=== PATIENT | male | born 1945 | race Caucasian/White ===

== ENCOUNTER → 2020-04-26 11:26 | Outpatient (BNVA) | payer MEDICARE, SELFPAY | PROVIDERS: PCP Internal Medicine; Visit Provider Internal Medicine | DX: J44.9 Chronic obstructive pulmonary disease, unspecified (principal); R09.02 Hypoxemia | CPT/HCPCS: 99213 ==

== ENCOUNTER → 2020-05-25 10:25 | Outpatient (BNVA) | payer MEDICARE, SELFPAY | PROVIDERS: PCP Internal Medicine; Referring Provider Internal Medicine; Visit Provider Internal Medicine | DX: J44.9 Chronic obstructive pulmonary disease, unspecified (principal); R09.02 Hypoxemia; Z87.891 Personal history of nicotine dependence | CPT/HCPCS: 99212 ==

== ENCOUNTER 2020-07-31 06:16 | Outpatient (REF) | payer MEDICARE, SELFPAY ==
[2020-07-31 07:10] LABS: Basophils Absolute Auto 0.1 X10*3/uL (0.0-0.2); Basophils Percent Auto 0.9 % (0-2); Eosinophils Absolute Auto 0.6 X10*3/uL (0.0-0.4); Imm Gran Abs Auto 0.05 X10*3/uL (0.00-0.03); Imm Gran Pct Auto 0.4 % (0.0-0.4); PLT CLUMP 1; SCAN SMEAR FLAG 1
[2020-07-31 07:12] LABS: Hemoglobin 14.8 g/dl (14.0-18.0); Lymphocytes Absolute Auto 2.1 X10*3/uL (1.2-4.9); Lymphocytes Percent Auto 17.1 % (20-40); Mean Corpuscular HGB Conc 32.9 g/dl (31.0-36.0); Mean Corpuscular Volume 94.3 fL (80-98); Mean Platelet Volume 9.9 fL (9.4-12.4); Monocytes Absolute Auto 1.3 X10*3/uL (0.1-1.2); Monocytes Percent Auto 10.8 % (2-11); Neutrophils Absolute Auto 8.1 X10*3/uL (2.0-8.3); Neutrophils Percent Auto 65.8 % (45-73); Red Blood Count 4.77 X10*6/uL (4.60-5.80); Red Cell Distribution Width 14.6 % (11.0-16.0); White Blood Count 12.4 X10*3/uL (4.8-10.8)
[2020-07-31 07:19] LABS: MANUAL DIFF FLAG SCAN
[2020-07-31 07:32] LABS: Alanine Aminotransferase 12 U/L (0-40); Albumin Level 3.9 g/dL (3.5-5.0); Alkaline Phosphatase 135 U/L (39-117); Anion Gap 15 (12-20); Aspartate Amino Transferase 17 U/L (5-37); Bilirubin Total 1.4 mg/dL (0.0-1.0); Blood Urea Nitrogen 8 mg/dL (9-16); Calcium 9.2 mg/dL (8.4-10.2); Carbon Dioxide 30 mmol/L (22-29); Chloride 101 mmol/L (96-108); Cholesterol 162 mg/dL; Estimated Glomerular Filt Rate > 60; Glucose Fasting 97 mg/dL (60-99); HDL Cholesterol 47 mg/dL; LDL Cholesterol Calculated 98 mg/dl; Sodium 141 mmol/L (135-145); Total Protein 7.3 g/dL (6.5-8.0); Triglycerides 87 mg/dL
[2020-07-31 07:53] LABS: Estimated Average Glucose 105 mg/dL; Hemoglobin A1c % 5.3 %
[2020-07-31 07:55] LABS: SLIDE REVIEW VERIFIED
[2020-07-31 07:56] LABS: Vitamin D 25-OH Total 34.3 ng/mL (>30)
== END 2020-07-31 06:17 | disposition home or self-care (01) ==
LOC: HO.LAB 06:16
PROVIDERS: Visit Provider Internal Medicine
DX: E78.5 Hyperlipidemia, unspecified (principal); K51.90 Ulcerative colitis, unspecified, without complications; R73.01 Impaired fasting glucose; J44.9 Chronic obstructive pulmonary disease, unspecified; E55.9 Vitamin D deficiency, unspecified; E66.9 Obesity, unspecified
CPT/HCPCS: 36415; 80053; 80061; 82306; 83036; 84443; 85025

== ENCOUNTER → 2020-10-05 10:23 | Outpatient (BNVA) | payer MEDICARE, SELFPAY | PROVIDERS: PCP Internal Medicine; Visit Provider Internal Medicine | DX: J44.9 Chronic obstructive pulmonary disease, unspecified (principal); R09.02 Hypoxemia; Z79.51 Long term (current) use of inhaled steroids; Z87.891 Personal history of nicotine dependence | CPT/HCPCS: 99212 ==

== ENCOUNTER 2020-11-28 06:23 | Outpatient (REF) | payer MEDICARE, SELFPAY ==
[2020-11-28 07:48] LABS: Basophils Absolute Auto 0.1 X10*3/uL (0.0-0.2); Basophils Percent Auto 0.9 % (0-2); Eosinophils Absolute Auto 0.2 X10*3/uL (0.0-0.4); Eosinophils Percent Auto 2.6 % (0-4); Hematocrit 43.3 % (42-52); Hemoglobin 14.6 g/dl (14.0-18.0); Imm Gran Abs Auto 0.04 X10*3/uL (0.00-0.03); Imm Gran Pct Auto 0.4 % (0.0-0.4); Lymphocytes Absolute Auto 2.2 X10*3/uL (1.2-4.9); Lymphocytes Percent Auto 23.3 % (20-40); MANUAL DIFF FLAG SCAN; Mean Corpuscular HGB Conc 33.7 g/dl (31.0-36.0); Mean Corpuscular Hemoglobin 31.5 pg (27.0-33.0); Mean Corpuscular Volume 93.5 fL (80-98); Monocytes Absolute Auto 1.3 X10*3/uL (0.1-1.2); Monocytes Percent Auto 14.4 % (2-11); Neutrophils Absolute Auto 5.4 X10*3/uL (2.0-8.3); Neutrophils Percent Auto 58.4 % (45-73); PLT CLUMP 1; Red Blood Count 4.63 X10*6/uL (4.60-5.80); Red Cell Distribution Width 14.5 % (11.0-16.0); SCAN SMEAR FLAG 1
[2020-11-28 07:56] LABS: Alanine Aminotransferase 18 U/L (0-40); Albumin Level 4.1 g/dL (3.5-5.0); Alkaline Phosphatase 143 U/L (39-117); Anion Gap 12 (12-20); Aspartate Amino Transferase 20 U/L (5-37); Bilirubin Total 1.7 mg/dL (0.0-1.0); Blood Urea Nitrogen 15 mg/dL (9-16); Calcium 9.1 mg/dL (8.4-10.2); Carbon Dioxide 29 mmol/L (22-29); Chloride 105 mmol/L (96-108); Cholesterol 143 mg/dL; Estimated Glomerular Filt Rate > 60; Glucose Fasting 88 mg/dL (60-99); HDL Cholesterol 49 mg/dL; LDL Cholesterol Calculated 81 mg/dl; Potassium 4.2 mmol/L (3.3-5.1); Sodium 142 mmol/L (135-145); Triglycerides 65 mg/dL
[2020-11-28 08:19] LABS: TSH reflex Free T4 1.35 uIU/mL (0.32-4.0)
[2020-11-28 09:09] LABS: White Blood Count 9.3 X10*3/uL (4.8-10.8)
[2020-11-28 09:11] LABS: SLIDE REVIEW VERIFIED
== END 2020-11-28 06:24 | disposition home or self-care (01) ==
LOC: HO.LAB 06:23
PROVIDERS: PCP Internal Medicine; Visit Provider Internal Medicine
DX: E78.00 Pure hypercholesterolemia, unspecified (principal); J44.9 Chronic obstructive pulmonary disease, unspecified; K51.90 Ulcerative colitis, unspecified, without complications; R73.01 Impaired fasting glucose; E66.9 Obesity, unspecified
CPT/HCPCS: 36415; 80053; 80061; 84443; 85025

== ENCOUNTER → 2021-02-07 10:19 | Outpatient (BNVA) | payer MEDICARE, SELFPAY | PROVIDERS: PCP Internal Medicine; Visit Provider Internal Medicine | DX: J44.9 Chronic obstructive pulmonary disease, unspecified (principal); R09.02 Hypoxemia | CPT/HCPCS: 99212 ==

== ENCOUNTER 2021-02-16 15:46 | Outpatient (REF) | payer SELFPAY | END 2021-02-16 15:47 | disposition home or self-care (01) | LOC: HO.HAP 15:46 | PROVIDERS: Visit Provider Internal Medicine | DX: Z46.1 Encounter for fitting and adjustment of hearing aid (principal); H90.3 Sensorineural hearing loss, bilateral | CPT/HCPCS: V5266; V5267 ==

== ENCOUNTER 2021-04-27 06:51 | Outpatient (REF) | payer MEDICARE, SELFPAY ==
[2021-04-27 06:57] LABS: MANUAL DIFF FLAG NO
[2021-04-27 07:29] LABS: Basophils Absolute Auto 0.1 X10*3/uL (0.0-0.2); Basophils Percent Auto 0.6 % (0-2); Eosinophils Absolute Auto 0.2 X10*3/uL (0.0-0.4); Eosinophils Percent Auto 1.8 % (0-4); Hematocrit 42.5 % (42-52); Imm Gran Abs Auto 0.05 X10*3/uL (0.00-0.03); Imm Gran Pct Auto 0.5 % (0.0-0.4); Lymphocytes Absolute Auto 2.3 X10*3/uL (1.2-4.9); Lymphocytes Percent Auto 24.9 % (20-40); Mean Corpuscular HGB Conc 35.3 g/dl (31.0-36.0); Mean Corpuscular Hemoglobin 32.8 pg (27.0-33.0); Mean Corpuscular Volume 92.8 fL (80-98); Mean Platelet Volume 11.4 fL (9.4-12.4); Monocytes Absolute Auto 1.2 X10*3/uL (0.1-1.2); Monocytes Percent Auto 12.6 % (2-11); Neutrophils Absolute Auto 5.5 X10*3/uL (2.0-8.3); Neutrophils Percent Auto 59.6 % (45-73); Platelet Count 155 X10*3/uL (160-400); Red Blood Count 4.58 X10*6/uL (4.60-5.80); Red Cell Distribution Width 13.5 % (11.0-16.0); White Blood Count 9.3 X10*3/uL (4.8-10.8)
[2021-04-27 07:52] LABS: Alanine Aminotransferase 18 U/L (0-40); Albumin Level 4.2 g/dL (3.5-5.0); Alkaline Phosphatase 140 U/L (39-117); Anion Gap 11 (12-20); Aspartate Amino Transferase 21 U/L (5-37); Blood Urea Nitrogen 12 mg/dL (9-16); Calcium 9.4 mg/dL (8.4-10.2); Carbon Dioxide 30 mmol/L (22-29); Chloride 103 mmol/L (96-108); Cholesterol 156 mg/dL; Estimated Glomerular Filt Rate > 60; Glucose Fasting 97 mg/dL (60-99); HDL Cholesterol 54 mg/dL; LDL Cholesterol Calculated 86 mg/dl; Potassium 4.1 mmol/L (3.3-5.1); Sodium 140 mmol/L (135-145); Total Protein 7.1 g/dL (6.5-8.0); Triglycerides 83 mg/dL
[2021-04-27 08:16] LABS: Vitamin D 25-OH Total 31.8 ng/mL (>30)
== END 2021-04-27 06:52 | disposition home or self-care (01) ==
LOC: HO.LAB 06:51
PROVIDERS: PCP Internal Medicine; Visit Provider Internal Medicine
DX: J44.9 Chronic obstructive pulmonary disease, unspecified (principal); K51.90 Ulcerative colitis, unspecified, without complications; E78.00 Pure hypercholesterolemia, unspecified; R73.01 Impaired fasting glucose; E55.9 Vitamin D deficiency, unspecified
CPT/HCPCS: 36415; 80053; 80061; 81003; 82306; 85025

== ENCOUNTER 2021-05-31 10:01 | Outpatient (REF) | payer MEDICARE, SELFPAY ==
[2021-05-31 10:52] LABS: Alanine Aminotransferase 19 U/L (0-40); Albumin Level 4.2 g/dL (3.5-5.0); Alkaline Phosphatase 147 U/L (39-117); Aspartate Amino Transferase 19 U/L (5-37); Bilirubin Direct 0.7 mg/dL (0.0-0.5); Bilirubin Total 2.1 mg/dL (0.0-1.0); Total Protein 7.1 g/dL (6.5-8.0)
== END 2021-05-31 10:02 | disposition home or self-care (01) ==
LOC: HO.10HDL 10:01
PROVIDERS: Visit Provider Internal Medicine
DX: R79.89 Other specified abnormal findings of blood chemistry (principal)
CPT/HCPCS: 36415; 80076

== ENCOUNTER 2021-06-29 10:00 | Outpatient (REF) | payer MEDICARE, SELFPAY ==
[2021-06-29 11:04] LABS: Imm Gran Abs Auto 0.04 X10*3/uL (0.00-0.03); PLT CLUMP 1; SCAN SMEAR FLAG 1
[2021-06-29 11:06] LABS: Basophils Absolute Auto 0.1 X10*3/uL (0.0-0.2); Basophils Percent Auto 0.4 % (0-2); Eosinophils Absolute Auto 0.1 X10*3/uL (0.0-0.4); Eosinophils Percent Auto 0.7 % (0-4); Hemoglobin 15.5 g/dl (14.0-18.0); Imm Gran Pct Auto 0.3 % (0.0-0.4); Lymphocytes Absolute Auto 1.8 X10*3/uL (1.2-4.9); Lymphocytes Percent Auto 15.1 % (20-40); MANUAL DIFF FLAG SCAN; Mean Corpuscular HGB Conc 35.2 g/dl (31.0-36.0); Mean Corpuscular Hemoglobin 32.8 pg (27.0-33.0); Mean Corpuscular Volume 93.2 fL (80.0-98.0); Monocytes Absolute Auto 1.4 X10*3/uL (0.1-1.2); Monocytes Percent Auto 12.1 % (2-11); Neutrophils Absolute Auto 8.3 x10*3/uL (2.0-8.3); Neutrophils Percent Auto 71.4 % (45-73); Red Blood Count 4.72 X10*6/uL (4.60-5.80); Red Cell Distribution Width 13.9 % (11.0-16.0)
[2021-06-29 11:10] LABS: White Blood Count 11.6 X10*3/uL (4.8-10.8)
[2021-06-29 11:30] LABS: SLIDE REVIEW VERIFIED
[2021-06-29 11:44] LABS: Alanine Aminotransferase 16 U/L (0-40); Alkaline Phosphatase 157 U/L (39-117); Anion Gap 14 (12-20); Aspartate Amino Transferase 20 U/L (5-37); Bilirubin Direct 0.7 mg/dL (0.0-0.5); Bilirubin Total 2.1 mg/dL (0.0-1.0); Blood Urea Nitrogen 8 mg/dL (9-16); C Reactive Protein 3.38 mg/dL (< or = 0.50); Calcium 9.5 mg/dL (8.4-10.2); Carbon Dioxide 28 mmol/L (22-29); Chloride 103 mmol/L (96-108); Estimated Glomerular Filt Rate > 60; Glucose Random 128 mg/dL (60-115); Sodium 141 mmol/L (135-145); Total Protein 7.1 g/dL (6.5-8.0)
[2021-06-29 11:52] LABS: Erythrocyte Sedimentation Rate 16 MM/HR (0-15)
== END 2021-06-29 10:01 | disposition home or self-care (01) ==
LOC: HO.LAB 10:00
PROVIDERS: PCP Internal Medicine; Visit Provider Internal Medicine
DX: K51.00 Ulcerative (chronic) pancolitis without complications (principal); R19.7 Diarrhea, unspecified
CPT/HCPCS: 36415; 80048; 80076; 85025; 85652; 86140

== ENCOUNTER 2021-06-30 08:52 | Outpatient (REF) | payer MEDICARE, SELFPAY ==
[2021-06-30 10:34] LABS: CDiff Gene PCR NEGATIVE (Negative)
[2021-06-30 10:38] LABS: Leukocytes Stool Qualitative NEGATIVE (NEGATIVE)
== END 2021-06-30 08:53 | disposition home or self-care (01) ==
LOC: HO.LNP 08:52
PROVIDERS: Visit Provider Internal Medicine
DX: K51.00 Ulcerative (chronic) pancolitis without complications (principal); R19.7 Diarrhea, unspecified
CPT/HCPCS: 87045; 87046; 87177; 87209; 87329; 87493; 89055

== ENCOUNTER → 2021-07-31 09:37 | Outpatient (BNVA) | payer MEDICARE, SELFPAY | PROVIDERS: PCP Internal Medicine; Visit Provider Internal Medicine | DX: J44.9 Chronic obstructive pulmonary disease, unspecified (principal); R09.02 Hypoxemia; E66.9 Obesity, unspecified; Z68.34 Body mass index [BMI] 34.0-34.9, adult | CPT/HCPCS: 99212 ==

== ENCOUNTER → 2022-01-29 10:21 | Outpatient (BNVA) | payer MEDICARE, SELFPAY | PROVIDERS: PCP Internal Medicine; Visit Provider Internal Medicine | DX: J44.9 Chronic obstructive pulmonary disease, unspecified (principal); E66.9 Obesity, unspecified; R09.02 Hypoxemia; Z68.33 Body mass index [BMI] 33.0-33.9, adult | CPT/HCPCS: 99212 ==

== ENCOUNTER 2022-04-29 07:10 | Outpatient (REF) | payer MEDICARE, SELFPAY ==
[2022-04-29 07:26] LABS: MANUAL DIFF FLAG NO
[2022-04-29 07:55] LABS: Basophils Absolute Auto 0.1 X10*3/uL (0.0-0.2); Basophils Percent Auto 0.8 % (0-2); Eosinophils Absolute Auto 0.2 X10*3/uL (0.0-0.4); Hematocrit 45.3 % (42.0-52.0); Hemoglobin 16.1 g/dl (14.0-18.0); Imm Gran Abs Auto 0.04 X10*3/uL (0.00-0.03); Imm Gran Pct Auto 0.4 % (0.0-0.4); Lymphocytes Absolute Auto 2.5 X10*3/uL (1.2-4.9); Lymphocytes Percent Auto 25.5 % (20-40); Mean Corpuscular HGB Conc 35.5 g/dl (31.0-36.0); Mean Corpuscular Hemoglobin 32.3 pg (27.0-33.0); Mean Corpuscular Volume 90.8 fL (80.0-98.0); Mean Platelet Volume 9.6 fL (9.4-12.4); Monocytes Percent Auto 10.3 % (2-11); Neutrophils Absolute Auto 6.1 x10*3/uL (2.0-8.3); Platelet Count 348 X10*3/uL (160-400); Red Blood Count 4.99 X10*6/uL (4.60-5.80)
[2022-04-29 08:36] LABS: Alanine Aminotransferase 19 U/L (0-40); Albumin Level 4.3 g/dL (3.5-5.0); Alkaline Phosphatase 173 U/L (39-117); Anion Gap 18 (12-20); Aspartate Amino Transferase 22 U/L (5-37); Bilirubin Total 2.4 mg/dL (0.0-1.0); Blood Urea Nitrogen 10 mg/dL (9-16); Calcium 9.4 mg/dL (8.4-10.2); Carbon Dioxide 28 mmol/L (22-29); Chloride 103 mmol/L (96-108); Cholesterol 159 mg/dL; Estimated Glomerular Filt Rate > 60; Glucose Fasting 116 mg/dL (60-99); HDL Cholesterol 53 mg/dL; LDL Cholesterol Calculated 84 mg/dl; Potassium 4.1 mmol/L (3.3-5.1); Sodium 145 mmol/L (135-145); Total Protein 7.2 g/dL (6.5-8.0); Triglycerides 110 mg/dL
[2022-04-29 08:38] LABS: TSH reflex Free T4 1.39 uIU/mL (0.32-4.0); Vitamin D 25-OH Total 36.2 ng/mL (>30)
[2022-04-29 10:07] LABS: Appearance Urine Clear; Color Urine Yellow; Glucose Urine UA Negative (Negative); Leukocyte Esterase Urine Large (3+) (Negative); Nitrite Urine Negative (Negative); PH 6.5 (5.0-9.0); Specific Gravity - Urine 1.015 (1.005-1.025); UMIC TRIGGER UACC YES; Urine Blood Trace (Negative); Urine Ketones Negative (Negative); Urine Protein 30 (1+) mg/dL (Neg-Trace)
[2022-04-29 10:12] LABS: Bacteria Urine Trace (None Seen); Hyaline Casts Urine 0-2 /LPF (0-2); RBC Urine 0-2 /HPF (0-2); UACC Culture Trigger YES; WBC Urine >50 /HPF (0-5)
== END 2022-04-29 07:11 | disposition home or self-care (01) ==
LOC: HO.LAB 07:10
PROVIDERS: PCP Internal Medicine; Visit Provider Internal Medicine
DX: E78.00 Pure hypercholesterolemia, unspecified (principal); E55.9 Vitamin D deficiency, unspecified; I10 Essential (primary) hypertension
CPT/HCPCS: 36415; 80053; 80061; 81001; 82306; 84443; 85025; 87086; 87088; 87186

== ENCOUNTER → 2022-07-30 10:36 | Outpatient (BNVA) | payer MEDICARE, SELFPAY | PROVIDERS: PCP Internal Medicine; Visit Provider Internal Medicine | DX: J44.9 Chronic obstructive pulmonary disease, unspecified (principal); E66.9 Obesity, unspecified; R09.02 Hypoxemia; J30.9 Allergic rhinitis, unspecified; K51.90 Ulcerative colitis, unspecified, without complications | CPT/HCPCS: 99212 ==

== ENCOUNTER 2022-08-09 08:13 | Outpatient (REF) | payer MEDICARE, SELFPAY ==
[2022-08-09 08:38] LABS: MANUAL DIFF FLAG NO
[2022-08-09 08:51] LABS: Basophils Percent Auto 0.4 % (0-2); Hematocrit 44.2 % (42.0-52.0); Hemoglobin 15.6 g/dl (14.0-18.0); Imm Gran Abs Auto 0.08 X10*3/uL (0.00-0.03); Imm Gran Pct Auto 0.7 % (0.0-0.4); Lymphocytes Absolute Auto 1.8 X10*3/uL (1.2-4.9); Lymphocytes Percent Auto 15.5 % (20-40); Mean Corpuscular HGB Conc 35.3 g/dl (31.0-36.0); Mean Corpuscular Hemoglobin 32.4 pg (27.0-33.0); Mean Corpuscular Volume 91.9 fL (80.0-98.0); Mean Platelet Volume 9.1 fL (9.4-12.4); Monocytes Absolute Auto 1.4 X10*3/uL (0.1-1.2); Neutrophils Absolute Auto 8.1 x10*3/uL (2.0-8.3); Neutrophils Percent Auto 71.4 % (45-73); Platelet Count 523 X10*3/uL (160-400); Red Blood Count 4.81 X10*6/uL (4.60-5.80); Red Cell Distribution Width 14.5 % (11.0-16.0); White Blood Count 11.3 X10*3/uL (4.8-10.8)
[2022-08-09 09:33] LABS: Erythrocyte Sedimentation Rate 30 MM/HR (0-15)
[2022-08-09 09:38] LABS: Alanine Aminotransferase 21 U/L (0-40); Albumin Level 4.2 g/dL (3.5-5.0); Alkaline Phosphatase 159 U/L (39-117); Amylase 22 U/L (28-100); Anion Gap 15 (12-20); Aspartate Amino Transferase 20 U/L (5-37); Bilirubin Direct 0.5 mg/dL (0.0-0.5); Bilirubin Total 1.8 mg/dL (0.0-1.0); Blood Urea Nitrogen 10 mg/dL (9-16); C Reactive Protein 1.86 mg/dL (< or = 0.50); Calcium 9.2 mg/dL (8.4-10.2); Carbon Dioxide 27 mmol/L (22-29); Chloride 102 mmol/L (96-108); Estimated Glomerular Filt Rate > 60; Glucose Random 127 mg/dL (60-115); Lipase 8 U/L (8-78); Potassium 3.6 mmol/L (3.3-5.1); Sodium 140 mmol/L (135-145); Total Protein 7.1 g/dL (6.5-8.0)
[2022-08-10 08:49] LABS: HBc Num1 0.08 S/CO (0.00-0.79); HBsAGNum1 0.54 S/CO (0.00-0.99); Hepatitis B Core Antibody Nonreactive (Nonreactive); Hepatitis B Surface Antigen Negative (Negative); ~Hepatitis B Surface Antibody NONREACTIVE (Nonreactive)
[2022-08-11 23:05] LABS: TS Negative Control Passed; TS Panel A 1; TS Panel B 0; TS Positive Control Passed; TSpotTB Negative (Negative)
== END 2022-08-09 08:14 | disposition home or self-care (01) ==
LOC: HO.LAB 08:13
PROVIDERS: PCP Internal Medicine; Visit Provider Internal Medicine
DX: Z11.1 Encounter for screening for respiratory tuberculosis (principal); R10.84 Generalized abdominal pain; K51.00 Ulcerative (chronic) pancolitis without complications
CPT/HCPCS: 36415; 80048; 80076; 82150; 83690; 85025; 85652; 86140; 86481; 86704; 86706; 87340

== ENCOUNTER 2022-08-10 11:05 | Outpatient (REF) | payer MEDICARE, SELFPAY ==
[2022-08-10 13:21] LABS: CDiff Gene PCR NEGATIVE (Negative)
[2022-08-10 13:31] LABS: Leukocytes Stool Qualitative FEW: < 2/OIF (NEGATIVE)
[2022-08-15 22:09] LABS: Calprotectin, Fecal 7130 mcg/g
== END 2022-08-10 11:06 | disposition home or self-care (01) ==
LOC: HO.LNP 11:05
PROVIDERS: Visit Provider Internal Medicine
DX: R10.84 Generalized abdominal pain (principal); K51.00 Ulcerative (chronic) pancolitis without complications
CPT/HCPCS: 83993; 87493; 87507; 89055

== ENCOUNTER 2022-11-26 06:54 | Outpatient (REF) | payer MEDICARE, SELFPAY ==
[2022-11-26 07:03] LABS: MANUAL DIFF FLAG NO
[2022-11-26 07:59] LABS: Basophils Absolute Auto 0.1 X10*3/uL (0.0-0.2); Basophils Percent Auto 1.1 % (0-2); Eosinophils Absolute Auto 0.2 X10*3/uL (0.0-0.4); Eosinophils Percent Auto 2.2 % (0-4); Hematocrit 45.4 % (42.0-52.0); Imm Gran Abs Auto 0.04 X10*3/uL (0.00-0.03); Imm Gran Pct Auto 0.4 % (0.0-0.4); Lymphocytes Absolute Auto 2.7 X10*3/uL (1.2-4.9); Lymphocytes Percent Auto 24.6 % (20-40); Mean Corpuscular HGB Conc 35.2 g/dl (31.0-36.0); Mean Corpuscular Hemoglobin 32.7 pg (27.0-33.0); Mean Corpuscular Volume 92.7 fL (80.0-98.0); Monocytes Absolute Auto 1.4 X10*3/uL (0.1-1.2); Monocytes Percent Auto 12.4 % (2-11); Neutrophils Absolute Auto 6.6 x10*3/uL (2.0-8.3); Neutrophils Percent Auto 59.3 % (45-73); Red Cell Distribution Width 13.4 % (11.0-16.0); White Blood Count 11.1 X10*3/uL (4.8-10.8)
[2022-11-26 08:33] LABS: Mean Platelet Volume 10.1 fL (9.4-12.4)
[2022-11-26 08:34] LABS: Platelet Count 354 X10*3/uL (160-400)
[2022-11-26 11:02] LABS: Estimated Average Glucose 103 mg/dL; Hemoglobin A1c % 5.2 %
[2022-11-26 12:27] LABS: Alanine Aminotransferase 18 U/L (0-40); Albumin Level 4.1 g/dL (3.5-5.0); Alkaline Phosphatase 153 U/L (39-117); Anion Gap 16 (12-20); Aspartate Amino Transferase 20 U/L (5-37); Bilirubin Total 2.3 mg/dL (0.0-1.0); Blood Urea Nitrogen 9 mg/dL (9-16); Calcium 9.3 mg/dL (8.4-10.2); Carbon Dioxide 28 mmol/L (22-29); Chloride 102 mmol/L (96-108); Cholesterol 159 mg/dL; Estimated Glomerular Filt Rate > 60; Glucose Fasting 114 mg/dL (60-99); HDL Cholesterol 48 mg/dL; LDL Cholesterol Calculated 89 mg/dl; Potassium 3.5 mmol/L (3.3-5.1); Sodium 142 mmol/L (135-145); TSH reflex Free T4 1.36 uIU/mL (0.32-4.0); Total Protein 6.8 g/dL (6.5-8.0); Triglycerides 112 mg/dL; Vitamin D 25-OH Total 36.8 ng/mL (>30)
== END 2022-11-26 06:55 | disposition home or self-care (01) ==
LOC: HO.LAB 06:54
PROVIDERS: PCP Internal Medicine; Visit Provider Internal Medicine
DX: I10 Essential (primary) hypertension (principal); E55.9 Vitamin D deficiency, unspecified; R73.01 Impaired fasting glucose; E78.00 Pure hypercholesterolemia, unspecified
CPT/HCPCS: 36415; 80053; 80061; 82306; 83036; 84443; 85025

== ENCOUNTER 2023-02-25 09:11 | Outpatient (AMB) | payer MEDICARE, SELFPAY ==
[2023-02-25 09:22] VITALS: BP 140/102; PULSE 69; O2SAT 95; BMI 32.7
--- NOTE | 2023-02-25 09:22 | A.OFFVIS_ITS ---
Intake Vital Signs 02/25/23 09:22 Height 5 ft 7 in Weight 209 lb BMI 32.7 BP 140/102 H Blood Pressure Location Lt brachial Position Standing Pulse 69 Pulse Source Pulse Oximeter Pulse Oximetry (%) 95 Oxygen Delivery Method Room Air Intake Visit Reasons: COPD follow up Intake Note: pt is here for follow up of copd, he is on prednisone for his colitits for 7 weeks. prednisone is now at 15mg daily, taper the dose, breathing is ok, but weather is not good for him. Allergies No Known Allergies Allergy (Verified 02/25/23 09:44) Medication List - Last Reconciled 02/25/23 by Celsa Hoyt MD cholecalciferol (vitamin D3) 25 mcg PO DAILY mesalamine ER (Apriso) 1.5 grams PO QAM prednisone mg PO simvastatin 20 mg PO BEDTIME Do you need a note to return to daycare/school/sports/work: No HPI COPD follow up HPI Details Bright, 77 years old gentleman, is coming for his 6 months follow-up. Breathing wharton feeling fine and has no cough for shortness of breath. This is because of the prednisone effect. Since he is on prednisone for his inflammatory bowel disease, his breathing has definitely improved and he is not needing any oxygen. He does have O2 concentrator at home along with portable unit, but not using it at all these days. He checks his O2 sat frequently and it stay is in the normal range. He has no cough or wheezing. His sleep is disturbed because of prednisone he wakes up during the midnight and then has hard time to go back to sleep. His chronic allergic rhinitis/sinus trouble is also under control since he is on prednisone. It seems that his the respiratory condition flares up along with the flare up of inflammatory bowel disease, and both conditions respond to oral prednisone. [facility] Medical History Allergic rhinosinusitis COPD (chronic obstructive pulmonary disease) COPD (chronic obstructive pulmonary disease) case management patient Exercise hypoxemia Impaired fasting glucose Obesity (BMI 30-39.9) Pure hypercholesterolemia Ulcerative colitis Vitamin D deficiency Surgical History No pertinent past surgical history Family History Father Medical history unknown Mother Cancer Social History Housing: House Alcohol intake: former Patient Tobacco Use Status: Former Tobacco user Years Smoked: 8 years ago e-Cigarette/Vaping Use: Never Used Second Hand Smoke Exposure: Yes service: Yes Current occupational status: retired Cognitive needs: No Hearing needs: Yes Vision needs: Yes Review of Systems Const All systems reviewed & are unremarkable except as noted in HPI and below Eyes Reports no additional complaints ENT Reports no additional complaints Card Denies chest pain, Denies irregular heart rhythm and Reports leg edema (Mild around the ankles in the evenings.) Resp Reports as per HPI GI Reports GI cramping, Reports diarrhea and Reports other (Being treated for chronic inflammatory colitis.) Reports no additional complaints Musc Reports myalgias Skin/Breast Reports system reviewed and no additional complaints, except as documented Neuro Reports no additional complaints Psych Reports no additional complaints Physical Exam Const Other: Grossly obese looking General: comfortable, no acute distress, alert and awake Orientation/consciousness: patient oriented x3 HEENT Head: Yes normal to inspection General nose exam: No nasal polyps present, No nasal discharge present and Other nasal findings present (Does have bilateral nasal congestion and hypertrophy of the nasal turbinate) Face and sinus: Yes sinuses nontender Mouth: oropharynx normal Throat: Yes posterior oropharynx normal Eyes General: appearance normal, both eyes and all related structures Neck Neck: Yes normal visual inspection, Yes no lymphadenopathy, Yes trachea midline and Yes no JVD Thyroid: Thyroid normal Chest Chest palpation & inspection: normal inspection of the chest, normal palpation of entire chest wall and no tenderness Resp Other: Percussion note resonant, breath sounds are distant especially diminished over the basilar areas. On auscultation no wheezes rhonchi or crepitations are heard . Cardio Palpation: normal PMI Rate: regular rate Rhythm: regular rhythm Heart sounds: no gallops and no murmurs GI Palpation (GI): Soft to palpation, nontender, No hepatosplenomegaly present, no masses and Other GI palpation findings present (Abdomen is obese and protuberant) Auscultation: normal bowel sounds Back/Spine/Pelvis Thoracic/Lumbar Spine: thoracic and lumbar spine normal to inspection Skin General skin exam: no rashes or lesions noted Neuro General: patient oriented x3 and no focal motor deficits Cranial nerves: Yes CN's II-XII intact bilaterally Extrem General: Yes normal to inspection, Yes no clubbing, cyanosis or edema and Yes no calf tenderness Psych Appearance: grossly normal and well kempt Speech and movement: Normal speech and movement present Assessment & Plan Assessment & Plan (1) Allergic rhinosinusitis: Comment: THIS IS A CHRONIC PROBLEM AND DOES FLARE UP DURING SEASONAL CHANGES. CURRENTLY HE IS ON PREDNISONE IBS . THIS CONDITION IS ALSO UNDER GOOD CONTROL. [place] : USE FLONASE 2 SPRAY IN EACH NOSTRIL DAILY AT NIGHT, Code(s): J30.9 - Allergic rhinitis, unspecified (2) COPD (chronic obstructive pulmonary disease): Comment: He has mild to moderate degree of chronic obstructive pulmonary disease. (LAST SPIROMETRY IN 2019 MILD OBSTRUCTIVE PULM . DISORDER ) Has had no acute exacerbation. Has not required to use any long-acting bronchodilators, has also hardly needed to use the rescue inhaler. Overall his COPD status is mild and remaining very stable .. * advise that after completing the prednisone taper for IBS , he should stay on prednisone 5 mg on alternate days, And hopefully with this is COPD as well as IBS will remain under control. Will recheck him after 3 months. Code(s): J44.9 - Chronic obstructive pulmonary disease, unspecified Qualifiers: COPD type: unspecified COPD Qualified Code(s): J44.9 - Chronic obstructive pulmonary disease, unspecified (3) Obesity (BMI 30-39.9): Comment: This is a chronic problem, partly promoted by his frequently usage of prednisone for inflammatory bowel disease. He will continue to try losing more weight. Denies symptoms of obstructive sleep apnea. Code(s): E66.9 - Obesity, unspecified Coding Level of Care Code Est Pt Level 3 (13551) Diagnoses Allergic rhinosinusitis J30.9 COPD (chronic obstructive pulmonary disease) J44.9 COPD type: unspecified COPD Obesity (BMI 30-39.9) E66.9
== END 2023-02-25 09:52 | disposition home or self-care (01) ==
PROVIDERS: PCP Internal Medicine; Visit Provider Internal Medicine
DX: J30.9 Allergic rhinitis, unspecified (principal); J44.9 Chronic obstructive pulmonary disease, unspecified; E66.9 Obesity, unspecified
CPT/HCPCS: 99213

== ENCOUNTER → 2023-02-25 09:11 | Outpatient (BNVA) | payer MEDICARE, SELFPAY | PROVIDERS: PCP Internal Medicine; Visit Provider Internal Medicine | DX: J44.9 Chronic obstructive pulmonary disease, unspecified (principal); J30.9 Allergic rhinitis, unspecified; E66.9 Obesity, unspecified; Z68.32 Body mass index [BMI] 32.0-32.9, adult | CPT/HCPCS: 99212 ==

== ENCOUNTER 2023-06-04 10:18 | Outpatient (AMB) | payer MEDICARE, SELFPAY ==
[2023-06-04 10:30] VITALS: BP 160/82; PULSE 98; O2SAT 92; BMI 34.3
--- NOTE | 2023-06-04 10:30 | A.OFFVIS_ITS ---
Intake Vital Signs 06/04/23 10:30 Height 5 ft 7 in Weight 219 lb BMI 34.3 BP 160/82 H Blood Pressure Location Lt brachial Position Sitting Pulse 98 Pulse Source Pulse Oximeter Pulse Oximetry (%) 92 Oxygen Delivery Method Room Air Intake Visit Reasons: copd Intake Note: pt is here for follow up and states he is feeling some good days and bad days. o xygen use is prn daytime/nightime Unattended Ground Sensor Specialist Required: No Allergies No Known Allergies Allergy (Verified 06/04/23 10:57) Medication List - Last Reconciled 06/04/23 by Celsa Hoyt MD cholecalciferol (vitamin D3) 25 mcg PO DAILY mesalamine ER (Apriso) 1.5 grams PO QAM simvastatin 20 mg PO BEDTIME HPI copd HPI Details Maday is 77 years old gentleman with chronic obstructive pulmonary disease, . He is not using any bronchodilator inhalers, has used prednisone off and on, But stopped completely a few weeks ago. He say is his breathing is stable, except for shortness of breath on exertion, he is not having any cough or. Wheezing at rest He has inflammatory bowel disease and does use prednisone sometimes for flare ups of IBD. That is also stable at this time. He has very little cough or wheezing. He remains overweight, and that is partly due to chronic use of steroids . [facility] Medical History Allergic rhinosinusitis Obesity (BMI 30-39.9) Vitamin D deficiency Impaired fasting glucose Ulcerative colitis COPD (chronic obstructive pulmonary disease) Pure hypercholesterolemia Exercise hypoxemia COPD (chronic obstructive pulmonary disease) case management patient Surgical History No pertinent past surgical history Family History Father Medical history unknown Mother Cancer Social History Housing: House Alcohol intake: former Patient Tobacco Use Status: Former Tobacco user Years Smoked: 8 years ago e-Cigarette/Vaping Use: Never Used Second Hand Smoke Exposure: Yes service: Yes Current occupational status: retired Cognitive needs: No Hearing needs: Yes Vision needs: Yes Review of Systems Const All systems reviewed & are unremarkable except as noted in HPI and below Eyes Reports no additional complaints ENT Reports no additional complaints Card Denies chest pain, Denies irregular heart rhythm and Reports leg edema (Mild around the ankles in the evenings.) Resp Reports as per HPI GI Reports GI cramping, Reports diarrhea and Reports other (Being treated for chronic inflammatory colitis.) Reports no additional complaints Musc Reports myalgias Skin/Breast Reports system reviewed and no additional complaints, except as documented Neuro Reports no additional complaints Psych Reports no additional complaints Physical Exam Vital Signs: Last Vital Signs Pulse 98 06/04/23 10:30 BP 160/82 H 06/04/23 10:30 Pulse Ox 92 06/04/23 10:30 Oxygen Delivery Method Room Air 06/04/23 10:30 BMI result Body Mass Index 34.3 Const Other: Grossly obese looking General: comfortable, no acute distress, alert and awake Orientation/consciousness: patient oriented x3 HEENT Head: Yes normal to inspection General nose exam: No nasal polyps present, No nasal discharge present and Other nasal findings present (Does have bilateral nasal congestion and hypertrophy of the nasal turbinate) Face and sinus: Yes sinuses nontender Mouth: oropharynx normal Throat: Yes posterior oropharynx normal Eyes General: appearance normal, both eyes and all related structures Neck Neck: Yes normal visual inspection, Yes no lymphadenopathy, Yes trachea midline and Yes no JVD Thyroid: Thyroid normal Chest Chest palpation & inspection: normal inspection of the chest, normal palpation of entire chest wall and no tenderness Resp Other: Percussion note resonant, breath sounds are distant especially diminished over the basilar areas. On auscultation no wheezes rhonchi or crepitations are heard . Cardio Palpation: normal PMI Rate: regular rate Rhythm: regular rhythm Heart sounds: no gallops and no murmurs GI Palpation (GI): Soft to palpation, nontender, No hepatosplenomegaly present, no masses and Other GI palpation findings present (Abdomen is obese and protuberant) Auscultation: normal bowel sounds Back/Spine/Pelvis Thoracic/Lumbar Spine: thoracic and lumbar spine normal to inspection Skin General skin exam: no rashes or lesions noted Neuro General: patient oriented x3 and no focal motor deficits Cranial nerves: Yes CN's II-XII intact bilaterally Extrem General: Yes normal to inspection, Yes no clubbing, cyanosis or edema and Yes no calf tenderness Psych Appearance: grossly normal and well kempt Speech and movement: Normal speech and movement present Assessment & Plan Assessment & Plan (1) COPD (chronic obstructive pulmonary disease): Comment: He has mild to moderate degree of chronic obstructive pulmonary disease. (LAST SPIROMETRY IN 2019 MILD OBSTRUCTIVE PULM . DISORDER ) Has had no acute exacerbation. Has not required to use any long-acting bronchodilators, has also hardly needed to use the rescue inhaler. Overall his COPD status is mild and remaining very stable .. CURRENTLY HE IS NOT USING ANY PREDNISONE. Advised to keep prednisone on hand and may start using 5 mg a day for 1 week then 5 mg on alternate days if he starts having increased cough or wheezing. Also advised to keep ProAir on hand in case he has any cough or wheezing. Code(s): J44.9 - Chronic obstructive pulmonary disease, unspecified Qualifiers: COPD type: unspecified COPD Qualified Code(s): J44.9 - Chronic obstructive pulmonary disease, unspecified (2) Exercise hypoxemia: Comment: HE HAS THE PORTABLE UNIT. ADVISED TO USE AT 2 L/MT , WITH ANY PHYSICAL ACTIVITY , OR WHEN HE GOES OUTDOOR. HE MAY ALSO USE PRN AT HOME . I SUGGESTED THAT IT WILL BE BETTER FOR HIM TO USE O2 2 L/MINUTE AT NIGHT WHEN HE SLEEPS. HE IS SOMEWHAT RELUCTANT TO USE THE PORTABLE OXYGEN. BUT DOES CHECK HIS O2 SAT WHEN HE IS DOING ANY PHYSICAL ACTIVITY. GOAL IS TO KEEP O2 SAT ABOVE 90% HE STAYING MOSTLY IN THE HOUSE. Code(s): R09.02 - Hypoxemia (3) Obesity (BMI 30-39.9): Comment: This is a chronic problem, partly promoted by his frequently usage of prednisone for inflammatory bowel disease. He will continue to try losing more weight. Denies symptoms of obstructive sleep apnea. Code(s): E66.9 - Obesity, unspecified (4) Allergic rhinosinusitis: Comment: THIS IS A CHRONIC PROBLEM AND DOES FLARE UP DURING SEASONAL CHANGES. CURRENTLY HE IS ON PREDNISONE IBS . THIS CONDITION IS ALSO UNDER GOOD CONTROL. [place] : USE FLONASE 2 SPRAY IN EACH NOSTRIL DAILY AT NIGHT, Code(s): J30.9 - Allergic rhinitis, unspecified Medications: New albuterol sulfate 90 mcg/actuation 2 puffs inhalation Q4-6H PRN 8.5 grams 3RF shortness of breath or wheezing 30 days Coding Level of Care Code Est Pt Level 3 (97662) Diagnoses Chronic obstructive pulmonary disease, unspecified COPD type J44.9 COPD type: unspecified COPD Exercise hypoxemia R09.02 Obesity (BMI 30-39.9) E66.9 Allergic rhinosinusitis J30.9
== END 2023-06-04 11:08 | disposition home or self-care (01) ==
PROVIDERS: PCP Internal Medicine; Visit Provider Internal Medicine
DX: J44.9 Chronic obstructive pulmonary disease, unspecified (principal); R09.02 Hypoxemia; E66.9 Obesity, unspecified; J30.9 Allergic rhinitis, unspecified
CPT/HCPCS: 99213

== ENCOUNTER → 2023-06-04 10:18 | Outpatient (BNVA) | payer MEDICARE, SELFPAY | PROVIDERS: PCP Internal Medicine; Visit Provider Internal Medicine | DX: J44.9 Chronic obstructive pulmonary disease, unspecified (principal); R09.02 Hypoxemia; J30.9 Allergic rhinitis, unspecified; E66.9 Obesity, unspecified; Z68.34 Body mass index [BMI] 34.0-34.9, adult | CPT/HCPCS: 99212 ==

== ENCOUNTER 2023-06-05 07:50 | Outpatient (REF) | payer MEDICARE, SELFPAY ==
[2023-06-05 08:18] LABS: MANUAL DIFF FLAG NO
[2023-06-05 10:27] LABS: Appearance Urine Cloudy; Color Urine Yellow; Glucose Urine UA Negative (Negative); Leukocyte Esterase Urine Large (3+) (Negative); Nitrite Urine Negative (Negative); PH 6.5 (5.0-9.0); UMIC TRIGGER UACC YES; Urine Blood Trace (Negative); Urine Ketones Negative (Negative); Urine Protein 30 (1+) mg/dL (Neg-Trace)
[2023-06-05 10:31] LABS: Basophils Absolute Auto 0.1 X10*3/uL (0.0-0.2); Basophils Percent Auto 0.8 % (0-2); Eosinophils Absolute Auto 0.2 X10*3/uL (0.0-0.4); Eosinophils Percent Auto 1.9 % (0-4); Hematocrit 44.6 % (42.0-52.0); Hemoglobin 15.6 g/dl (14.0-18.0); Imm Gran Abs Auto 0.06 X10*3/uL (0.00-0.03); Imm Gran Pct Auto 0.6 % (0.0-0.4); Lymphocytes Absolute Auto 2.2 X10*3/uL (1.2-4.9); Lymphocytes Percent Auto 20.1 % (20-40); Mean Corpuscular Volume 94.3 fL (80.0-98.0); Mean Platelet Volume 9.8 fL (9.4-12.4); Monocytes Absolute Auto 1.3 X10*3/uL (0.1-1.2); Monocytes Percent Auto 11.6 % (2-11); Platelet Count 404 X10*3/uL (160-400); Red Blood Count 4.73 X10*6/uL (4.60-5.80); Red Cell Distribution Width 13.1 % (11.0-16.0); White Blood Count 10.8 X10*3/uL (4.8-10.8)
[2023-06-05 10:31] LABS: Bacteria Urine None Seen (None Seen); Hyaline Casts Urine 0-2 /LPF (0-2); RBC Urine 0-2 /HPF (0-2); Squamous Epithelial Cell Urine 0-2 /HPF (0-2); UACC Culture Trigger YES; WBC Urine >50 /HPF (0-5)
[2023-06-05 10:46] LABS: Estimated Average Glucose 103 mg/dL; Hemoglobin A1c % 5.2 % (<6.0)
[2023-06-05 11:03] LABS: Alanine Aminotransferase 18 U/L (0-40); Albumin Level 4.1 g/dL (3.5-5.0); Alkaline Phosphatase 146 U/L (39-117); Anion Gap 13 (12-20); Aspartate Amino Transferase 19 U/L (5-37); Bilirubin Total 1.5 mg/dL (0.0-1.0); Blood Urea Nitrogen 15 mg/dL (9-16); Calcium 9.4 mg/dL (8.4-10.2); Carbon Dioxide 33 mmol/L (22-29); Chloride 99 mmol/L (96-108); Cholesterol 171 mg/dL (<200); Estimated Glomerular Filt Rate > 60; Glucose Fasting 98 mg/dL (60-99); HDL Cholesterol 57 mg/dL (>40); LDL Cholesterol Calculated 101 mg/dL (<100); Sodium 142 mmol/L (135-145); Total Protein 7.4 g/dL (6.5-8.0); Triglycerides 68 mg/dL (<150)
[2023-06-05 11:21] LABS: TSH reflex Free T4 0.89 uIU/mL (0.32-4.0)
== END 2023-06-05 07:51 | disposition home or self-care (01) ==
LOC: HO.LAB 07:50
PROVIDERS: PCP Internal Medicine; Visit Provider Internal Medicine
DX: E78.00 Pure hypercholesterolemia, unspecified (principal); R73.01 Impaired fasting glucose; I10 Essential (primary) hypertension; E55.9 Vitamin D deficiency, unspecified; R30.0 Dysuria
CPT/HCPCS: 36415; 80053; 80061; 81001; 82306; 83036; 84443; 85025; 87086

== ENCOUNTER 2023-06-09 10:29 | Outpatient (AMB) | payer MEDICARE, SELFPAY ==
[2023-06-09 10:30] VITALS: BP 148/80; PULSE 97; O2SAT 90; BMI 33.9
--- NOTE | 2023-06-09 10:30 | MHC.PC.OV ---
Vital Signs 06/09/23 10:30 Height 5 ft 7 in Weight 216 lb 6 oz BMI 33.9 BP 148/80 H Blood Pressure Location Lt brachial Position Sitting Pulse 97 Pulse Source Pulse Oximeter Pulse Oximetry (%) 90 L Oxygen Delivery Method Room Air Intake Visit Reasons: COPD, hyperlipidemia, IFG Animal Behaviorist Required: No Accompanied by: Self / Same As Patient Allergies No Known Allergies Allergy (Verified 06/09/23 10:51) Medication List - Last Reconciled 06/09/23 by Reyes Galvin MD albuterol sulfate 90 mcg/actuation 2 puffs inhalation Q4-6H PRN 30 days cholecalciferol (vitamin D3) 25 mcg PO DAILY mesalamine ER (Apriso) 1.5 grams PO QAM simvastatin 20 mg PO BEDTIME Tobacco use date assessed: 06/09/23 Fall risk assessment: No Falls in past year Last assessed Fall Risk: 06/09/23 Dental Screening Dental Screen Date: 06/09/23 Did you have a dental visit in the last 12 months?: Yes Did you have a dental problem in the last 6 months where you did not have access to dental care?: No Was dental information given to patient?: Patient has dentist HPI COPD, hyperlipidemia, IFG HPI Details Patient comes in today for his follow up visit States that he feels okay He denies any headaches or dizziness Denies any chest pains, no increased SOB No nausea/vomiting, no abdominal pain No change in bowel habits noted Had his follow up labs done a few days ago - to discuss his results [facility] Medical History Allergic rhinosinusitis Obesity (BMI 30-39.9) Vitamin D deficiency Impaired fasting glucose Ulcerative colitis COPD (chronic obstructive pulmonary disease) Pure hypercholesterolemia Exercise hypoxemia COPD (chronic obstructive pulmonary disease) case management patient Surgical History No pertinent past surgical history Family History Father Medical history unknown Mother Cancer Social History Housing: House Alcohol intake: former Patient Tobacco Use Status: Former Tobacco user Years Smoked: 8 years ago e-Cigarette/Vaping Use: Never Used Second Hand Smoke Exposure: Yes service: Yes Current occupational status: retired Cognitive needs: No Hearing needs: Yes Vision needs: Yes Questionnaire PHQ-9 Over the last 2 weeks, how often have you been bothered by any of the following problems? 1. Little interest or pleasure in doing things: not at all 2. Feeling down, depressed, or hopeless: not at all 3. Trouble falling or staying asleep, or sleeping too much: not at all 4. Feeling tired or having little energy: not at all 5. Poor appetite or overeating: not at all 6. Feeling bad about yourself - or that you are a failure or have let yourself or your family down: not at all 7. Trouble concentrating on things, such as reading the newspaper or watching television: not at all 8. Moving or speaking so slowly that other people could have noticed. Or the opposite - being so fidgety or restless that you have been moving around a lot more than usual: not at all 9. Thoughts that you would be better off or of hurting yourself in some way: not at all Total score: 0 Depression Screening Interpretation: Negative Depression Screening Done: Yes 93872 - PHQ-9 Billing: Yes Source: Developed by Drs. Javi Moraes, Elaina Steiner, Jerod Appiah and colleagues, with an educational vee from [employer]. Thrive Questionnaire Date Thrive assessed: 06/09/23 I am a: Patient What is your living situation today?: I have a steady place to live Within the past 12 months, did the food you bought not last and you didn't have the money to get more?: Never true Within the past 12 months, did you worry whether your food would run out before you got money to buy more?: Never true Do you have trouble paying for medicines?: No Do you have trouble getting transportation to medical appointments?: No Do you have trouble paying your heating and electricity bill?: No Do you have trouble taking care of your child, family member or friend?: No Do you have trouble with day-to-day activities such as bathing, preparing meals, shopping, managing finances, etc.?: No Are you currently unemployed and looking for a job?: No Are you interested in more education?: No Please select the resources that you would like help with: None Currently or been in a relationship where the following occur: no concerns reported AUDIT C Alcohol Use Questionnaire (AUDIT-C) 1. How often do you have a drink containing alcohol?: Never 3. How often do you have six or more drinks on one occasion?: Never Total Score: 0 Score Reviewed/Action Taken: Yes SHONDA-7 AMB Questionnaire SHONDA-7 Date SHONDA - 7 assessed: 06/09/23 Feeling nervous, anxious, or on edge: 0 = Not at all Not being able to stop or control worryin = Not at all Worrying too much about different things: 0 = Not at all Trouble relaxin = Not at all Being so restless that it is hard to sit still: 0 = Not at all Becoming easily annoyed or irritable: 0 = Not at all Feeling afraid as if something awful might happen: 0 = Not at all Total SHONDA-7 score (0-4 normal; 5-9 mild; 10-14 moderate; 15-21 severe): 0 Source: Developed by Drs. Javi Moraes, Elaina Steiner, Jerod Appiah and colleagues, with an educational vee from [employer]. Review of Systems Const Denies chills, Denies fatigue, Denies fever(s) and Denies headache(s) ENT Denies dysphagia, Denies dizziness, Denies otalgia, Denies headache(s), Reports nasal congestion (on and off), Denies odynophagia and Denies sore throat Card Denies chest pain, Denies palpitations and Reports dyspnea on exertion (mild) Resp Denies chest congestion, Denies cough, Reports dyspnea on exertion (mild) and Denies wheezing GI Denies abdominal pain, Denies constipation, Denies dysphagia, Denies heartburn, Denies diarrhea, Denies nausea, Denies odynophagia and Denies vomiting Denies dysuria, Denies nocturia and Denies urinary frequency Musc Denies arthralgias Skin/Breast Denies rash Neuro Denies dizziness and Denies headache(s) Endo Denies fatigue and Denies palpitations Aller/Immun Denies wheezing Physical exam (Primary Care) Vital Signs: Last Vital Signs Pulse 97 06/09/23 10:30 BP 148/80 H 06/09/23 10:30 Pulse Ox 90 L 06/09/23 10:30 Oxygen Delivery Method Room Air 06/09/23 10:30 BMI result Body Mass Index 33.9 Tobacco/Smoking Status: Tobacco use Status Tobacco use date assessed 06/09/23 06/09/23 10:32 Patient Tobacco Use Status Former Tobacco user 06/09/23 10:32 e-Cigarette/Vaping Use Never Used 06/09/23 10:32 PHQ-9: PHQ-9 Score PHQ-9: Total score 0 06/09/23 10:56 Depression Screening Interpretation: Negative Thrive Assessment: Date of Thrive Assessment Date Thrive assessed 06/09/23 06/09/23 10:32 Currently or been in a relationship where the following occur: no concerns reported Const General: no acute distress and alert HENMT Ears: TM's normal bilaterally and EAC's normal Throat: Yes posterior oropharynx normal and Yes tonsils normal (no TP congestion noted) Neck Neck: Yes no lymphadenopathy and Yes supple Resp Auscultation: clear to auscultation bilaterally, no rales and no wheezes Cardio Rate: regular rate Rhythm: regular rhythm Heart sounds: no murmurs GI Palpation (GI): Soft to palpation and nontender Auscultation: normal bowel sounds Skin Rashes: no rashes Extrem General: Yes no clubbing, cyanosis or edema Office Procedures Flu Questionnaire Does the patient have a severe egg allergy?: No Does the patient have severe life threatening allergies?: No Does the patient have a fever or illness today?: No Has the patient ever had Guillain-[place] Syndrome?: No Has the patient ever had any past reaction to a flu shot?: No Immunizations flu vacc [id number] 6mos up(PF) 60 mcg(15 mcgx4)/0.5 mL IM syringe Performing Provider: Reyes Galvin MD Performing Location: [facility] Administered by: Glenda Eagle on 06/09/23 11:22 Dose Route Admin Location Dispensed Lot Number Expiration Date N[employer] Hotel Assistant Manager 0.5 mL IM Left Deltoid 0.5 mL [id number] 01/18/24 [id number] [employer] VIS Given Date VIS Provided VIS Publication Date 06/09/23 Single Vaccine 21 Eligibility Eligibility Date Funding Source Not VFC Eligible 06/09/23 Private Results Reviewed Results Reviewed: Laboratory Tests 08/09/22 06/05/23 06/05/23 08:36 08:00 08:00 WBC Hgb Hct Plt Count Sodium Potassium Creatinine Estimated GFR Fasting Glucose Hemoglobin A1c % Calcium Total Bilirubin Direct Bilirubin 0.5 AST ALT Alkaline Phosphatase Triglycerides Cholesterol LDL Cholesterol, Calc HDL Cholesterol 25-OH Vitamin D Total TSH Ur Specific [place] 1.020 Urine Protein 30 (1+) H Urine Glucose (UA) Negative Urine Blood Trace H 06/05/23 06/05/23 06/05/23 08:15 08:15 08:15 WBC 10.8 Hgb 15.6 Hct 44.6 Plt Count 404 H Sodium 142 Potassium 3.0 L Creatinine 0.88 Estimated GFR > 60 Fasting Glucose 98 Hemoglobin A1c % 5.2 Calcium 9.4 Total Bilirubin 1.5 H Direct Bilirubin AST 19 ALT 18 Alkaline Phosphatase 146 H Triglycerides 68 Cholesterol 171 LDL Cholesterol, Calc 101 H HDL Cholesterol 57 25-OH Vitamin D Total 43.0 TSH 0.89 Ur Specific [place] Urine Protein Urine Glucose (UA) Urine Blood Assessment and Plan Assessment & Plan (1) Pure hypercholesterolemia: Code(s): E78.00 - Pure hypercholesterolemia, unspecified Plan: Results of his labs done last week reviewed and discussed with patient Reinforced low cholesterol diet Continue Simvastatin 20 mg QD Will recheck his labs and fasting lipids in 6 months for follow up (2) COPD (chronic obstructive pulmonary disease): Comment: He has mild to moderate degree of chronic obstructive pulmonary disease. (LAST SPIROMETRY IN 2019 MILD OBSTRUCTIVE PULM . DISORDER ) Has had no acute exacerbation. Has not required to use any long-acting bronchodilators, has also hardly needed to use the rescue inhaler. Overall his COPD status is mild and remaining very stable .. CURRENTLY HE IS NOT USING ANY PREDNISONE. Advised to keep prednisone on hand and may start using 5 mg a day for 1 week then 5 mg on alternate days if he starts having increased cough or wheezing. Also advised to keep ProAir on hand in case he has any cough or wheezing. Code(s): J44.9 - Chronic obstructive pulmonary disease, unspecified Qualifiers: COPD type: unspecified COPD Qualified Code(s): J44.9 - Chronic obstructive pulmonary disease, unspecified Plan: Stable - has not required any inhalers or oxygen inhalation over the past few years and has had no problems or significant restrictions with his activities other than some SOB with increased exertion Follow up with pulmonary (Dr. Hoyt) as scheduled (3) Ulcerative colitis: Comment: Repeat colonoscopy done in 2019 - biopsies showed (+) chronic colitis but no dysplastic changes Code(s): K51.90 - Ulcerative colitis, unspecified, without complications Qualifiers: Ulcerative colitis location: unspecified ulcerative colitis location Digestive disease complication type: without complication Qualified Code(s): K51.90 - Ulcerative colitis, unspecified, without complications Plan: Takes oral Prednisone as needed for flare ups of his colitis Repeat colonoscopy in 2019 showed (+) chronic colitis on his biopsies but no dysplastic changes Continue Mesalamine ER 1.5 gm QAM Follow up with GI (Dr. Donovan) as scheduled (4) Elevated blood pressure reading in office without diagnosis of hypertension: Code(s): R03.0 - Elevated blood-pressure reading, without diagnosis of hypertension Plan: Reinforced low sodium diet - advised that his systolic BP should be at least at 130 to 140 mm or less Patient is advised to continue monitoring his blood pressure regularly (5) Hypokalemia: Code(s): E87.6 - Hypokalemia Plan: Unknown etiology - patient denies any recent nausea/vomiting or diarrhea and he is not on any medications that can cause hypokalemia Will have him take some potassium supplements for about 10 days to help correct this for now Will have him recheck his labs and serum potassium as well as serum magnesium level in 6 months for follow up (6) Impaired fasting glucose: Code(s): R73.01 - Impaired fasting glucose Plan: FBS was normal at 98 mg/dl on his labs done last week; HgbA1c remains normal at 5.2% Will continue to monitor his blood sugar regularly Reinforced low calorie diet/exercise as tolerated (7) Vitamin D deficiency: Code(s): E55.9 - Vitamin D deficiency, unspecified Plan: Continue Vitamin D3 1000 units QD (8) Obesity (BMI 30-39.9): Comment: This is a chronic problem, partly promoted by his frequently usage of prednisone for inflammatory bowel disease. He will continue to try losing more weight. Denies symptoms of obstructive sleep apnea. Code(s): E66.9 - Obesity, unspecified Plan: Reinforced diet/exercise as tolerated/lose weight Plan Flu vaccine given today Follow up in 6 months Orders: Orders Complete Blood Count Auto Diff 6 Months K51.90 - Ulcerative colitis, unspecified, without complications Lipid Panel 6 Months E78.00 - Pure hypercholesterolemia, unspecified TSH reflex Free T4 6 Months E78.00 - Pure hypercholesterolemia, unspecified UA CC w/rflx Micro + Cult 6 Months R30.0 - Dysuria Magnesium 6 Months E83.42 - Hypomagnesemia Comprehensive [place]. Panel Fast 6 Months E78.00 - Pure hypercholesterolemia, unspecified, E87.6 - Hypokalemia Vitamin D 25-OH Total 6 Months E55.9 - Vitamin D deficiency, unspecified Vitamin B12 and Folate 6 Months E53.8 - Deficiency of other specified B group vitamins Hemoglobin A1c 6 Months R73.01 - Impaired fasting glucose Influenza [id number] Immunization Today Z23 - Encounter for immunization Medications: New potassium chloride ER 10 mEq PO DAILY 10 days 10 caps 0RF Coding Level of Care Code Est Pt Level 4 (77544) Diagnoses Pure hypercholesterolemia E78.00 Chronic obstructive pulmonary disease, unspecified COPD type J44.9 COPD type: unspecified COPD Ulcerative colitis without complications, unspecified location K51.90 Ulcerative colitis location: unspecified ulcerative colitis location Digestive disease complication type: without complication Elevated blood pressure reading in office without diagnosis of hypertension R03.0 Hypokalemia E87.6 Impaired fasting glucose R73.01 Vitamin D deficiency E55.9 Obesity (BMI 30-39.9) E66.9
== END 2023-06-09 11:24 | disposition home or self-care (01) ==
PROVIDERS: Visit Provider Internal Medicine
DX: E78.00 Pure hypercholesterolemia, unspecified (principal); J44.9 Chronic obstructive pulmonary disease, unspecified; K51.90 Ulcerative colitis, unspecified, without complications; Z23 Encounter for immunization; R03.0 Elevated blood-pressure reading, without diagnosis of hypertension; E66.9 Obesity, unspecified; Z68.33 Body mass index [BMI] 33.0-33.9, adult; E87.6 Hypokalemia; R73.01 Impaired fasting glucose; E55.9 Vitamin D deficiency, unspecified
CPT/HCPCS: 90471; 90686; 99214

== ENCOUNTER 2023-06-09 11:38 | Outpatient (REF) | payer SELFPAY | END 2023-06-09 11:39 | disposition home or self-care (01) | LOC: HO.HAP 11:38 | PROVIDERS: Visit Provider Internal Medicine | DX: Z13.89 Encounter for screening for other disorder (principal) ==

== ENCOUNTER 2023-06-18 13:10 | Outpatient (REF) | payer SELFPAY | END 2023-06-18 13:11 | disposition home or self-care (01) | LOC: HO.HAP 13:10 | PROVIDERS: Visit Provider Internal Medicine | DX: Z46.1 Encounter for fitting and adjustment of hearing aid (principal); H90.3 Sensorineural hearing loss, bilateral | CPT/HCPCS: 92592; V5266 ==

== ENCOUNTER 2023-06-27 09:44 | Outpatient (AMB) | payer MEDICARE, SELFPAY ==
--- NOTE | 2023-06-27 09:58 | A.OFFPC_ITS ---
Vital Signs 06/27/23 09:59 Height 5 ft 7 in Weight 210 lb 8 oz BMI 33.0 BP 138/82 Blood Pressure Location Lt brachial Position Sitting Pulse 88 Pulse Source Pulse Oximeter Pulse Oximetry (%) 92 Oxygen Delivery Method Room Air Intake Visit Reasons: blood in stool In Shop Service Technician Required: No Accompanied by: Self / Same As Patient Allergies No Known Allergies Allergy (Verified 06/27/23 10:24) Medication List - Last Reconciled 06/27/23 by Reyes Galvin MD albuterol sulfate 90 mcg/actuation 2 puffs inhalation Q4-6H PRN 30 days cholecalciferol (vitamin D3) 25 mcg PO DAILY mesalamine ER (Apriso) 1.5 grams PO QAM simvastatin 20 mg PO BEDTIME Tobacco use date assessed: 06/27/23 Fall risk assessment: No Falls in past year Last assessed Fall Risk: 06/27/23 Dental Screening Dental Screen Date: 06/27/23 Did you have a dental visit in the last 12 months?: Yes Did you have a dental problem in the last 6 months where you did not have access to dental care?: No Was dental information given to patient?: Patient has dentist HPI blood in stool HPI Details Patient comes in today for further evaluation States that he has been experiencing recurrent lower abdominal pain and discomfort, frequent loose stools (about 4 episodes a day) and on and off (+) blood in his stool for the past 10 days He was last seen by Dr. Donovan for follow up on 06/04/2023 and states that he was prescribed some oral Prednisone with instructions to start taking them whenever he gets a flare up of his colitis States that he has not yet started taking Prednisone as he was concerned that it could cause him to have another bout of hypokalemia and require him to take Potassium supplements again (which he just finished a few weeks ago) He is also hoping that his current flare up is not as bad and will eventually clear up on its own in a while He denies any fever, nausea or vomiting and states that his symptoms have not really gotten significantly worse over the past 10 days but they also do not feel like they are subsiding Patient was also supposedly due for repeat colonoscopy last year (2021) - colonoscopy was last done in 2019 and recommended repeat colonoscopy in 3 years - but this was out off presumbaly due to logistical issues brought about by the COVID-19 pandemic Patient denies any chest pains or SOB as well lately [facility] Medical History Allergic rhinosinusitis Obesity (BMI 30-39.9) Vitamin D deficiency Impaired fasting glucose Ulcerative colitis COPD (chronic obstructive pulmonary disease) Pure hypercholesterolemia Exercise hypoxemia COPD (chronic obstructive pulmonary disease) case management patient Surgical History No pertinent past surgical history Family History Father Medical history unknown Mother Cancer Social History Housing: House Alcohol intake: former Patient Tobacco Use Status: Former Tobacco user Years Smoked: 8 years ago e-Cigarette/Vaping Use: Never Used Second Hand Smoke Exposure: Yes service: Yes Current occupational status: retired Cognitive needs: No Hearing needs: Yes Vision needs: Yes Questionnaire PHQ-9 Over the last 2 weeks, how often have you been bothered by any of the following problems? 1. Little interest or pleasure in doing things: not at all 2. Feeling down, depressed, or hopeless: not at all 3. Trouble falling or staying asleep, or sleeping too much: not at all 4. Feeling tired or having little energy: not at all 5. Poor appetite or overeating: not at all 6. Feeling bad about yourself - or that you are a failure or have let yourself or your family down: not at all 7. Trouble concentrating on things, such as reading the newspaper or watching television: not at all 8. Moving or speaking so slowly that other people could have noticed. Or the opposite - being so fidgety or restless that you have been moving around a lot more than usual: not at all 9. Thoughts that you would be better off or of hurting yourself in some way: not at all Total score: 0 Depression Screening Interpretation: Negative Depression Screening Done: Yes 21855 - PHQ-9 Billing: Yes Source: Developed by Drs. Javi Moraes, Elaina Steiner, Jerod Appiah and colleagues, with an educational vee from [employer]. Thrive Questionnaire Date Thrive assessed: 06/27/23 I am a: Patient What is your living situation today?: I have a steady place to live Within the past 12 months, did the food you bought not last and you didn't have the money to get more?: Never true Within the past 12 months, did you worry whether your food would run out before you got money to buy more?: Never true Do you have trouble paying for medicines?: No Do you have trouble getting transportation to medical appointments?: No Do you have trouble paying your heating and electricity bill?: No Do you have trouble taking care of your child, family member or friend?: No Do you have trouble with day-to-day activities such as bathing, preparing meals, shopping, managing finances, etc.?: No Are you currently unemployed and looking for a job?: No Are you interested in more education?: No Please select the resources that you would like help with: None Currently or been in a relationship where the following occur: no concerns reported AUDIT C Alcohol Use Questionnaire (AUDIT-C) 1. How often do you have a drink containing alcohol?: Never 3. How often do you have six or more drinks on one occasion?: Never Total Score: 0 Score Reviewed/Action Taken: Yes SHONDA-7 AMB Questionnaire SHONDA-7 Date SHONDA - 7 assessed: 06/27/23 Feeling nervous, anxious, or on edge: 0 = Not at all Not being able to stop or control worryin = Not at all Worrying too much about different things: 0 = Not at all Trouble relaxin = Not at all Being so restless that it is hard to sit still: 0 = Not at all Becoming easily annoyed or irritable: 0 = Not at all Feeling afraid as if something awful might happen: 0 = Not at all Total SHONDA-7 score (0-4 normal; 5-9 mild; 10-14 moderate; 15-21 severe): 0 Source: Developed by Drs. Javi Moraes, Elaina Steiner, Jerod Appiah and colleagues, with an educational vee from [employer]. Review of Systems Const Denies chills, Reports fatigue, Denies fever(s) and Denies headache(s) ENT Denies dysphagia, Denies dizziness, Denies otalgia, Denies headache(s), Denies odynophagia and Denies sore throat Card Denies chest pain, Denies palpitations and Reports dyspnea on exertion (mild) Resp Denies chest congestion, Denies cough, Reports dyspnea on exertion (mild) and Denies wheezing GI Reports abdominal pain (on and off over the lower abdomen), Reports bloating (occasionally), Reports hematochezia (on and off), Denies dysphagia, Denies heartburn, Reports loose stools (over the past 10 days), Denies nausea, Denies odynophagia and Denies vomiting Denies dysuria, Denies nocturia and Denies urinary frequency Musc Denies arthralgias Skin/Breast Denies rash Neuro Denies dizziness and Denies headache(s) Endo Reports fatigue and Denies palpitations Aller/Immun Denies wheezing Physical exam (Primary Care) Vital Signs: Last Vital Signs Pulse 88 06/27/23 09:59 BP 138/82 06/27/23 09:59 Pulse Ox 92 06/27/23 09:59 Oxygen Delivery Method Room Air 06/27/23 09:59 BMI result Body Mass Index 33.0 Tobacco/Smoking Status: Tobacco use Status Tobacco use date assessed 06/27/23 06/27/23 10:05 Patient Tobacco Use Status Former Tobacco user 06/27/23 10:05 e-Cigarette/Vaping Use Never Used 06/27/23 10:05 PHQ-9: PHQ-9 Score PHQ-9: Total score 0 06/27/23 10:24 Depression Screening Interpretation: Negative Thrive Assessment: Date of Thrive Assessment Date Thrive assessed 06/27/23 06/27/23 10:05 Currently or been in a relationship where the following occur: no concerns reported Const General: no acute distress and alert HENMD Throat: Yes posterior oropharynx normal and Yes tonsils normal (no TP congestion noted) Neck Neck: Yes no lymphadenopathy and Yes supple Resp Auscultation: clear to auscultation bilaterally, no rales and no wheezes Cardio Rate: regular rate Rhythm: regular rhythm Heart sounds: no murmurs GI Palpation (GI): Soft to palpation, Tenderness to palpation present (GI) (mild - mostly over the lower (hypogastric area) abdomen) with no rebound tenderness, no guarding and not rigid Skin Rashes: no rashes Extrem General: Yes no clubbing, cyanosis or edema Assessment and Plan Assessment & Plan (1) Ulcerative colitis: Comment: Repeat colonoscopy done in 2019 - biopsies showed (+) chronic colitis but no dysplastic changes Code(s): K51.90 - Ulcerative colitis, unspecified, without complications Qualifiers: Ulcerative colitis location: unspecified ulcerative colitis location Digestive disease complication type: without complication Qualified Code(s): K51.90 - Ulcerative colitis, unspecified, without complications Plan: Patient is advised that his current symptoms are highly suggestive of a flare up of his ulcerative colitis and that he SHOULD start taking his oral Prednisone as prescribed by Dr. Donovan HILDA Is advised that his previous hypokalemia is not from oral prednisone therapy but his recurrent diarrhea/loose stools CAN lead to hypokalemia if this persists or gets worse Is advised to call if his symptoms do not appear to be improving in a few days once he starts taking his oral prednisone Had his last repeat colonoscopy done in 2019, which showed (+) chronic colitis on his biopsies but no dysplastic changes; is due for repeat colonoscopy but this has not been done yet and will defer this to Dr. Donovan Continue Mesalamine ER 1.5 gm QAM Follow up with GI (Dr. Donovan) as scheduled Plan Follow up as scheduled in November 2023 Coding Level of Care Code Est Pt Level 3 (69642) Diagnoses Ulcerative colitis without complications, unspecified location K51.90 Ulcerative colitis location: unspecified ulcerative colitis location Digestive disease complication type: without complication
[2023-06-27 09:59] VITALS: BP 138/82; PULSE 88; O2SAT 92; BMI 33.0
== END 2023-06-27 12:58 | disposition home or self-care (01) ==
PROVIDERS: PCP Internal Medicine; Visit Provider Internal Medicine
DX: K51.90 Ulcerative colitis, unspecified, without complications (principal)
CPT/HCPCS: 99213

== ENCOUNTER 2023-10-15 13:56 | Outpatient (REF) | payer MEDICARE, SELFPAY ==
[2023-10-15 14:19] LABS: MANUAL DIFF FLAG NO
[2023-10-15 15:14] LABS: Basophils Absolute Auto 0.1 X10*3/uL (0.0-0.2); Basophils Percent Auto 0.7 % (0-2); Eosinophils Absolute Auto 0.2 X10*3/uL (0.0-0.4); Eosinophils Percent Auto 1.4 % (0-4); Hematocrit 45.4 % (42.0-52.0); Hemoglobin 16.2 g/dl (14.0-18.0); Imm Gran Abs Auto 0.05 X10*3/uL (0.00-0.03); Imm Gran Pct Auto 0.5 % (0.0-0.4); Lymphocytes Absolute Auto 2.4 X10*3/uL (1.2-4.9); Lymphocytes Percent Auto 22.7 % (20-40); Mean Corpuscular HGB Conc 35.7 g/dl (31.0-36.0); Mean Corpuscular Hemoglobin 32.7 pg (27.0-33.0); Mean Corpuscular Volume 91.7 fL (80.0-98.0); Mean Platelet Volume 11.6 fL (9.4-12.4); Monocytes Absolute Auto 1.3 X10*3/uL (0.1-1.2); Monocytes Percent Auto 12.1 % (2-11); Neutrophils Absolute Auto 6.6 x10*3/uL (2.0-8.3); Neutrophils Percent Auto 62.6 % (45-73); Platelet Count 209 X10*3/uL (160-400); Red Blood Count 4.95 X10*6/uL (4.60-5.80); Red Cell Distribution Width 13.3 % (11.0-16.0); White Blood Count 10.5 X10*3/uL (4.8-10.8)
[2023-10-15 15:34] LABS: Alanine Aminotransferase 16 U/L (0-40); Albumin Level 4.1 g/dL (3.5-5.0); Alkaline Phosphatase 147 U/L (39-117); Anion Gap 12 (12-20); Aspartate Amino Transferase 17 U/L (5-37); Bilirubin Direct 0.7 mg/dL (0.0-0.5); Bilirubin Total 2.3 mg/dL (0.0-1.0); Blood Urea Nitrogen 8 mg/dL (9-16); C Reactive Protein 2.68 mg/dL (< or = 0.50); Calcium 9.3 mg/dL (8.4-10.2); Carbon Dioxide 33 mmol/L (22-29); Chloride 98 mmol/L (96-108); Estimated Glomerular Filt Rate > 60; Glucose Random 91 mg/dL (60-115); Potassium 3.3 mmol/L (3.3-5.1); Sodium 140 mmol/L (135-145); Total Protein 7.4 g/dL (6.5-8.0)
[2023-10-15 15:59] LABS: Erythrocyte Sedimentation Rate 22 MM/HR (0-15)
== END 2023-10-15 13:57 | disposition home or self-care (01) ==
LOC: HO.LAB 13:56
PROVIDERS: PCP Internal Medicine; Visit Provider Internal Medicine
DX: K51.00 Ulcerative (chronic) pancolitis without complications (principal); R19.7 Diarrhea, unspecified
CPT/HCPCS: 36415; 80048; 80076; 85025; 85652; 86140

== ENCOUNTER 2023-10-16 09:39 | Outpatient (REF) | payer MEDICARE, SELFPAY ==
[2023-10-16 11:16] LABS: CDiff Gene PCR NEGATIVE (Negative)
[2023-10-16 11:47] LABS: Leukocytes Stool Qualitative NEGATIVE (NEGATIVE)
[2023-10-16 14:22] LABS: Adenovirus F 40/41 Not Detected (Not Detect.); Astrovirus Not Detected (Not Detect.); Campylobacter Not Detected (Not Detect.); Cryptosporidium Not Detected (Not Detect.); Cyclospora cayetanensis Not Detected (Not Detect.); E. coli EAEC Not Detected (Not Detect.); E. coli EPEC Not Detected (Not Detect.); E. coli ETEC Not Detected (Not Detect.); E. coli STEC Not Detected (Not Detect.); Entamoeba histolytica Not Detected (Not Detect.); Giardia lamblia Not Detected (Not Detect.); Norovirus GI/GII Not Detected (Not Detect.); Plesiomonas shigelloides Not Detected (Not Detect.); Rotavirus A Not Detected (Not Detect.); Salmonella Not Detected (Not Detect.); Sapovirus Not Detected (Not Detect.); Shigella sp./EIEC Not Detected (Not Detect.); Vibrio Not Detected (Not Detect.); Vibrio Cholerae Not Detected (Not Detect.); Yersinia enterocolitica Not Detected (Not Detect.)
[2023-10-23 19:29] LABS: Calprotectin, Fecal 5470 mcg/g
== END 2023-10-16 09:40 | disposition home or self-care (01) ==
LOC: HO.LNP 09:39
PROVIDERS: Visit Provider Internal Medicine
DX: K51.00 Ulcerative (chronic) pancolitis without complications (principal); R19.7 Diarrhea, unspecified
CPT/HCPCS: 83993; 87493; 87507; 89055

== ENCOUNTER 2023-12-02 10:58 | Outpatient (AMB) | payer MEDICARE, SELFPAY ==
--- NOTE | 2023-12-02 11:09 | MHC.OFFVIS ---
Vital Signs 12/02/23 11:10 Height 5 ft 7 in Weight 217 lb BMI 34.0 BP 180/100 H Blood Pressure Location Lt brachial Position Sitting Pulse 102 H Pulse Source Pulse Oximeter Pulse Oximetry (%) 92 Oxygen Delivery Method Room Air Intake Visit Reasons: copd Intake Note: pt is here for follow up and states he is just getting off prednisone by Dr. Donovan, and wants him to continue 5mg daily. 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 DONOVAN. FOR TREATMENT HE IS KEPT ON PREDNISONE 5 MG DAILY A MAINTENANCE DOSE. AND THIS PREDNISONE HELPS ROOM KEEP HIS THE ASTHMA/COPD UNDER CONTROL. THUS HE DOES NOT HAVE ANY ATTACKS OF COUGH OR WHEEZING AND DOES NOT EVEN NEED TO USE THE BRONCHODILATOR INHALER. THIS PREDNISONE DOES KEEP HIM ON THE OBESE SIDE. HE CLAIMS THAT HE SLEEPS GOOD AT LEAST FOR 7 HOURS EVERY NIGHT AND DOES NOT HAVE ANY SYMPTOMS OF SLEEP APNEA. HE HAS O2 CONCENTRATOR AT HOME AND USES O2 2 L/MINUTE BUT ONLY P.R.N. IF HIS O2 SAT FALLS BELOW 90%, WHICH IS NOT THAT COMMON. [facility] Medical History Allergic rhinosinusitis Obesity (BMI 30-39.9) Vitamin D deficiency Impaired fasting glucose Ulcerative colitis COPD (chronic obstructive pulmonary disease) Pure hypercholesterolemia Exercise hypoxemia COPD (chronic obstructive pulmonary disease) case management patient Surgical History No pertinent past surgical history Family History Father Medical history unknown Mother Cancer Social History Housing: House Alcohol intake: former Patient Tobacco Use Status: Former Tobacco user Years Smoked: 8 years ago e-Cigarette/Vaping Use: Never Used Second Hand Smoke Exposure: Yes service: Yes Current occupational status: retired Cognitive needs: No Hearing needs: Yes Vision needs: Yes Review of Systems Const All systems reviewed & are unremarkable except as noted in HPI and below Eyes Reports no additional complaints ENT Reports no additional complaints Card Denies chest pain, Denies irregular heart rhythm and Reports leg edema (Mild around the ankles in the evenings.) Resp Reports as per HPI GI Reports GI cramping, Reports diarrhea and Reports other (Being treated for chronic inflammatory colitis.) Reports no additional complaints Musc Reports myalgias Skin/Breast Reports system reviewed and no additional complaints, except as documented Neuro Reports no additional complaints Psych Reports no additional complaints Physical Exam Vital Signs: Last Vital Signs Pulse 102 H 12/02/23 11:10 BP 180/100 H 12/02/23 11:10 Pulse Ox 92 12/02/23 11:10 Oxygen Delivery Method Room Air 12/02/23 11:10 BMI result Body Mass Index 34.0 Const Other: Grossly obese looking General: comfortable, no acute distress, alert and awake Orientation/consciousness: patient oriented x3 HEENT Head: Yes normal to inspection General nose exam: No nasal polyps present, No nasal discharge present and Other nasal findings present (Does have bilateral nasal congestion and hypertrophy of the nasal turbinate) Face and sinus: Yes sinuses nontender Mouth: oropharynx normal Throat: Yes posterior oropharynx normal Eyes General: appearance normal, both eyes and all related structures Neck Neck: Yes normal visual inspection, Yes no lymphadenopathy, Yes trachea midline and Yes no JVD Thyroid: Thyroid normal Chest Chest palpation & inspection: normal inspection of the chest, normal palpation of entire chest wall and no tenderness Resp Other: Percussion note resonant, breath sounds are distant especially diminished over the basilar areas. On auscultation no wheezes rhonchi or crepitations are heard . Cardio Palpation: normal PMI Rate: regular rate Rhythm: regular rhythm Heart sounds: no gallops and no murmurs GI Palpation (GI): Soft to palpation, nontender, No hepatosplenomegaly present, no masses and Other GI palpation findings present (Abdomen is obese and protuberant) Auscultation: normal bowel sounds Back/Spine/Pelvis Thoracic/Lumbar Spine: thoracic and lumbar spine normal to inspection Skin General skin exam: no rashes or lesions noted Neuro General: patient oriented x3 and no focal motor deficits Cranial nerves: Yes CN's II-XII intact bilaterally Extrem General: Yes normal to inspection, Yes no clubbing, cyanosis or edema and Yes no calf tenderness Psych Appearance: grossly normal and well kempt Speech and movement: Normal speech and movement present Assessment & Plan Assessment & Plan (1) COPD (chronic obstructive pulmonary disease): Comment: He has mild to moderate degree of chronic obstructive pulmonary disease. (LAST SPIROMETRY IN 2019 MILD OBSTRUCTIVE PULM . DISORDER ) Has had no acute exacerbation. Has not required to use any long-acting bronchodilators, has also hardly needed to use the rescue inhaler. Overall his COPD status is mild and remaining very stable .. CURRENTLY HE IS ON PREDNISONE5 MG A DAY FOR HIS IBD . Code(s): J44.9 - Chronic obstructive pulmonary disease, unspecified Category: Medical Qualifiers: COPD type: unspecified COPD Qualified Code(s): J44.9 - Chronic obstructive pulmonary disease, unspecified Plan: ADVISE THAT HE SHOULD KEEP PROAIR ON HAND AND USE 2 PUFFS Q 6 HOURS ONLY P.R.N. (2) Exercise hypoxemia: Comment: HE HAS EXERCISE INDUCED HYPOXEMIA. FOR WHICH HE WAS PROVIDED O2. HE DOES USE IF HE DOES ANY HEAVY PHYSICAL EXERTION 2 L/MINUTE . BUT NOT THAT FREQUENTLY. Code(s): R09.02 - Hypoxemia Category: Medical Plan: O2 2 L/MINUTE WITH HEAVY PHYSICAL EXERTION AND IF O2 SAT FALLS BELOW 90%. (3) Allergic rhinosinusitis: Comment: THIS IS A CHRONIC PROBLEM AND DOES FLARE UP DURING SEASONAL CHANGES. CURRENTLY HE IS ON PREDNISONE IBS . THIS CONDITION IS ALSO UNDER GOOD CONTROL. Code(s): J30.9 - Allergic rhinitis, unspecified Category: Medical Plan: [place] : USE FLONASE 2 SPRAY IN EACH NOSTRIL DAILY AT NIGHT, Coding Level of Care Code Est Pt Level 3 (53744) Diagnoses Chronic obstructive pulmonary disease, unspecified COPD type J44.9 COPD type: unspecified COPD Exercise hypoxemia R09.02 Allergic rhinosinusitis J30.9
[2023-12-02 11:10] VITALS: BP 180/100; PULSE 102; O2SAT 92; BMI 34.0
== END 2023-12-02 16:12 | disposition home or self-care (01) ==
PROVIDERS: PCP Internal Medicine; Visit Provider Internal Medicine
DX: J44.9 Chronic obstructive pulmonary disease, unspecified (principal); R09.02 Hypoxemia; J30.9 Allergic rhinitis, unspecified
CPT/HCPCS: 99213

== ENCOUNTER → 2023-12-02 10:58 | Outpatient (BNVA) | payer MEDICARE, SELFPAY | PROVIDERS: PCP Internal Medicine; Visit Provider Internal Medicine | DX: J44.9 Chronic obstructive pulmonary disease, unspecified (principal); J30.9 Allergic rhinitis, unspecified; R09.02 Hypoxemia | CPT/HCPCS: 99212 ==

== ENCOUNTER 2023-12-05 07:02 | Outpatient (REF) | payer MEDICARE, SELFPAY ==
[2023-12-05 07:17] LABS: MANUAL DIFF FLAG NO
[2023-12-05 08:03] LABS: Basophils Absolute Auto 0.1 X10*3/uL (0.0-0.2); Basophils Percent Auto 0.4 % (0-2); Eosinophils Percent Auto 0.3 % (0-4); Hematocrit 45.6 % (42.0-52.0); Hemoglobin 16.1 g/dl (14.0-18.0); Imm Gran Abs Auto 0.26 X10*3/uL (0.00-0.03); Imm Gran Pct Auto 1.8 % (0.0-0.4); Lymphocytes Absolute Auto 2.8 X10*3/uL (1.2-4.9); Lymphocytes Percent Auto 19.6 % (20-40); Mean Corpuscular HGB Conc 35.3 g/dl (31.0-36.0); Mean Corpuscular Hemoglobin 33.2 pg (27.0-33.0); Mean Platelet Volume 9.3 fL (9.4-12.4); Monocytes Absolute Auto 1.1 X10*3/uL (0.1-1.2); Monocytes Percent Auto 7.8 % (2-11); Neutrophils Absolute Auto 10.1 x10*3/uL (2.0-8.3); Neutrophils Percent Auto 70.1 % (45-73); Platelet Count 323 X10*3/uL (160-400); Red Blood Count 4.85 X10*6/uL (4.60-5.80); Red Cell Distribution Width 13.8 % (11.0-16.0); White Blood Count 14.3 X10*3/uL (4.8-10.8)
[2023-12-05 08:25] LABS: Estimated Average Glucose 131 mg/dL; Hemoglobin A1c % 6.2 % (<6.0)
[2023-12-05 08:47] LABS: Alanine Aminotransferase 22 U/L (0-40); Albumin Level 4.1 g/dL (3.5-5.0); Alkaline Phosphatase 122 U/L (39-117); Anion Gap 17 (12-20); Aspartate Amino Transferase 17 U/L (5-37); Blood Urea Nitrogen 15 mg/dL (9-16); Calcium 9.6 mg/dL (8.4-10.2); Carbon Dioxide 29 mmol/L (22-29); Chloride 99 mmol/L (96-108); Cholesterol 186 mg/dL (<200); Estimated Glomerular Filt Rate > 60; Glucose Fasting 111 mg/dL (60-99); HDL Cholesterol 77 mg/dL (>40); LDL Cholesterol Calculated 96 mg/dL (<100); Magnesium 2.2 mg/dL (1.6-2.6); Potassium 3.1 mmol/L (3.3-5.1); Sodium 142 mmol/L (135-145); Total Protein 7.2 g/dL (6.5-8.0); Triglycerides 69 mg/dL (<150)
[2023-12-05 09:07] LABS: TSH reflex Free T4 0.95 uIU/mL (0.32-4.0); Vitamin D 25-OH Total 36.3 ng/mL (>30)
[2023-12-05 09:11] LABS: Folate 5.6 ng/mL (> or = 4.0); Vitamin B12 386 pg/mL (200-900)
== END 2023-12-05 07:03 | disposition home or self-care (01) ==
LOC: HO.LAB 07:02
PROVIDERS: PCP Internal Medicine; Visit Provider Internal Medicine
DX: K51.90 Ulcerative colitis, unspecified, without complications (principal); E78.00 Pure hypercholesterolemia, unspecified; E55.9 Vitamin D deficiency, unspecified; E53.8 Deficiency of other specified B group vitamins; R73.01 Impaired fasting glucose; E83.42 Hypomagnesemia; E87.6 Hypokalemia
CPT/HCPCS: 36415; 80053; 80061; 82306; 82607; 82746; 83036; 83735; 84443; 85025

== ENCOUNTER 2023-12-09 10:37 | Outpatient (AMB) | payer MEDICARE, SELFPAY ==
[2023-12-09 10:39] VITALS: BP 168/96; PULSE 108; O2SAT 93; BMI 34.1
--- NOTE | 2023-12-09 10:39 | MHC.PC.OV ---
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 Allergies No Known Allergies Allergy (Verified 12/09/23 11:09) Medication List - Last Reconciled 12/09/23 by Reyes Galvin MD albuterol sulfate 90 mcg/actuation 2 puffs inhalation Q4-6H PRN 30 days cholecalciferol (vitamin D3) 25 mcg PO DAILY mesalamine ER (Apriso) 1.5 grams PO QAM prednisone 5 mg PO DAILY simvastatin 20 mg PO BEDTIME Tobacco use date assessed: 12/09/23 Fall risk assessment: No Falls in past year Last assessed Fall Risk: 12/09/23 Dental Screening Dental Screen Date: 06/27/23 HPI 6 month f/u HPI Details Patient comes in today for his follow up visit He developed colitis about 6 weeks ago and was started back on oral Prednisone Is currently still on Prednisone 5 mg QD and states that he would like to stay on this for a while to keep his bowels in check - states that his bowel movements are slowly getting back to normal He has gained some weight recently as a result of his Prednisone Tx States that he feels okay otherwise He denies any headaches or dizziness Denies any chest pains, no SOB No nausea/vomiting, no abdominal pain Had his follow up labs done a few days ago - to discuss his results [facility] Medical History Allergic rhinosinusitis Obesity (BMI 30-39.9) Vitamin D deficiency Impaired fasting glucose Ulcerative colitis COPD (chronic obstructive pulmonary disease) Pure hypercholesterolemia Exercise hypoxemia COPD (chronic obstructive pulmonary disease) case management patient Surgical History No pertinent past surgical history Family History Father Medical history unknown Mother Cancer Social History Housing: House Alcohol intake: former Patient Tobacco Use Status: Former Tobacco user Years Smoked: 8 years ago e-Cigarette/Vaping Use: Never Used Second Hand Smoke Exposure: Yes service: Yes Current occupational status: retired Cognitive needs: No Hearing needs: Yes Vision needs: Yes Questionnaire PHQ-9 Over the last 2 weeks, how often have you been bothered by any of the following problems? 1. Little interest or pleasure in doing things: not at all 2. Feeling down, depressed, or hopeless: not at all 3. Trouble falling or staying asleep, or sleeping too much: not at all 4. Feeling tired or having little energy: not at all 5. Poor appetite or overeating: not at all 6. Feeling bad about yourself - or that you are a failure or have let yourself or your family down: not at all 7. Trouble concentrating on things, such as reading the newspaper or watching television: not at all 8. Moving or speaking so slowly that other people could have noticed. Or the opposite - being so fidgety or restless that you have been moving around a lot more than usual: not at all 9. Thoughts that you would be better off or of hurting yourself in some way: not at all Total score: 0 Depression Screening Interpretation: Negative Depression Screening Done: Yes 48527 - PHQ-9 Billing: Yes Source: Developed by Drs. Javi Moraes, Elaina Steiner, Jerod Appiah and colleagues, with an educational vee from [employer]. Thrive Questionnaire Date Thrive assessed: 12/09/23 I am a: Patient What is your living situation today?: I have a steady place to live Within the past 12 months, did the food you bought not last and you didn't have the money to get more?: Never true Within the past 12 months, did you worry whether your food would run out before you got money to buy more?: Never true Do you have trouble paying for medicines?: No Do you have trouble getting transportation to medical appointments?: No Do you have trouble paying your heating and electricity bill?: No Do you have trouble taking care of your child, family member or friend?: No Do you have trouble with day-to-day activities such as bathing, preparing meals, shopping, managing finances, etc.?: No Are you currently unemployed and looking for a job?: No Are you interested in more education?: No Please select the resources that you would like help with: None Currently or been in a relationship where the following occur: no concerns reported THRIVE Score: 0 AUDIT C Alcohol Use Questionnaire (AUDIT-C) 1. How often do you have a drink containing alcohol?: Never 3. How often do you have six or more drinks on one occasion?: Never Total Score: 0 Score Reviewed/Action Taken: Yes SHONDA-7 AMB Questionnaire SHONDA-7 Date SHONDA - 7 assessed: 12/09/23 Source: Developed by Drs. Javi Moraes, Elaina Steiner, Jerod Appiah and colleagues, with an educational vee from [employer]. Review of Systems Const Denies chills, Reports fatigue, Denies fever(s) and Denies headache(s) ENT Denies dysphagia, Denies dizziness, Denies otalgia, Denies headache(s), Denies neck pain, Denies odynophagia and Denies sore throat Card Denies chest pain, Denies palpitations and Reports dyspnea on exertion (mild) Resp Denies chest congestion, Denies cough, Reports dyspnea on exertion (mild) and Denies wheezing GI Denies abdominal pain (improved with oral Prednisone), Denies bloating, Denies hematochezia, Denies dysphagia, Denies heartburn, Reports loose stools (occasionally - improving), Denies nausea, Denies odynophagia and Denies vomiting Denies dysuria, Denies nocturia and Denies urinary frequency Musc Denies arthralgias and Denies neck pain Skin/Breast Denies rash Neuro Denies dizziness and Denies headache(s) Endo Reports fatigue and Denies palpitations Aller/Immun Denies wheezing Physical exam (Primary Care) Vital Signs: Last Vital Signs Pulse 108 H 12/09/23 10:39 BP 168/96 H 12/09/23 10:39 Pulse Ox 93 12/09/23 10:39 Oxygen Delivery Method Room Air 12/09/23 10:39 BMI result Body Mass Index 34.1 Tobacco/Smoking Status: Tobacco use Status Tobacco use date assessed 12/09/23 12/09/23 10:41 Patient Tobacco Use Status Former Tobacco user 12/09/23 10:41 e-Cigarette/Vaping Use Never Used 12/09/23 10:41 PHQ-9: PHQ-9 Score PHQ-9: Total score 0 12/09/23 10:41 Depression Screening Interpretation: Negative Thrive Assessment: Date of Thrive Assessment Date Thrive assessed 12/09/23 12/09/23 10:41 Currently or been in a relationship where the following occur: no concerns reported Const General: no acute distress and alert HENMT Ears: TM's normal bilaterally and EAC's normal Throat: Yes posterior oropharynx normal and Yes tonsils normal (no TP congestion noted) Neck Neck: Yes no lymphadenopathy and Yes supple Thyroid: Thyroid normal Resp Auscultation: clear to auscultation bilaterally, no rales and no wheezes Cardio Rate: regular rate Rhythm: regular rhythm Heart sounds: no murmurs GI Palpation (GI): Soft to palpation and nontender Auscultation: normal bowel sounds General: Yes no CVA tenderness Back/Spine/Pelvis Back: no CVA tenderness Skin Rashes: no rashes Extrem General: Yes no clubbing, cyanosis or edema Results Reviewed Results Reviewed: Laboratory Tests 10/15/23 12/05/23 14:16 07:14 WBC 14.3 H Hgb 16.1 Hct 45.6 Plt Count 323 D Sodium 142 Potassium 3.1 L Creatinine 0.90 Estimated GFR > 60 Fasting Glucose 111 H Hemoglobin A1c % 6.2 H Calcium 9.6 Magnesium 2.2 Total Bilirubin 2.0 H Direct Bilirubin 0.7 H AST 17 ALT 22 Triglycerides 69 Cholesterol 186 LDL Cholesterol, Calc 96 HDL Cholesterol 77 Vitamin B12 386 25-OH Vitamin D Total 36.3 TSH 0.95 Assessment and Plan Assessment & Plan (1) Pure hypercholesterolemia: Code(s): E78.00 - Pure hypercholesterolemia, unspecified Plan: Results of his labs done a few days ago reviewed and discussed with patient Reinforced low cholesterol diet Continue Simvastatin 20 mg QD Will recheck his labs and fasting lipids in 6 months for follow up (2) COPD (chronic obstructive pulmonary disease): Comment: He has mild to moderate degree of chronic obstructive pulmonary disease. (LAST SPIROMETRY IN 2019 MILD OBSTRUCTIVE PULM . DISORDER ) Has had no acute exacerbation. Has not required to use any long-acting bronchodilators, has also hardly needed to use the rescue inhaler. Overall his COPD status is mild and remaining very stable .. CURRENTLY HE IS ON PREDNISONE5 MG A DAY FOR HIS IBD . Code(s): J44.9 - Chronic obstructive pulmonary disease, unspecified Qualifiers: COPD type: unspecified COPD Qualified Code(s): J44.9 - Chronic obstructive pulmonary disease, unspecified Plan: Stable - he has not required any inhalers or oxygen inhalation over the past few years and has had no problems or significant restrictions with his activities other than some SOB with increased exertion Follow up with pulmonary (Dr. Hoyt) as scheduled (3) Ulcerative colitis: Comment: Repeat colonoscopy done in 2019 - biopsies showed (+) chronic colitis but no dysplastic changes Code(s): K51.90 - Ulcerative colitis, unspecified, without complications Qualifiers: Ulcerative colitis location: unspecified ulcerative colitis location Digestive disease complication type: without complication Qualified Code(s): K51.90 - Ulcerative colitis, unspecified, without complications Plan: Takes oral Prednisone as needed for flare ups of his colitis and is now still on Prednisone 5 mg QD for a recent flare up Repeat colonoscopy in 2019 showed (+) chronic colitis on his biopsies but no dysplastic changes Continue Mesalamine ER 1.5 gm QAM Follow up with GI (Dr. Donovan) as scheduled (4) Elevated blood pressure reading in office without diagnosis of hypertension: Code(s): R03.0 - Elevated blood-pressure reading, without diagnosis of hypertension Plan: Reinforced low sodium diet - advised that his systolic BP should be at least at 130 to 140 mm or less Patient is advised to continue monitoring his blood pressure regularly (5) Hypokalemia: Code(s): E87.6 - Hypokalemia Plan: Unknown etiology - patient denies any recent nausea/vomiting or diarrhea and he is not on any medications that can cause hypokalemia He currently still has hypokalemia (3.1) on his recent labs but this may be due to his recent colitis flare up Will have him recheck his labs and serum potassium in 6 months for follow up (6) Impaired fasting glucose: Code(s): R73.01 - Impaired fasting glucose Plan: His FBS is elevated again at 111 mg/dl on his recent labs - this is most likely because of his current oral Prednisone His HgbA1c was previously normal at 5.2% but this has also gone up to 6.2% recently Reinforced low calorie diet/exercise as tolerated Will continue to monitor his blood sugar regularly (7) Vitamin D deficiency: Code(s): E55.9 - Vitamin D deficiency, unspecified Plan: Continue Vitamin D3 1000 units QD (8) Obesity (BMI 30-39.9): Comment: This is a chronic problem, partly promoted by his frequently usage of prednisone for inflammatory bowel disease. He will continue to try losing more weight. Denies symptoms of obstructive sleep apnea. Code(s): E66.9 - Obesity, unspecified Plan: Reinforced diet/exercise as tolerated/lose weight He has gained some weight lately due to his oral Prednisone Rx Plan Follow up in 6 months Orders: Orders Comprehensive [place]. Panel Fast 6 Months E78.00 - Pure hypercholesterolemia, unspecified UA CC w/rflx Micro + Cult 6 Months R30.0 - Dysuria Erythrocyte Sedimentation Rate 6 Months K51.90 - Ulcerative colitis, unspecified, without complications Complete Blood Count Auto Diff 6 Months D64.9 - Anemia, unspecified Lipid Panel 6 Months E78.00 - Pure hypercholesterolemia, unspecified Hemoglobin A1c 6 Months R73.01 - Impaired fasting glucose TSH reflex Free T4 6 Months E78.00 - Pure hypercholesterolemia, unspecified Vitamin D 25-OH Total 6 Months E55.9 - Vitamin D deficiency, unspecified Coding Level of Care Code Est Pt Level 4 (78686) Diagnoses Pure hypercholesterolemia E78.00 Chronic obstructive pulmonary disease, unspecified COPD type J44.9 COPD type: unspecified COPD Ulcerative colitis without complications, unspecified location K51.90 Ulcerative colitis location: unspecified ulcerative colitis location Digestive disease complication type: without complication Elevated blood pressure reading in office without diagnosis of hypertension R03.0 Hypokalemia E87.6 Impaired fasting glucose R73.01 Vitamin D deficiency E55.9 Obesity (BMI 30-39.9) E66.9
== END 2023-12-09 11:28 | disposition home or self-care (01) ==
PROVIDERS: PCP Internal Medicine; Visit Provider Internal Medicine
DX: E78.00 Pure hypercholesterolemia, unspecified (principal); J44.9 Chronic obstructive pulmonary disease, unspecified; K51.90 Ulcerative colitis, unspecified, without complications; R03.0 Elevated blood-pressure reading, without diagnosis of hypertension; E87.6 Hypokalemia; R73.01 Impaired fasting glucose; E55.9 Vitamin D deficiency, unspecified
CPT/HCPCS: 99214

== ENCOUNTER 2024-02-02 13:48 | Outpatient (REF) | payer SELFPAY | END 2024-02-02 13:49 | disposition home or self-care (01) | LOC: HO.HAP 13:48 | PROVIDERS: Visit Provider Internal Medicine | DX: Z13.89 Encounter for screening for other disorder (principal) ==

== ENCOUNTER 2024-02-25 13:00 | Outpatient (REF) | payer SELFPAY | END 2024-02-25 13:01 | disposition home or self-care (01) | LOC: HO.HAP 13:00 | PROVIDERS: Visit Provider Internal Medicine | DX: Z46.1 Encounter for fitting and adjustment of hearing aid (principal); H93.19 Tinnitus, unspecified ear | CPT/HCPCS: V5014 ==

== ENCOUNTER 2024-06-07 07:43 | Outpatient (REF) | payer MEDICARE, SELFPAY ==
[2024-06-07 08:03] LABS: MANUAL DIFF FLAG NO
[2024-06-07 08:25] LABS: Appearance Urine Turbid; Color Urine Yellow; Glucose Urine UA Negative (Negative); Leukocyte Esterase Urine Large (3+) (Negative); Nitrite Urine Positive (Negative); UMIC TRIGGER UACC YES; Urine Blood Small (1+) (Negative); Urine Ketones Negative (Negative); Urine Protein 100 (2+) mg/dL (Neg-Trace)
[2024-06-07 08:27] LABS: Basophils Absolute Auto 0.1 X10*3/uL (0.0-0.2); Basophils Percent Auto 0.6 % (0-2); Eosinophils Absolute Auto 0.1 X10*3/uL (0.0-0.4); Eosinophils Percent Auto 0.6 % (0-4); Hematocrit 45.1 % (42.0-52.0); Imm Gran Abs Auto 0.08 X10*3/uL (0.00-0.03); Imm Gran Pct Auto 0.7 % (0.0-0.4); Lymphocytes Absolute Auto 3.1 X10*3/uL (1.2-4.9); Mean Corpuscular HGB Conc 35.5 g/dl (31.0-36.0); Mean Corpuscular Hemoglobin 33.4 pg (27.0-33.0); Mean Corpuscular Volume 94.2 fL (80.0-98.0); Mean Platelet Volume 9.6 fL (9.4-12.4); Monocytes Absolute Auto 1.2 X10*3/uL (0.1-1.2); Monocytes Percent Auto 9.7 % (2-11); Neutrophils Absolute Auto 7.5 x10*3/uL (2.0-8.3); Neutrophils Percent Auto 62.4 % (45-73); Platelet Count 329 X10*3/uL (160-400); Red Blood Count 4.79 X10*6/uL (4.60-5.80); White Blood Count 12.1 X10*3/uL (4.8-10.8)
[2024-06-07 08:33] LABS: Estimated Average Glucose 108 mg/dL; Hemoglobin A1C 140.5146 umol/L; Hemoglobin A1c % 5.4 % (<6.0); Total Hemoglobin (HGBA1C) 3946.2788 umol/L
[2024-06-07 08:44] LABS: Bacteria Urine 4+ (None Seen); UACC Culture Trigger YES; WBC Urine >50 /HPF (0-5)
[2024-06-07 09:10] LABS: Alanine Aminotransferase 22 U/L (0-40); Alkaline Phosphatase 140 U/L (39-117); Aspartate Amino Transferase 21 U/L (5-37); Blood Urea Nitrogen 12 mg/dL (9-16); Calcium 9.7 mg/dL (8.4-10.2); Cholesterol 155 mg/dL (<200); Estimated Glomerular Filt Rate > 60; Glucose Fasting 89 mg/dL (60-99); HDL Cholesterol 60 mg/dL (>40); LDL Cholesterol Calculated 77 mg/dL (<100); Triglycerides 94 mg/dL (<150)
[2024-06-07 09:41] LABS: Anion Gap 14 (12-20); Carbon Dioxide 30 mmol/L (22-29); Chloride 101 mmol/L (96-108); Potassium 2.9 mmol/L (3.3-5.1); Sodium 142 mmol/L (135-145); TSH reflex Free T4 1.23 uIU/mL (0.32-4.0); Vitamin D 25-OH Total 39.8 ng/mL (>30)
[2024-06-07 10:02] LABS: Erythrocyte Sedimentation Rate 17 MM/HR (0-15)
== END 2024-06-07 07:44 | disposition home or self-care (01) ==
LOC: HO.LAB 07:43
PROVIDERS: Internal Medicine; PCP Physician Assistant; Visit Provider Physician Assistant
DX: D64.9 Anemia, unspecified (principal); E78.00 Pure hypercholesterolemia, unspecified; K51.90 Ulcerative colitis, unspecified, without complications; R73.01 Impaired fasting glucose; E55.9 Vitamin D deficiency, unspecified
CPT/HCPCS: 36415; 80053; 80061; 81001; 82306; 83036; 84443; 85025; 85652; 87086; 87088; 87186

== ENCOUNTER 2024-06-09 07:56 | Outpatient (AMB) | payer MEDICARE, SELFPAY ==
--- NOTE | 2024-06-09 08:08 | A.OFFVIS_ITS ---
Intake Visit Reasons: BPH w/LUTS Intake Note: New Patient presents for initial visit for BPH w/LUTS Urology Medications: none Blood Thinner: none PVR: 40ml's Autocutter Required: No Accompanied by: Self / Same As Patient Allergies No Known Allergies Allergy (Verified 06/09/24 08:37) Medication List - Last Reconciled 06/09/24 by MAXIMILIANO Gorman cholecalciferol (vitamin D3) 25 mcg PO DAILY mesalamine ER (Apriso) 1.5 grams PO QAM potassium chloride ER (Klor-Con M) 20 mEq PO DAILY 30 days prednisone 5 mg PO DAILY simvastatin 20 mg PO BEDTIME HPI Comments Details: Bright is a pleasant 78-year-old male patient of Dr. Galvin. He has a past medical history of allergic rhinosinusitis, obesity, vitamin-D deficiency, ulcerative colitis, COPD, and hypercholesteremia. He presents to the office today as a new patient for ongoing lower urinary tract symptoms she has been experiencing. In discussion with the patient today he reports noting over the last 2-3 months she has been experiencing issues with urinary dribbling, weak urinary stream, urinary hesitancy, urinary frequency, and nocturia. He reports having followed up with his PCP at which time recommendations were made for urology referral for further assessment evaluation. He otherwise denies hematuria, dysuria, foul smelling urine, flank pain, fever, and or chills. Unable to obtain urine for urinalysis however PVR 40 mL. In review of patient's chart it appears urine culture has been ordered however urinalysis on 06/07 positive for nitrates. We discussed possible UTI. Urine culture remains pending. We discussed treatment of UTI now verses awaiting urine culture results. ROSAURA offered however deferred. We discussed at length potential causes of lower urinary tract symptoms patient is experiencing as well as further workup to include retroperitoneal ultrasound and PSA for further assessment evaluation. We discussed possible near future in office cystoscopy and or urodynamics for further assessment and evaluation. He otherwise offers no other issues or concerns at this time. [facility] Medical History Allergic rhinosinusitis Obesity (BMI 30-39.9) Vitamin D deficiency Impaired fasting glucose Ulcerative colitis COPD (chronic obstructive pulmonary disease) Pure hypercholesterolemia Exercise hypoxemia COPD (chronic obstructive pulmonary disease) case management patient Surgical History No pertinent past surgical history Family History Father Medical history unknown Mother Cancer Social History Housing: House Alcohol intake: former Patient Tobacco Use Status: Former Tobacco user Years Smoked: 8 years ago e-Cigarette/Vaping Use: Never Used Second Hand Smoke Exposure: Yes service: Yes Current occupational status: retired Cognitive needs: No Hearing needs: Yes Vision needs: Yes Review of Systems Eyes Reports no additional complaints ENT Reports as per HPI Card Reports as per HPI Resp Reports as per HPI GI Reports no additional complaints Reports as per HPI Musc Reports no additional complaints Neuro Reports no additional complaints Psych Reports no additional complaints Endo Reports no additional complaints Terence/Lymph Reports no additional complaints Aller/Immun Reports as per HPI Physical Exam Const General: cooperative, healthy appearing, comfortable, no acute distress, well developed, alert and awake Nutritional Appearance: overweight Orientation/consciousness: patient oriented x3 Limitations: no limitations HEENT Head: Yes normal to inspection, Yes normocephalic and Yes atraumatic Ears: hearing grossly normal bilaterally Eyes General: appearance normal, both eyes and all related structures Neck Neck: Yes normal visual inspection and Yes trachea midline Chest Chest palpation & inspection: normal inspection of the chest Resp Effort & Inspection: normal respiratory effort and able to speak in complete sentences Cardio Rate: regular rate GI Inspection: Yes normal to inspection General: Yes no CVA tenderness Back/Spine/Pelvis Back: no CVA tenderness Skin General skin exam: no rashes or lesions noted Neuro General: patient oriented x3 Extrem General: Yes normal to inspection Psych Appearance: grossly normal and well kempt Mental Status: mental status grossly normal Speech and movement: Normal speech and movement present and Clear speech present Affect: normal affect Attitude: cooperative Thought process: Normal thought process present Thought content: Normal thought content present Insight: Fair insight present (Psych) Judgement: Fair judgement present (Psych) Office Procedures Post Void Residual Post Residual Void Post Void Residual (PVR): 40 28054-Lxrh Void Residual by ultrasound Assessment & Plan Assessment & Plan (1) Weak urinary stream: Code(s): R39.12 - Poor urinary stream Category: Medical (2) Urinary dribbling: Code(s): N39.43 - Post-void dribbling Category: Medical (3) Nocturia: Code(s): R35.1 - Nocturia Category: Medical (4) Acute UTI: Code(s): N39.0 - Urinary tract infection, site not specified Category: Medical Plan Unable to obtain urine for urinalysis however PVR 40 mL. Urinalysis 06/07 positive nitrates; urine culture remains pending; we discussed awaiting urine culture results verses initiation of antibiotic therapy at this time. Will start antibiotic therapy. Start Bactrim as discussed and prescribed. Will obtain retroperitoneal ultrasound for further assessment evaluation. Will obtain PSA for further assessment evaluation. ROSAURA offered however deferred. We discussed at length potential causes for lower urinary tract symptoms patient is experiencing. Discussed lifestyle modifications to assist with lower urinary tract symptoms as well as overall health and well-being. Start Flomax as discussed and prescribed. Follow-up in 1-3 months with imaging and labs to be completed prior; or sooner with any issues, concerns, and or questions. Orders: Orders AMB Urinalysis Automated Today Z13.9 - Encounter for screening, unspecified US retroperitoneal comp Today N39.43 - Post-void dribbling, R35.1 - Nocturia, R39.12 - Poor urinary stream AMB Post Void Residual by ultrasound Today N13.8 - Other obstructive and reflux uropathy, N40.1 - Benign prostatic hyperplasia with lower urinary tract symptoms Prostate Specific Antigen Today N39.43 - Post-void dribbling, R35.1 - Nocturia, R39.12 - Poor urinary stream Medications: New tamsulosin 0.4 mg PO BEDTIME 30 days 30 caps 3RF N40.1 - Benign prostatic hyperplasia with lower urinary tract symptoms, R35.1 - Nocturia sulfamethoxazole-trimethoprim 800-160 mg (Bactrim DS) 1 tab PO BID 7 days 14 tabs 0RF N39.0 - Urinary tract infection, site not specified Patient Instructions: The patient had an opportunity to ask questions regarding the treatment plan. All questions were answered. Physical exam, labs, and imaging were discussed and reviewed in detail. As well as risks, benefits, and discussion of treatment choices. No major barriers to understanding were identified. The patient expressed understanding and agreement with the above treatment plan. The patient was made aware they should contact our office by phone for worsening of their current condition, the appearance of new symptoms, or with any questions or concerns. Compliance is encouraged with any medications and follow up testing that is ordered. It is a privilege to be allowed the opportunity to participate in? your urological care.? Again, if you have any questions or concerns If you have any questions or concerns please do not hesitate to contact me. The office is [phone]. This note is constructed using voice recognition software. While every effort has been made to ensure accuracy regulatory administrator errors may have been included. Yours sincerely, MAXIMILIANO Gorman Coding Level of Care Code New Pt Level 4 (80993) Diagnoses Weak urinary stream R39.12 Urinary dribbling N39.43 Nocturia R35.1 Acute UTI N39.0 CPT Codes Post Residual Void - PVR CPT Code: 78853-Jhqr Void Residual by ultrasound ([id number])
== END 2024-06-09 08:38 | disposition home or self-care (01) ==
PROVIDERS: PCP Internal Medicine; Visit Provider Nurse Practitioner Family
DX: R39.12 Poor urinary stream (principal); N39.43 Post-void dribbling; R35.1 Nocturia; N39.0 Urinary tract infection, site not specified
CPT/HCPCS: 99204

== ENCOUNTER → 2024-06-09 07:56 | Outpatient (BNVA) | payer MEDICARE, SELFPAY | PROVIDERS: PCP Internal Medicine; Visit Provider Nurse Practitioner Family | DX: N39.43 Post-void dribbling (principal); R39.12 Poor urinary stream; R35.1 Nocturia; N39.0 Urinary tract infection, site not specified | CPT/HCPCS: 51798; 99202 ==

== ENCOUNTER 2024-06-10 11:17 | Outpatient (AMB) | payer MEDICARE, SELFPAY ==
[2024-06-10 11:29] VITALS: BP 160/100; PULSE 90; O2SAT 89; BMI 34.0
--- NOTE | 2024-06-10 11:29 | A.OFFPC_ITS ---
Vital Signs 06/10/24 11:29 06/10/24 11:55 Height 5 ft 7 in Weight 217 lb 6 oz BMI 34.0 BP 160/100 H 160/100 H Blood Pressure Location Lt brachial Lt brachial Position Sitting Sitting Pulse 90 Pulse Source Pulse Oximeter Pulse Oximetry (%) 89 L 96 Oxygen Delivery Method Room Air Room Air Intake Visit Reasons: 6mth f/u Cogeneration Technician Required: No Accompanied by: Self / Same As Patient Allergies No Known Allergies Allergy (Verified 06/10/24 11:50) Medication List - Last Reconciled 06/10/24 by Reyes Galvin MD cholecalciferol (vitamin D3) 25 mcg PO DAILY mesalamine ER (Apriso) 1.5 grams PO QAM potassium chloride ER (Klor-Con M) 20 mEq PO DAILY 30 days prednisone 5 mg PO DAILY simvastatin 20 mg PO BEDTIME sulfamethoxazole-trimethoprim 800-160 mg (Bactrim DS) 1 tab PO BID 7 days tamsulosin 0.4 mg PO BEDTIME 30 days Tobacco use date assessed: 06/10/24 Fall risk assessment: No Falls in past year Last assessed Fall Risk: 06/10/24 Dental Screening Dental Screen Date: 06/10/24 Did you have a dental visit in the last 12 months?: Yes Did you have a dental problem in the last 6 months where you did not have access to dental care?: No Was dental information given to patient?: Patient has dentist HPI 6mth f/u HPI Details Patient comes in today for his follow up visit States that he feels okay He denies any headaches or dizziness Denies any chest pains, no increased SOB - still has some ARZATE but states that this has been his baseline for years No nausea/vomiting, no abdominal pain No change in bowel habits noted He had his follow up labs done a few days ago - to discuss his results [facility] Medical History Allergic rhinosinusitis Obesity (BMI 30-39.9) Vitamin D deficiency Impaired fasting glucose Ulcerative colitis COPD (chronic obstructive pulmonary disease) Pure hypercholesterolemia Exercise hypoxemia COPD (chronic obstructive pulmonary disease) case management patient Surgical History No pertinent past surgical history Family History Father Medical history unknown Mother Cancer Social History Housing: House Alcohol intake: former Patient Tobacco Use Status: Former Tobacco user Years Smoked: 8 years ago e-Cigarette/Vaping Use: Never Used Second Hand Smoke Exposure: Yes service: Yes Current occupational status: retired Cognitive needs: No Hearing needs: Yes Vision needs: Yes Questionnaire PHQ-9 Over the last 2 weeks, how often have you been bothered by any of the following problems? 1. Little interest or pleasure in doing things: not at all 2. Feeling down, depressed, or hopeless: not at all 3. Trouble falling or staying asleep, or sleeping too much: not at all 4. Feeling tired or having little energy: not at all 5. Poor appetite or overeating: not at all 6. Feeling bad about yourself - or that you are a failure or have let yourself or your family down: not at all 7. Trouble concentrating on things, such as reading the newspaper or watching television: not at all 8. Moving or speaking so slowly that other people could have noticed. Or the opposite - being so fidgety or restless that you have been moving around a lot more than usual: not at all 9. Thoughts that you would be better off or of hurting yourself in some way: not at all Total score: 0 Depression Screening Interpretation: Negative Depression Screening Done: Yes 01847 - PHQ-9 Billing: Yes Source: Developed by Drs. Javi Moraes, Elaina Steiner, Jerod Appiah and colleagues, with an educational vee from [employer]. Thrive Questionnaire Date Thrive assessed: 06/10/24 I am a: Patient What is your living situation today?: I have a steady place to live Within the past 12 months, did the food you bought not last and you didn't have the money to get more?: Never true Within the past 12 months, did you worry whether your food would run out before you got money to buy more?: Never true Do you have trouble paying for medicines?: No Do you have trouble getting transportation to medical appointments?: No Do you have trouble paying your heating and electricity bill?: No Do you have trouble taking care of your child, family member or friend?: No Do you have trouble with day-to-day activities such as bathing, preparing meals, shopping, managing finances, etc.?: No Are you currently unemployed and looking for a job?: No Are you interested in more education?: No Please select the resources that you would like help with: None Currently or been in a relationship where the following occur: No concerns reported THRIVE Score: 0 AUDIT C Alcohol Use Questionnaire (AUDIT-C) 1. How often do you have a drink containing alcohol?: Never 3. How often do you have six or more drinks on one occasion?: Never Total Score: 0 Score Reviewed/Action Taken: Yes SHONDA-7 AMB Questionnaire SHONDA-7 Date SHONDA - 7 assessed: 06/10/24 Feeling nervous, anxious, or on edge: 0 = Not at all Not being able to stop or control worryin = Not at all Worrying too much about different things: 0 = Not at all Trouble relaxin = Not at all Being so restless that it is hard to sit still: 0 = Not at all Becoming easily annoyed or irritable: 0 = Not at all Feeling afraid as if something awful might happen: 0 = Not at all Total SHONDA-7 score (0-4 normal; 5-9 mild; 10-14 moderate; 15-21 severe): 0 Source: Developed by Drs. Javi Moraes, Elaina Steiner, Jerod Appiah and colleagues, with an educational vee from [employer]. Review of Systems Const Denies chills, Reports fatigue (at times), Denies fever(s) and Denies headache(s) ENT Denies dysphagia, Denies dizziness, Denies otalgia, Denies headache(s), Denies neck pain, Denies odynophagia and Denies sore throat Card Denies chest pain, Denies palpitations and Reports dyspnea on exertion (mild) Resp Denies chest congestion, Denies cough, Reports dyspnea on exertion (mild) and Denies wheezing GI Denies abdominal pain, Denies hematochezia, Denies dysphagia, Denies heartburn, Denies diarrhea, Denies nausea, Denies odynophagia and Denies vomiting Denies difficulty urinating, Denies dysuria, Denies nocturia and Denies urinary frequency Musc Denies back pain, Denies arthralgias and Denies neck pain Skin/Breast Denies rash Neuro Denies dizziness and Denies headache(s) Endo Reports fatigue (at times) and Denies palpitations Aller/Immun Denies wheezing Physical exam (Primary Care) Vital Signs: Last Vital Signs Pulse 90 06/10/24 11:29 BP 160/100 H 06/10/24 11:55 Pulse Ox 96 06/10/24 11:55 Oxygen Delivery Method Room Air 06/10/24 11:55 BMI result Body Mass Index 34.0 Tobacco/Smoking Status: Tobacco use Status Tobacco use date assessed 06/10/24 06/10/24 11:35 Patient Tobacco Use Status Former Tobacco user 06/10/24 11:35 e-Cigarette/Vaping Use Never Used 06/10/24 11:35 PHQ-9: PHQ-9 Score PHQ-9: Total score 0 06/10/24 11:53 Depression Screening Interpretation: Negative Thrive Assessment: Date of Thrive Assessment Date Thrive assessed 06/10/24 06/10/24 11:35 Currently or been in a relationship where the following occur: No concerns reported Const General: no acute distress and alert HENMT Ears: TM's normal bilaterally and EAC's normal Throat: Yes posterior oropharynx normal and Yes tonsils normal (no TP congestion noted) Neck Neck: Yes no lymphadenopathy and Yes supple Thyroid: Thyroid normal Resp Auscultation: clear to auscultation bilaterally, no rales and no wheezes Cardio Rate: regular rate Rhythm: regular rhythm Heart sounds: no murmurs GI Palpation (GI): Soft to palpation and nontender Auscultation: normal bowel sounds General: Yes no CVA tenderness Back/Spine/Pelvis Back: no CVA tenderness Skin Rashes: no rashes Extrem General: Yes no clubbing, cyanosis or edema Results Reviewed Results Reviewed: Laboratory Tests 06/07/24 06/07/24 07:46 08:01 WBC 12.1 H Hgb 16.0 Hct 45.1 Plt Count 329 ESR 17 H Sodium 142 Potassium 2.9 L* Creatinine 1.04 Estimated GFR > 60 Fasting Glucose 89 Hemoglobin A1c % 5.4 Calcium 9.7 Total Bilirubin 2.0 H AST 21 ALT 22 Triglycerides 94 Cholesterol 155 LDL Cholesterol, Calc 77 HDL Cholesterol 60 25-OH Vitamin D Total 39.8 TSH 1.23 Ur Specific [place] 1.020 Urine Protein 100 (2+) H Urine Glucose (UA) Negative Urine Blood Small (1+) H Urine Nitrite Positive H Ur Leukocyte Esterase Large (3+) H Coding Level of Care Code Est Pt Level 4 (84065) Diagnoses Pure hypercholesterolemia E78.00 Chronic obstructive pulmonary disease, unspecified COPD type J44.9 COPD type: unspecified COPD Ulcerative colitis without complications, unspecified location K51.90 Ulcerative colitis location: unspecified ulcerative colitis location Digestive disease complication type: without complication Elevated blood pressure reading in office without diagnosis of hypertension R03.0 Impaired fasting glucose R73.01 Hypokalemia E87.6 Vitamin D deficiency E55.9 Obesity (BMI 30-39.9) E66.9 Additional Codes PHQ-9 - 85715 - PHQ-9 Billing: Yes ([id number]) Assessment & Plan Assessment & Plan (1) Pure hypercholesterolemia: Code(s): E78.00 - Pure hypercholesterolemia, unspecified Category: Medical Plan: Results of his labs done a few days ago reviewed and discussed with patient Reinforced low cholesterol diet Continue Simvastatin 20 mg QD Will recheck his labs and fasting lipids in 6 months for follow up (2) COPD (chronic obstructive pulmonary disease): Comment: He has mild to moderate degree of chronic obstructive pulmonary disease. (LAST SPIROMETRY IN 2019 MILD OBSTRUCTIVE PULM . DISORDER ) Has had no acute exacerbation. Has not required to use any long-acting bronchodilators, has also hardly needed to use the rescue inhaler. Overall his COPD status is mild and remaining very stable .. CURRENTLY HE IS ON PREDNISONE5 MG A DAY FOR HIS IBD . Code(s): J44.9 - Chronic obstructive pulmonary disease, unspecified Category: Medical Qualifiers: COPD type: unspecified COPD Qualified Code(s): J44.9 - Chronic obstructive pulmonary disease, unspecified Plan: Stable He has not really required any inhalers or oxygen inhalation over the past few years and has had no problems or significant restrictions with his daily activities other than some SOB with increased exertion Follow up with pulmonary (Dr. Hoyt) as scheduled (3) Ulcerative colitis: Comment: Repeat colonoscopy done in 2019 - biopsies showed (+) chronic colitis but no dysplastic changes Code(s): K51.90 - Ulcerative colitis, unspecified, without complications Category: Medical Qualifiers: Ulcerative colitis location: unspecified ulcerative colitis location Digestive disease complication type: without complication Qualified Code(s): K51.90 - Ulcerative colitis, unspecified, without complications Plan: Repeat colonoscopy in 2019 showed (+) chronic colitis on his biopsies but no dysplastic changes Continue Mesalamine ER 1.5 gm Q AM; he takes oral Prednisone as needed for flare ups of his colitis Follow up with GI (Dr. Donvoan) as scheduled (4) Elevated blood pressure reading in office without diagnosis of hypertension: Code(s): R03.0 - Elevated blood-pressure reading, without diagnosis of hypertension Category: Medical Plan: Reinforced low sodium diet He is advised that his blood pressure readings are high today - systolic BP should be at least at 130 to 140 mm or less Patient is advised to continue monitoring his blood pressure regularly Will also have him get evaluated and rechecked by our nurse navigators in a few weeks (5) Impaired fasting glucose: Code(s): R73.01 - Impaired fasting glucose Category: Medical Plan: His FBS was normal at 89 mg/dl on his recent labs His HgbA1c was normal at 5.4%; was previously at 6.2% a few months ago Reinforced low calorie diet/exercise as tolerated Will continue to monitor his blood sugar regularly (6) Hypokalemia: Code(s): E87.6 - Hypokalemia Category: Medical Plan: Unknown etiology - patient denies any recent nausea/vomiting or diarrhea and he is not on any medications that can cause hypokalemia He currently still has hypokalemia (2.9) on his recent labs and has been started on potassium chloride supplements but patient still has not yet picked up his Rx - he is advised to get his Rx and start on it right away Will have him recheck his serum potassium in 1 month for follow up (7) Vitamin D deficiency: Code(s): E55.9 - Vitamin D deficiency, unspecified Category: Medical Plan: Continue Vitamin D3 1000 units QD (8) Obesity (BMI 30-39.9): Comment: This is a chronic problem, partly promoted by his frequently usage of prednisone for inflammatory bowel disease. He will continue to try losing more weight. Denies symptoms of obstructive sleep apnea. Code(s): E66.9 - Obesity, unspecified Category: Medical Plan: Reinforced diet/exercise as tolerated/lose weight although his activity tolerance is somewhat limited by his COPD Plan Follow up in 6 months Orders: Orders Lipid Panel 6 Months E78.00 - Pure hypercholesterolemia, unspecified TSH reflex Free T4 6 Months E78.00 - Pure hypercholesterolemia, unspecified UA CC w/rflx Micro + Cult 6 Months R30.0 - Dysuria Basic Metabolic Panel 1 Month E87.6 - Hypokalemia Complete Blood Count Auto Diff 6 Months D64.9 - Anemia, unspecified Comprehensive [place]. Panel Fast 6 Months E78.00 - Pure hypercholesterolemia, unspecified Vitamin D 25-OH Total 6 Months E55.9 - Vitamin D deficiency, unspecified
[2024-06-10 11:55] VITALS: BP 160/100; O2SAT 96
== END 2024-06-10 12:05 | disposition home or self-care (01) ==
PROVIDERS: PCP Internal Medicine; Visit Provider Internal Medicine
DX: J44.9 Chronic obstructive pulmonary disease, unspecified (principal); K51.90 Ulcerative colitis, unspecified, without complications; E66.9 Obesity, unspecified; Z68.34 Body mass index [BMI] 34.0-34.9, adult; E78.00 Pure hypercholesterolemia, unspecified; R03.0 Elevated blood-pressure reading, without diagnosis of hypertension; R73.01 Impaired fasting glucose; E87.6 Hypokalemia; E55.9 Vitamin D deficiency, unspecified

== ENCOUNTER → 2024-06-10 11:17 | Outpatient (BNVA) | payer MEDICARE, SELFPAY | PROVIDERS: PCP Internal Medicine; Visit Provider Internal Medicine | DX: E78.00 Pure hypercholesterolemia, unspecified (principal); J44.9 Chronic obstructive pulmonary disease, unspecified; K51.90 Ulcerative colitis, unspecified, without complications; R03.0 Elevated blood-pressure reading, without diagnosis of hypertension; R73.01 Impaired fasting glucose; E87.6 Hypokalemia; E55.9 Vitamin D deficiency, unspecified; E66.9 Obesity, unspecified; Z68.34 Body mass index [BMI] 34.0-34.9, adult; Z71.3 Dietary counseling and surveillance | CPT/HCPCS: 96127; 99212 ==

== ENCOUNTER 2024-07-09 09:37 | Outpatient (REF) | payer MEDICARE, SELFPAY ==
[2024-07-09 11:36] LABS: Anion Gap 12 (12-20); Blood Urea Nitrogen 11 mg/dL (9-16); Calcium 9.1 mg/dL (8.4-10.2); Carbon Dioxide 33 mmol/L (22-29); Chloride 101 mmol/L (96-108); Estimated Glomerular Filt Rate > 60; Glucose Random 89 mg/dL (60-115); Potassium 3.3 mmol/L (3.3-5.1); Sodium 143 mmol/L (135-145)
[2024-07-09 11:55] LABS: Prostate Specific Antigen 0.29 ng/mL (<0.05-4.0)
== END 2024-07-09 09:38 | disposition home or self-care (01) ==
LOC: HO.LAB 09:37
PROVIDERS: Nurse Practitioner Family; PCP Internal Medicine; Visit Provider Physician Assistant
DX: Z12.5 Encounter for screening for malignant neoplasm of prostate (principal); E87.6 Hypokalemia; N39.43 Post-void dribbling; R35.1 Nocturia; R39.12 Poor urinary stream
CPT/HCPCS: 36415; 80048; 84153

== ENCOUNTER 2024-07-22 12:51 | Outpatient (REF) | payer MEDICARE, SELFPAY ==
--- NOTE | ~2024-07-22 | US_ITS ---
EXAMINATION: US RETROPERITONEAL COMPLETE (RENAL) CLINICAL INFORMATION: Nocturia. COMPARISON: None available. TECHNIQUE: Real-time imaging of the kidneys and bladder. FINDINGS: RIGHT KIDNEY: 13 x 5 x 5 cm (SAG x AP x TRV). The kidney is normal in size, contour, and echogenicity. Renal cortical thickness is normal. No solid or cystic lesion. No hydronephrosis. Normal flow on color Doppler interrogation of the renal hilum. LEFT KIDNEY: 10 x 5 x 6 cm (SAG x AP x TRV). The kidney is normal in size, contour, and echogenicity. Renal cortical thickness is normal. No hydronephrosis. No solid lesion. There is a 4 cm exophytic anechoic lesion in the lower pole without septations or nodular components. There is a 2.5 cm exophytic anechoic lesion in the midportion without septations or nodular components. There is normal flow on color Doppler interrogation of the renal hilum. BLADDER: Fluid-filled. Bilateral ureteral jets are demonstrated. Prevoid bladder volume is 205 mL. Postvoid bladder volume is 138 mL. US/US retroperitoneal comp IMPRESSION: 138 cc residual urine in a post void image. No hydronephrosis. Simple cysts, left kidney.. Electronically signed by: Ag Frankel MD 07/28/2024 09:31 AM [email or web address]
--- OUTSIDE RECORDS SUMMARY | 2024-07-22 13:47 | XMS_ITS ---
Author Organization [facility] Address [address] [place] [address] Care Team Providers Care Bobbin Dumper Name Role Phone Kamar DOMINIQUE, [place] Primary Care Provider Unava Javi Dee Unavailable [phone] REASON FOR VISIT potassium Encounters Encounter Location Date Provider Diagnosis [facility] [address] [place] [address] 06/08/2024 Javi Donovan PLAN OF TREATMENT Next Appt Details Provider Name:Javi Donovan , 06/23/2025 11:00:00 AM, [address], [address], [place], [address],
--- OUTSIDE RECORDS SUMMARY | 2024-07-22 13:47 | XMS_ITS ---
Author Organization [facility] Address [address] [place] [address] Care Team Providers Care Electric Meter Technician Name Role Phone Kamar DOMINIQUE, Reyes Primary Care Provider Javi Collins Unavailable [phone] REASON FOR VISIT REFILL PREDNISONE MEDICATIONS Medication SIG (Take, Route, Fr equency, Duration) Notes Start Date End Date Status predniSONE 5 MG 1 tablet Orally Once a day for 90 days Active Encounters Encounter Location Date Provider Diagnosis [facility] [address] [place] [address] 07/19/2024 Javi Donovan Ulcerative pancoliti s without complication K51.00 ASSESSMENTS Encounter Date Diagnosis Assessment Notes Treatment Notes Treatment Clinical Notes 07/19/2024 Ulcerative pancolitis without complication (ICD-10 - K51.00) PLAN OF TREATMENT Medication Medication Name Sig Start Date Stop Date Notes predniSONE 5 MG 1 tablet Orally Once a day for 90 days Next Appt Details Provider Name:Javi Donovan , 06/23/2025 11:00:00 AM, [address], [address], [place], [address],
--- OUTSIDE RECORDS SUMMARY | 2024-07-22 13:47 | XMS_ITS ---
Author Organization [facility] Address [address] [place] [address] Care Team Providers Care Circulation Assistant Name Role Phone Kamar DOMINIQUE, Reyes Primary Care Provider Javi Collins Unavailable [phone] ALLERGIES No Known Allergies REASON FOR VISIT Patient presents today for ulcerative pancolitis MEDICATIONS Medication SIG (Take, Route, Fr equency, Duration) Notes Start Date End Date Status Mesalamine ER 0.375 GM TAKE 4 CAPSULES B Y MOUTH EVERY MORNING for 90 Active predniSONE 5 MG 1 tablet Orally Once a day for 90 days Active Vitamin D 1000 UNIT 1 tablet Orally Once a day Active Simvastatin 20 MG 1 tablet in the even ing Orally Once a day Active Apriso 0.375 GM TAKE 4 CAPSULES BY M OUTH EVERY MORNING Active SOCIAL HISTORY Tobacco Use: Social History Observation Description Date Details (start date - stop date) Former Smoker NA - NA Sex Assigned At : Social History Observation Description Sex Assigned At Unknown Tobacco Use/Smoking Question Answer Notes Patient is a former smoker How long has it been since you last smoked? 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 PLAN OF TREATMENT Medication Medication Name Sig Start Date Stop Date Notes predniSONE 5 MG 1 tablet Orally Once a day for 90 days Apriso 0.375 GM TAKE 4 CAPSULES BY MOUTH EVERY MORNING Treatment Notes Assessment Notes Ulcerative pancolitis without complicati on Continue the one 5mg prednisone daily shelter to try to keep the colitis quiet Next Appt Details Follow Up: 1 Year, Reason: Provider Name:Javi Donovan , 06/23/2025 11:00:00 AM, [address] [facility], [address], [place], [address], Progress Notes * Examination Category Sub-Category Detail Notes General Examination GENERAL APPEARANCE: pleasant , well nourished, well developed, in no acute distress EYES: sclera non-icteric NECK/THYROID: no cervical lymphade nopathy, neck supple HEART: S1, S2 normal LUNGS: clear to auscultatio n bilaterally ABDOMEN: normal bowel sounds, no guarding or rigidity, no hepatosplenomegaly, no masses palpable, soft, nontender, nondistended. NEUROLOGIC: alert and oriented SKIN: nonjaundiced, no spi luis angiomata. EXTREMITIES: no edema ORAL CAVITY: mucosa moist
--- OUTSIDE RECORDS SUMMARY | 2024-07-22 13:48 | XMS_ITS | Patient Health Record ---
Author Organization [facility] Address [address] [place] [address] Care Team Providers Care Ornament Stitcher Name Role Phone Reyes Galvin MD Primary Care Provider Javi Collins Unavailable [phone] ALLERGIES No Known Allergies RESULTS Component Value Reference Range Notes Complete Blood Count Auto Di ff Reviewed date:10/15/2023 06:24:13 PM Interpretation: Performing Lab:[facility], [address] [place] [phone] Notes/Report: White Blood Count 10.5 4.8-10.8 X10*3/uL Red Blood Count 4.95 4.60-5.80 X10*6/uL Hemoglobin 16.2 14.0-18.0 g/dl Hematocrit 45.4 42.0-52.0 % Mean Corpuscular Volume 91.7 80.0-98.0 fL Mean Corpuscular Hemoglobin 32.7 27.0-33.0 pg Mean Corpuscular HGB Conc 35.7 31.0-36.0 g/dl Red Cell Distribution Width 13.3 11.0-16.0 % Platelet Count 209 160-400 X10*3/uL Mean Platelet Volume 11.6 9.4-12.4 fL Neutrophils Percent Auto 62.6 45-73 % Imm Gran Pct Auto 0.5 0.0-0.4 % Lymphocytes Percent Auto 22.7 20-40 % Monocytes Percent Auto 12.1 2-11 % Eosinophils Percent Auto 1.4 0-4 % Basophils Percent Auto 0.7 0-2 % NRBC Pct Auto 0.0 0.0-0.2 /100WBC Neutrophils Absolute Auto 6.6 2.0-8.3 x10*3/u L Imm Gran Abs Auto 0.05 0.00-0.03 X10*3/uL Lymphocytes Absolute Auto 2.4 1.2-4.9 X10*3/u L Monocytes Absolute Auto 1.3 0.1-1.2 X10*3/uL Eosinophils Absolute Auto 0.2 0.0-0.4 X10*3/u L Basophils Absolute Auto 0.1 0.0-0.2 X10*3/uL NRBC Abs Auto 0.000 0.0-0.012 X10*3/uL Erythrocyte Sedimentation Ra te Reviewed date:10/15/2023 06:25:19 PM Interpretation: Performing Lab:[address] [address] Notes/Report: Erythrocyte Sedimentation Rate 22 0-15 MM/HR Patients with polycythemia and many hemoglobin abnormalities may have depressed sed rates whereas patients with anemia may have elevated sed rates. Liver Panel Reviewed date:10/15/2023 06:24:28 PM Interpretation: Performing Lab:[address] [address] Notes/Report: Bilirubin Total 2.3 0.0-1.0 mg/dL Bilirubin Direct 0.7 0.0-0.5 mg/dL Aspartate Amino Transferase 17 5-37 U/L Alanine Aminotransferase 16 0-40 U/L Total Protein 7.4 6.5-8.0 g/dL Albumin Level 4.1 3.5-5.0 g/dL Alkaline Phosphatase 147 39-117 U/L Basic Metabolic Panel Reviewed date:10/15/2023 06:25:05 PM Interpretation: Performing Lab:[address] [address] Notes/Report: Sodium 140 135-145 mmol/L Potassium 3.3 3.3-5.1 mmol/L Chloride 98 96-108 mmol/L Carbon Dioxide 33 22-29 mmol/L Anion Gap 12 12-20 Blood Urea Nitrogen 8 9-16 mg/dL Creatinine 1.01 0.5-1.4 mg/dL Estimated Glomerular Filt Rate > 60 NOTE: For -Gabonese individuals, multiply the result by 1.210. Chronic Kidney Disease: Estimated GFR < 60 mL/min/1.73m2 Severe Kidney Disease: Estimated GFR < 15 mL/min/1.73m2 Glucose Random 91 60-115 mg/dL Calcium 9.3 8.4-10.2 mg/dL C Reactive Protein Reviewed date:10/15/2023 06:25:12 PM Interpretation: Performing Lab:[facility], [address] [place] [phone] Notes/Report: C Reactive Protein 2.68 < or = 0.50 mg/dL Leukocytes Stool Qualitative Reviewed date:10/16/2023 12:10:35 PM Interpretation: Performing Lab:[facility], [address] [place] [phone] Notes/Report: Leukocytes Stool Qualitative NEGATIVE NEGATIVE Calprotectin, Fecal Reviewed date:11/01/2023 12:58:27 AM Interpretation: Performing Lab:[facility], [address] [place] [phone] Notes/Report: Calprotectin, Fecal 5470 Reference Range: <50 Normal 50-120 Borderline >120 Elevated Calprotectin in Crohn's disease and ulcerative colitis can be five to several thousand times above the reference population (50 mcg/g or less). Levels are usually 50 mcg/g or less in healthy patients and with irritable bowel syndrome. Repeat testing in 4-6 weeks is suggested for borderline values. THIS TEST WAS PERFORMED AT: [employer] [address] [place] [address] MITA VALENCIA MD,PHD,COMFORT CDiff Gene PCR Reviewed date:10/16/2023 12:10:21 PM Interpretation: Performing Lab:[address] [phone] Notes/Report: CDiff Gene PCR NEGATIVE Negative If C. difficile strongly suspected despite one negative test, a second test may be sent vs. empiric treatment for C. difficile infection. GI PANEL Reviewed date:10/16/2023 06:17:57 PM Interpretation: Performing Lab:[address] [address] Notes/Report: Campylobacter Not Detected Not Detect. Plesiomonas shigelloides Not Detected Not Detect. Salmonella Not Detected Not Detect. Vibrio Not Detected Not Detect. Vibrio Cholerae Not Detected Not Detect. Yersinia enterocolitica Not Detected Not Detect. E. coli EAEC Not Detected Not Detect. E. coli EPEC Not Detected Not Detect. E. coli ETEC Not Detected Not Detect. E. coli STEC Not Detected Not Detect. E. coli O157 Not applicable Not Detect. E. coli containing the O157 antigen are a subset of Shiga-like toxin-producing E. coli (STEC). Shigella sp./EIEC Not Detected Not Detect. Cryptosporidium Not Detected Not Detect. Cyclospora cayetanensis Not Detected Not Detect. Entamoeba histolytica Not Detected Not Detect. Giardia lamblia Not Detected Not Detect. Adenovirus F 40/41 Not Detected Not Detect. Astrovirus Not Detected Not Detect. Norovirus GI/GII Not Detected Not Detect. Rotavirus A Not Detected Not Detect. Sapovirus Not Detected Not Detect. All results must be correlated with clinical findings. Negative results do not exclude the possibility of gastrointestinal infection and should not be used as the sole basis for diagnosis, treatment, or other management decisions. Virus, bacteria, and parasite nucleic acid may persist in vivo independently of organism viability. Additionally, some organisms may be carried symptomatically. Detection of organism targets does not imply that the corresponding organisms are infectious or are the causative agents for clinical symptoms. There is a risk of false negative values due to the presence of sequence variants in the gene targets of the assay, amplification inhibitors in specimens, or inadequate numbers of organisms for amplification. The identification of several diarrheagenic E. coli pathotypes has historically relied upon phenotypic characteristics. This panel targets genetic determinants characteristic of most pathogenic strains, but may not detect all strains having phenotypic characteristics of a pathotype. The performance of this test has not been established for monitoring treatment of infection with any of the panel organisms. This assay is performed by Multiplexed PCR, utilizing the Krowder Array. REASON FOR REFERRAL No Information MEDICATIONS Medication SIG (Take, Route, Fr equency, Duration) Notes Start Date End Date Status Mesalamine ER 0.375 GM TAKE 4 CAPSULES B Y MOUTH EVERY MORNING for 90 Active Vitamin D 1000 UNIT 1 tablet Orally Once a day Active Simvastatin 20 MG 1 tablet in the even ing Orally Once a day Active Apriso 0.375 GM TAKE 4 CAPSULES BY M OUTH EVERY MORNING Active predniSONE 5 MG 1 tablet Orally Once a day for 90 days Active IMMUNIZATIONS Vaccine Route Administration Date Status Comme nts Flu vaccine no Preserv 3 and > Unknown 05/28/2016 Admin istered Influenza Unknown 03/21/2017 Administered Flu vaccine no Preserv 3 and > Unknown 05/22/2018 Admin istered Influenza Unknown 05/31/2020 Administered Influenza Unknown 04/20/2021 Administered Influenza Unknown 05/08/2022 Administered Influenza Unknown 04/27/2019 Refused SOCIAL HISTORY Tobacco Use: Social History Observation Description Date Details (start date - stop date) Former Smoker NA - NA Sex Assigned At : Social History Observation Description Sex Assigned At Unknown Tobacco Use/Smoking Question Answer Notes Patient is a former smoker How long has it been since you last smoked? > 10 years PROBLEMS Problem Type ICD Code Onset Dates Problem Status W/U Status Risk SNOMED Code Notes Problem Encounter for screening for malignant neoplasm of colon (Z12.11) Active confirmed 085398099 Problem History of adenomatous polyp of colon (Z86.010) Active confirmed 537096718 Problem Weight loss (R63.4) Active confirmed 07606240 Problem Encounter for screening for malignant neoplasm of rectum (Z12.12) Active confirmed Screening fo r malignant neoplasm of rectum (776743876) Problem Elevated liver function tests (R79.89) Active confirmed 657285778 Problem Family history of colon cancer (Z80.0) Active confirmed 703087231 Problem Ulcerative pancolitis without complication (K51.00) Active confirmed 009395905 Problem Abnormal gallbladder ultrasound (R93.2) Active confirmed 14374895105763204 Problem Ulcerative pancolitis with rectal bleeding (K51.011) Active confirmed Chronic ulcerat mari pancolitis (552725133) Problem Abdominal pain, generalized (R10.84) Active confirmed 381909388 Problem Diarrhea, unspecified type (R19.7) Active confirmed 30358439 Problem Diarrhea of presumed infectious origin (R19.7) Active confirmed 67062977 VITAL SIGNS Blood pressure diastolic 00 mm Hg 06/22/2024 Height 65 in 06/22/2024 Blood pressure systolic 00 mm Hg 06/22/2024 Weight 216 lbs 06/22/2024 BMI 35.94 kg/m2 06/22/2024 Encounters Encounter Location Date Provider Diagnosis [facility] [address] [place] [phone] 12/02/2023 Javi Donovan Ulcerative pancoliti s without complication K51.00 [facility] [address] [place] [address] 06/03/2024 Javi Donovan [facility] [address] [place] [address] 06/22/2024 Javi Donovan Ulcerative pancoliti s without complication K51.00 [facility] [address] [place] [address] 10/15/2023 Javi Donovan Ulcerative pancoliti s with rectal bleeding K51.011 and Ulcerative pancolitis without complication K51.00 [facility] [address] [place] [address] 06/08/2024 Javi Donovan [facility] [address] [place] [address] 07/19/2024 Javi Donovan Ulcerative pancoliti s without complication K51.00 ASSESSMENTS Encounter Date Diagnosis Assessment Notes Treatment Notes Treatment Clinical Notes 12/02/2023 Ulcerative pancolitis without complication (ICD-10 - K51.00) Continue the one 5mg prednisone daily correction to try to keep the colitis quiet 06/22/2024 Ulcerative pancolitis without complication (ICD-10 - K51.00) 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 10/15/2023 Ulcerative pancolitis with rectal bleeding (ICD-10 - K51.011) 07/19/2024 Ulcerative pancolitis without complication (ICD-10 - K51.00) 10/15/2023 Ulcerative pancolitis without complication (ICD-10 - K51.00) PLAN OF TREATMENT Pending Test Test Name Order Date CHEM 7 PROFILE 08/08/2022 CHEM 7 PROFILE 06/28/2011 CHEM 7 PROFILE 06/28/2021 CHEM 7 PROFILE 06/27/2023 LIVER PROFILE 08/08/2022 LIVER PROFILE 05/31/2021 LIVER PROFILE 09/30/2014 LIVER PROFILE 06/28/2021 LIVER PROFILE 06/27/2023 CRP 06/27/2023 CRP 08/08/2022 CRP 06/28/2021 CBC w DIFF 06/28/2021 CBC w DIFF 06/27/2023 CBC w DIFF 06/28/2011 CBC w DIFF 08/08/2022 CBC w DIFF 09/30/2014 SED RATE (ESR) 06/28/2021 SED RATE (ESR) 06/27/2023 SED RATE (ESR) 08/08/2022 HEPATITIS B PROFILE 08/08/2022 CLOSTRIDIUM DIFF TOXIN A&B (C DIFF) 03/2014 CLOSTRIDIUM DIFF TOXIN A&B (C DIFF) 09/2013 STOOL WBC 10/21/2013 CULTURE, STOOL 06/28/2014 CULTURE, STOOL 06/28/2021 CULTURE, STOOL 10/21/2013 US ABD 02/29/2020 STOOL WBC 08/08/2022 STOOL WBC 06/28/2021 STOOL WBC 06/27/2023 C DIFFICILE RFLX PCR 08/08/2022 C DIFFICILE RFLX PCR 06/28/2021 C DIFFICILE RFLX PCR 06/27/2023 Calprotectin, Fecal 06/27/2023 GI PANEL 06/27/2023 GI PANEL 08/08/2022 Future Test Test Name Order Date COLONOSCOPY 07/04/2015 COLONOSCOPY 05/29/2018 Next Appt Details Provider Name:Javi Radha Donovan , 06/23/2025 11:00:00 AM, [address] [place] [address], [address], [place], [address], Insurance Providers Payer Name Payer Address Payer Phone Subscriber Number Group Number Insured Name Patient Relationship to Insured Coverage Start Date Coverage End Date MEDICARE OF [place] [address] [facility] [place] [address] [id number] JULIANNA LEDESMA Self - patient is the insured MED[employer] ATT[employer] CLAIMS [address] [place] [address] [id number] JULIANNA LEDESMA Self - patient is the insured MEDICAL (GENERAL) HISTORY Medical History History ICD Code Ulcerative colitis diagnosed in 1994 Tubular adenomas of the colon Denies OK,DM,CVA,Lung disease,renal dise ase Hyperlipidemia Pneumonia--hospitalized twic e in 06/2013 and 07/2013--was on home oxygen for a while after the pneumonia Colonoscopy in 06/2012-no ac tive colitis, but areas of chronic colitis throughout the colon--bx neg for dysplasia--no polyps COPD Flareups of the colitis in and 03/2014, in the spring, and 02/2016 requiring prednisone tapers Negative PPD and hepatitis B surface ant igen in June 2014 Colonoscopy 08/2015--some mil d pancolitis--biopsies neg. for dysplasia, no polyps Colonoscopy 09/2018 no active colitis-chronic scarring, biopsies neg. for dysplasia Flare up of colitis in summer re quiring 8 weeks of prednisone Got the 1st Moderna vaccine on 08/20/2020 Hyperbilirubinemia with a pr edominantly elevated indirect bilirubin in relation to [facility] that responded well to 8 weeks of prednisone Flare up of colitis in 05/09 22 and 07/2022 treated with a course of prednisone Flare up of colitis in 01/2023, 06/2023, 09/2023 treated with prednisone Opted to keep him on a low d ose of prednisone at 5 mg daily after the flareup in the Spring 2023 in hopes of maintaining remission UTI 05/2024 treated with Bactrim Surgical History Surgery Date(Month/Year)
== END 2024-07-22 12:52 | disposition home or self-care (01) ==
LOC: HO.US 12:51
PROVIDERS: PCP Internal Medicine; Visit Provider Nurse Practitioner Family
DX: N39.43 Post-void dribbling (principal); R39.12 Poor urinary stream; R35.1 Nocturia
CPT/HCPCS: 76770

== ENCOUNTER → 2024-07-22 12:53 | Outpatient (BNV) | payer MEDICARE, SELFPAY | PROVIDERS: PCP Internal Medicine; Visit Provider Radiology Diagnostic Radiology | DX: N28.1 Cyst of kidney, acquired (principal) | CPT/HCPCS: 76770 ==

== ENCOUNTER 2024-08-09 11:39 | Outpatient (REF) | payer MEDICARE, SELFPAY | END 2024-08-09 11:40 | disposition home or self-care (01) | LOC: HO.LAB 11:39 | PROVIDERS: PCP Internal Medicine; Visit Provider Nurse Practitioner Family | DX: N39.0 Urinary tract infection, site not specified (principal); R35.1 Nocturia; N39.43 Post-void dribbling; R39.12 Poor urinary stream; N28.1 Cyst of kidney, acquired | CPT/HCPCS: 81003; 87086; 87088; 87186; 99212 ==

== ENCOUNTER 2024-08-09 11:39 | Outpatient (AMB) | payer MEDICARE, SELFPAY ==
--- NOTE | 2024-08-09 11:45 | MHC.OFFVIS ---
Intake Visit Reasons: 2m/US/PSA(set) Intake Note: Patient is present for 2M/US/PSA Urology Medication:TAMSULOSIN Antibiotic Allergy:NONE Blood Thinner:NONE Forming Machine Operator Required: No Allergies No Known Allergies Allergy (Verified 08/09/24 14:17) Medication List - Last Reconciled 08/09/24 by MAXIMILIANO Gorman cholecalciferol (vitamin D3) 25 mcg PO DAILY mesalamine ER (Apriso) 1.5 grams PO QAM potassium chloride ER (Klor-Con M) 20 mEq PO DAILY 30 days simvastatin 20 mg PO BEDTIME terazosin 5 mg PO BEDTIME 30 days HPI Comments Details: Bright is a pleasant 79-year-old male patient of Dr. Galvin. He has a past medical history of allergic rhinosinusitis, obesity, vitamin-D deficiency, ulcerative colitis, COPD, and hypercholesteremia. He presents to the office today for follow-up. Of note, patient was seen approximately 2 months ago as a new patient for ongoing lower urinary tract symptoms she has been experiencing at which time a retroperitoneal ultrasound and PSA were ordered for further assessment evaluation. These results reviewed with the patient today. Retroperitoneal ultrasound 08/14 right kidney with no calculi, lesions, and or hydronephrosis. Left kidney with 4cm exophytic anechoic lesion in the lower pole without septation or nodular components. There is a 2.5 cm exophytic anechoic lesion in the midportion without septations or nodular components. The bladder is fluid-filled. Bilateral ureteral jets are demonstrated. Pre void bladder volume is a proximally 200 mL. Postvoid bladder volume is a proximally 140 mL. The prostate measures approximately 100 mL. During last office visit urinalysis noted positive nitrates therefore urine was sent for urine culture 06/13 that noted Proteus mirabilis. In discussion with the patient today he reports having completed antibiotic therapy as prescribed. In office urinalysis results reviewed with the patient today. 3+ leukocytes negative nitrates. He continues to report urinary dribbling, nocturia, and feeling of incomplete bladder emptying. He reports feeling Flomax has been somewhat helpful in obtaining a more efficient urinary stream. He otherwise denies hematuria, dysuria, foul smelling urine, flank pain, fever, and or chills. We discussed further treatment options and risks and benefits of these treatment options. PSA 08/14 0.3. We discussed possible near future in office cystoscopy and or urodynamics for further assessment and evaluation. He otherwise offers no other issues or concerns at this time. PENDING SALE TO [facility] Medical History Allergic rhinosinusitis Obesity (BMI 30-39.9) Vitamin D deficiency Impaired fasting glucose Ulcerative colitis COPD (chronic obstructive pulmonary disease) Pure hypercholesterolemia Exercise hypoxemia COPD (chronic obstructive pulmonary disease) case management patient Surgical History No pertinent past surgical history Family History Father Medical history unknown Mother Cancer Social History Housing: House Alcohol intake: former Patient Tobacco Use Status: Former Tobacco user Years Smoked: 8 years ago e-Cigarette/Vaping Use: Never Used Second Hand Smoke Exposure: Yes service: Yes Current occupational status: retired Cognitive needs: No Hearing needs: Yes Vision needs: Yes Review of Systems Eyes Reports no additional complaints ENT Reports as per HPI Card Reports as per HPI Resp Reports as per HPI GI Reports no additional complaints Reports as per HPI Musc Reports no additional complaints Neuro Reports no additional complaints Psych Reports no additional complaints Endo Reports no additional complaints Terence/Lymph Reports no additional complaints Aller/Immun Reports as per HPI Physical Exam Const General: cooperative, healthy appearing, comfortable, no acute distress, well developed, alert and awake Nutritional Appearance: overweight Orientation/consciousness: patient oriented x3 Limitations: no limitations HEENT Head: Yes normal to inspection, Yes normocephalic and Yes atraumatic Ears: hearing grossly normal bilaterally Eyes General: appearance normal, both eyes and all related structures Neck Neck: Yes normal visual inspection and Yes trachea midline Chest Chest palpation & inspection: normal inspection of the chest Resp Effort & Inspection: normal respiratory effort and able to speak in complete sentences Cardio Rate: regular rate GI Inspection: Yes normal to inspection General: Yes no CVA tenderness Back/Spine/Pelvis Back: no CVA tenderness Skin General skin exam: no rashes or lesions noted Neuro General: patient oriented x3 Extrem General: Yes normal to inspection Psych Appearance: grossly normal and well kempt Mental Status: mental status grossly normal Speech and movement: Normal speech and movement present and Clear speech present Affect: normal affect Attitude: cooperative Thought process: Normal thought process present Thought content: Normal thought content present Insight: Fair insight present (Psych) Judgement: Fair judgement present (Psych) Results AMB Urinalysis, Automated UA Leukoctes 500 Mando/uL Last Edit by Virginia Dougherty CCM on 08/09/24 11:57 UA Nitrite Negative Last Edit by Virginia Dougherty [facility] on 08/09/24 11:57 UA Urobilinogen 0.2 mg/dL Last Edit by Virginia Dougherty [facility] on 08/09/24 11:57 UA Protein 30 mg/dL Last Edit by Virginia Dougherty [facility] on 08/09/24 11:57 UA pH 6.0 Last Edit by Virginia Dougherty [facility] on 08/09/24 11:57 UA Blood 0 Eleuterio/uL Last Edit by Virginia Dougherty [facility] on 08/09/24 11:57 UA Specific Teller 1.010 Last Edit by Virginia Dougherty [facility] on 08/09/24 11:57 UA Ketone Negative Last Edit by Virginia Dougherty [facility] on 08/09/24 11:57 UA Bilirubin 0 mg/dL Last Edit by Virginia Dougherty [facility] on 08/09/24 11:57 UA Glucose 0 mg/dL Last Edit by Virginia Dougherty [facility] on 08/09/24 11:57 Results Reviewed Results Reviewed: Laboratory Last Values Urine pH (Auto) 6.0 08/09/24 11:56 Specific Teller (Auto) 1.010 08/09/24 11:56 Urine Protein (Auto) 30 mg/dL 08/09/24 11:56 Glucose (UA)(Auto) 0 mg/dL 08/09/24 11:56 Urine Ketones (Auto) Negative 08/09/24 11:56 Urine Blood (Auto) 0 Eleuterio/uL 08/09/24 11:56 Urine Nitrite (Auto) Negative 08/09/24 11:56 Urine Bilirubin (Auto) 0 mg/dL 08/09/24 11:56 Urine Urobilinogen (Auto) 0.2 mg/dL 01/20/25 11:56 Leukocyte Esterase (Auto) 500 Mando/uL 08/09/24 11:56 Date of Service: 07/22/24 EXAMINATION: US RETROPERITONEAL COMPLETE (RENAL) FINDINGS: RIGHT KIDNEY: 13 x 5 x 5 cm (SAG x AP x TRV). The kidney is normal in size, contour, and echogenicity. Renal cortical thickness is normal. No solid or cystic lesion. No hydronephrosis. Normal flow on color Doppler interrogation of the renal hilum. LEFT KIDNEY: 10 x 5 x 6 cm (SAG x AP x TRV). The kidney is normal in size, contour, and echogenicity. Renal cortical thickness is normal. No hydronephrosis. No solid lesion. There is a 4 cm exophytic anechoic lesion in the lower pole without septations or nodular components. There is a 2.5 cm exophytic anechoic lesion in the midportion without septations or nodular components. There is normal flow on color Doppler interrogation of the renal hilum. BLADDER: Fluid-filled. Bilateral ureteral jets are demonstrated. Prevoid bladder volume is 205 mL. Postvoid bladder volume is 138 mL. IMPRESSION: 138 cc residual urine in a post void image. No hydronephrosis. Simple cysts, left kidney. Assessment & Plan Assessment & Plan (1) Nocturia: Code(s): R35.1 - Nocturia Category: Medical (2) Acute UTI: Code(s): N39.0 - Urinary tract infection, site not specified Category: Medical (3) Urinary dribbling: Code(s): N39.43 - Post-void dribbling Category: Medical (4) Weak urinary stream: Code(s): R39.12 - Poor urinary stream Category: Medical (5) Renal cyst: Code(s): N28.1 - Cyst of kidney, acquired Category: Medical Plan In office urinalysis results reviewed with the patient today; as noted above; will send for urine culture; will await results for potential treatment We discussed at length potential causes of lower urinary tract symptoms patient was experiencing as well as further treatment options and risks and benefits of these treatment options. Recent PSA results reviewed with the patient today; as noted above. Recent retroperitoneal ultrasound results reviewed with the patient today; as noted above. Stop Flomax. Start terazosin as discussed and prescribed. We discussed importance of limiting fluids 2-3 hours prior to bed to decrease episodes of nocturia. We discussed attempting to sit when voiding to assist with relaxing pelvis and feeling of incomplete bladder emptying. We discussed possible near future in office cystoscopy and or urodynamics for further assessment and evaluation. Follow-up in 1-3 months with [facility]; or sooner with any issues, concerns, and or questions. Orders: Orders Urine Culture Today N39.0 - Urinary tract infection, site not specified AMB Urinalysis Automated Today Z13.9 - Encounter for screening, unspecified Medications: New terazosin 5 mg PO BEDTIME 30 days 30 caps 3RF N40.1 - Benign prostatic hyperplasia with lower urinary tract symptoms, R35.0 - Frequency of micturition Discontinued tamsulosin Discontinued Reason: Doctor's Order 0.4 mg PO BEDTIME 30 days 30 caps 3RF N40.1 - Benign prostatic hyperplasia with lower urinary tract symptoms, R35.1 - Nocturia Patient Instructions: The patient had an opportunity to ask questions regarding the treatment plan. All questions were answered. Physical exam, labs, and imaging were discussed and reviewed in detail. As well as risks, benefits, and discussion of treatment choices. No major barriers to understanding were identified. The patient expressed understanding and agreement with the above treatment plan. The patient was made aware they should contact our office by phone for worsening of their current condition, the appearance of new symptoms, or with any questions or concerns. Compliance is encouraged with any medications and follow up testing that is ordered. It is a privilege to be allowed the opportunity to participate in? your urological care.? Again, if you have any questions or concerns If you have any questions or concerns please do not hesitate to contact me. The office is [phone]. This note is constructed using voice recognition software. While every effort has been made to ensure accuracy screen door maker errors may have been included. Yours sincerely, MAXIMILIANO Gorman Coding Level of Care Code Est Pt Level 4 (21548) Diagnoses Nocturia R35.1 Acute UTI N39.0 Urinary dribbling N39.43 Weak urinary stream R39.12 Renal cyst N28.1
== END 2024-08-09 12:22 | disposition home or self-care (01) ==
PROVIDERS: PCP Internal Medicine; Visit Provider Nurse Practitioner Family
DX: R35.1 Nocturia (principal); N39.0 Urinary tract infection, site not specified; N39.43 Post-void dribbling; R39.12 Poor urinary stream; N28.1 Cyst of kidney, acquired; Z13.9 Encounter for screening, unspecified
CPT/HCPCS: 99214

== ENCOUNTER → 2024-08-12 11:31 | Outpatient (BNVA) | payer MEDICARE, SELFPAY | PROVIDERS: PCP Internal Medicine ==

== ENCOUNTER 2024-09-02 19:34 | Inpatient (IN) | payer MEDICARE, SELFPAY ==
--- NOTE | 2024-09-02 | ECG_ITS ---
Test Reason : TACHYCARDIA Blood Pressure : */* mmHG Vent. Rate : 119 BPM Atrial Rate : 119 BPM P-R Int : 184 ms QRS Dur : 88 ms QT Int : 300 ms P-R-T Axes : 57 -1 49 degrees QTcB Int : 422 ms Sinus tachycardia Inferior infarct , age undetermined Abnormal ECG When compared with ECG of 20-Jul-2013 15:48, No significant change was found Referred By: Generic ED Physician Electronically Signed By: MICA BALTAZAR MD
--- NOTE | ~2024-09-02 | XR_ITS ---
EXAMINATION: XR CHEST CLINICAL INFORMATION: sob, cough COMPARISON: None available. TECHNIQUE: 2 views of the chest were obtained. FINDINGS: Borderline cardiac enlargement. Mediastinal and hilar contours appear normal. Segmental opacity in the right lower lobe distribution suspicious for right lower lobe pneumonia. This is best appreciated on the lateral projection. The left lung appears clear. There is no pneumothorax or pleural effusion. There is no focal osseous or soft tissue abnormality. XR/XR chest 2V IMPRESSION: Segmental opacity right lower lobe, suspicious for pneumonia. Electronically signed by: José Carter MD 09/03/2024 10:18 AM [email or web address]
[2024-09-02 19:43] VITALS: BP 200/108; PULSE 115; RESP 20; TEMP 36.4; O2SAT 96; BMI 33.2
--- NOTE | 2024-09-02 19:48 | ED_ITS ---
HPI - Male Genitourinary General Chief complaint: Urogenital-Male Stated complaint: unable to urinate/UTI last week finished meds Time Seen by Provider: 09/02/24 23:40 Source: patient Limitations: no limitations History of Present Illness ED Provider: Ivory Barrera PA-C HPI Narrative: 79-year-old male with a history of BPH, phimosis, recent urinary tract infection presents with urinary retention x1 day. Patient states he began to retain urine today, it has become increasingly difficult for him to urinate. Patient states he was treated for urinary tract infection last week. He is followed by our urology service. Patient's phimosis is chronic. Related Data Home Medications ?Medication ?Instructions ?Recorded ?Confirmed mesalamine 0.375 gram 1.5 g PO QAM 08/03/20 09/03/24 capsule,extended release 24 hr (Apriso) prednisone 5 mg tablet 5 mg PO DAILY 09/03/24 09/03/24 Previous Rx's ?Medication ?Instructions ?Recorded simvastatin 20 mg tablet 20 mg PO BEDTIME #90 tabs 05/27/24 cholecalciferol (vitamin D3) 25 25 mcg PO DAILY #90 tabs 06/16/24 mcg (1,000 unit) tablet terazosin 5 mg capsule 5 mg PO BEDTIME 30 days #30 caps 08/09/24 amlodipine 5 mg tablet 5 mg PO DAILY #180 tabs 09/05/24 azithromycin 500 mg tablet 500 mg PO DAILY 5 days #5 tabs 09/05/24 cefuroxime axetil 500 mg tablet 500 mg PO BID #10 tabs 09/05/24 lisinopril 10 mg tablet 10 mg PO DAILY #180 tabs 09/05/24 prednisone 20 mg tablet 40 mg (2 x 20 mg) PO DAILY #10 tabs 09/05/24 Allergies Allergy/AdvReac Type Severity Reaction Status Date / Time No Known Allergies Allergy Verified 09/02/24 19:45 Review of Systems 2 Review of Systems: Yes all other systems are reviewed and are negative Constitutional: Constitutional: Denies fatigue and Denies fever(s) Cardiovascular: Cardiovascular: Denies chest pain and Denies dyspnea Respiratory: Respiratory: Denies dyspnea Gastrointestinal: Gastrointestinal: Denies abdominal pain, Denies nausea and Denies vomiting Genitourinary: Genitourinary: Reports genital pain Endocrine: Endocrine: Denies fatigue PMFSH Past Medical History Attestation statement: The following information was validated with the patient. Medical History Allergic rhinosinusitis Obesity (BMI 30-39.9) Vitamin D deficiency Impaired fasting glucose Ulcerative colitis COPD (chronic obstructive pulmonary disease) Pure hypercholesterolemia Exercise hypoxemia COPD (chronic obstructive pulmonary disease) case management patient Surgical History No pertinent past surgical history Family History Family History Father Medical history unknown Mother Cancer Social History Social History Household Members: None Housing: House Do you presently have visiting nurse or other home services: No Alcohol intake: former Patient Tobacco Use Status: Former Tobacco user Years Smoked: 8 years ago e-Cigarette/Vaping Use: Never Used Second Hand Smoke Exposure: Yes service: No Current occupational status: retired Cognitive needs: No Hearing needs: Yes Vision needs: Yes Physical Exam 2 Vital Signs: Vital Signs: Last Vital Signs Temp 98.3 F 09/05/24 07:49 Pulse 112 H 09/05/24 11:40 Resp 20 09/05/24 11:40 BP 145/55 H 09/05/24 07:49 Pulse Ox 94 09/05/24 07:49 O2 Del Method Nasal Cannula 09/05/24 07:49 O2 Flow Rate 3.5 09/05/24 07:49 BMI result Body Mass Index 33.2 Const: Other: Alert, well-appearing Orientation/consciousness: patient oriented x3 Resp: Effort & Inspection: normal respiratory effort Cardio: Other: Normal peripheral perfusion GI: Other: Abdomen is protuberant, soft nontender no guarding : Other: Phimosis noted, the foreskin can not be retracted, multiple attempts were made, can not visualize the meatus Skin: Other: Warm dry no rash Neuro: General: patient oriented x3, gait normal, no focal motor deficits and CN's II-XI intact bilaterally Psych: Other: Cooperative Course Course Course Narrative: This is a rapid medical exam performed by Michael Spaulding NP: Additional HPI, ROS, PE not included below will be deferred to primary provider. Patient is a 79- year old M recently treated for UTI presenting with urinary retention, unable to urinate has urge to go. Denies fever, abd pain. Plan: UA, labs, bladder scan Reevaluation(s) Reevaluation #1: Physician observation started at 941am. Patient placed in physician observation because patient is awaiting Barrera placement. Unsuccessful attempts made by both Urology doctors. Dr. Zamudio planning dorsal slit procedure midday today. At the time observation was started patient's vital signs were stable. Patient is alert and oriented. Neuro exam is non-focal. CV: RRR and lungs are clear. Will continue to monitor. Time: 09:41 Reevaluation #2: Dr. Zamudio performed dorsal slit procedure at the bedside without success. plan for the OR for urgent circumcision. Patient has been hypertensive to 200s systolic since yesterday. likely related to urinary retention, however only 300cc in his bladder this morning and he was able to strain and void about 200cc. BP remains elevated after norvasc. not on BP meds at home. IV labetalol and additional norvasc ordered. no chest pain, headache or vision changes. patient also noted to be SOB, coughing more than usual. hypoxic 87%. CXR showing PNA. viral swab negative supplemental O2 ordered along w/ CAP coverage. hold off on neb treatments as patient reports history of significant tachyarrythmias in the past. follows w/ Dr. Hoyt. Will plan to admit the patient for further management of HTN urgency, CAP, and phimosis requiring OR today. Dr. Wilde texted. will evaluate for admission in the PACU - dispo may be ICU if SBP >200 despite meds and treatment of urinary retention per Dr. Wilde. Time: 13:15 Reevaluation #3: BP improved. still awaiting the OR with Dr. Zamudio Time: 18:05 Consultations Consultation #1: urology Dr. Tim..... She will be in 1st thing in the morning to place the catheter in the patient. Time: 02:01 Consultation #2: I have viewed the patient's bladder at bedside, he has under 200 mL of urine, he is comfortable. Time: 04:08 Medications Administered Discontinued Medications Generic Name Dose Route Start Last Admin Trade Name Freq PRN Reason Stop Dose Admin Albuterol/Ipratropium 3 ml 09/04/24 08:00 09/05/24 11:17 Albuterol/Iprat 2.5/0.5mg 3 Ml Ampul.Neb INHALE 3 ml RQ4H WHILE AWAKE KIKE Administration Amlodipine Besylate 5 mg 09/03/24 09:45 09/03/24 10:06 Amlodipine Besylate 5 Mg Tablet PO 09/03/24 09:46 5 mg ONCE ONE Administration Protocol Amlodipine Besylate 5 mg 09/03/24 11:40 09/03/24 12:54 Amlodipine Besylate 5 Mg Tablet PO 09/03/24 11:41 5 mg ONCE ONE Administration Protocol Amlodipine Besylate 5 mg 09/04/24 09:00 09/05/24 08:24 Amlodipine Besylate 5 Mg Tablet PO 5 mg DAILY KIKE Administration Protocol Atorvastatin Calcium 10 mg 09/04/24 21:00 09/04/24 19:59 Atorvastatin Calcium 10 Mg Tablet PO 10 mg BEDTIME KIKE Administration Ceftriaxone Sodium 1 gm 09/03/24 11:41 09/03/24 12:54 Ceftriaxone Sodium 1 Gm Vial IVPUSH 09/03/24 11:42 1 gm ONCE ONE Administration Ceftriaxone Sodium 1 gm 09/04/24 09:00 09/05/24 08:29 Ceftriaxone Sodium 1 Gm Vial IVPUSH 1 gm DAILY KIKE Administration Cephalexin HCl 500 mg 09/03/24 04:09 09/03/24 06:22 Cephalexin 500 Mg Capsule PO 09/03/24 04:10 500 mg ONCE ONE Administration Doxazosin Mesylate 4 mg 09/04/24 21:00 09/04/24 19:59 Doxazosin Mesylate 2 Mg Tablet PO 4 mg BEDTIME KIKE Administration Enoxaparin Sodium 40 mg 09/04/24 09:00 09/05/24 08:28 Enoxaparin Sodium 40 Mg/0.4 Ml Syringe SUBCUT 40 mg Q24H KIKE Administration Azithromycin 500 mg/ Sodium 250 mls @ 125 mls/hr 09/03/24 11:42 09/03/24 18:51 Chloride IV 09/03/24 13:41 Infused ONCE ONE Infusion Cefazolin Sodium/Dextrose 2 gm in 50 mls @ 100 mls/hr 09/03/24 12:55 09/04/24 00:23 Ancef IV 09/03/24 13:24 Infused PREOP ONE Infusion Azithromycin 500 mg/ Sodium 250 mls @ 125 mls/hr 09/04/24 09:00 09/05/24 11:39 Chloride IV Infused DAILY KIKE Infusion Lactated Ringer's 500 mls @ 500 mls/hr 09/04/24 00:30 09/04/24 01:57 Lr IV 09/04/24 01:29 Infused .Q1H KIKE Infusion Labetalol HCl 5 mg 09/03/24 11:40 09/03/24 12:54 Labetalol Hcl 100 Mg/20 Ml Vial IVPUSH 09/03/24 11:41 5 mg ONCE ONE Administration Labetalol HCl 10 mg 09/03/24 14:24 09/03/24 14:31 Labetalol Hcl 100 Mg/20 Ml Vial IVPUSH 09/03/24 14:25 10 mg ONCE ONE Administration Lidocaine HCl 10 ml 09/03/24 01:41 09/03/24 02:32 Lidocaine Hcl 2 % Urojet 10 Ml Jel.Pf.Mary TOPICAL 09/03/24 01:42 10 ml ONCE ONE Administration Lidocaine HCl 5 ml 09/03/24 12:21 09/03/24 12:57 Lidocaine Hcl 1 % Mpf 5 Ml Vial SUBCUT 09/03/24 12:22 5 ml ONCE ONE Administration Lisinopril 10 mg 09/04/24 09:00 09/05/24 08:24 Lisinopril 10 Mg Tablet PO 10 mg DAILY KIKE Administration Protocol Mesalamine 1.5 gm 09/04/24 10:15 09/05/24 08:25 Mesalamine 0.375 Gm Cap.Er.24h PO 1.5 gm DAILY KIKE Administration Morphine Sulfate 4 mg 09/02/24 23:52 09/03/24 00:27 Morphine Sulfate 4 Mg/Ml Cartridge IVPUSH 09/02/24 23:53 4 mg ONCE ONE Administration Protocol Morphine Sulfate 8 mg 09/03/24 02:05 09/03/24 02:31 Morphine Sulfate 10 Mg/Ml Cartridge IVPUSH 09/03/24 02:06 8 mg ONCE ONE Administration Protocol Potassium Chloride 40 meq 09/04/24 00:23 09/04/24 00:41 Potassium Chloride Packet 20 Meq Packet PO 09/04/24 00:24 40 meq ONCE ONE Administration Prednisone 40 mg 09/04/24 09:00 09/05/24 08:24 Prednisone 20 Mg Tablet PO 40 mg DAILY KIKE Administration Sodium Chloride 3 ml 09/04/24 00:00 09/05/24 14:05 0.9 % Sodium Chloride Flush 3 Ml Syringe IVFLUSH Not Given QSHIFT KIKE Vitamin D 25 mcg 09/05/24 09:00 09/05/24 08:24 Cholecalciferol (Vitamin D3) 25 Mcg Tablet PO 25 mcg DAILY KIKE Administration Medical Decision Making Medical Decision Making [facility] Narrative: 79-year-old male with a history of BPH, phimosis, recent urinary tract infection presents with urinary retention x1 day. Patient states he began to retain urine today, it has become increasingly difficult for him to urinate. Patient states he was treated for urinary tract infection last week. He is followed by our urology service. Patient's phimosis is chronic. Problem: BPH and phimosis History: Per patient I have considered the following differential diagnoses: Urinary retention, UTI, renal obstruction, balanitis, Plan: Per nursing bladder scan the patient has approximately 600 mL of urine in the bladder. Multiple attempts were made to place a Barrera catheter. My attending also attempted to place a Barrera catheter with 3 different sizes. We are unable to do so. We will be paging Urology for consult. The patient was able to void a small amount, approximately 200 mL. We are able to send a urine sample now. I medicated the patient with morphine, he is overall very comfortable. Thought about renal obstruction/renal colic, however he has no abdominal pain no nausea vomiting no back pain. Imaging not warranted. I have independently reviewed the following tests: Labs: Questionable UTI, we will cover the patient with antibiotics, slight leukocytosis, no electrolyte abnormality kidney function is at baseline. Lab Data 09/04/24 05:37 09/04/24 05:37 Labs: Lab Results 09/02/24 09/03/24 09/03/24 Range/Units 19:52 02:37 09:48 WBC 11.4 H (4.8-10.8) X10*3/uL RBC 4.67 (4.60-5.80) X10*6/uL Hgb 15.6 (14.0-18.0) g/dl Hct 44.0 (42.0-52.0) % MCV 94.2 (80.0-98.0) fL MCH 33.4 H (27.0-33.0) pg MCHC 35.5 (31.0-36.0) g/dl RDW 13.6 (11.0-16.0) % Plt Count 321 (160-400) X10*3/uL MPV 9.0 L (9.4-12.4) fL Immature Gran % (Auto) 0.8 H (0.0-0.4) % Neut % (Auto) 75.7 H (45-73) % Lymph % (Auto) 14.7 L (20-40) % [place] % (Auto) 8.2 (2-11) % Eos % (Auto) 0.3 (0-4) % Baso % (Auto) 0.3 (0-2) % Lymph # (Auto) 1.7 (1.2-4.9) X10*3/uL [place] # (Auto) 0.9 (0.1-1.2) X10*3/uL Eos # (Auto) 0.0 (0.0-0.4) X10*3/uL Baso # (Auto) 0.0 (0.0-0.2) X10*3/uL Abs Immat Gran (auto) 0.09 H (0.00-0.03) X10*3/uL Absolute Neuts (auto) 8.6 H (2.0-8.3) x10*3/uL Absolute Nucleated RBC 0.000 (0.0-0.012) X10*3/uL Nucleated RBC % (auto) 0.0 (0.0-0.2) /100WBC Sodium 141 (135-145) mmol/L Potassium 3.7 (3.3-5.1) mmol/L Chloride 100 (96-108) mmol/L Carbon Dioxide 29 (22-29) mmol/L Anion Gap 16 (12-20) BUN 14 (9-16) mg/dL Creatinine 0.90 (0.5-1.4) mg/dL Estim Creat Clear Calc 73.5 Estimated GFR > 60 Random Glucose 118 H (60-115) mg/dL Calcium 9.7 D (8.4-10.2) mg/dL Magnesium (1.6-2.6) mg/dL Total Bilirubin 1.4 H (0.0-1.0) mg/dL Direct Bilirubin (0.0-0.5) mg/dL AST 26 (5-37) U/L ALT 19 (0-40) U/L Alkaline Phosphatase 131 H (39-117) U/L Troponin I High Sens (<3.5-35.0) ng/L Total Protein 7.9 (6.5-8.0) g/dL Albumin 4.2 (3.5-5.0) g/dL Urine Color Yellow Urine Appearance Cloudy Urine pH 7.0 (5.0-9.0) Ur Specific [place] 1.010 (1.005-1.025) Urine Protein 30 (1+) H (Neg-Trace) mg/dL Urine Glucose (UA) Negative (Negative) mg/dL Urine Ketones Negative (Negative) mg/dL Urine Blood Small (1+) H (Negative) Urine Nitrite Negative (Negative) Ur Leukocyte Esterase Large (3+) H (Negative) Urine RBC 6-10 H (0-2) /HPF Urine WBC >50 H (0-5) /HPF Ur Squamous Epith Cells 11-20 (0-2) /HPF Urine Bacteria 1+ (None Seen) Hyaline Casts 3-5 (0-2) /LPF Influenza Type A (PCR) NEGATIVE (Negative) Influenza Type B (PCR) NEGATIVE (Negative) RSV RNA Qual (PCR) NEGATIVE (Negative) SARS-CoV-2 RNA (RT-PCR) NEGATIVE (Negative) 09/03/24 Range/Units 12:16 WBC 12.5 H (4.8-10.8) X10*3/uL RBC 4.26 L (4.60-5.80) X10*6/uL Hgb 14.5 (14.0-18.0) g/dl Hct 39.9 L (42.0-52.0) % MCV 93.7 (80.0-98.0) fL MCH 34.0 H (27.0-33.0) pg MCHC 36.3 H (31.0-36.0) g/dl RDW 13.9 (11.0-16.0) % Plt Count 312 (160-400) X10*3/uL MPV 9.0 L (9.4-12.4) fL Immature Gran % (Auto) 0.4 (0.0-0.4) % Neut % (Auto) 75.9 H (45-73) % Lymph % (Auto) 13.0 L (20-40) % [place] % (Auto) 10.1 (2-11) % Eos % (Auto) 0.2 (0-4) % Baso % (Auto) 0.4 (0-2) % Lymph # (Auto) 1.6 (1.2-4.9) X10*3/uL [place] # (Auto) 1.3 H (0.1-1.2) X10*3/uL Eos # (Auto) 0.0 (0.0-0.4) X10*3/uL Baso # (Auto) 0.1 (0.0-0.2) X10*3/uL Abs Immat Gran (auto) 0.05 H (0.00-0.03) X10*3/uL Absolute Neuts (auto) 9.5 H (2.0-8.3) x10*3/uL Absolute Nucleated RBC 0.000 (0.0-0.012) X10*3/uL Nucleated RBC % (auto) 0.0 (0.0-0.2) /100WBC Sodium 138 (135-145) mmol/L Potassium 3.1 L (3.3-5.1) mmol/L Chloride 100 (96-108) mmol/L Carbon Dioxide 28 (22-29) mmol/L Anion Gap 13 (12-20) BUN 12 (9-16) mg/dL Creatinine 0.83 (0.5-1.4) mg/dL Estim Creat Clear Calc 79.7 Estimated GFR > 60 Random Glucose 93 (60-115) mg/dL Calcium 9.1 D (8.4-10.2) mg/dL Magnesium 2.1 (1.6-2.6) mg/dL Total Bilirubin 1.8 H (0.0-1.0) mg/dL Direct Bilirubin 0.6 H (0.0-0.5) mg/dL AST 22 (5-37) U/L ALT 15 (0-40) U/L Alkaline Phosphatase 128 H (39-117) U/L Troponin I High Sens 17.4 (<3.5-35.0) ng/L Total Protein 7.3 (6.5-8.0) g/dL Albumin 4.0 (3.5-5.0) g/dL Urine Color Urine Appearance Urine pH (5.0-9.0) Ur Specific [place] (1.005-1.025) Urine Protein (Neg-Trace) mg/dL Urine Glucose (UA) (Negative) mg/dL Urine Ketones (Negative) mg/dL Urine Blood (Negative) Urine Nitrite (Negative) Ur Leukocyte Esterase (Negative) Urine RBC (0-2) /HPF Urine WBC (0-5) /HPF Ur Squamous Epith Cells (0-2) /HPF Urine Bacteria (None Seen) Hyaline Casts (0-2) /LPF Influenza Type A (PCR) (Negative) Influenza Type B (PCR) (Negative) RSV RNA Qual (PCR) (Negative) SARS-CoV-2 RNA (RT-PCR) (Negative) Discharge Plan Discharge Clinical Impression: Acute urinary retention, Phimosis, Hypertensive urgency Urinary tract infection Qualifiers: Urinary tract infection type: site unspecified Hematuria presence: without hematuria Qualified Code(s): N39.0 - Urinary tract infection, site not specified CAP (community acquired pneumonia) Qualifiers: Laterality: right Lung location: unspecified part of lung Qualified Code(s): J 18.9 - Pneumonia, unspecified organism Patient Disposition: Admitted As Inpatient Discharge Date/Time: 09/04/24 00:30
[2024-09-02 19:56] LABS: MANUAL DIFF FLAG NO
[2024-09-02 19:58] LABS: Basophils Percent Auto 0.3 % (0-2); Eosinophils Percent Auto 0.3 % (0-4); Hemoglobin 15.6 g/dl (14.0-18.0); Imm Gran Abs Auto 0.09 X10*3/uL (0.00-0.03); Imm Gran Pct Auto 0.8 % (0.0-0.4); Lymphocytes Absolute Auto 1.7 X10*3/uL (1.2-4.9); Lymphocytes Percent Auto 14.7 % (20-40); Mean Corpuscular HGB Conc 35.5 g/dl (31.0-36.0); Mean Corpuscular Hemoglobin 33.4 pg (27.0-33.0); Mean Corpuscular Volume 94.2 fL (80.0-98.0); Monocytes Absolute Auto 0.9 X10*3/uL (0.1-1.2); Monocytes Percent Auto 8.2 % (2-11); Neutrophils Absolute Auto 8.6 x10*3/uL (2.0-8.3); Neutrophils Percent Auto 75.7 % (45-73); Platelet Count 321 X10*3/uL (160-400); Red Blood Count 4.67 X10*6/uL (4.60-5.80); Red Cell Distribution Width 13.6 % (11.0-16.0); White Blood Count 11.4 X10*3/uL (4.8-10.8)
[2024-09-02 20:13] LABS: Alanine Aminotransferase 19 U/L (0-40); Albumin Level 4.2 g/dL (3.5-5.0); Alkaline Phosphatase 131 U/L (39-117); Anion Gap 16 (12-20); Aspartate Amino Transferase 26 U/L (5-37); Bilirubin Total 1.4 mg/dL (0.0-1.0); Blood Urea Nitrogen 14 mg/dL (9-16); Calcium 9.7 mg/dL (8.4-10.2); Carbon Dioxide 29 mmol/L (22-29); Chloride 100 mmol/L (96-108); Creatinine Clr Calc Pharmacy 73.5; Estimated Glomerular Filt Rate > 60; Glucose Random 118 mg/dL (60-115); Potassium 3.7 mmol/L (3.3-5.1); Sodium 141 mmol/L (135-145); Total Protein 7.9 g/dL (6.5-8.0)
[2024-09-03] VITALS (18 sets, daily range): BP systolic 163–245; BP diastolic 75–116; PULSE 85–101; RESP 9–26; TEMP 36.4–37.1; O2SAT 87–99
--- NOTE | 2024-09-03 | PC.NURSE ---
unable to void. nick ordered and attempted. unable to advance cath d/t phimosis. MD aware. about 300 mL able to be evacuated with palpation of suprapubic region. urine sent to lab. plan for uro specialist intervention this morning.
[2024-09-03] MEDS: Morphine Sulfate 4 MG/ML CARTRIDGE IVPUSH (00:27)
--- NOTE | 2024-09-03 01:25 | PC.NURSE ---
This RN and RN Олег attempted to insert 16 F/C with no success d/t severe phimosis. MELITA Barrera notified. MELITA Barrera assessed patient at bedside. MELITA Barrera and this RN attempted to straight cath patient-no success. After unsuccessful attempts for F/C/straight insertion patient was able to void 250 mL of urine into a urinal. MELITA Barrera is aware.
[2024-09-03] MEDS: Morphine Sulfate 10 MG/ML CARTRIDGE 8 MG IVPUSH (02:31)
[2024-09-03] MEDS: Lidocaine HCl 2 % Urojet 10 ML JEL.PF.APP TOPICAL (02:32)
[2024-09-03 02:45] LABS: Appearance Urine Cloudy; Color Urine Yellow; Glucose Urine UA Negative (Negative); Leukocyte Esterase Urine Large (3+) (Negative); Nitrite Urine Negative (Negative); UMIC TRIGGER UACC YES; Urine Blood Small (1+) (Negative); Urine Ketones Negative (Negative); Urine Protein 30 (1+) mg/dL (Neg-Trace)
[2024-09-03 03:05] LABS: Bacteria Urine 1+ (None Seen); UACC Culture Trigger YES; WBC Urine >50 /HPF (0-5)
[2024-09-03] MEDS: cephALEXin 500 MG CAPSULE PO (06:22)
[2024-09-03] MEDS: amLODIPine Besylate 5 MG TABLET PO ×2 (10:06→12:54)
--- NOTE | 2024-09-03 10:16 | PC.NURSE ---
MULTIPLE UNSUCCESSFUL ATTEMPTS BY URO MDS YURY AND MICHELLE TO PLACE INDWELLING CATH. MICHELLE DOMINIQUE TO RETURN FOR PROCEDURE. SPO2 IMPROVING WITH COUGHING, DEEP BREATHING. SON AT BEDSIDE.
[2024-09-03 10:36] LABS: Influenza A PCR NEGATIVE (Negative); Influenza B PCR NEGATIVE (Negative); Resp Syncy Virus RNA Qual PCR NEGATIVE (Negative); SARS COV2 PCR INHOUSE NEGATIVE (Negative)
--- NOTE | 2024-09-03 11:42 | ECG_ITS ---
Test Reason : HYPERTENSION Blood Pressure : */* mmHG Vent. 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
[2024-09-03 12:22] LABS: MANUAL DIFF FLAG NO
[2024-09-03 12:25] LABS: Basophils Absolute Auto 0.1 X10*3/uL (0.0-0.2); Basophils Percent Auto 0.4 % (0-2); Eosinophils Percent Auto 0.2 % (0-4); Hematocrit 39.9 % (42.0-52.0); Hemoglobin 14.5 g/dl (14.0-18.0); Imm Gran Abs Auto 0.05 X10*3/uL (0.00-0.03); Imm Gran Pct Auto 0.4 % (0.0-0.4); Lymphocytes Absolute Auto 1.6 X10*3/uL (1.2-4.9); Mean Corpuscular HGB Conc 36.3 g/dl (31.0-36.0); Mean Corpuscular Volume 93.7 fL (80.0-98.0); Monocytes Absolute Auto 1.3 X10*3/uL (0.1-1.2); Monocytes Percent Auto 10.1 % (2-11); Neutrophils Absolute Auto 9.5 x10*3/uL (2.0-8.3); Neutrophils Percent Auto 75.9 % (45-73); Platelet Count 312 X10*3/uL (160-400); Red Blood Count 4.26 X10*6/uL (4.60-5.80); Red Cell Distribution Width 13.9 % (11.0-16.0); White Blood Count 12.5 X10*3/uL (4.8-10.8)
[2024-09-03 12:39] LABS: Alanine Aminotransferase 15 U/L (0-40); Alkaline Phosphatase 128 U/L (39-117); Anion Gap 13 (12-20); Aspartate Amino Transferase 22 U/L (5-37); Bilirubin Direct 0.6 mg/dL (0.0-0.5); Bilirubin Total 1.8 mg/dL (0.0-1.0); Blood Urea Nitrogen 12 mg/dL (9-16); Calcium 9.1 mg/dL (8.4-10.2); Carbon Dioxide 28 mmol/L (22-29); Chloride 100 mmol/L (96-108); Creatinine Clr Calc Pharmacy 79.7; Estimated Glomerular Filt Rate > 60; Glucose Random 93 mg/dL (60-115); Magnesium 2.1 mg/dL (1.6-2.6); Potassium 3.1 mmol/L (3.3-5.1); Sodium 138 mmol/L (135-145); Total Protein 7.3 g/dL (6.5-8.0)
[2024-09-03 12:44] LABS: Troponin-I High Sensitivity 17.4 ng/L (<3.5-35.0)
[2024-09-03] MEDS: cefTRIAXone sodium 1 GM VIAL IVPUSH (12:54)
[2024-09-03] MEDS: Labetalol HCL 100 MG/20 ML VIAL IVPUSH (12:54)
[2024-09-03] MEDS: Lidocaine HCl 1 % MPF 5 ML VIAL SUBCUT (12:57)
[2024-09-03] MEDS: Azithromycin 500 MG in 0.9 % Sodium Chloride 250 ML 125 MG IV (12:58)
--- NOTE | 2024-09-03 13:09 | P.CNUR_ITS ---
History of Present Illness Consult details Consult date: 09/03/24 Narrative: CC: Difficult Barrera placement 79-year-old male Had been seen in Urology in May for recurrent UTI Admit to emergency room with question of pneumonia Nursing unable to place Barrera catheter On examination has phimosis with inflammation office foreskin Unable to withdrawal foreskin Urology unable to place catheter at bedside Attempt made at dorsal slit Inflamed foreskin adhered to glans of penis unable to adequately display meatus Recommend intervention with circumcision in the operating room Discussed with son Review of Systems 2 Constitutional: Constitutional: Reports as per HPI and Reports no additional constitutional complaints Cardiovascular: Cardiovascular: Reports as per HPI and Reports no additional cardiovascular complaints Respiratory: Respiratory: Reports as per HPI and Reports no additional respiratory complaints Gastrointestinal: Gastrointestinal: Reports as per HPI and Reports no additional gastrointestinal complaints Genitourinary: Genitourinary: Reports as per HPI Musculoskeletal: Musculoskeletal: Reports no additional musculoskeletal complaints and Reports as per HPI Neurologic: Reports system reviewed and no additional complaints, except as documented and Reports as per HPI PMFSH Past Medical History Medical History Allergic rhinosinusitis Obesity (BMI 30-39.9) Vitamin D deficiency Impaired fasting glucose Ulcerative colitis COPD (chronic obstructive pulmonary disease) Pure hypercholesterolemia Exercise hypoxemia COPD (chronic obstructive pulmonary disease) case management patient Family History Family History Father Medical history unknown Mother Cancer Surgical History Surgical History No pertinent past surgical history Social History Social History Housing: House Alcohol intake: former Patient Tobacco Use Status: Former Tobacco user Years Smoked: 8 years ago Smoked in Last 30 Days: No e-Cigarette/Vaping Use: Never Used Second Hand Smoke Exposure: Yes Use of substances other than those prescribed or required for medical reasons: No Advance Directives: No Advance Directives Information Provided: Yes Do you have a plan to hurt others: No Plan service: Yes Current occupational status: retired Cognitive needs: No Hearing needs: Yes Vision needs: Yes Meds Allergies Allergy/AdvReac Type Severity Reaction Status Date / Time No Known Allergies Allergy Verified 09/02/24 19:45 Active Medications: Current Medications Azithromycin 500 mg/ Sodium (Chloride) 250 mls @ 125 mls/hr IV ONCE ONE Stop: 09/03/24 13:41 Last Admin: 09/03/24 12:58 Dose: 125 mls/hr Cefazolin Sodium/Dextrose (Ancef) 2 gm in 50 mls @ 100 mls/hr IV PREOP ONE Stop: 09/03/24 13:24 Home Medications ?Medication ?Instructions ?Recorded ?Confirmed ?Last Taken ?Type mesalamine 0.375 gram 1.5 g PO QAM 08/03/20 06/10/24 Unknown History capsule,extended release 24 hr (Apriso) Physical Exam 2 Vital Signs: Vital Signs: Last Vital Signs Temp 98.7 F 09/03/24 09:44 Pulse 94 09/03/24 12:54 Resp 20 09/03/24 11:43 BP 194/94 H 09/03/24 12:54 Pulse Ox 87 L 09/03/24 11:43 O2 Del Method Room Air 09/03/24 11:43 BMI result Body Mass Index 33.2 Const: General: cooperative, healthy appearing, comfortable and no acute distress Orientation/consciousness: patient oriented x3 HEENT: Face and sinus: Yes normal facial exam Mouth: moist mucous membranes Neck: Neck: Yes normal visual inspection, Yes full ROM and Yes trachea midline Chest: Chest palpation & inspection: normal inspection of the chest Resp: Effort & Inspection: normal respiratory effort, able to speak in complete sentences and no respiratory distress GI: Inspection: Yes normal to inspection Back/Spine/Pelvis: Cervical Spine: normal cervical lordosis Thoracic/Lumbar Spine: thoracic and lumbar spine normal to inspection Skin: General skin exam: no rashes or lesions noted Neuro: General: patient oriented x3, tone normal and moves all extremities Extrem: General: Yes normal to inspection and Yes capillary refill normal Results Labs 09/03/24 12:16 09/03/24 12:16 Labs: Abnormal lab results 09/02/24 09/03/24 09/03/24 Range/Units 19:52 02:37 12:16 WBC 11.4 H 12.5 H (4.8-10.8) X10*3/uL RBC 4.26 L (4.60-5.80) X10*6/uL Hct 39.9 L (42.0-52.0) % MCH 33.4 H 34.0 H (27.0-33.0) pg MCHC 36.3 H (31.0-36.0) g/dl MPV 9.0 L 9.0 L (9.4-12.4) fL Immature Gran % (Auto) 0.8 H (0.0-0.4) % Neut % (Auto) 75.7 H 75.9 H (45-73) % Lymph % (Auto) 14.7 L 13.0 L (20-40) % [place] # (Auto) 1.3 H (0.1-1.2) X10*3/uL Abs Immat Gran (auto) 0.09 H 0.05 H (0.00-0.03) X10*3/uL Absolute Neuts (auto) 8.6 H 9.5 H (2.0-8.3) x10*3/uL Potassium 3.1 L (3.3-5.1) mmol/L Random Glucose 118 H (60-115) mg/dL Total Bilirubin 1.4 H 1.8 H (0.0-1.0) mg/dL Direct Bilirubin 0.6 H (0.0-0.5) mg/dL Alkaline Phosphatase 131 H 128 H (39-117) U/L Urine Protein 30 (1+) H (Neg-Trace) mg/dL Urine Blood Small (1+) H (Negative) Ur Leukocyte Esterase Large (3+) H (Negative) Urine RBC 6-10 H (0-2) /HPF Urine WBC >50 H (0-5) /HPF Short CBC 09/02/24 09/03/24 Range/Units 19:52 12:16 WBC 11.4 H 12.5 H (4.8-10.8) X10*3/uL Hgb 15.6 14.5 (14.0-18.0) g/dl Hct 44.0 39.9 L (42.0-52.0) % Plt Count 321 312 (160-400) X10*3/uL BMP 09/02/24 09/03/24 19:52 12:16 Sodium 141 138 Potassium 3.7 3.1 L Chloride 100 100 Carbon Dioxide 29 28 BUN 14 12 Creatinine 0.90 0.83 Calcium 9.7 D 9.1 D Liver Function 09/02/24 09/03/24 Range/Units 19:52 12:16 Total Bilirubin 1.4 H 1.8 H (0.0-1.0) mg/dL Direct Bilirubin 0.6 H (0.0-0.5) mg/dL AST 26 22 (5-37) U/L ALT 19 15 (0-40) U/L Alkaline Phosphatase 131 H 128 H (39-117) U/L Albumin 4.2 4.0 (3.5-5.0) g/dL Urine 09/03/24 Range/Units 02:37 Urine Color Yellow Urine Appearance Cloudy Urine pH 7.0 (5.0-9.0) Ur Specific [place] 1.010 (1.005-1.025) Urine Protein 30 (1+) H (Neg-Trace) mg/dL Urine Glucose (UA) Negative (Negative) mg/dL All other labs normal. Assessment and Plan (1) Hypertrophy of prostate with urinary obstruction: Status: Acute (2) Phimosis: Status: Acute Plan Risks, benefits and alternatives to therapy were discussed. These include but are not limited to infection, bleeding, damage to local organs and tissues, need for further interventions. Anesthetic risks regarding cardiac arrhythmia, blood clots, and potential mortality were discussed. The patient understands the typical recovery time and the outpatient nature of the procedure. After consideration of these risks the patient gives full informed consent and they wish to move ahead with the procedure. Operative circumcision Procedures Date of Service Date of Service: 09/03/24
[2024-09-03] MEDS: Labetalol HCL 100 MG/20 ML VIAL 10 MG IVPUSH (14:31)
--- NOTE | 2024-09-03 17:40 | PHA.MEDREC ---
Addendum entered by Patricia Guzman RPh 09/03/24 17:56: reviewed by [facility]. Original Note: Pharmacy Consult ? Medication Reconciliation Pharmacy has completed the medication reconciliation. Spoke with patient and he was able to confirm his medications. Patient confirmed his Mesalamine 0.375mg tab and confirmed he takes 4 tabs daily. Patient confirmed he took his medications yesterday.
--- NOTE | 2024-09-03 19:35 | PC.NURSE ---
this rn assumed care of pt, pt resting in stretcher, no acute distress noted. family at bedside.
--- NOTE | 2024-09-03 20:43 | HO.ANESPROP2 ---
HPI - Anesthesia Eval Consult details Narrative: Phimosis PMFSH Active Problems Active Problems: All Active Problems Hypertensive urgency (Acute) CAP (community acquired pneumonia) (Acute) Phimosis (Acute) Phimosis (Acute) Urinary tract infection (Acute) Acute urinary retention (Acute) Renal cyst (Acute) Acute UTI (Acute) Nocturia (Acute) Urinary dribbling (Acute) Weak urinary stream (Acute) Hypertrophy of prostate with urinary obstruction (Acute) Hypokalemia (Acute) Elevated blood pressure reading in office without diagnosis of hypertension (Acute) Allergic rhinosinusitis (Acute) Medicare annual wellness visit, initial (Acute) Obesity (BMI 30-39.9) (Acute) Vitamin D deficiency (Acute) Impaired fasting glucose (Acute) Ulcerative colitis (Acute) COPD (chronic obstructive pulmonary disease) (Acute) Pure hypercholesterolemia (Acute) Exercise hypoxemia (Acute) COPD (chronic obstructive pulmonary disease) case management patient (Acute) Past Medical History Medical History Allergic rhinosinusitis Obesity (BMI 30-39.9) Vitamin D deficiency Impaired fasting glucose Ulcerative colitis COPD (chronic obstructive pulmonary disease) Pure hypercholesterolemia Exercise hypoxemia COPD (chronic obstructive pulmonary disease) case management patient Family History Family History Father Medical history unknown Mother Cancer Family history of problems with anesthesia: No Surgical History Surgical History No pertinent past surgical history History of Problems with Anesthesia: No Social History Social History Housing: House Alcohol intake: former Patient Tobacco Use Status: Former Tobacco user Years Smoked: 8 years ago Smoked in Last 30 Days: No e-Cigarette/Vaping Use: Never Used Second Hand Smoke Exposure: Yes Use of substances other than those prescribed or required for medical reasons: No Advance Directives: No Advance Directives Information Provided: Yes Do you have a plan to hurt others: No Plan service: Yes Current occupational status: retired Cognitive needs: No Hearing needs: Yes Vision needs: Yes Meds Allergies Allergy/AdvReac Type Severity Reaction Status Date / Time No Known Allergies Allergy Verified 09/02/24 19:45 Home Medications ?Medication ?Instructions ?Recorded ?Confirmed ?Last Taken ?Type mesalamine 0.375 gram 1.5 g PO QAM 08/03/20 09/03/24 09/02/24 History capsule,extended release 24 hr (Apriso) prednisone 5 mg tablet 5 mg PO DAILY 09/03/24 09/03/24 09/02/24 History Exam Height,Weight and Vital Signs: Height 5 ft 7 in Weight 96.162 kg Last Vital Signs Temp 98.3 F 09/03/24 17:32 Pulse 99 09/03/24 17:32 Resp 16 09/03/24 17:32 BP 176/87 H 09/03/24 17:32 Pulse Ox 97 09/03/24 17:32 O2 Del Method Nasal Cannula 09/03/24 17:32 O2 Flow Rate 2 09/03/24 17:32 Pertinent Lab Results Pertinent Lab Results: Laboratory Tests 09/02/24 09/03/24 09/03/24 19:52 02:37 09:48 WBC 11.4 H RBC 4.67 Hgb 15.6 Hct 44.0 MCV 94.2 MCH 33.4 H MCHC 35.5 RDW 13.6 Plt Count 321 MPV 9.0 L Immature Gran % (Auto) 0.8 H Neut % (Auto) 75.7 H Lymph % (Auto) 14.7 L [place] % (Auto) 8.2 Eos % (Auto) 0.3 Baso % (Auto) 0.3 Lymph # (Auto) 1.7 [place] # (Auto) 0.9 Eos # (Auto) 0.0 Baso # (Auto) 0.0 Abs Immat Gran (auto) 0.09 H Absolute Neuts (auto) 8.6 H Absolute Nucleated RBC 0.000 Nucleated RBC % (auto) 0.0 Sodium 141 Potassium 3.7 Chloride 100 Carbon Dioxide 29 Anion Gap 16 BUN 14 Creatinine 0.90 Estim Creat Clear Calc 73.5 Estimated GFR > 60 Random Glucose 118 H Calcium 9.7 D Magnesium Total Bilirubin 1.4 H Direct Bilirubin AST 26 ALT 19 Alkaline Phosphatase 131 H Troponin I High Sens Total Protein 7.9 Albumin 4.2 Urine Color Yellow Urine Appearance Cloudy Urine pH 7.0 Ur Specific [place] 1.010 Urine Protein 30 (1+) H Urine Glucose (UA) Negative Urine Ketones Negative Urine Blood Small (1+) H Urine Nitrite Negative Ur Leukocyte Esterase Large (3+) H Urine RBC 6-10 H Urine WBC >50 H Ur Squamous Epith Cells 11-20 Urine Bacteria 1+ Hyaline Casts 3-5 Influenza Type A (PCR) NEGATIVE Influenza Type B (PCR) NEGATIVE RSV RNA Qual (PCR) NEGATIVE SARS-CoV-2 RNA (RT-PCR) NEGATIVE 09/03/24 12:16 WBC 12.5 H RBC 4.26 L Hgb 14.5 Hct 39.9 L MCV 93.7 MCH 34.0 H MCHC 36.3 H RDW 13.9 Plt Count 312 MPV 9.0 L Immature Gran % (Auto) 0.4 Neut % (Auto) 75.9 H Lymph % (Auto) 13.0 L [place] % (Auto) 10.1 Eos % (Auto) 0.2 Baso % (Auto) 0.4 Lymph # (Auto) 1.6 [place] # (Auto) 1.3 H Eos # (Auto) 0.0 Baso # (Auto) 0.1 Abs Immat Gran (auto) 0.05 H Absolute Neuts (auto) 9.5 H Absolute Nucleated RBC 0.000 Nucleated RBC % (auto) 0.0 Sodium 138 Potassium 3.1 L Chloride 100 Carbon Dioxide 28 Anion Gap 13 BUN 12 Creatinine 0.83 Estim Creat Clear Calc 79.7 Estimated GFR > 60 Random Glucose 93 Calcium 9.1 D Magnesium 2.1 Total Bilirubin 1.8 H Direct Bilirubin 0.6 H AST 22 ALT 15 Alkaline Phosphatase 128 H Troponin I High Sens 17.4 Total Protein 7.3 Albumin 4.0 Urine Color Urine Appearance Urine pH Ur Specific [place] Urine Protein Urine Glucose (UA) Urine Ketones Urine Blood Urine Nitrite Ur Leukocyte Esterase Urine RBC Urine WBC Ur Squamous Epith Cells Urine Bacteria Hyaline Casts Influenza Type A (PCR) Influenza Type B (PCR) RSV RNA Qual (PCR) SARS-CoV-2 RNA (RT-PCR) Airway Mallampati Class: II TM Dist: >3cm Neck ROM: Full Loose/Missing/Broken Teeth: No Heart: RRR Lungs: CTA Assessment and Plan Assessment Anesthesia Assessment: Anesthesia Plan Discussed and Chart Reviewed Final Anesthetic Review Family History of Problems with Anesthesia: No History of Problems with Anesthesia: No NPO: Yes ASA Class: III and Emergency Final Preanesthetic Review: No Changes in Pt Med Stat, Meds/Allgs Chart Reviewed, Consent Obtained/Reviewed and Anes Risks/Benef Reviewed Patient Risk: Intermediate Procedure Risk: Low Anesthetic Plan Anesthetic Plan: GA Disposition: Standard PACU
--- NOTE | 2024-09-03 20:52 | PC.NURSE ---
pt noted to be incontinent in urine, pt assisted in bed change and repositioning.
--- NOTE | 2024-09-03 21:39 | MHC.SHP ---
Pre-Procedural Eval Section A - 24 Hr Update-Section A only Date of Service: 09/03/24 The patient is an INPATIENT: Yes Changes since office visit: No Cold of Flu in the past 2 weeks, No New Medical Problems, No Changes in Medication and No Patient answered all questions The patient has been examined within 24 hours of the surgical procedure. The History & Physical has been completed within 30 days and I have reviewed it.: Yes Section B - Complete if H&P > 30 days Chief Complaint: unable to urinate/UTI last week finished meds Details of Present Illness: Circumcision with possible suprapubic tube Allergies: Allergies Allergy/AdvReac Type Severity Reaction Status Date / Time No Known Allergies Allergy Verified 09/02/24 19:45 Plan I have reviewed the history and physical and performed a pertinent physical examination on my patient. No changes have occurred unless specified. Time Spent With Patient Time: Total time managing care of this patient today ____ minutes.
[2024-09-03] MEDS: ceFAZolin Sodium/Dextrose,Iso 2 GM/50 ML PIGGYBACK IV (21:50)
--- NOTE | 2024-09-03 22:53 | P.OP_ITS ---
Operative Note Operative Note Date of Service: 09/03/24 Narrative: PreOperative Diagnosis: Phimosis with inability to place Barrera catheter Post Operative Diagnosis: Penile cancer Procedure: Circumcision Surgeon: Dr Liang Zamudio Anesthesia: General Indications for procedure: Unable to place Barrera catheter in emergency room. Unable to retract foreskin. Failed dorsal slit in emergency room. Here for emergent circumcision and Barrera catheter placement Procedure: After informed consent was verified the patient was brought to the operating ro om and placed in a supine position. Anesthesia was administered per protocol. The patient was prepped and draped sterile fashion. Safety pause time-out was performed. Antibiotics have been given. The penis was examined. Foreskin was unable to be circumcised. The dorsal slit was present. The appeared to be adhesion of the foreskin markedly to the glans of the penis. There was no clear entry of the meatus. The entire area was markedly inflamed. Attempt was made to place a 12 [place] Barrera catheter. This appeared to [place] under the skin over what felt like the glans. A penile ring block was performed using 1% lidocaine with no epinephrine. Approximately 8 cc. An incision was made in the skin that would be the proximal incision on top of what felt like glandular tissue. This was slowly taken down. A Barrera catheter was passed through a small hole in the phimosis. Was felt to [place] on the dorsal aspect of the buried glans. We were able to use the Bovie to cut down onto the catheter. At this point we were now able to see glandular tissue. The plane between the glans and the foreskin was developed circumferentially. The foreskin was lifted and was adhered throughout the distal portion of the glans. As this was peeled off there was seen to be a penile cancer in the glans. The urethra was able to be exposed. This was approximately half a cm from the penile cancer. A 16 [place] Barrera catheter was placed and the bladder drained. There were significant adhesions from the inflamed foreskin on the ventral side of the glans. These were freed from the penis and tissue sent. At this point reapproximation with the shaft skin to the new edges of the foreskin could be made. Using 3-0 interrupted chromic these were placed circumferentially reattaching the shaft skin onto the sulcus. A suze sulcus was formed on the ventral surface. Dressing was placed consisting of triple antibiotic, Xeroform gauze, Cesar and Coban. The penis remained to drainage. He tolerated the procedure well and was extubated in the room and transferred in stable condition to the recovery area. Pathology: Foreskin Drains: Barrera catheter
--- NOTE | 2024-09-03 23:21 | PM.IMHP ---
History of Present Illness Date of Service: 09/04/24 Chief Complaint: Urinary retention This is a 79-year-old male with pertinent history of COPD, mixed hyperlipidemia, obesity, hypertension, BPH who presents to the emergency department for evaluation of urinary retention. Patient states he does have a history of recurrent UTI and just finished a course of antibiotics last week for UTI. He has been unable to void for over 24 hours. Also has been complaining of cough which is intermittently productive. Has associated wheezing. No fever or chills. No chest pain, palpitations, abdominal pain, changes in bowel habits. Does endorse dyspnea. In the emergency department, phimosis noted and Barrera catheter could not be placed at bedside. Patient was taken to OR by Urology for circumcision and to place a Barrera catheter. Imaging revealed pneumonia and patient was requiring supplemental oxygen. Review of Systems Constitutional: Constitutional: Reports fatigue, Reports malaise and Reports poor appetite Cardiovascular: Cardiovascular: Reports dyspnea on exertion Respiratory: Respiratory: Reports cough, Reports dyspnea on exertion and Reports wheezing Gastrointestinal: Gastrointestinal: Reports no additional gastrointestinal complaints Genitourinary: Genitourinary: Reports difficulty urinating Endocrine: Endocrine: Reports fatigue Allergic/Immunologic: Allergic/Immunologic: Reports wheezing [facility] Medical History Allergic rhinosinusitis Obesity (BMI 30-39.9) Vitamin D deficiency Impaired fasting glucose Ulcerative colitis COPD (chronic obstructive pulmonary disease) Pure hypercholesterolemia Exercise hypoxemia COPD (chronic obstructive pulmonary disease) case management patient Family History Father Medical history unknown Mother Cancer Surgical History No pertinent past surgical history Social History Household Members: None Housing: House Do you presently have visiting nurse or other home services: No Alcohol intake: former Patient Tobacco Use Status: Former Tobacco user Years Smoked: 8 years ago Smoked in Last 30 Days: No e-Cigarette/Vaping Use: Never Used Second Hand Smoke Exposure: Yes Use of substances other than those prescribed or required for medical reasons: No Have you been hit, kicked, punched, or otherwise hurt by someone within the past year? If so, by whom?: No Do you feel safe in your current relationship?: No Current Relationship Is there a partner from a previous relationship who is making you feel unsafe now?: No Advance Directives: No Advance Directives Information Provided: Yes Do you have a plan to hurt others: No Plan Recently lost weight without trying: No Nutrition Risks: No Nutritional Risk service: Yes Current occupational status: retired Cognitive needs: No Hearing needs: Yes Vision needs: Yes Meds Allergies Allergy/AdvReac Type Severity Reaction Status Date / Time No Known Allergies Allergy Verified 09/02/24 19:45 Active Medications: Current Medications Fentanyl (Fentanyl Citrate/Pf 100 Mcg/2 Ml Vial) 25 mcg IVPUSH Q5M PRN PRN Reason: Pain, Severe (Pain Scale 7-10) Stop: 09/04/24 03:17 Hydromorphone HCl (Hydromorphone Hcl 0.5 Mg/0.5 Ml Syringe) 0.25 mg IVPUSH Q5M PRN PRN Reason: Pain, Moderate to Severe (Pain Scale 4-10) Stop: 09/04/24 03:17 Potassium Chloride (Potassium Chloride/H20) 10 meq in 100 mls @ 100 mls/hr IV Q1H KIKE Stop: 09/04/24 01:29 Naloxone HCl (Naloxone Hcl 0.4 Mg/Ml Vial) 0.04 mg IVPUSH Q5M PRN PRN Reason: Excessive sedation or RR < 8 Ondansetron HCl (Ondansetron Hcl 4 Mg/2 Ml Vial) 4 mg IVPUSH ONCE PRN PRN Reason: Nausea and Vomiting Stop: 09/04/24 03:17 Home Medications ?Medication ?Instructions ?Recorded ?Confirmed ?Last Taken ?Type mesalamine 0.375 gram 1.5 g PO QAM 08/03/20 09/03/24 09/02/24 History capsule,extended release 24 hr (Apriso) prednisone 5 mg tablet 5 mg PO DAILY 09/03/24 09/03/24 09/02/24 History Physical Exam Vital Signs and Narrative: Vital Signs: Last Vital Signs Temp 97.8 F 09/03/24 22:59 Pulse 91 09/03/24 23:09 Resp 9 L 09/03/24 23:09 BP 175/89 H 02/14/25 23:09 Pulse Ox 92 09/03/24 23:09 O2 Del Method Nasal Cannula 09/03/24 23:09 O2 Flow Rate 4 09/03/24 23:09 BMI result Body Mass Index 33.2 Middle-aged male lying in bed in mild distress on supplemental oxygen Neck supple, no JVD Regular rate and rhythm, S1-S2 heard Right-sided crackles heard with expiratory wheezing Abdomen soft nontender, no guarding, no rigidity Patient is drowsy but answers questions appropriately, oriented x3 ; no focal motor deficit Psych: Lethargic No pedal edema Results Labs 09/03/24 12:16 09/03/24 12:16 Labs: Laboratory Results - last 24 hr 09/03/24 09/03/24 09/03/24 02:37 09:48 12:16 MCV 93.7 MCH 34.0 H MCHC 36.3 H RDW 13.9 Plt Count 312 MPV 9.0 L Immature Gran % (Auto) 0.4 Neut % (Auto) 75.9 H Lymph % (Auto) 13.0 L [place] % (Auto) 10.1 Eos % (Auto) 0.2 Baso % (Auto) 0.4 Lymph # (Auto) 1.6 [place] # (Auto) 1.3 H Eos # (Auto) 0.0 Baso # (Auto) 0.1 Abs Immat Gran (auto) 0.05 H Absolute Neuts (auto) 9.5 H Absolute Nucleated RBC 0.000 Nucleated RBC % (auto) 0.0 Anion Gap 13 Estim Creat Clear Calc 79.7 Estimated GFR > 60 Random Glucose 93 Calcium 9.1 D Magnesium 2.1 Total Bilirubin 1.8 H Direct Bilirubin 0.6 H AST 22 ALT 15 Alkaline Phosphatase 128 H Total Protein 7.3 Albumin 4.0 Urine Color Yellow Urine Appearance Cloudy Urine pH 7.0 Ur Specific [place] 1.010 Urine Protein 30 (1+) H Urine Glucose (UA) Negative Urine Ketones Negative Urine Blood Small (1+) H Urine Nitrite Negative Ur Leukocyte Esterase Large (3+) H Urine RBC 6-10 H Urine WBC >50 H Ur Squamous Epith Cells 11-20 Urine Bacteria 1+ Hyaline Casts 3-5 Influenza Type A (PCR) NEGATIVE Influenza Type B (PCR) NEGATIVE RSV RNA Qual (PCR) NEGATIVE SARS-CoV-2 RNA (RT-PCR) NEGATIVE Imaging Radiologist's Impressions: Impressions Chest X-Ray 09/03/24 09:55 IMPRESSION: Segmental opacity right lower lobe, suspicious for pneumonia. Electronically signed by: José Carter MD 09/03/2024 10:18 AM [facility] Assessment and Plan (1) Hypoxia: Status: Acute (2) Hypertensive urgency: Status: Acute (3) CAP (community acquired pneumonia): Qualifiers: Laterality: right Lung location: unspecified part of lung Qualified Code(s): J18.9 - Pneumonia, unspecified organism Status: Acute (4) COPD exacerbation: Status: Acute Plan This is a 79-year-old male with pertinent history of COPD, mixed hyperlipidemia, obesity, hypertension, BPH who presents to the emergency department for evaluation of urinary retention. #. Acute hypoxemic respiratory failure due to right-sided pneumonia leading to COPD exacerbation: Will admit patient with supplemental oxygen. Initiating IV ceftriaxone and azithromycin. Also initiating systemic steroids, scheduled and p.r.n. DuoNebs. #. Hypertensive urgency: Initiated p.o. amlodipine and lisinopril. Monitor and titrate antihypertensives #. Urinary retention due to phimosis status post circumcision and placement of Barrera catheter by Urology in the OR. Concern for penile cancer as per operative note. Appreciate Urology #. Mixed hyperlipidemia: On statin #. BPH: On terazosin DVT prophylaxis: Lovenox Full code. Discussed with patient at bedside Admit as inpatient and will require two night minimum hospital stay for supplemental oxygen, IV antibiotics (as above), which is not possible in a lesser acute setting. Quality Stroke Does the patient have a stroke diagnosis?: No VTE Prior VTE?: No VTE Risk Level:: Medical - moderate - high VTE Device Contraindication: Treatment Not Indicated VTE Drug Contraindication: N/A - Med Ordered
[2024-09-04] VITALS (10 sets, daily range): BP systolic 143–169; BP diastolic 71–96; PULSE 78–106; RESP 16–20; TEMP 36.3–36.9; O2SAT 90–96
[2024-09-04] MEDS: Potassium Chloride Packet 20 MEQ PACKET 40 MEQ PO (00:41)
[2024-09-04] MEDS: Lactated Ringers 500 ML IV (00:43)
[2024-09-04] MEDS: 0.9 % Sodium Chloride Flush 3 ML SYRINGE IVFLUSH ×4 (00:47→19:59)
[2024-09-04 01:18] LABS: Lactic Acid 1.4 mmol/L (0.5-2.0)
[2024-09-04 05:56] LABS: MANUAL DIFF FLAG NO
[2024-09-04 06:04] LABS: Basophils Percent Auto 0.3 % (0-2); Eosinophils Absolute Auto 0.1 X10*3/uL (0.0-0.4); Eosinophils Percent Auto 0.9 % (0-4); Hematocrit 38.7 % (42.0-52.0); Hemoglobin 13.7 g/dl (14.0-18.0); Imm Gran Abs Auto 0.07 X10*3/uL (0.00-0.03); Imm Gran Pct Auto 0.6 % (0.0-0.4); Lymphocytes Absolute Auto 1.7 X10*3/uL (1.2-4.9); Mean Corpuscular HGB Conc 35.4 g/dl (31.0-36.0); Mean Platelet Volume 9.4 fL (9.4-12.4); Monocytes Absolute Auto 1.4 X10*3/uL (0.1-1.2); Monocytes Percent Auto 12.6 % (2-11); Neutrophils Absolute Auto 7.5 x10*3/uL (2.0-8.3); Neutrophils Percent Auto 69.6 % (45-73); Platelet Count 294 X10*3/uL (160-400); Red Blood Count 4.03 X10*6/uL (4.60-5.80); Red Cell Distribution Width 13.7 % (11.0-16.0); White Blood Count 10.8 X10*3/uL (4.8-10.8)
[2024-09-04 06:19] LABS: Anion Gap 13 (12-20); Blood Urea Nitrogen 10 mg/dL (9-16); Calcium 8.7 mg/dL (8.4-10.2); Carbon Dioxide 29 mmol/L (22-29); Chloride 102 mmol/L (96-108); Creatinine Clr Calc Pharmacy 82.7; Estimated Glomerular Filt Rate > 60; Glucose Random 84 mg/dL (60-115); Potassium 3.5 mmol/L (3.3-5.1); Sodium 140 mmol/L (135-145)
[2024-09-04] MEDS: Albuterol/Iprat 2.5/0.5MG 3 ML AMPUL.NEB INHALE ×4 (07:39→20:05)
[2024-09-04] MEDS: lisinopriL 10 MG TABLET PO (08:41)
[2024-09-04] MEDS: amLODIPine Besylate 5 MG TABLET PO (08:41)
[2024-09-04] MEDS: predniSONE 20 MG TABLET 40 MG PO (08:41)
[2024-09-04] MEDS: Enoxaparin Sodium 40 MG/0.4 ML SYRINGE SUBCUT (08:42)
[2024-09-04] MEDS: cefTRIAXone sodium 1 GM VIAL IVPUSH (08:44)
[2024-09-04] MEDS: Azithromycin 500 MG in 0.9 % Sodium Chloride 250 ML 125 MG IV (09:20)
--- NOTE | 2024-09-04 10:05 | HO.PM.IMPN ---
Subjective Subjective Date of Service: 09/04/24 Interval History: some pain around nick Physical Exam Vital Signs: Vital Signs: Last Vital Signs Temp 98.0 F 09/04/24 07:27 Pulse 97 09/04/24 07:45 Resp 18 09/04/24 07:45 BP 158/92 H 09/04/24 07:27 Pulse Ox 96 09/04/24 07:27 O2 Del Method Nasal Cannula 09/04/24 07:27 O2 Flow Rate 4.0 09/04/24 07:27 BMI result Body Mass Index 33.2 General: AO X 3, no acute distress Resp: rhonchi bilateral, no accessory muscles used CVS: S1,S2,RRR GI: soft, non tender, non distended Neuro: motor grossly intact, alert Psych: appropriate affect, appropriate insight Objective Data Active Medications Acetaminophen (Acetaminophen 325 Mg Tablet) 650 mg PO Q6H PRN PRN Reason: Pain, Mild 1-3,fever,headache Albuterol/Ipratropium (Albuterol/Iprat 2.5/0.5mg 3 Ml Ampul.Neb) 3 ml INHALE RQ4H WHILE AWAKE [facility] Last Admin: 09/04/24 07:39 Dose: 3 ml Documented By: MARCOS Albuterol/Ipratropium (Albuterol/Iprat 2.5/0.5mg 3 Ml Ampul.Neb) 3 ml INHALE Q4H PRN PRN Reason: Wheezing Amlodipine Besylate (Amlodipine Besylate 5 Mg Tablet) 5 mg PO DAILY [facility]; Protocol Last Admin: 09/04/24 08:41 Dose: 5 mg Documented By: ALEXIS Atorvastatin Calcium (Atorvastatin Calcium 10 Mg Tablet) 10 mg PO BEDTIME KIKE Calcium Carbonate (Calcium Carbonate 750 Mg Tab.Chew) 750 mg PO Q4H PRN PRN Reason: Heartburn Ceftriaxone Sodium (Ceftriaxone Sodium 1 Gm Vial) 1 gm IVPUSH DAILY [facility] Last Admin: 09/04/24 08:44 Dose: 1 gm Documented By: ALEXIS Doxazosin Mesylate (Doxazosin Mesylate 2 Mg Tablet) 4 mg PO BEDTIME IKKE Enoxaparin Sodium (Enoxaparin Sodium 40 Mg/0.4 Ml Syringe) 40 mg SUBCUT Q24H [facility] Last Admin: 09/04/24 08:42 Dose: 40 mg Documented By: ALEXIS Azithromycin 500 mg/ Sodium (Chloride) 250 mls @ 125 mls/hr IV DAILY [facility] Last Admin: 09/04/24 09:20 Dose: 125 mls/hr Documented By: ALEXIS Lisinopril (Lisinopril 10 Mg Tablet) 10 mg PO DAILY [facility]; Protocol Last Admin: 09/04/24 08:41 Dose: 10 mg Documented By: ALEXIS Magnesium Hydroxide (Milk Of Magnesia 30 Ml Oral.Susp) 30 ml PO DAILY PRN PRN Reason: Constipation Melatonin (Melatonin 3 Mg Tablet) 6 mg PO BEDTIME PRN PRN Reason: Insomnia Morphine Sulfate (Morphine Sulfate 4 Mg/Ml Cartridge) 4 mg IVPUSH Q4H PRN; Protocol PRN Reason: Pain, Severe (Pain Scale 7-10) Naloxone HCl (Naloxone Hcl 0.4 Mg/Ml Vial) 0.04 mg IVPUSH Q5M PRN PRN Reason: Excessive sedation or RR < 8 Ondansetron HCl (Ondansetron Hcl 4 Mg/2 Ml Vial) 4 mg IVPUSH Q8H PRN PRN Reason: Nausea and Vomiting Prednisone (Prednisone 20 Mg Tablet) 40 mg PO DAILY [facility] Last Admin: 09/04/24 08:41 Dose: 40 mg Documented By: ALEXIS Sodium Chloride (0.9 % Sodium Chloride Flush 3 Ml Syringe) 3 ml IVFLUSH QSHIFT [facility] Last Admin: 09/04/24 08:45 Dose: 3 ml Documented By: ALEXIS Labs 09/04/24 05:37 09/04/24 05:37 Labs: Laboratory Results - last 24 hr 09/03/24 09/03/24 09/04/24 09:48 12:16 00:54 MCV 93.7 MCH 34.0 H MCHC 36.3 H RDW 13.9 Plt Count 312 MPV 9.0 L Immature Gran % (Auto) 0.4 Neut % (Auto) 75.9 H Lymph % (Auto) 13.0 L [place] % (Auto) 10.1 Eos % (Auto) 0.2 Baso % (Auto) 0.4 Lymph # (Auto) 1.6 [place] # (Auto) 1.3 H Eos # (Auto) 0.0 Baso # (Auto) 0.1 Abs Immat Gran (auto) 0.05 H Absolute Neuts (auto) 9.5 H Absolute Nucleated RBC 0.000 Nucleated RBC % (auto) 0.0 Anion Gap 13 Estim Creat Clear Calc 79.7 Estimated GFR > 60 Random Glucose 93 Lactic Acid 1.4 Calcium 9.1 D Magnesium 2.1 Total Bilirubin 1.8 H Direct Bilirubin 0.6 H AST 22 ALT 15 Alkaline Phosphatase 128 H Total Protein 7.3 Albumin 4.0 Influenza Type A (PCR) NEGATIVE Influenza Type B (PCR) NEGATIVE RSV RNA Qual (PCR) NEGATIVE SARS-CoV-2 RNA (RT-PCR) NEGATIVE 09/04/24 05:37 MCV 96.0 MCH 34.0 H MCHC 35.4 RDW 13.7 Plt Count 294 MPV 9.4 Immature Gran % (Auto) 0.6 H Neut % (Auto) 69.6 Lymph % (Auto) 16.0 L [place] % (Auto) 12.6 H Eos % (Auto) 0.9 Baso % (Auto) 0.3 Lymph # (Auto) 1.7 [place] # (Auto) 1.4 H Eos # (Auto) 0.1 Baso # (Auto) 0.0 Abs Immat Gran (auto) 0.07 H Absolute Neuts (auto) 7.5 Absolute Nucleated RBC 0.000 Nucleated RBC % (auto) 0.0 Anion Gap 13 Estim Creat Clear Calc 82.7 Estimated GFR > 60 Random Glucose 84 Lactic Acid Calcium 8.7 Magnesium Total Bilirubin Direct Bilirubin AST ALT Alkaline Phosphatase Total Protein Albumin Influenza Type A (PCR) Influenza Type B (PCR) RSV RNA Qual (PCR) SARS-CoV-2 RNA (RT-PCR) Microbiology Microbiology Results: Microbiology 09/03/24 02:37 Urine Culture - Preliminary Urine Catheterized - Straight Catheter No growth to date. Assessment and Plan (1) Ulcerative colitis: Status: Acute Plan 79M PMH chronic hypoxic respiratory failure due to COPD, hyperlipidemia, obesity, hypertension, BPH, ulcerative colitis presented with urinary retention and shortness of breath Acute hypoxic respiratory failure secondary to COPD with acute decompensation due to right-sided pneumonia Continue ceftriaxone azithromycin, steroids, DuoNebs, wean O2 as tolerated Urinary retention due to phimosis associated with penile cancer Status post Nick placement in OR Follow up Urology Hypertensive urgency Started on amlodipine and lisinopril, monitor Hyperlipidemia Continue statin Ulcerative colitis Continue mesalamine BPH Continued terazosin DVT prophylaxis with Lovenox full code reason for continued hospitalization: hypoxia Quality Stroke Does the patient have a stroke diagnosis?: No VTE Prior VTE?: No VTE Risk Level:: Medical - moderate - high VTE Device Contraindication: Treatment Not Indicated VTE Drug Contraindication: N/A - Med Ordered
[2024-09-04] MEDS: MESALAMINE 0.375 GM 1.5 GM PO (11:16)
--- NOTE | 2024-09-04 12:13 | P.PNUR_ITS ---
Subjective Subjective Date of Service: 09/04/24 Interval history: Barrera catheter in place Draining clear urine Undergoing therapy for pneumonia Discussed diagnosis of T1 penile cancer with son and patient Will see in follow-up and remove Barrera catheter in 2 weeks. At that point in time will organize penile MRI and check CT for jose alejandro staging Physical Exam 2 Vital Signs: Vital Signs: Last Vital Signs Temp 98.0 F 09/04/24 07:27 Pulse 96 09/04/24 11:23 Resp 18 09/04/24 11:23 BP 158/92 H 09/04/24 07:27 Pulse Ox 96 09/04/24 07:27 O2 Del Method Nasal Cannula 09/04/24 07:27 O2 Flow Rate 4.0 09/04/24 07:27 BMI result Body Mass Index 33.2 Const: General: cooperative, healthy appearing, comfortable and no acute distress Orientation/consciousness: patient oriented x3 HEENT: Face and sinus: Yes normal facial exam Mouth: moist mucous membranes Neck: Neck: Yes normal visual inspection, Yes full ROM and Yes trachea midline Chest: Chest palpation & inspection: normal inspection of the chest Resp: Effort & Inspection: normal respiratory effort, able to speak in complete sentences and no respiratory distress GI: Inspection: Yes normal to inspection Back/Spine/Pelvis: Cervical Spine: normal cervical lordosis Thoracic/Lumbar Spine: thoracic and lumbar spine normal to inspection Skin: General skin exam: no rashes or lesions noted Neuro: General: patient oriented x3, tone normal and moves all extremities Extrem: General: Yes normal to inspection and Yes capillary refill normal Urology Results Labs 09/04/24 05:37 09/04/24 05:37 Labs: Laboratory Results - last 24 hr 09/03/24 09/04/24 09/04/24 12:16 00:54 05:37 WBC 12.5 H 10.8 RBC 4.26 L 4.03 L Hgb 14.5 13.7 L Hct 39.9 L 38.7 L MCV 93.7 96.0 MCH 34.0 H 34.0 H MCHC 36.3 H 35.4 RDW 13.9 13.7 Plt Count 312 294 MPV 9.0 L 9.4 Immature Gran % (Auto) 0.4 0.6 H Neut % (Auto) 75.9 H 69.6 Lymph % (Auto) 13.0 L 16.0 L [place] % (Auto) 10.1 12.6 H Eos % (Auto) 0.2 0.9 Baso % (Auto) 0.4 0.3 Lymph # (Auto) 1.6 1.7 [place] # (Auto) 1.3 H 1.4 H Eos # (Auto) 0.0 0.1 Baso # (Auto) 0.1 0.0 Abs Immat Gran (auto) 0.05 H 0.07 H Absolute Neuts (auto) 9.5 H 7.5 Absolute Nucleated RBC 0.000 0.000 Nucleated RBC % (auto) 0.0 0.0 Sodium 138 140 Potassium 3.1 L 3.5 Chloride 100 102 Carbon Dioxide 28 29 Anion Gap 13 13 BUN 12 10 Creatinine 0.83 0.80 Estim Creat Clear Calc 79.7 82.7 Estimated GFR > 60 > 60 Random Glucose 93 84 Lactic Acid 1.4 Calcium 9.1 D 8.7 Magnesium 2.1 Total Bilirubin 1.8 H Direct Bilirubin 0.6 H AST 22 ALT 15 Alkaline Phosphatase 128 H Troponin I High Sens 17.4 Total Protein 7.3 Albumin 4.0 Progress Note: A&P Assessment and plan (1) Acute urinary retention: Status: Acute (2) Penile cancer: Status: Acute Plan 2 week follow-up urology office voiding trial Time Spent With Patient Time: Total time managing care of this patient today ____ minutes. Progress Note: Quality Stroke Does the patient have a stroke diagnosis?: No
--- NOTE | 2024-09-04 14:15 | HO.POSTANES ---
Post Anesthesia Evaluation Post Anesthesia Evaluation Date of Service: 09/04/24 Vital Signs: Vital Signs Temp Pulse Resp BP Pulse Ox O2 Del Method O2 Flow Rate 09/04/24 11:23 96 18 09/04/24 07:45 97 18 09/04/24 07:27 98.0 F 78 16 158/92 H 96 Nasal Cannula 4.0 09/04/24 03:31 97.5 F 80 18 169/82 H 95 Nasal Cannula 3 Anesthesia: General LMA Mental Status: Awake Pain Control: Satisfactory Nausea/Vomiting: None Hydration: Adequate Anesthesia-Related Issues: No Anes. Related Issues
[2024-09-04] MEDS: Atorvastatin Calcium 10 MG TABLET PO (19:59)
[2024-09-04] MEDS: Doxazosin Mesylate 2 MG TABLET 4 MG PO (19:59)
[2024-09-05 03:10] VITALS: BP 125/58; PULSE 96; RESP 17; TEMP 36.1; O2SAT 95
[2024-09-05 07:49] VITALS: BP 145/55; PULSE 87; RESP 18; TEMP 36.8; O2SAT 94
[2024-09-05] MEDS: Albuterol/Iprat 2.5/0.5MG 3 ML AMPUL.NEB INHALE ×2 (08:23→11:17)
[2024-09-05] MEDS: amLODIPine Besylate 5 MG TABLET PO (08:24)
[2024-09-05] MEDS: lisinopriL 10 MG TABLET PO (08:24)
[2024-09-05] MEDS: Cholecalciferol (Vitamin D3) 25 MCG TABLET PO (08:24)
[2024-09-05] MEDS: predniSONE 20 MG TABLET 40 MG PO (08:24)
[2024-09-05] MEDS: MESALAMINE 0.375 GM 1.5 GM PO (08:25)
[2024-09-05 08:26] VITALS: PULSE 108; RESP 20; O2SAT 91
[2024-09-05] MEDS: Enoxaparin Sodium 40 MG/0.4 ML SYRINGE SUBCUT (08:28)
[2024-09-05] MEDS: 0.9 % Sodium Chloride Flush 3 ML SYRINGE IVFLUSH (08:29)
[2024-09-05] MEDS: cefTRIAXone sodium 1 GM VIAL IVPUSH (08:29)
[2024-09-05] MEDS: Azithromycin 500 MG in 0.9 % Sodium Chloride 250 ML 125 MG IV (09:22)
--- NOTE | 2024-09-05 09:47 | PM.DS ---
DS: Providers Provider Date of Service: 09/05/24 Date of admission: 09/03/24 23:19 Date of discharge: 09/05/24 Primary care physician: Reyes Galvin MD Consults: 09/03/24 09:40 Consult to Urology Stat Consulting Provider: [facility] Services Reason for consultation: urinary retention Has provider been notified: Yes DS: Diagnosis Discharge Diagnosis (1) Acute urinary retention: Status: Acute (2) Penile cancer: Status: Acute DS: Summary Hospital Course Hospital Course: From initial hpi: 79-year-old male with pertinent history of COPD, mixed hyperlipidemia, obesity, hypertension, BPH who presents to the emergency department for evaluation of urinary retention. Patient states he does have a history of recurrent UTI and just finished a course of antibiotics last week for UTI. He has been unable to void for over 24 hours. Also has been complaining of cough which is intermittently productive. Has associated wheezing. No fever or chills. No chest pain, palpitations, abdominal pain, changes in bowel habits. Does endorse dyspnea. In the emergency department, phimosis noted and Barrera catheter could not be placed at bedside. Patient was taken to OR by Urology for circumcision and to place a Barrera catheter. Imaging revealed pneumonia and patient was requiring supplemental oxygen. Hospital course: Patient was admitted for acute on chronic hypoxic respiratory failure secondary to COPD with acute decompensation due to right-sided pneumonia. Was treated with ceftriaxone and azithromycin, steroids and DuoNebs. He was back down to his baseline O2. On discharge will continue 5 more days of Ceftin and azithromycin and prednisone. For urinary retention due to phimosis associated with penile cancer had Barrera catheter placed in the OR. Was seen by Urology recommended maintaining Barrera on discharge and following up outpatient for MRI and eventual excision. For hypertensive urgency was started on amlodipine and lisinopril and blood pressure improved. For hyperlipidemia was continued on statin. For ulcerative colitis was continued on mesalamine. For BPH was continued on terazosin. Patient is feeling better will be discharged home. Time Attestation Discharge Coordination Time (in mins): 32 Quality: Safe Use of Opioids Does Pt have an Active Cancer Diagnosis on the Problem List?: Yes Opioid Measure Date for [facility] Report: 08/06/24 Opioid Measure Time for [facility] Report: 09:49 Quality: Stroke Does the patient have a stroke diagnosis?: No Physical Exam Vital Signs: Vital Signs: Last Vital Signs Temp 98.3 F 09/05/24 07:49 Pulse 108 H 09/05/24 08:26 Resp 20 09/05/24 08:26 BP 145/55 H 09/05/24 07:49 Pulse Ox 94 09/05/24 07:49 O2 Del Method Nasal Cannula 09/05/24 07:49 O2 Flow Rate 3.5 09/05/24 07:49 Oxygen Flow Rate 3 09/04/24 21:17 BMI result Body Mass Index 33.2 Const: General: cooperative, healthy appearing, comfortable and no acute distress Orientation/consciousness: patient oriented x3 HEENT: Face and sinus: Yes normal facial exam Mouth: moist mucous membranes Neck: Neck: Yes normal visual inspection, Yes full ROM and Yes trachea midline Chest: Chest palpation & inspection: normal inspection of the chest Resp: Effort & Inspection: normal respiratory effort, able to speak in complete sentences and no respiratory distress GI: Inspection: Yes normal to inspection Back/Spine/Pelvis: Cervical Spine: normal cervical lordosis Thoracic/Lumbar Spine: thoracic and lumbar spine normal to inspection Skin: General skin exam: no rashes or lesions noted Neuro: General: patient oriented x3, tone normal and moves all extremities Extrem: General: Yes normal to inspection and Yes capillary refill normal DS: Data Data Completed and Pending Pending studies at discharge: Pending at discharge 09/03/24 22:35 Surgical [PTH] Routine Labs on day of discharge: Preliminary micro results at discharge 09/03/24 12:16 Blood Culture - Preliminary Blood - Venous No growth after 24 hours. 09/03/24 12:16 Blood Culture - Preliminary Blood - Venous No growth after 24 hours. Discharge Plan Discharge Anticipated Discharge Date/Time: 09/05/24 09:43 Patient Disposition: Home, Self-Care Discharge Diagnosis: penile cancer, pneumonia Referrals: Reyes Galvin MD [Primary Care Provider] - 1 Week Discharge Medications: New prednisone 20 mg Tablet 40 mg PO DAILY Qty: 10 0RF cefuroxime axetil 500 mg tablet 500 mg PO BID Qty: 10 0RF azithromycin 500 mg tablet 500 mg PO DAILY 5 Days Qty: 5 0RF amlodipine 5 mg Tablet 5 mg PO DAILY Qty: 180 0RF Protocol: Hold for SBP< HOLD for SBP < : 90 lisinopril 10 mg Tablet 10 mg PO DAILY Qty: 180 0RF Protocol: Hold for SBP< HOLD for SBP < : 90 Continued simvastatin 20 mg tablet 20 mg PO BEDTIME Qty: 90 1RF cholecalciferol (vitamin D3) 25 mcg (1,000 unit) tablet 25 mcg PO DAILY Qty: 90 3RF mesalamine [Apriso] 0.375 gram capsule,extended release 24hr 1.5 g PO QAM terazosin 5 mg capsule 5 mg PO BEDTIME 30 Days Qty: 30 3RF Held prednisone 5 mg tablet 5 mg PO DAILY Hold Instructions: Resume on 09/11/24. Discharge Orders: Discharge Order (Routine); Ordered 09/05/24 Ordered By: Adan Wilde Diet: Advance to usual diet Activity on Discharge: As tolerated Stand Alone Forms: Patient Portal Discharge page Print Language: Vietnamese Care Plan Goals: Recovery, manage penile cancer Health Concerns: Pneumonia, penile cancer, COPD Plan of Treatment: 5 more days of Ceftin, azithromycin and prednisone restart baseline prednisone after 5 day prednisone 40 mg daily course Keep Barrera catheter, follow up with Urology plan for MRI and then eventual excision of penile cancer Started on lisinopril and amlodipine for blood pressure Assessment: See above
--- NOTE | 2024-09-05 10:14 | MHC.CM.PN ---
pt dcd home self care
[2024-09-05 11:40] VITALS: PULSE 112; RESP 20; O2SAT 92
--- NOTE | 2024-09-07 09:50 | MHC.CM.PN ---
Received message from son, Jeffrey ([phone]) requesting callback re VNA services. Spoke with son and explained 48 hour since patient d/c. VNA would need to be set up via PCP. Call placed to Dr. Kamar alan ([place]) who is reaching out to set up dc appt with patient. Informed son of plan.
--- NOTE | 2024-09-08 10:35 | P.F2F_ITS ---
Service Date Service Date: 09/05/24 Encounter Date of encounter: 09/05/24 Reasons for Services Signs and symptoms assessed: difficulty ambulating Reason for chcf: medication management, medication treatment, teach disease management and GI/ assessment Homebound: Leaving the home is medically contraindicated at this time without the asist of a device and/or another person due th the listed conditions above and below. Reason homebound: unsteady gait / fall risk Certification: Based on the above findings, I certify that this patient is confined to the home and needs intermittent chcf care, physical therapy and/or speech therapy, or continues to need occupational therapy. The patient is under my care, and I have initiated the establishment of the plan of care. The patient will be followed by a physician who will periodically review the plan of care. Time Spent With Patient Time: Total time managing care of this patient today ____ minutes.
== END 2024-09-05 15:18 | disposition home or self-care (01) | DRG 727 ==
LOC: HO.ED 09-03 13:02 → HO.SSS 09-03 13:04 → HO.S3 09-03 23:46
PROVIDERS: Emergency Medicine; Physician Assistant; Urology; Admitting Provider Student in an Organized Health Care Education/Training Program; Emergency Provider Emergency Medicine; PCP Internal Medicine; Visit Provider Internal Medicine
PROC: 0VTTXZZ Resection of Prepuce, External Approach (ICD-10-PCS; principal; 2024-09-03 17:30)
DX: N47.1 Phimosis (principal); J18.9 Pneumonia, unspecified organism; J96.01 Acute respiratory failure with hypoxia; J44.0 Chronic obstructive pulmonary disease with (acute) lower respiratory infection; J44.1 Chronic obstructive pulmonary disease with (acute) exacerbation; K51.90 Ulcerative colitis, unspecified, without complications; I16.0 Hypertensive urgency; N40.1 Benign prostatic hyperplasia with lower urinary tract symptoms; R33.8 Other retention of urine; C60.1 Malignant neoplasm of glans penis; E78.2 Mixed hyperlipidemia; Z20.822 Contact with and (suspected) exposure to COVID-19; Z87.440 Personal history of urinary (tract) infections; Z79.52 Long term (current) use of systemic steroids; Z79.899 Other long term (current) drug therapy
CPT/HCPCS: 0241U; 36415; 71046; 80048; 80053; 80076; 81001; 83605; 83735; 84484; 85025; 87040; 87086; 88304; 88305; 93005; 94640; 99285; C1758; J0456; J0690; J0696; J1650; J1920; J2003; J2270; J2405; J2704; J2795; J3010; J7120

== ENCOUNTER → 2024-09-02 19:57 | Outpatient (BNV) | payer MEDICARE, SELFPAY | PROVIDERS: Emergency Provider Emergency Medicine; PCP Internal Medicine; Visit Provider Internal Medicine Cardiovascular Disease | DX: R00.0 Tachycardia, unspecified (principal) | CPT/HCPCS: 93010 ==

== ENCOUNTER → 2024-09-03 09:45 | Outpatient (BNV) | payer MEDICARE, SELFPAY | PROVIDERS: Emergency Provider Emergency Medicine; PCP Internal Medicine; Visit Provider Radiology Diagnostic Radiology | DX: R06.02 Shortness of breath (principal); R05.9 Cough, unspecified | CPT/HCPCS: 71046 ==

== ENCOUNTER → 2024-09-03 11:42 | Outpatient (BNV) | payer MEDICARE, SELFPAY | PROVIDERS: Emergency Provider Emergency Medicine; PCP Internal Medicine; Visit Provider Internal Medicine Cardiovascular Disease | DX: I25.2 Old myocardial infarction (principal) | CPT/HCPCS: 93010 ==

== ENCOUNTER → 2024-09-03 13:03 | Outpatient (BNV) | payer MEDICARE, SELFPAY | PROVIDERS: Emergency Provider Emergency Medicine; PCP Internal Medicine; Visit Provider Urology | DX: N47.1 Phimosis (principal); R33.8 Other retention of urine; C60.9 Malignant neoplasm of penis, unspecified | CPT/HCPCS: 54150; 99024; 99222 ==

== ENCOUNTER → 2024-09-03 23:19 | Outpatient (BNV) | payer MEDICARE, SELFPAY | PROVIDERS: Admitting Provider Student in an Organized Health Care Education/Training Program; Emergency Provider Emergency Medicine; PCP Internal Medicine; Visit Provider Student in an Organized Health Care Education/Training Program | DX: R33.8 Other retention of urine (principal); C60.9 Malignant neoplasm of penis, unspecified; J18.9 Pneumonia, unspecified organism | CPT/HCPCS: 99223; 99233; 99239; G0180 ==

== ENCOUNTER 2024-09-07 14:52 | Outpatient (AMB) | payer MEDICARE, SELFPAY ==
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
--- OUTSIDE RECORDS SUMMARY | 2024-09-07 15:51 | XMS_ITS ---
Author Organization [facility] Address [address] [place] [address] Care Team Providers Care Side Laster Tack Name Role Phone Kamar DOMINIQUE, Reyes Primary Care Provider Javi Collins Unavailable [phone] REASON FOR VISIT REFILL PREDNISONE MEDICATIONS Medication SIG (Take, Route, Fr equency, Duration) Notes Start Date End Date Status predniSONE 5 MG 1 tablet Orally Once a day for 90 days Active Encounters Encounter Location Date Provider Diagnosis [facility] [address] [place] [address] 07/19/2024 Javi Donovan Ulcerative pancoliti s without complication K51.00 ASSESSMENTS Encounter Date Diagnosis Assessment Notes Treatment Notes Treatment Clinical Notes 07/19/2024 Ulcerative pancolitis without complication (ICD-10 - K51.00) PLAN OF TREATMENT Medication Medication Name Sig Start Date Stop Date Notes predniSONE 5 MG 1 tablet Orally Once a day for 90 days Next Appt Details Provider Name:Javi Donovan , 06/23/2025 11:00:00 AM, [address], [address], [place], [address],
--- OUTSIDE RECORDS SUMMARY | 2024-09-07 15:51 | XMS_ITS | Patient Health Record ---
Author Organization [facility] Address [address] [place] [address] Care Team Providers Care Clinical Documentation Manager Name Role Phone Reyes Galvin MD Primary Care Provider Javi Collins Unavailable [phone] ALLERGIES No Known Allergies RESULTS Component Value Reference Range Notes Complete Blood Count Auto Di ff Reviewed date:10/15/2023 06:24:13 PM Interpretation: Performing Lab:[facility], [address] [place] [phone] Notes/Report: White Blood Count 10.5 4.8-10.8 X10*3/uL [...] te Reviewed date:10/15/2023 06:25:19 PM Interpretation: Performing Lab:[address] [address] Notes/Report: Erythrocyte Sedimentation Rate 22 0-15 MM/HR Patients with polycythemia and many hemoglobin abnormalities may have depressed sed rates whereas patients with anemia may have elevated sed rates. Liver Panel Reviewed date:10/15/2023 06:24:28 PM Interpretation: Performing Lab:[address] [address] Notes/Report: Bilirubin Total 2.3 0.0-1.0 mg/dL Bilirubin Direct 0.7 0.0-0.5 mg/dL Aspartate Amino Transferase 17 5-37 U/L Alanine Aminotransferase 16 0-40 U/L Total Protein 7.4 6.5-8.0 g/dL Albumin Level 4.1 3.5-5.0 g/dL Alkaline Phosphatase 147 39-117 U/L Basic Metabolic Panel Reviewed date:10/15/2023 06:25:05 PM Interpretation: Performing Lab:[address] [address] Notes/Report: Sodium 140 135-145 mmol/L Potassium 3.3 3.3-5.1 mmol/L Chloride 98 96-108 mmol/L Carbon Dioxide 33 22-29 mmol/L Anion Gap 12 12-20 Blood Urea Nitrogen 8 9-16 mg/dL Creatinine 1.01 0.5-1.4 mg/dL Estimated Glomerular Filt Rate > 60 NOTE: For -Portuguese individuals, multiply the result by 1.210. Chronic Kidney Disease: Estimated GFR < 60 mL/min/1.73m2 Severe Kidney Disease: Estimated GFR < 15 mL/min/1.73m2 Glucose Random 91 60-115 mg/dL Calcium 9.3 8.4-10.2 mg/dL C Reactive Protein Reviewed date:10/15/2023 06:25:12 PM Interpretation: Performing Lab:[facility], [address] [place] [phone] Notes/Report: C Reactive Protein 2.68 < or = 0.50 mg/dL Leukocytes Stool Qualitative Reviewed date:10/16/2023 12:10:35 PM Interpretation: Performing Lab:[facility], [address] [place] [phone] Notes/Report: Leukocytes Stool Qualitative NEGATIVE NEGATIVE Calprotectin, Fecal Reviewed date:11/01/2023 12:58:27 AM Interpretation: Performing Lab:[facility], [address] [place] [phone] Notes/Report: Calprotectin, Fecal 5470 Reference Range: <50 [...] borderline values. THIS TEST WAS PERFORMED AT: [facility] [address] [place] [address] MITA VALENCIA MD,PHD,COMFORT CDiff Gene PCR Reviewed date:10/16/2023 12:10:21 PM Interpretation: Performing Lab:[address] [address] Notes/Report: CDiff Gene PCR NEGATIVE Negative If C. difficile strongly suspected despite one negative test, a second test may be sent vs. empiric treatment for C. difficile infection. GI PANEL Reviewed date:10/16/2023 06:17:57 PM Interpretation: Performing Lab:[address] [address] Notes/Report: Campylobacter Not Detected Not Detect. Plesiomonas [...] is performed by Multiplexed PCR, utilizing the Proterro Array. REASON FOR REFERRAL No Information MEDICATIONS [...] malignant neoplasm of colon (Z12.11) Active confirmed 658512125 Problem History of adenomatous polyp of colon (Z86.010) Active confirmed 738901542 Problem Weight loss (R63.4) Active confirmed 62681928 Problem Encounter for screening for malignant neoplasm of rectum (Z12.12) Active confirmed Screening fo r malignant neoplasm of rectum (029894996) Problem Elevated liver function tests (R79.89) Active confirmed 057359219 Problem Family history of colon cancer (Z80.0) Active confirmed 970748865 Problem Ulcerative pancolitis without complication (K51.00) Active confirmed 015361073 Problem Abnormal gallbladder ultrasound (R93.2) Active confirmed 91571203216585349 Problem Ulcerative pancolitis with rectal bleeding (K51.011) Active confirmed Chronic ulcerat mari pancolitis (617305429) Problem Abdominal pain, generalized (R10.84) Active confirmed 576413065 Problem Diarrhea, unspecified type (R19.7) Active confirmed 74505042 Problem Diarrhea of presumed infectious origin (R19.7) Active confirmed 86525113 VITAL SIGNS Blood pressure diastolic 00 mm Hg 06/22/2024 Height 65 in 06/22/2024 Blood pressure systolic 00 mm Hg 06/22/2024 Weight 216 lbs 06/22/2024 BMI 35.94 kg/m2 06/22/2024 Encounters Encounter Location Date Provider Diagnosis [facility] [address] [place] [address] 12/02/2023 Javi Donovan Ulcerative pancoliti s without complication K51.00 [facility] [address] [place] [address] 06/03/2024 Javi Donovan [facility] [address] [place] [address] 06/22/2024 Javi Donovan Ulcerative pancoliti s without complication K51.00 [facility] [address] [place] [address] 10/15/2023 Javi Donovan Ulcerative pancoliti s with rectal bleeding K51.011 and Ulcerative pancolitis without complication K51.00 [facility] [address] [place] [address] 06/08/2024 Javi Donovan [facility] [address] [place] [address] 07/19/2024 Javi Donovan Ulcerative pancoliti s without complication K51.00 ASSESSMENTS Encounter Date Diagnosis Assessment Notes Treatment Notes Treatment Clinical Notes 12/02/2023 Ulcerative pancolitis without complication (ICD-10 - K51.00) Continue the one 5mg prednisone daily fdc to try to keep the colitis quiet 06/22/2024 Ulcerative pancolitis without complication (ICD-10 - K51.00) Continue the one 5mg prednisone daily medical terminologist to try to keep the colitis quiet 10/15/2023 Ulcerative pancolitis with rectal bleeding (ICD-10 - K51.011) 07/19/2024 Ulcerative pancolitis without complication (ICD-10 - K51.00) 10/15/2023 Ulcerative pancolitis without complication (ICD-10 - K51.00) PLAN OF TREATMENT Pending Test Test Name Order Date CHEM 7 PROFILE 08/08/2022 CHEM 7 PROFILE 06/28/2011 CHEM 7 PROFILE 06/28/2021 CHEM 7 PROFILE 06/27/2023 LIVER PROFILE 06/27/2023 LIVER PROFILE 08/08/2022 LIVER PROFILE 05/31/2021 LIVER PROFILE 09/30/2014 LIVER PROFILE 06/28/2021 CRP 06/28/2021 CRP 06/27/2023 CRP 08/08/2022 CBC w DIFF 06/28/2021 CBC w DIFF 06/27/2023 CBC w DIFF 06/28/2011 CBC w DIFF 08/08/2022 CBC w DIFF 09/30/2014 SED RATE (ESR) 06/28/2021 SED RATE (ESR) 06/27/2023 SED RATE (ESR) 08/08/2022 HEPATITIS B PROFILE 08/08/2022 CLOSTRIDIUM DIFF TOXIN A&B (C DIFF) 03/2014 CLOSTRIDIUM DIFF TOXIN A&B (C DIFF) 09/2013 STOOL WBC 10/21/2013 CULTURE, STOOL 10/21/2013 CULTURE, STOOL 06/28/2014 CULTURE, STOOL 06/28/2021 US ABD 02/29/2020 STOOL WBC 08/08/2022 STOOL WBC 06/27/2023 STOOL WBC 06/28/2021 C DIFFICILE RFLX PCR 06/27/2023 C DIFFICILE RFLX PCR 06/28/2021 C DIFFICILE RFLX PCR 08/08/2022 Calprotectin, Fecal 06/27/2023 GI PANEL 06/27/2023 GI PANEL 08/08/2022 Future Test Test Name Order Date COLONOSCOPY 07/04/2015 COLONOSCOPY 05/29/2018 Next Appt Details Provider Name:Javi Radha Donovan , 06/23/2025 11:00:00 AM, [address] [place] [address], [address], [place], [address], Insurance Providers Payer Name Payer Address Payer Phone Subscriber Number Group Number Insured Name Patient Relationship to Insured Coverage Start Date Coverage End Date MEDICARE OF [place] [address] [place] [address] [phone] [id number] JULIANNA LEDESMA Self - patient is the insured [employer] ATT[employer] CLAIMS [address] [place] [address] [id number] JULIANNA LEDESMA Self - patient is the insured MEDICAL (GENERAL) HISTORY Medical History History ICD Code Ulcerative colitis diagnosed in 1994 Tubular adenomas of the colon Denies VT,DM,CVA,Lung disease,renal dise ase Hyperlipidemia Pneumonia--hospitalized twic e [...] to [facility] that responded well to 8 weeks [...]
--- OUTSIDE RECORDS SUMMARY | 2024-09-07 15:51 | XMS_ITS ---
Author Organization [facility] Address [address] [place] [address] Care Team Providers Care Helper Marble Finisher Name Role Phone Kamar DOMINIQUE, Reyes Primary Care Provider Javi Collins Unavailable [phone] ALLERGIES No Known Allergies REASON FOR VISIT [...] 06/22/2024 Encounters Encounter Location Date Provider [facility] [address] [place] [address] 06/22/2024 Javi Donovan Ulcerative pancoliti s without complication K51.00 ASSESSMENTS Encounter Date Diagnosis Assessment Notes Treatment Notes Treatment Clinical Notes 06/22/2024 Ulcerative pancolitis without complication (ICD-10 - K51.00) Continue the one 5mg prednisone daily under presser to try to keep the colitis quiet PLAN OF TREATMENT Medication Medication Name Sig Start Date Stop Date Notes predniSONE 5 MG 1 tablet Orally Once a day for 90 days Apriso 0.375 GM TAKE 4 CAPSULES BY MOUTH EVERY MORNING Treatment Notes Assessment Notes Ulcerative pancolitis without complicati on Continue the one 5mg prednisone daily under presser to try to keep the colitis quiet Next Appt Details Follow Up: 1 Year, Reason: Provider Name:Javi Donovan , 06/23/2025 11:00:00 AM, [address] [facility], [address], [place], [address], Progress Notes * Examination Category Sub-Category Detail [...]
--- OUTSIDE RECORDS SUMMARY | 2024-09-07 15:51 | XMS_ITS ---
Author Organization [facility] Address [address] [place] [address] Care Team Providers Care Ghost Writer Name Role Phone Kamar DOMINIQUE, [place] Primary Care Provider Unava Javi Dee Unavailable [phone] REASON FOR VISIT potassium Encounters Encounter Location Date Provider Diagnosis [facility] [address] [place] [address] 06/08/2024 Javi Donovan PLAN OF TREATMENT Next Appt Details Provider Name:Javi Donovan , 06/23/2025 11:00:00 AM, [address], [address], [place], [address],
== END 2024-09-07 16:49 | disposition home or self-care (01) ==
PROVIDERS: PCP Internal Medicine; Visit Provider Internal Medicine
DX: N13.9 Obstructive and reflux uropathy, unspecified (principal); C60.9 Malignant neoplasm of penis, unspecified; J18.9 Pneumonia, unspecified organism; R19.7 Diarrhea, unspecified

== ENCOUNTER → 2024-09-07 14:52 | Outpatient (BNVA) | payer MEDICARE, SELFPAY | PROVIDERS: PCP Internal Medicine; Visit Provider Internal Medicine | DX: N13.9 Obstructive and reflux uropathy, unspecified (principal); J18.9 Pneumonia, unspecified organism; C60.9 Malignant neoplasm of penis, unspecified; R19.7 Diarrhea, unspecified | CPT/HCPCS: 96127 ==

== ENCOUNTER 2024-09-09 16:38 | Outpatient (REF) | payer MEDICARE, SELFPAY ==
--- OUTSIDE RECORDS SUMMARY | 2024-09-09 16:52 | XMS_ITS ---
Author Organization [facility] Address [address] [place] [address] Care Team Providers Care Frozen Meat Cutter Name Role Phone Kamar DOMINIQUE, Reyes Primary Care Provider Javi Collins Unavailable [phone] ALLERGIES No Known Allergies REASON FOR VISIT [...] 06/22/2024 Encounters Encounter Location Date Provider Diagnosis [facility] [address] [place] [address] 06/22/2024 Javi Donovan Ulcerative pancoliti s without complication K51.00 ASSESSMENTS Encounter Date Diagnosis Assessment Notes Treatment Notes Treatment Clinical Notes 06/22/2024 Ulcerative pancolitis without complication (ICD-10 - K51.00) Continue the one 5mg prednisone daily longwall foreman to try to keep the colitis quiet PLAN OF TREATMENT Medication Medication Name Sig Start Date Stop Date Notes predniSONE 5 MG 1 tablet Orally Once a day for 90 days Apriso 0.375 GM TAKE 4 CAPSULES BY MOUTH EVERY MORNING Treatment Notes Assessment Notes Ulcerative pancolitis without complicati on Continue the one 5mg prednisone daily longwall foreman to try to keep the colitis quiet Next Appt Details Follow Up: 1 Year, Reason: Provider Name:Javi Donovan , 06/23/2025 11:00:00 AM, [address] [facility], [address], [place], [address], Progress Notes * Examination Category Sub-Category Detail [...]
--- OUTSIDE RECORDS SUMMARY | 2024-09-09 16:52 | XMS_ITS ---
Author Organization [facility] Address [address] [facility] [address] [place] [address] Care Team Providers Care Architectural Representative Name Role Phone Kamar DOMINIQUE, Reyes Primary Care Provider Javi Collins Unavailable [phone] REASON FOR VISIT REFILL PREDNISONE MEDICATIONS Medication SIG (Take, Route, Fr equency, Duration) Notes Start Date End Date Status predniSONE 5 MG 1 tablet Orally Once a day for 90 days Active Encounters Encounter Location Date Provider Diagnosis [facility] [address] [place] [address] 07/19/2024 Javi Donovan Ulcerative pancoliti s without complication K51.00 ASSESSMENTS Encounter Date Diagnosis Assessment Notes Treatment Notes Treatment Clinical Notes 07/19/2024 Ulcerative pancolitis without complication (ICD-10 - K51.00) PLAN OF TREATMENT Medication Medication Name Sig Start Date Stop Date Notes predniSONE 5 MG 1 tablet Orally Once a day for 90 days Next Appt Details Provider Name:Javi Donovan , 06/23/2025 11:00:00 AM, [address] [facility], [address], [place], [address],
--- OUTSIDE RECORDS SUMMARY | 2024-09-09 16:52 | XMS_ITS | Patient Health Record ---
Author Organization [facility] Address [address] [place] [address] Care Team Providers Care Manager Sap Name Role Phone Reyes Galvin MD Primary Care Provider Javi Collins Unavailable [phone] ALLERGIES No Known Allergies RESULTS Component Value Reference Range Notes Complete Blood Count Auto Di ff Reviewed date:10/15/2023 06:24:13 PM Interpretation: Performing Lab:[facility], [address] [place] [id number] Notes/Report: White Blood Count 10.5 4.8-10.8 X10*3/uL [...] te Reviewed date:10/15/2023 06:25:19 PM Interpretation: Performing Lab:[address] [address] Notes/Report: Erythrocyte Sedimentation Rate 22 0-15 MM/HR Patients with polycythemia and many hemoglobin abnormalities may have depressed sed rates whereas patients with anemia may have elevated sed rates. Liver Panel Reviewed date:10/15/2023 06:24:28 PM Interpretation: Performing Lab:[address] [address] Notes/Report: Bilirubin Total 2.3 0.0-1.0 mg/dL Bilirubin Direct 0.7 0.0-0.5 mg/dL Aspartate Amino Transferase 17 5-37 U/L Alanine Aminotransferase 16 0-40 U/L Total Protein 7.4 6.5-8.0 g/dL Albumin Level 4.1 3.5-5.0 g/dL Alkaline Phosphatase 147 39-117 U/L Basic Metabolic Panel Reviewed date:10/15/2023 06:25:05 PM Interpretation: Performing Lab:[address] [address] Notes/Report: Sodium 140 135-145 mmol/L Potassium 3.3 [...] Protein Reviewed date:10/15/2023 06:25:12 PM Interpretation: Performing Lab:[facility], [address] [place] [address] Notes/Report: C Reactive Protein 2.68 < or = 0.50 mg/dL Leukocytes Stool Qualitative Reviewed date:10/16/2023 12:10:35 PM Interpretation: Performing Lab:[facility], [address] [place] [address] Notes/Report: Leukocytes Stool Qualitative NEGATIVE NEGATIVE Calprotectin, Fecal Reviewed date:11/01/2023 12:58:27 AM Interpretation: Performing Lab:[facility], [address] [place] [address] Notes/Report: Calprotectin, Fecal 5470 Reference Range: <50 [...] borderline values. THIS TEST WAS PERFORMED AT: [employer] [address] [place] [address] MITA VALENCIA MD,PHD,COMFORT CDiff Gene PCR Reviewed date:10/16/2023 12:10:21 PM Interpretation: Performing Lab:[address] [address] Notes/Report: CDiff Gene PCR NEGATIVE Negative If C. difficile strongly suspected despite one negative test, a second test may be sent vs. empiric treatment for C. difficile infection. GI PANEL Reviewed date:10/16/2023 06:17:57 PM Interpretation: Performing Lab:[address] [address] Notes/Report: Campylobacter Not Detected Not Detect. Plesiomonas [...] is performed by Multiplexed PCR, utilizing the Pix4D Array. REASON FOR REFERRAL No Information MEDICATIONS [...] malignant neoplasm of colon (Z12.11) Active confirmed 135069245 Problem History of adenomatous polyp of colon (Z86.010) Active confirmed 517777575 Problem Weight loss (R63.4) Active confirmed 07170626 Problem Encounter for screening for malignant neoplasm of rectum (Z12.12) Active confirmed Screening fo r malignant neoplasm of rectum (745572052) Problem Elevated liver function tests (R79.89) Active confirmed 952722841 Problem Family history of colon cancer (Z80.0) Active confirmed 099668694 Problem Ulcerative pancolitis without complication (K51.00) Active confirmed 402329738 Problem Abnormal gallbladder ultrasound (R93.2) Active confirmed 70116469992292278 Problem Ulcerative pancolitis with rectal bleeding (K51.011) Active confirmed Chronic ulcerat mari pancolitis (595347653) Problem Abdominal pain, generalized (R10.84) Active confirmed 384119264 Problem Diarrhea, unspecified type (R19.7) Active confirmed 80847211 Problem Diarrhea of presumed infectious origin (R19.7) Active confirmed 98962914 VITAL SIGNS Blood pressure diastolic 00 mm Hg 06/22/2024 Height 65 in 06/22/2024 Blood pressure systolic 00 mm Hg 06/22/2024 Weight 216 lbs 06/22/2024 BMI 35.94 kg/m2 06/22/2024 Encounters Encounter Location Date Provider Diagnosis [facility] [address] [place] [address] 12/02/2023 Javi Donovan Ulcerative pancoliti s without complication K51.00 [facility] [address] [place] [address] 06/03/2024 Javi Donovan [facility] [address] [place] [address] 06/22/2024 Javi Donovan Ulcerative pancoliti s without complication K51.00 [facility] [address] [place] [address] 10/15/2023 Javi Donovan Ulcerative pancoliti s with rectal bleeding K51.011 and Ulcerative pancolitis without complication K51.00 [facility] [address] [place] [address] 06/08/2024 Javi Donovan [facility] [address] [place] [address] 07/19/2024 Javi Donovan Ulcerative pancoliti s without complication K51.00 ASSESSMENTS Encounter Date Diagnosis Assessment Notes Treatment Notes Treatment Clinical Notes 12/02/2023 Ulcerative pancolitis without complication (ICD-10 - K51.00) Continue the one 5mg prednisone daily detention to try to keep the colitis quiet 06/22/2024 Ulcerative pancolitis without complication (ICD-10 - K51.00) Continue the one 5mg prednisone daily intermodal dispatcher to try to keep the colitis quiet [...] Name:Javi Radha Donovan , 06/23/2025 11:00:00 AM, [address] [place] [address], [address], [place], [address], Insurance Providers Payer Name Payer Address Payer Phone Subscriber Number Group Number Insured Name Patient Relationship to Insured Coverage Start Date Coverage End Date MEDICARE OF [place] [address] [place] [address] [id number] JULIANNA LEDESMA Self - patient is the insured [employer] ATT[employer] CLAIMS [address] [place] [address] [id number] JULIANNA LEDESMA Self - patient is the insured MEDICAL (GENERAL) HISTORY Medical History History ICD Code Ulcerative colitis diagnosed in 1994 Tubular adenomas of the colon Denies NE,DM,CVA,Lung disease,renal dise ase Hyperlipidemia Pneumonia--hospitalized twic e [...] [facility] that responded well to 8 weeks [...]
--- OUTSIDE RECORDS SUMMARY | 2024-09-09 16:52 | XMS_ITS ---
Author Organization [facility] Address [address] [place] [address] Care Team Providers Care Clip Bolter And Wrapper Name Role Phone Kamar DOMINIQUE, [place] Primary Care Provider Unava Javi Dee Unavailable [phone] REASON FOR VISIT potassium Encounters Encounter Location Date Provider Diagnosis [facility] [address] [place] [address] 06/08/2024 Javi Donovan PLAN OF TREATMENT Next Appt Details Provider Name:Javi Donovan , 06/23/2025 11:00:00 AM, [address], [address], [place], [address],
[2024-09-09 17:43] LABS: CDiff Gene PCR NEGATIVE (Negative)
== END 2024-09-09 16:39 | disposition home or self-care (01) ==
LOC: HO.LNP 16:38
PROVIDERS: Visit Provider Internal Medicine
DX: R19.7 Diarrhea, unspecified (principal)
CPT/HCPCS: 87493

== ENCOUNTER 2024-09-10 13:18 | Emergency (ER) | payer MEDICARE, SELFPAY ==
--- NOTE | ~2024-09-10 | CT_ITS ---
EXAMINATION: CT ABDOMEN AND PELVIS WITH CONTRAST CLINICAL INFORMATION: Distended to palpation. COMPARISON: None available. TECHNIQUE: Multidetector volumetric images were obtained from the superior aspect of the liver through the pubic symphysis following administration 85 mL of Omnipaque 350 intravenous contrast. Sagittal and coronal reformatted images were obtained on the technologist's workstation. Oral contrast: No This CT examination was performed using dose optimization techniques as appropriate, variously including the following: *Automated exposure control *Adjustment of mA and/or kV according to patient size (this includes techniques or standardized protocols for targeted exams where dose is matched to indication/reason for exam; i.e. extremities or head) *Use of iterative reconstruction technique FINDINGS: LUNG BASES: Right lower lobe airspace consolidation consistent with pneumonia. No effusions. Borderline cardiac enlargement. Small type I hiatus hernia. LIVER, GALLBLADDER, AND BILIARY TREE: The liver is normal in size, shape, and attenuation. No focal hepatic lesion or biliary ductal dilatation is present. The gallbladder is unremarkable with no evidence of radiopaque gallstones, gallbladder wall thickening, or obvious pericholecystic inflammatory changes. PANCREAS: Mild/moderate fatty atrophy . SPLEEN: Unremarkable. ADRENAL GLANDS: Unremarkable. KIDNEYS AND URETERS: Left renal cortical thinning with scarring and mild atrophy. Is a left renal cyst in the inferior pole measuring 3.2 cm. Tiny right upper pole cyst. No hydronephrosis, calculus, or mass. Right kidney is normal in appearance. There is nonspecific bilateral perirenal stranding. The ureters are nondilated. BLADDER: Partially collapsed around a Barrera catheter. Mild wall thickening and numerous small diverticula are present. There is intraluminal gas, iatrogenic. GASTROINTESTINAL TRACT: Stomach is largely decompressed. Duodenum is normal in appearance. Small bowel is normal in caliber and course. Formation or wall thickening. There is submucosal fat deposition throughout the left colon and rectum, findings which can be seen in the setting of inflammatory bowel disease and/or obesity, or long-term steroid use. A normal appendix is visualized. ABDOMINAL WALL: No significant hernia is appreciated. LYMPH NODES: None enlarged by size criteria. VASCULAR: Moderate atheromatous calcification of the aorta and iliac arteries without aneurysm. PELVIC VISCERA: Prostate is normal in size with eccentric left-sided dense calcifications. There is a Barrera in the prostatic urethra. OSSEOUS STRUCTURES: No suspicious lytic or blastic bone lesion. There are spinal degenerative changes, with findings in keeping with DISH. CT/CT abdomen pelvis w IV con IMPRESSION: 1. Right lower lobe pneumonia. 2. No acute finding in the abdomen or pelvis. 3. Left renal scarring and atrophy. 4. Submucosal fat deposition in the left colon and rectum, findings which can be seen associated with obesity, inflammatory bowel disease, or long-term steroid use. 5. Osseous findings in keeping with DISH. Electronically signed by: José Carter MD 09/10/2024 03:50 PM EST
--- NOTE | ~2024-09-10 | XR_ITS ---
EXAMINATION: XR CHEST CLINICAL INFORMATION: SOB, CP COMPARISON: 09/03/2024. TECHNIQUE: 2 views of the chest were obtained. FINDINGS: Mild cardiac enlargement. Mediastinal and hilar contours appear normal. Segmental opacity in the right lower lobe distribution, relatively unchanged from 09/03/2024. This may represent persistent pneumonia although may be a chronic abnormality. There is no pneumothorax or pleural effusion. There is no focal osseous or soft tissue abnormality. There are spinal degenerative changes with findings in keeping with DISH. XR/XR chest 2V IMPRESSION: 1. Segmental opacity right lower lobe, unchanged from 09/03/2024, possibly chronic or residual pneumonia. 2. Mild cardiac enlargement. Electronically signed by: José Carter MD 09/10/2024 02:48 PM [facility]
--- NOTE | 2024-09-10 13:27 | MHC.CM.ED ---
Received notification from [facility] that patient is active with their agency. Return referral made to [facility] via [facility] so they can follow for d/c needs.
--- NOTE | 2024-09-10 13:39 | ED_ITS ---
HPI - Chest Pain General Chief Complaint: General Medical Stated Complaint: SOB/CP [id number], RECENT DX OF PENUMONIA PER EMS Time Seen by Provider: 09/10/24 13:22 Source: patient and EMS Mode of arrival: EMS Limitations: no limitations History of Present Illness ED Provider: marci villalobos NP HPI narrative: Patient is a 79-year-old male presents emergency department via EMS for evaluation. Patient was reporting to EMS shortness of breath and chest pain over the past week, he was recent diagnosed with pneumonia and was treated in the hospital discharged home on antibiotics. He is not the greatest historian, it is unclear to me whether his shortness of breath or chest pain is consistent with when he was discharged or if it is worse and/or better. He does wear 2 L via nasal cannula of oxygen at baseline at home. However, when I first asked patient what brings him in today he states that the visiting nurse was unable to change his catheter, evidently the nurse had contacted Dr. Zamudio's office who advised him to come to the emergency department to be evaluated and have catheter changed here. Patient states that he had a surgery on his penis while hospitalized recently where he was found to have cancer. He additionally reports that he has been having multiple episodes of diarrhea for the past few days which he states prevented him from being able to go to urologist office yesterday. Related Data Home Medications ?Medication ?Instructions ?Recorded ?Confirmed mesalamine 0.375 gram 1.5 g PO DAILY 08/03/20 09/11/24 capsule,extended release 24 hr (Apriso) prednisone 5 mg tablet 5 mg PO DAILY 09/03/24 09/11/24 Previous Rx's ?Medication ?Instructions ?Recorded simvastatin 20 mg tablet 20 mg PO BEDTIME #90 tabs 05/27/24 cholecalciferol (vitamin D3) 25 25 mcg PO DAILY #90 tabs 06/16/24 mcg (1,000 unit) tablet terazosin 5 mg capsule 5 mg PO BEDTIME 30 days #30 caps 08/09/24 amlodipine 5 mg tablet 5 mg PO DAILY #180 tabs 09/05/24 lisinopril 10 mg tablet 10 mg PO DAILY #180 tabs 09/05/24 Allergies Allergy/AdvReac Type Severity Reaction Status Date / Time No Known Allergies Allergy Verified 09/10/24 13:45 Review of Systems 2 Review of Systems: Yes all other systems are reviewed and are negative PMFSH Past Medical History Attestation statement: The following information was validated with the patient. Source: old records reviewed Medical History Allergic rhinosinusitis Obesity (BMI 30-39.9) Vitamin D deficiency Impaired fasting glucose Ulcerative colitis COPD (chronic obstructive pulmonary disease) Pure hypercholesterolemia Exercise hypoxemia COPD (chronic obstructive pulmonary disease) case management patient Surgical History No pertinent past surgical history Family History Family History Father Medical history unknown Mother Cancer Social History Social History Household Members: None Housing: House Do you presently have visiting nurse or other home services: No Alcohol intake: former Patient Tobacco Use Status: Former Tobacco user Years Smoked: 8 years ago Smoked in Last 30 Days: No e-Cigarette/Vaping Use: Never Used Second Hand Smoke Exposure: Yes Use of substances other than those prescribed or required for medical reasons: No Advance Directives: Yes Advance Directives Information Provided: Yes Advance Directives on File: No service: No Current occupational status: retired Cognitive needs: No Hearing needs: Yes Vision needs: Yes Physical Exam 2 Vital Signs: Vital Signs: Last Vital Signs Temp 97.4 F 09/11/24 07:49 Pulse 96 09/11/24 08:45 Resp 22 H 09/11/24 07:49 BP 162/89 H 09/11/24 08:45 Pulse Ox 97 09/11/24 08:45 O2 Del Method Room Air 09/11/24 07:49 O2 Flow Rate 2 09/11/24 04:00 Oxygen Flow Rate 2 09/10/24 13:41 BMI result Body Mass Index 33.2 Appearance: Alert.?Oriented to person, place and time. No acute distress.?Normal affect. Eyes: Pupils equal, round and reactive to light.? ENT: Pharynx normal.?? Neck: Normal inspection.? Neck supple.?? CVS: Heart sounds normal. Normal heart rate and rhythm.? Pulses normal.?? Respiratory: No respiratory distress.? Lung sounds with wheezing bilaterally. No hypoxia on 2 L via nasal cannula Abdomen: Round and semifirm, with exquisite tenderness upon palpation in the bilateral lower quadrants. No CVA tenderness. Normoactive bowel sounds. ? Urogenital: There is ecchymosis at the base of the scrotum, the shaft of the penis is wrapped in Coban, the distal tip there appears to be a crusted serosanguineous drainage Skin: Skin warm and dry.? Normal skin color.? Extremities: No lower extremity edema.? No calf ttp? Neuro: Moves all extremities spontaneously. Sensation intact bilaterally. Course Reevaluation(s) Reevaluation #1: CBC revealing leukocytosis 15,100 with left shift, no anemia, no thrombocytopenia. No electrolyte derangement. Mild ZHEN with BUN 18 creatinine 1.49. High sensitive troponin within normal range, EKG revealing normal sinus rhythm, ventricular rate of 99, QTC 456, no ST elevation.. BNP is normal. Viral serologies are negative. CXR revealing unchanged right lower lobe opacity from 09/03/2024 chronic versus residual pneumonia, son at bedside, endorses that shortness of breath is not particularly increased from baseline, again he is without hypoxia. His recent pneumonia was treated with Ceftin as well as azithromycin. Urologist has sent course of antibiotics Cipro twice daily to pharmacy for genitourinary pathology. Reevaluation #2: CT of the abdomen and pelvis without acute pathology, no episodes of diarrhea while in the emergency department. Penis was soaked extensively with saline as per Dr. Zamudio's recommendation, Coban dressing removal without incident. No active bleeding. Patient's son is at bedside, he expresses concern about patient's ability to remain home. He has been having multiple bouts of diarrhea daily over the past week, son reports he had outpatient stool studies obtained yesterday does not know the results of such. Regardless, the diarrhea significant, he is not able to get to the bathroom and time, is not able to clean himself up adequately. He expresses concern about his safety to be able to return home safely. On review of stool sample yesterday, C diff is negative. GI panel was not obtained. Advised will attempt to evaluate to collect for further evaluation. He will be placed in physician observation at this time for physical therapy/case management evaluation Time: 17:13 Reevaluation #3: Dr. Zamudio to bedside to evaluate patient, reports significant improvement in appearance. Patient remaining in the emergency department, given oral ciprofloxacin is not on formulary at the hospital, orders have been placed for Levaquin 250 mg daily per Urology. Time: 17:37 Additional Reevaluation(s): 1451 09/11/24 -- I have reviewed all work up results. PT/CM evaluated patient. Physical therapy is recommending STR however per case management, patient is unable to private pay. he does not qualify for STR. son is at bedside who has offered to stay with the patient at his hims. manager case management has arranged for increased VNA services for patient. both patient and son are agreeable. > he has been unable to provide us with a stool sample for GI panel. he was reporting mild abdominal pain this morning which was relieved after receiving toradol and passing flatus. he is comfortable at this time. I do not have concern for acute abdomen. work up unremarkable. he has had no further episodes of diarrhea. advised to continue cipro prescription for genitourinary pathology with urology follow up. Final disposition discussed with the patient. The patient completed observation care at 1455 , total time in observation care was 23 hours. Medications Administered Generic Name Dose Route Start Last Admin Trade Name Freq PRN Reason Stop Dose Admin Levofloxacin 250 mg 09/11/24 09:00 09/11/24 09:57 Levofloxacin 250 Mg Tablet PO 250 mg DAILY KIKE Administration Discontinued Medications Generic Name Dose Route Start Last Admin Trade Name Freq PRN Reason Stop Dose Admin Ceftriaxone Sodium 1 gm 09/10/24 16:27 09/10/24 16:52 Ceftriaxone Sodium 1 Gm Vial IVPUSH 09/10/24 16:28 1 gm ONCE ONE Administration Sodium Chloride 1,000 mls @ 999 mls/hr 09/10/24 14:45 09/10/24 16:49 Ns IV 09/10/24 15:45 Infused .Q1H1M KIKE Infusion Iohexol 100 ml 09/10/24 15:20 09/10/24 15:20 Iohexol 350 Mg/Ml 100 Ml Infus..Btl IV 09/10/24 15:21 85 ml ONCE ONE Administration Ketorolac Tromethamine 15 mg 09/11/24 07:54 09/11/24 08:07 Ketorolac Tromethamine 15 Mg/Ml Vial IVPUSH 09/11/24 07:55 15 mg ONCE ONE Administration Morphine Sulfate 4 mg 09/10/24 16:27 09/10/24 16:49 Morphine Sulfate 4 Mg/Ml Cartridge IVPUSH 09/10/24 16:28 4 mg ONCE ONE Administration Protocol Medical Decision Making Medical Decision Making [facility] Narrative: Patient is a 79-year-old male with past medical history of BPH, phimosis, obesity, ulcerative colitis, COPD, hyperlipidemia, impaired fasting glucose who presents emergency department for evaluation, as per HPI secondary to visiting nurse inability to change the Barrera catheter, chest pain and shortness of breath which is unclear whether this is at baseline since his most recent discharge from the hospital or worsened and/or better, and episodes of diarrhea. Her abdominal examination is benign, symptoms may be secondary to a viral gastroenteritis versus side effect from medications. We will however obtain stool for C diff testing/GI panel if additional episodes diarrhea occur while in the emergency department. He has no hypoxia on his 2 L via nasal cannula, no increased work of breathing, has expiratory wheezing bilaterally when anticipate this with his underlying past medical history. Case management has made me aware that the visiting nurse had called to provide a report, who endorse concern for low O2 saturation at home, Coban wrap on penis resulting in pain and episodes of diarrhea. On my initial evaluation there is Coban around the shaft of the penis, at the distal tip there does appear to be dried serosanguineous crusting, ecchymosis surrounding the base of the scrotum. On evaluation of medical record he was admitted to the hospital 09/03/2024- 09/05/2024: He initially presented for urinary retention over 24 hours with recurrent UTI as well as URI symptoms. Admitted for acute on chronic hypoxic respiratory failure secondary to COPD with right-sided pneumonia, given urinary retention secondary to phimosis associated with penile cancer his Barrera catheter was placed in the OR with Urology, with plan for outpatient MRI for eventual excision. Inpatient follow-up note from urology indicates Barrera catheter removal in 2 weeks outpatient. Differential Diagnosis Differential Diagnoses: The differential diagnosis associated with the presentation includes (COPD exacerbation, pneumonia, penile cancer, Barrera catheter complication) Admission/Observation Consideration of admission/observation: Escalation of care including admission/observation considered Consult Healthcare Provider Management of the patient was discussed with: Implant Polisher I consulted with Urology, Dr. Zamudio who advises that he instructed for patient to go in office for evaluation and removal of the dressing however patient's son had insisted on coming to the emergency department, he advises soaking the dressing in saline for removal, that he has sent a prescription for antibiotics to the pharmacy. Lab Data 09/10/24 13:57 09/10/24 16:48 Labs: Lab Results 09/10/24 09/10/24 09/10/24 Range/Units 13:56 13:57 16:39 WBC 15.1 H (4.8-10.8) X10*3/uL RBC 4.61 (4.60-5.80) X10*6/uL Hgb 15.6 (14.0-18.0) g/dl Hct 44.1 (42.0-52.0) % MCV 95.7 (80.0-98.0) fL MCH 33.8 H (27.0-33.0) pg MCHC 35.4 (31.0-36.0) g/dl RDW 13.2 (11.0-16.0) % Plt Count 306 (160-400) X10*3/uL MPV 9.2 L (9.4-12.4) fL Immature Gran % (Auto) 1.1 H (0.0-0.4) % Neut % (Auto) 90.1 H (45-73) % Lymph % (Auto) 3.8 L (20-40) % Mora % (Auto) 4.9 (2-11) % Eos % (Auto) 0.0 (0-4) % Baso % (Auto) 0.1 (0-2) % Lymph # (Auto) 0.6 L (1.2-4.9) X10*3/uL Mora # (Auto) 0.7 (0.1-1.2) X10*3/uL Eos # (Auto) 0.0 (0.0-0.4) X10*3/uL Baso # (Auto) 0.0 (0.0-0.2) X10*3/uL Abs Immat Gran (auto) 0.17 H (0.00-0.03) X10*3/uL Absolute Neuts (auto) 13.6 H (2.0-8.3) x10*3/uL Absolute Nucleated RBC 0.000 (0.0-0.012) X10*3/uL Nucleated RBC % (auto) 0.0 (0.0-0.2) /100WBC Smear Tech's Comments VERIFIED PT 11.0 (10.9-12.4) SEC INR 0.9 (0.9-1.1) Sodium 138 (135-145) mmol/L Potassium 3.9 (3.3-5.1) mmol/L Chloride 99 (96-108) mmol/L Carbon Dioxide 29 (22-29) mmol/L Anion Gap 14 (12-20) BUN 18 H (9-16) mg/dL Creatinine 1.49 H (0.5-1.4) mg/dL Estim Creat Clear Calc 44.4 Estimated GFR 45 Random Glucose 144 H (60-115) mg/dL Lactic Acid 0.9 (0.5-2.0) mmol/L Calcium 9.3 D (8.4-10.2) mg/dL Magnesium 2.5 (1.6-2.6) mg/dL Total Bilirubin 1.6 H (0.0-1.0) mg/dL AST 26 (5-37) U/L ALT 26 (0-40) U/L Alkaline Phosphatase 124 H (39-117) U/L Troponin I High Sens 18.0 (<3.5-35.0) ng/L B-Natriuretic Peptide 40 (<100) pg/mL Total Protein 7.5 (6.5-8.0) g/dL Albumin 4.0 (3.5-5.0) g/dL Lipase 14 (8-78) U/L Influenza Type A (PCR) NEGATIVE (Negative) Influenza Type B (PCR) NEGATIVE (Negative) RSV RNA Qual (PCR) NEGATIVE (Negative) SARS-CoV-2 RNA (RT-PCR) NEGATIVE (Negative) 09/10/24 Range/Units 16:48 WBC (4.8-10.8) X10*3/uL RBC (4.60-5.80) X10*6/uL Hgb (14.0-18.0) g/dl Hct (42.0-52.0) % MCV (80.0-98.0) fL MCH (27.0-33.0) pg MCHC (31.0-36.0) g/dl RDW (11.0-16.0) % Plt Count (160-400) X10*3/uL MPV (9.4-12.4) fL Immature Gran % (Auto) (0.0-0.4) % Neut % (Auto) (45-73) % Lymph % (Auto) (20-40) % Mora % (Auto) (2-11) % Eos % (Auto) (0-4) % Baso % (Auto) (0-2) % Lymph # (Auto) (1.2-4.9) X10*3/uL Mora # (Auto) (0.1-1.2) X10*3/uL Eos # (Auto) (0.0-0.4) X10*3/uL Baso # (Auto) (0.0-0.2) X10*3/uL Abs Immat Gran (auto) (0.00-0.03) X10*3/uL Absolute Neuts (auto) (2.0-8.3) x10*3/uL Absolute Nucleated RBC (0.0-0.012) X10*3/uL Nucleated RBC % (auto) (0.0-0.2) /100WBC Smear Tech's Comments PT (10.9-12.4) SEC INR (0.9-1.1) Sodium (135-145) mmol/L Potassium (3.3-5.1) mmol/L Chloride (96-108) mmol/L Carbon Dioxide (22-29) mmol/L Anion Gap (12-20) BUN (9-16) mg/dL Creatinine 1.30 (0.5-1.4) mg/dL Estim Creat Clear Calc 50.9 Estimated GFR 53 Random Glucose (60-115) mg/dL Lactic Acid (0.5-2.0) mmol/L Calcium (8.4-10.2) mg/dL Magnesium (1.6-2.6) mg/dL Total Bilirubin (0.0-1.0) mg/dL AST (5-37) U/L ALT (0-40) U/L Alkaline Phosphatase (39-117) U/L Troponin I High Sens (<3.5-35.0) ng/L B-Natriuretic Peptide (<100) pg/mL Total Protein (6.5-8.0) g/dL Albumin (3.5-5.0) g/dL Lipase (8-78) U/L Influenza Type A (PCR) (Negative) Influenza Type B (PCR) (Negative) RSV RNA Qual (PCR) (Negative) SARS-CoV-2 RNA (RT-PCR) (Negative) Independent Interpretation I performed an independent interpretation of an: Plain X-Ray (Right lower lobe opacity) Radiology Impression Discussion of test interpretation with radiology: I have reviewed the radiologist's reading. Radiologist Impression: XR/XR chest 2V IMPRESSION: 1. Segmental opacity right lower lobe, unchanged from 09/03/2024, possibly chronic or residual pneumonia. 2. Mild cardiac enlargement. CT/CT abdomen pelvis w IV con IMPRESSION: 1. Right lower lobe pneumonia. 2. No acute finding in the abdomen or pelvis. 3. Left renal scarring and atrophy. 4. Submucosal fat deposition in the left colon and rectum, findings which can be seen associated with obesity, inflammatory bowel disease, or long-term steroid use. 5. Osseous findings in keeping with DISH. Discharge Plan Discharge Clinical Impression: Surgical wound present, Diarrhea, Weakness Patient Disposition: Home, Self-Care Instructions: Acute Abdominal Pain (ED) Additional Instructions: Your work up today is reassuring. You may take pepto bismol or imodium at home for upset stomach/ diarrhea. After discussion with case management, you do not qualify for short term rehab at [facility] time and will be discharged home with visiting nurse assistance. Continue prescription of ciprofloxacin as prescribed for your urinary tract infection. Follow up with your urologist. Return with new or worsening symptoms. In the case of an emergency call 911. Prescriptions: No Action simvastatin 20 mg tablet 20 mg PO BEDTIME Qty: 90 1RF cholecalciferol (vitamin D3) 25 mcg (1,000 unit) tablet 25 mcg PO DAILY Qty: 90 3RF prednisone 5 mg tablet 5 mg PO DAILY amlodipine 5 mg Tablet 5 mg PO DAILY Qty: 180 0RF Protocol: Hold for SBP< HOLD for SBP < : 90 lisinopril 10 mg Tablet 10 mg PO DAILY Qty: 180 0RF Protocol: Hold for SBP< HOLD for SBP < : 90 mesalamine [Apriso] 0.375 gram capsule,extended release 24hr 1.5 g PO DAILY terazosin 5 mg capsule 5 mg PO BEDTIME 30 Days Qty: 30 3RF Referrals: Reyes Galvin MD [Primary Care Provider] - Print Language: Icelandic
--- NOTE | 2024-09-10 13:39 | ECG_ITS ---
Test Reason : CHEST PAIN Blood Pressure : */* mmHG Vent. Rate : 99 BPM Atrial Rate : 100 BPM P-R Int : 178 ms QRS Dur : 82 ms QT Int : 356 ms P-R-T Axes : 56 -4 50 degrees QTcB Int : 456 ms Normal sinus rhythm Possible Left atrial enlargement Possible Inferior infarct (cited on or before 02-Sep-2024) Cannot rule out Anterior infarct , age undetermined Abnormal ECG When compared with ECG of 03-Sep-2024 11:58, No significant change was found Referred By: Esthela Shelby Electronically Signed By: JAGUAR NAVARRETE
[2024-09-10 13:41] VITALS: BP 149/88; BP 169/78; PULSE 102; PULSE 95; RESP 18; TEMP 36.7; O2SAT 97; BMI 33.2
[2024-09-10 14:08] LABS: Basophils Percent Auto 0.1 % (0-2); Hematocrit 44.1 % (42.0-52.0); Hemoglobin 15.6 g/dl (14.0-18.0); Imm Gran Abs Auto 0.17 X10*3/uL (0.00-0.03); Imm Gran Pct Auto 1.1 % (0.0-0.4); Lymphocytes Absolute Auto 0.6 X10*3/uL (1.2-4.9); Lymphocytes Percent Auto 3.8 % (20-40); MANUAL DIFF FLAG SCAN; Mean Corpuscular HGB Conc 35.4 g/dl (31.0-36.0); Mean Corpuscular Hemoglobin 33.8 pg (27.0-33.0); Mean Corpuscular Volume 95.7 fL (80.0-98.0); Mean Platelet Volume 9.2 fL (9.4-12.4); Monocytes Absolute Auto 0.7 X10*3/uL (0.1-1.2); Monocytes Percent Auto 4.9 % (2-11); Neutrophils Absolute Auto 13.6 x10*3/uL (2.0-8.3); Neutrophils Percent Auto 90.1 % (45-73); Platelet Count 306 X10*3/uL (160-400); Red Blood Count 4.61 X10*6/uL (4.60-5.80); Red Cell Distribution Width 13.2 % (11.0-16.0); SCAN SMEAR FLAG 1; White Blood Count 15.1 X10*3/uL (4.8-10.8)
[2024-09-10 14:12] LABS: INTERNATIONAL NORM RATIO 0.9 (0.9-1.1)
[2024-09-10 14:27] LABS: Alanine Aminotransferase 26 U/L (0-40); Alkaline Phosphatase 124 U/L (39-117); Anion Gap 14 (12-20); Aspartate Amino Transferase 26 U/L (5-37); Bilirubin Total 1.6 mg/dL (0.0-1.0); Blood Urea Nitrogen 18 mg/dL (9-16); Calcium 9.3 mg/dL (8.4-10.2); Carbon Dioxide 29 mmol/L (22-29); Chloride 99 mmol/L (96-108); Creatinine Clr Calc Pharmacy 44.4; Estimated Glomerular Filt Rate 45; Glucose Random 144 mg/dL (60-115); Lipase 14 U/L (8-78); Magnesium 2.5 mg/dL (1.6-2.6); Potassium 3.9 mmol/L (3.3-5.1); Sodium 138 mmol/L (135-145); Total Protein 7.5 g/dL (6.5-8.0)
[2024-09-10 14:29] LABS: SLIDE REVIEW VERIFIED
[2024-09-10 14:30] LABS: B Type Natriuretic Peptide 40 pg/mL (<100)
--- OUTSIDE RECORDS SUMMARY | 2024-09-10 14:47 | XMS_ITS ---
Author Organization [facility] Address [address] [place] [address] Care Team Providers Care Pe Manager Name Role Phone Kamar DOMINIQUE, Reyes Primary Care Provider Javi Collins Unavailable [phone] REASON FOR VISIT REFILL PREDNISONE MEDICATIONS Medication SIG (Take, Route, Fr equency, Duration) Notes Start Date End Date Status predniSONE 5 MG 1 tablet Orally Once a day for 90 days Active Encounters Encounter Location Date Provider Diagnosis [facility] [address] [place] [address] 07/19/2024 Javi Donovan Ulcerative pancoliti s without complication K51.00 ASSESSMENTS Encounter Date Diagnosis Assessment Notes Treatment Notes Treatment Clinical Notes 07/19/2024 Ulcerative pancolitis without complication (ICD-10 - K51.00) PLAN OF TREATMENT Medication Medication Name Sig Start Date Stop Date Notes predniSONE 5 MG 1 tablet Orally Once a day for 90 days Next Appt Details Provider Name:Javi Donovan , 06/23/2025 11:00:00 AM, [address], [address], [place], [address],
--- OUTSIDE RECORDS SUMMARY | 2024-09-10 14:47 | XMS_ITS ---
Author Organization [facility] Address [address] [place] [address] Care Team Providers Care Raw Material Handler Name Role Phone Kamar DOMINIQUE, Reeys Primary Care Provider Javi Collins Unavailable [phone] ALLERGIES No Known Allergies REASON FOR VISIT [...] 06/22/2024 Encounters Encounter Location Date Provider [facility] [address] [place] [id number] 06/22/2024 Javi Donovan Ulcerative pancoliti s without complication K51.00 ASSESSMENTS Encounter Date Diagnosis Assessment Notes Treatment Notes Treatment Clinical Notes 06/22/2024 Ulcerative pancolitis without complication (ICD-10 - K51.00) Continue the one 5mg prednisone daily [employer] customer service to try to keep the colitis quiet PLAN OF TREATMENT Medication Medication Name Sig Start Date Stop Date Notes predniSONE 5 MG 1 tablet Orally Once a day for 90 days Apriso 0.375 GM TAKE 4 CAPSULES BY MOUTH EVERY MORNING Treatment Notes Assessment Notes Ulcerative pancolitis without complicati on Continue the one 5mg prednisone daily [employer] customer service to try to keep the colitis quiet Next Appt Details Follow Up: 1 Year, Reason: Provider Name:Javi Donovan , 06/23/2025 11:00:00 AM, [address], [address], [place], [address], Progress Notes * Examination Category Sub-Category Detail [...]
--- OUTSIDE RECORDS SUMMARY | 2024-09-10 14:47 | XMS_ITS ---
Author Organization [facility] Address [address] [place] [address] Care Team Providers Care Airveyor Operator Name Role Phone Kamar DOMINIQUE, [place] Primary Care Provider Unava Javi Dee Unavailable [phone] REASON FOR VISIT potassium Encounters Encounter Location Date Provider Diagnosis [facility] [address] [place] [address] 06/08/2024 Javi Donovan PLAN OF TREATMENT Next Appt Details Provider Name:Javi Donovan , 06/23/2025 11:00:00 AM, [address], [address], [place], [address],
--- OUTSIDE RECORDS SUMMARY | 2024-09-10 14:47 | XMS_ITS | Patient Health Record ---
Author Organization [facility] Address [address] [place] [address] Care Team Providers Care Laborer Gold Leaf Name Role Phone Reyes Galvin MD Primary Care Provider Javi Collins Unavailable [phone] ALLERGIES No Known Allergies RESULTS Component Value Reference Range Notes Complete Blood Count Auto Di ff Reviewed date:10/15/2023 06:24:13 PM Interpretation: Performing Lab:[facility], [address] [place] [phone] Notes/Report: White Blood Count 10.5 4.8-10.8 X10*3/uL [...] te Reviewed date:10/15/2023 06:25:19 PM Interpretation: Performing Lab:[address] [phone] Notes/Report: Erythrocyte Sedimentation Rate 22 0-15 MM/HR Patients with polycythemia and many hemoglobin abnormalities may have depressed sed rates whereas patients with anemia may have elevated sed rates. Liver Panel Reviewed date:10/15/2023 06:24:28 PM Interpretation: Performing Lab:[address] [phone] Notes/Report: Bilirubin Total 2.3 0.0-1.0 mg/dL Bilirubin Direct 0.7 0.0-0.5 mg/dL Aspartate Amino Transferase 17 5-37 U/L Alanine Aminotransferase 16 0-40 U/L Total Protein 7.4 6.5-8.0 g/dL Albumin Level 4.1 3.5-5.0 g/dL Alkaline Phosphatase 147 39-117 U/L Basic Metabolic Panel Reviewed date:10/15/2023 06:25:05 PM Interpretation: Performing Lab:[address] [phone] Notes/Report: Sodium 140 135-145 mmol/L Potassium 3.3 3.3-5.1 mmol/L Chloride 98 96-108 mmol/L Carbon Dioxide 33 22-29 mmol/L Anion Gap 12 12-20 Blood Urea Nitrogen 8 9-16 mg/dL Creatinine 1.01 0.5-1.4 mg/dL Estimated Glomerular Filt Rate > 60 NOTE: For -Nigerian individuals, multiply the result by 1.210. Chronic Kidney Disease: Estimated GFR < 60 mL/min/1.73m2 Severe Kidney Disease: Estimated GFR < 15 mL/min/1.73m2 Glucose Random 91 60-115 mg/dL Calcium 9.3 8.4-10.2 mg/dL C Reactive Protein Reviewed date:10/15/2023 06:25:12 PM Interpretation: Performing Lab:[facility], [address] [place] [phone] Notes/Report: C Reactive Protein 2.68 < or = 0.50 mg/dL Leukocytes Stool Qualitative Reviewed date:10/16/2023 12:10:35 PM Interpretation: Performing Lab:[facility], [address] [place] [phone] Notes/Report: Leukocytes Stool Qualitative NEGATIVE NEGATIVE Calprotectin, Fecal Reviewed date:11/01/2023 12:58:27 AM Interpretation: Performing Lab:[facility], [address] [place] [phone] Notes/Report: Calprotectin, Fecal 5470 Reference Range: <50 [...] borderline values. THIS TEST WAS PERFORMED AT: [facility] [address] [place] [address] MITA VALENCIA MD,PHD,COMFORT CDiff Gene PCR Reviewed date:10/16/2023 12:10:21 PM Interpretation: Performing Lab:[address] [phone] Notes/Report: CDiff Gene PCR NEGATIVE Negative If C. difficile strongly suspected despite one negative test, a second test may be sent vs. empiric treatment for C. difficile infection. GI PANEL Reviewed date:10/16/2023 06:17:57 PM Interpretation: Performing Lab:[address] [address] Notes/Report: Campylobacter Not Detected Not Detect. Plesiomonas [...] is performed by Multiplexed PCR, utilizing the [employer] Array. REASON FOR REFERRAL No Information MEDICATIONS [...] malignant neoplasm of colon (Z12.11) Active confirmed 689230302 Problem History of adenomatous polyp of colon (Z86.010) Active confirmed 496614226 Problem Weight loss (R63.4) Active confirmed 50821290 Problem Encounter for screening for malignant neoplasm of rectum (Z12.12) Active confirmed Screening fo r malignant neoplasm of rectum (663096202) Problem Elevated liver function tests (R79.89) Active confirmed 190534041 Problem Family history of colon cancer (Z80.0) Active confirmed 079124935 Problem Ulcerative pancolitis without complication (K51.00) Active confirmed 971744853 Problem Abnormal gallbladder ultrasound (R93.2) Active confirmed 85186025446110703 Problem Ulcerative pancolitis with rectal bleeding (K51.011) Active confirmed Chronic ulcerat mari pancolitis (656464008) Problem Abdominal pain, generalized (R10.84) Active confirmed 688084756 Problem Diarrhea, unspecified type (R19.7) Active confirmed 58671720 Problem Diarrhea of presumed infectious origin (R19.7) Active confirmed 60324005 VITAL SIGNS Blood pressure diastolic 00 mm Hg 06/22/2024 Height 65 in 06/22/2024 Blood pressure systolic 00 mm Hg 06/22/2024 Weight 216 lbs 06/22/2024 BMI 35.94 kg/m2 06/22/2024 Encounters Encounter Location Date Provider Diagnosis [facility] [address] [place] [address] 12/02/2023 Javi Donovan Ulcerative pancoliti s without complication K51.00 [facility] [address] [place] [address] 06/03/2024 Javi Donovan [facility] [address] [place] [address] 06/22/2024 Javi Donovan Ulcerative pancoliti s without complication K51.00 [facility] [address] [place] [address] 10/15/2023 Javi Donovan Ulcerative pancoliti s with rectal bleeding K51.011 and Ulcerative pancolitis without complication K51.00 [facility] [address] [place] [address] 06/08/2024 Javi Donovan [facility] [address] [place] [address] 07/19/2024 Javi Donovan Ulcerative pancoliti s without complication K51.00 ASSESSMENTS Encounter Date Diagnosis Assessment Notes Treatment Notes Treatment Clinical Notes 12/02/2023 Ulcerative pancolitis without complication (ICD-10 - K51.00) Continue the one 5mg prednisone daily mcc to try to keep the colitis quiet 06/22/2024 Ulcerative pancolitis without complication (ICD-10 - K51.00) Continue the one 5mg prednisone daily 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 to try to keep the colitis quiet [...] CBC w DIFF 06/28/2011 CBC w DIFF 09/30/2014 CBC w DIFF 08/08/2022 SED RATE (ESR) 06/28/2021 SED RATE (ESR) 06/27/2023 SED RATE (ESR) 08/08/2022 HEPATITIS B PROFILE 08/08/2022 CLOSTRIDIUM DIFF TOXIN A&B (C DIFF) 03/2014 CLOSTRIDIUM DIFF TOXIN A&B (C DIFF) 09/2013 STOOL WBC 10/21/2013 CULTURE, STOOL 10/21/2013 CULTURE, STOOL 06/28/2014 CULTURE, STOOL 06/28/2021 US ABD 02/29/2020 STOOL WBC 08/08/2022 STOOL WBC 06/28/2021 STOOL WBC 06/27/2023 C DIFFICILE RFLX PCR 06/28/2021 C DIFFICILE RFLX PCR 06/27/2023 C DIFFICILE RFLX PCR 08/08/2022 Calprotectin, Fecal 06/27/2023 GI PANEL 06/27/2023 GI PANEL 08/08/2022 Future Test Test Name Order Date COLONOSCOPY 07/04/2015 COLONOSCOPY 05/29/2018 Next Appt Details Provider Name:Javi Radha Donovan , 06/23/2025 11:00:00 AM, [address] [place] [address], [address], [place], [address], Insurance Providers Payer Name Payer Address Payer Phone Subscriber Number Group Number Insured Name Patient Relationship to Insured Coverage Start Date Coverage End Date MEDICARE OF [place] [address] [facility] [place] [address] [id number] JULIANNA LEEDSMA Self - patient is the insured MED[employer] ATTN CLAIMS [address] [place] [address] [phone] [id number] JULIANNA LEDESMA Self - patient is the insured MEDICAL (GENERAL) HISTORY Medical History History ICD Code Ulcerative colitis diagnosed in 1994 Tubular adenomas of the colon Denies SC,DM,CVA,Lung disease,renal dise ase Hyperlipidemia Pneumonia--hospitalized twic e [...] to Gilbert's Flare up of colitis in [facility] 2020 that responded well to 8 weeks [...]
[2024-09-10 14:48] LABS: Influenza A PCR NEGATIVE (Negative); Influenza B PCR NEGATIVE (Negative); Resp Syncy Virus RNA Qual PCR NEGATIVE (Negative); SARS COV2 PCR INHOUSE NEGATIVE (Negative)
[2024-09-10] MEDS: iohexoL 350 MG/ML 100 ML INFUS..BTL IV (15:20)
[2024-09-10] MEDS: 0.9 % Sodium Chloride 1,000 ML 999 ML IV (15:30)
[2024-09-10] MEDS: Morphine Sulfate 4 MG/ML CARTRIDGE IVPUSH (16:49)
[2024-09-10] MEDS: cefTRIAXone sodium 1 GM VIAL IVPUSH (16:52)
[2024-09-10 17:08] LABS: Creatinine Clr Calc Pharmacy 50.9; Estimated Glomerular Filt Rate 53
[2024-09-10 17:11] LABS: Lactic Acid 0.9 mmol/L (0.5-2.0)
[2024-09-10 19:32] VITALS: BP 145/82; PULSE 66; RESP 21; TEMP 36.7; O2SAT 96
[2024-09-10 21:12] VITALS: BP 140/67; PULSE 62; RESP 21; TEMP 36.6; O2SAT 94
[2024-09-10 23:49] VITALS: BP 163/88; PULSE 85; RESP 14; TEMP 36.3; O2SAT 97
[2024-09-11 04:00] VITALS: BP 165/97; PULSE 89; RESP 15; TEMP 36.4; O2SAT 96
--- NOTE | 2024-09-11 04:24 | MHC.EDTECH ---
This tech took over care of pt at 0400AM, rounded and introduced self to pt, vitals taken, emptied 900MLS from Barrera (yellow in color), awaiting hospital bed at this time,call faustin in reach
--- NOTE | 2024-09-11 04:35 | MHC.EDTECH ---
Patient placed in a hospital bed at this time for comfort,patient stood up with a 1/assist,patient given a cup of ice water, call faustin in reach
[2024-09-11 07:49] VITALS: BP 162/89; PULSE 96; RESP 22; TEMP 36.3; O2SAT 97
[2024-09-11] MEDS: Ketorolac Tromethamine 15 MG/ML VIAL IVPUSH (08:07)
[2024-09-11 08:45] VITALS: BP 162/89; PULSE 96; O2SAT 97
[2024-09-11] MEDS: levoFLOXacin 250 MG TABLET PO (09:57)
--- NOTE | 2024-09-11 10:29 | MHC.CM.PN ---
Addendum entered by Lianet Carbajal 09/11/24 13:33: DP: P.T. RECOMMENDED STR HOWEVER PT DID NOT HAVE QHS. pT UNABLE TO PRIVATE PAY, NO ACUTE REHAB ABLE TO OFFER. SON WILL TRANSPORT HOME AND STAY WITH PT FOR A FEW DAYS. [facility] NOTIFIED OF DC FROM ED AND REFERRAL MADE TO [facility] . PROVIDER AWARE. Original Note: CM RECEIVED ED CONSULT. CM MET WITH PT AT BEDSIDE. PT LIVES ALONE AND IS INDEPENDENT AT BASELINE, +DRIVES. PT HAS HOME 02 AT 2 L NEEDED, HIS VENDOR IS [employer] (HE HAS A CONCENTRATOR) PT IS ACTIVE WITH [facility] FOR NURSING VISITS. PT HAS A HCP NAMING SON BUT STATES HIS SON HAS THE COPY. NOT WILLING TO COMPLETE A NEW ONE BUT WILL ASK SON TO BRING IN. PCP IS DR. WHITLOCK. DP: P.T. WILL SEE PT TO DETERMINE NEEDS. PT IS HOPEFUL TO RETURN HOME WITH RESUMPTION OF [facility]. SON WILL TRANSPORT. CM WILL CONTINUE TO FOLLOW FOR PLAN.
--- NOTE | 2024-09-11 10:32 | PHA.MEDREC ---
Pharmacy Consult ? Medication Reconciliation Pharmacy has completed the medication reconciliation. Spoke to pt's son Francisco J to confirm meds.
[2024-09-11 15:18] VITALS: BP 154/77; PULSE 93; RESP 20; TEMP 36.8; O2SAT 97
== END 2024-09-11 15:19 | disposition home or self-care (01) ==
PROVIDERS: Nurse Practitioner Family; Emergency Provider Emergency Medicine; PCP Internal Medicine
DX: R19.7 Diarrhea, unspecified (principal); R06.02 Shortness of breath; R07.89 Other chest pain; R53.1 Weakness; R26.81 Unsteadiness on feet; R94.31 Abnormal electrocardiogram [ECG] [EKG]; Z03.818 Encounter for observation for suspected exposure to other biological agents ruled out; Z87.891 Personal history of nicotine dependence; Z79.899 Other long term (current) drug therapy
CPT/HCPCS: 0241U; 36415; 71046; 74177; 80053; 82565; 83605; 83690; 83735; 83880; 84484; 85025; 85610; 87040; 93005; 96361; 96374; 96375; 97161; 99284; 99285; J0696; J1885; J2270; Q9967

== ENCOUNTER → 2024-09-10 13:39 | Outpatient (BNV) | payer MEDICARE, SELFPAY | PROVIDERS: Emergency Provider Emergency Medicine; PCP Internal Medicine; Visit Provider Radiology Diagnostic Radiology | DX: R06.02 Shortness of breath (principal); R07.9 Chest pain, unspecified; R19.09 Other intra-abdominal and pelvic swelling, mass and lump | CPT/HCPCS: 71046; 74177 ==

== ENCOUNTER → 2024-09-10 13:39 | Outpatient (BNV) | payer MEDICARE, SELFPAY | PROVIDERS: Emergency Provider Emergency Medicine; PCP Internal Medicine; Visit Provider Internal Medicine | DX: R94.31 Abnormal electrocardiogram [ECG] [EKG] (principal); R07.9 Chest pain, unspecified | CPT/HCPCS: 93010 ==

== ENCOUNTER 2024-09-16 13:19 | Outpatient (AMB) | payer MEDICARE, SELFPAY ==
[2024-09-16 13:30] VITALS: BP 110/64; PULSE 107; O2SAT 95; BMI 33.7
--- NOTE | 2024-09-16 13:30 | MHC.OFFVIS ---
Vital Signs 09/16/24 13:30 Height 5 ft 7 in Weight 214 lb 15.211 oz BMI 33.7 BP 110/64 Blood Pressure Location Lt brachial Position Sitting Pulse 107 H Pulse Source Pulse Oximeter Pulse Oximetry (%) 95 Oxygen Delivery Method Room Air Intake Visit Reasons: s/p pneumonia Intake Note: pt is here for reoccurring pneumonia,x 3, finishing antibiotic last dose today, some cough, Hospice Music Therapist Required: No Allergies No Known Allergies Allergy (Verified 09/16/24 13:35) Medication List - Last Reconciled 09/16/24 by Celsa Hoyt MD amlodipine 5 mg See Protocol PO DAILY cholecalciferol (vitamin D3) 25 mcg PO DAILY lisinopril 10 mg See Protocol PO DAILY mesalamine ER (Apriso) 1.5 grams PO DAILY prednisone 5 mg PO DAILY simvastatin 20 mg PO BEDTIME terazosin 5 mg PO BEDTIME 30 days Do you need a note to return to daycare/school/sports/work: No HPI HPI s/p pneumonia: Details: This 79 years old gentleman who has been previously treated for COPD and hypoxemia, 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 He has been treated for urinary tract infection. His chest x-ray showed his achiness in the right lower lobe which may be due to atelectasis, but he has been treated with a course of antibiotics for possible pneumonia. He has mild intermittent cough as usual. Denies any wheezes or chest pain. He uses O2 2 L/minute at home, at night and during the daytime if his O2 sat is below 90%. He does not need to use any inhaler at this time. [facility] Medical History Allergic rhinosinusitis Obesity (BMI 30-39.9) Vitamin D deficiency Impaired fasting glucose Ulcerative colitis COPD (chronic obstructive pulmonary disease) Pure hypercholesterolemia Exercise hypoxemia COPD (chronic obstructive pulmonary disease) case management patient Surgical History No pertinent past surgical history Family History Father Medical history unknown Mother Cancer Social History Household Members: None Housing: House Do you presently have visiting nurse or other home services: No Alcohol intake: former Patient Tobacco Use Status: Former Tobacco user Years Smoked: 8 years ago e-Cigarette/Vaping Use: Never Used Second Hand Smoke Exposure: Yes service: No Current occupational status: retired Cognitive needs: No Hearing needs: Yes Vision needs: Yes Review of Systems Const All systems reviewed & are unremarkable except as noted in HPI and below Eyes Reports no additional complaints ENT Reports no additional complaints Card Denies chest pain, Denies irregular heart rhythm and Reports leg edema (Mild around the ankles in the evenings.) Resp Reports as per HPI GI Reports GI cramping, Reports diarrhea and Reports other (Being treated for chronic inflammatory colitis.) Reports no additional complaints Musc Reports myalgias Skin/Breast Reports system reviewed and no additional complaints, except as documented Neuro Reports no additional complaints Psych Reports no additional complaints Physical Exam Vital Signs: Last Vital Signs Pulse 107 H 09/16/24 13:30 BP 110/64 09/16/24 13:30 Pulse Ox 95 09/16/24 13:30 Oxygen Delivery Method Room Air 09/16/24 13:30 BMI result Body Mass Index 33.7 Const Other: Grossly obese looking General: comfortable, no acute distress, alert and awake Orientation/consciousness: patient oriented x3 HEENT Head: Yes normal to inspection General nose exam: No nasal polyps present, No nasal discharge present and Other nasal findings present (Does have bilateral nasal congestion and hypertrophy of the nasal turbinate) Face and sinus: Yes sinuses nontender Mouth: oropharynx normal Throat: Yes posterior oropharynx normal Eyes General: appearance normal, both eyes and all related structures Neck Neck: Yes normal visual inspection, Yes no lymphadenopathy, Yes trachea midline and Yes no JVD Thyroid: Thyroid normal Chest Chest palpation & inspection: normal inspection of the chest, normal palpation of entire chest wall and no tenderness Resp Other: Percussion note resonant, breath sounds are distant especially diminished over the basilar areas. On auscultation no wheezes rhonchi or crepitations are heard . Cardio Palpation: normal PMI Rate: regular rate Rhythm: regular rhythm Heart sounds: no gallops and no murmurs GI Palpation (GI): Soft to palpation, nontender, No hepatosplenomegaly present, no masses and Other GI palpation findings present (Abdomen is obese and protuberant) Auscultation: normal bowel sounds Other: Has indwelling Barrera catheter in place Back/Spine/Pelvis Thoracic/Lumbar Spine: thoracic and lumbar spine normal to inspection Skin General skin exam: no rashes or lesions noted Neuro General: patient oriented x3 and no focal motor deficits Cranial nerves: Yes CN's II-XII intact bilaterally Extrem General: Yes normal to inspection, Yes no clubbing, cyanosis or edema and Yes no calf tenderness Psych Appearance: grossly normal and well kempt Speech and movement: Normal speech and movement present Assessment & Plan Assessment & Plan (1) COPD (chronic obstructive pulmonary disease) case management patient: Comment: COPD. MILD AND WELL CONTROLLED. HE HAS EXERCISE INDUCED HYPOXEMIA WHICH IS MORE DUE TO HIS GROSS OBESITY. Code(s): J44.9 - Chronic obstructive pulmonary disease, unspecified Category: Medical Plan: OK TO USE O2 2 L MINUTE AT NIGHT AND DURING THE DAYTIME IF O2 SAT IS BELOW 90% (2) Exercise hypoxemia: Comment: HE HAS EXERCISE INDUCED HYPOXEMIA. FOR WHICH HE WAS PROVIDED O2. HE DOES USE IF HE DOES ANY HEAVY PHYSICAL EXERTION 2 L/MINUTE . BUT NOT ALL THE TIMES. Code(s): R09.02 - Hypoxemia Category: Medical Plan: USE O2 2 L/MINUTE FOR ANY RESPIRATORY DISTRESS, AND WITH ANY PHYSICAL EXERTION (3) CAP (community acquired pneumonia): Comment: RECENTLY THE CHEST X-RAY SHOWED HAZINESS IN THE RIGHT LOWER LOBE, SUGGESTING POSSIBLE PNEUMONIA. HE HAS BEEN TREATED WITH A COURSE OF ANTIBIOTIC CEFUROXIME AND WELL AZITHROMYCIN, REMAINS AFEBRILE AND HAS MILD INTERMITTENT COUGH. ON THE CT SCAN OF ABDOMEN I HAVE LOOKED AT THE IMAGING, AND HE DOES HAVE ATELECTATIC CHANGES IN THE RIGHT LOWER LOBE. Code(s): J18.9 - Pneumonia, unspecified organism Category: Medical Qualifiers: Laterality: right Lung location: unspecified part of lung Qualified Code(s): J18.9 - Pneumonia, unspecified organism Plan: ADVISED TO DO DEEP BREATHING EXERCISES, AND HE ALSO HAS A VIBRATING DEVICE TO MOBILIZE THE SECRETIONS WHICH HE SHOULD USE EVERY FEW HOURS DURING THE DAYTIME. NO NEED OF ANTIBIOTICS AT THIS TIME. HE IS EXPECTED TO HAVE THAT RADIOLOGIC DENSITY IN THE RIGHT LOWER LOBE FOR INDEFINITE.. Coding Level of Care Code Est Pt Level 3 (69368) Diagnoses COPD (chronic obstructive pulmonary disease) case management patient J44.9 Exercise hypoxemia R09.02 CAP (community acquired pneumonia) J18.9 Laterality: right Lung location: unspecified part of lung
--- OUTSIDE RECORDS SUMMARY | 2024-09-16 15:55 | XMS_ITS ---
Author Organization [facility] Address [address] [place] [address] Care Team Providers Care Safety And Occupational Health Manager Name Role Phone Kamar DOMINIQUE, Reyes Primary Care Provider Javi Collins Unavailable [phone] REASON FOR VISIT REFILL PREDNISONE MEDICATIONS Medication SIG (Take, Route, Fr equency, Duration) Notes Start Date End Date Status predniSONE 5 MG 1 tablet Orally Once a day for 90 days Active Encounters Encounter Location Date Provider Diagnosis [facility] [address] [place] [address] 07/19/2024 Javi Donovan Ulcerative pancoliti s without complication K51.00 ASSESSMENTS Encounter Date Diagnosis Assessment Notes Treatment Notes Treatment Clinical Notes 07/19/2024 Ulcerative pancolitis without complication (ICD-10 - K51.00) PLAN OF TREATMENT Medication Medication Name Sig Start Date Stop Date Notes predniSONE 5 MG 1 tablet Orally Once a day for 90 days Next Appt Details Provider Name:Javi Donovan , 06/23/2025 11:00:00 AM, [address], [address], [place], [address],
--- OUTSIDE RECORDS SUMMARY | 2024-09-16 15:55 | XMS_ITS | Patient Health Record ---
Author Organization [facility] Address [address] [place] [address] Care Team Providers Care Sole Sewer Hand Name Role Phone Reyes Galvin MD Primary Care Provider Javi Collins Unavailable [phone] ALLERGIES No Known Allergies RESULTS Component Value Reference Range Notes Complete Blood Count Auto Di ff Reviewed date:10/15/2023 06:24:13 PM Interpretation: Performing Lab:[facility], [address] [place] [address] Notes/Report: White Blood Count 10.5 4.8-10.8 X10*3/uL [...] te Reviewed date:10/15/2023 06:25:19 PM Interpretation: Performing Lab:[address] [address] Notes/Report: Erythrocyte Sedimentation Rate 22 0-15 MM/HR Patients with polycythemia and many hemoglobin abnormalities may have depressed sed rates whereas patients with anemia may have elevated sed rates. Liver Panel Reviewed date:10/15/2023 06:24:28 PM Interpretation: Performing Lab:[address] [address] Notes/Report: Bilirubin Total 2.3 0.0-1.0 mg/dL Bilirubin Direct 0.7 0.0-0.5 mg/dL Aspartate Amino Transferase 17 5-37 U/L Alanine Aminotransferase 16 0-40 U/L Total Protein 7.4 6.5-8.0 g/dL Albumin Level 4.1 3.5-5.0 g/dL Alkaline Phosphatase 147 39-117 U/L Basic Metabolic Panel Reviewed date:10/15/2023 06:25:05 PM Interpretation: Performing Lab:[address] [address] Notes/Report: Sodium 140 135-145 mmol/L Potassium 3.3 3.3-5.1 mmol/L Chloride 98 96-108 mmol/L Carbon Dioxide 33 22-29 mmol/L Anion Gap 12 12-20 Blood Urea Nitrogen 8 9-16 mg/dL Creatinine 1.01 0.5-1.4 mg/dL Estimated Glomerular Filt Rate > 60 NOTE: For -Indonesian individuals, multiply the result by 1.210. Chronic Kidney Disease: Estimated GFR < 60 mL/min/1.73m2 Severe Kidney Disease: Estimated GFR < 15 mL/min/1.73m2 Glucose Random 91 60-115 mg/dL Calcium 9.3 8.4-10.2 mg/dL C Reactive Protein Reviewed date:10/15/2023 06:25:12 PM Interpretation: Performing Lab:[facility], [address] [place] [address] Notes/Report: C Reactive Protein 2.68 < or = 0.50 mg/dL Leukocytes Stool Qualitative Reviewed date:10/16/2023 12:10:35 PM Interpretation: Performing Lab:[facility], [address] [place] [address] Notes/Report: Leukocytes Stool Qualitative NEGATIVE NEGATIVE Calprotectin, Fecal Reviewed date:11/01/2023 12:58:27 AM Interpretation: Performing Lab:[facility], [address] [place] [address] Notes/Report: Calprotectin, Fecal 5470 Reference Range: <50 [...] borderline values. THIS TEST WAS PERFORMED AT: [employer]/[facility] [address] [place] [address] MITA VALENCIA MD,PHD,COMFORT CDiff Gene PCR Reviewed date:10/16/2023 12:10:21 PM Interpretation: Performing Lab:[address] [address] Notes/Report: CDiff Gene PCR NEGATIVE Negative If C. difficile strongly suspected despite one negative test, a second test may be sent vs. empiric treatment for C. difficile infection. GI PANEL Reviewed date:10/16/2023 06:17:57 PM Interpretation: Performing Lab:[address] [address] Notes/Report: Campylobacter Not Detected Not Detect. Plesiomonas [...] is performed by Multiplexed PCR, utilizing the [employer] Array. REASON FOR REFERRAL No Information MEDICATIONS [...] malignant neoplasm of colon (Z12.11) Active confirmed 749080123 Problem History of adenomatous polyp of colon (Z86.010) Active confirmed 448201353 Problem Weight loss (R63.4) Active confirmed 71261676 Problem Encounter for screening for malignant neoplasm of rectum (Z12.12) Active confirmed Screening fo r malignant neoplasm of rectum (749893631) Problem Elevated liver function tests (R79.89) Active confirmed 676023391 Problem Family history of colon cancer (Z80.0) Active confirmed 534905670 Problem Ulcerative pancolitis without complication (K51.00) Active confirmed 053565745 Problem Abnormal gallbladder ultrasound (R93.2) Active confirmed 31660559067357749 Problem Ulcerative pancolitis with rectal bleeding (K51.011) Active confirmed Chronic ulcerat mari pancolitis (391468484) Problem Abdominal pain, generalized (R10.84) Active confirmed 178146101 Problem Diarrhea, unspecified type (R19.7) Active confirmed 41149497 Problem Diarrhea of presumed infectious origin (R19.7) Active confirmed 16553901 VITAL SIGNS Blood pressure diastolic 00 mm Hg 06/22/2024 Height 65 in 06/22/2024 Blood pressure systolic 00 mm Hg 06/22/2024 Weight 216 lbs 06/22/2024 BMI 35.94 kg/m2 06/22/2024 Encounters Encounter Location Date Provider Diagnosis [facility] [address] [place] [address] 06/03/2024 Javi Donovan [facility] [address] [place] [address] 12/02/2023 Javi Donovan Ulcerative pancoliti s without complication K51.00 [facility] [address] [place] [address] 06/22/2024 Javi Donovan Ulcerative pancoliti s without complication K51.00 [facility] [address] [place] [address] 10/15/2023 Javi Donovan Ulcerative pancoliti s with rectal bleeding K51.011 and Ulcerative pancolitis without complication K51.00 [facility] [address] [place] [address] 06/08/2024 Javi Donovan [facility] [address] [place] [address] 07/19/2024 Javi Donovan Ulcerative pancoliti s without complication K51.00 ASSESSMENTS Encounter Date Diagnosis Assessment Notes Treatment Notes Treatment Clinical Notes 12/02/2023 Ulcerative pancolitis without complication (ICD-10 - K51.00) Continue the one 5mg prednisone daily senior care to try to keep the colitis quiet 06/22/2024 Ulcerative pancolitis without complication (ICD-10 - K51.00) Continue the one 5mg prednisone daily parts counterman to try to keep the colitis quiet 10/15/2023 Ulcerative pancolitis with rectal bleeding (ICD-10 - K51.011) 07/19/2024 Ulcerative pancolitis without complication (ICD-10 - K51.00) 10/15/2023 Ulcerative pancolitis without complication (ICD-10 - K51.00) PLAN OF TREATMENT Pending Test Test Name Order Date CHEM 7 PROFILE 06/28/2021 CHEM 7 PROFILE 06/27/2023 CHEM 7 PROFILE 08/08/2022 CHEM 7 PROFILE 06/28/2011 LIVER PROFILE 06/28/2021 LIVER PROFILE 06/27/2023 LIVER PROFILE 05/31/2021 LIVER PROFILE 09/30/2014 LIVER PROFILE 08/08/2022 CRP 08/08/2022 CRP 06/28/2021 CRP 06/27/2023 CBC w DIFF 06/27/2023 CBC w DIFF 09/30/2014 CBC w DIFF 06/28/2011 CBC w DIFF 08/08/2022 CBC w DIFF 06/28/2021 SED RATE (ESR) 06/28/2021 SED RATE (ESR) 06/27/2023 SED RATE (ESR) 08/08/2022 HEPATITIS B PROFILE 08/08/2022 CLOSTRIDIUM DIFF TOXIN A&B (C DIFF) 03/2014 CLOSTRIDIUM DIFF TOXIN A&B (C DIFF) 09/2013 STOOL WBC 10/21/2013 CULTURE, STOOL 06/28/2021 CULTURE, STOOL 06/28/2014 CULTURE, STOOL 10/21/2013 US ABD 02/29/2020 STOOL WBC 06/27/2023 STOOL WBC 06/28/2021 STOOL WBC 08/08/2022 C DIFFICILE RFLX PCR 08/08/2022 C DIFFICILE RFLX PCR 06/27/2023 C DIFFICILE RFLX PCR 06/28/2021 Calprotectin, Fecal 06/27/2023 GI PANEL 08/08/2022 GI PANEL 06/27/2023 Future Test Test Name Order Date COLONOSCOPY 07/04/2015 COLONOSCOPY 05/29/2018 Next Appt Details Provider Name:Javi Radha Donovan , 06/23/2025 11:00:00 AM, [address] [place] [address], [address], [place], [address], Insurance Providers Payer Name Payer Address Payer Phone Subscriber Number Group Number Insured Name Patient Relationship to Insured Coverage Start Date Coverage End Date MEDICARE OF [place] [address] [place] [address] [id number] JULIANNA LEDESMA Self - patient is the insured MEDEX ATTN CLAIMS [address] [place] [address] [id number] JULIANNA LEDESMA Self - patient is the insured MEDICAL (GENERAL) HISTORY Medical History History ICD Code Ulcerative colitis diagnosed in 1994 Tubular adenomas of the colon Denies [place],DM,CVA,Lung disease,renal dise ase Hyperlipidemia Pneumonia--hospitalized twic e [...] to Gilbert's Flare up of colitis in [facility] 2020 that responded well to [...]
--- OUTSIDE RECORDS SUMMARY | 2024-09-16 15:55 | XMS_ITS ---
Author Organization [facility] Address [address] [place] [address] Care Team Providers Care Pipe Layer Name Role Phone Kamar DOMINIQUE, Reyes Primary Care Provider Javi Collins Unavailable [phone] ALLERGIES No Known Allergies REASON FOR VISIT [...] last smoked? > 10 years VITAL SIGNS Blood pressure systolic 00 mm Hg 06/22/20 24 Blood pressure diastolic 00 mm Hg 024 Height 65 in 06/22/2024 Weight 216 lbs 06/22/2024 BMI 35.94 kg/m2 06/22/2024 Encounters Encounter Location Date Provider Diagnosis [facility] [address] [place] [address] 06/22/2024 Javi Donovan Ulcerative pancoliti s without complication K51.00 ASSESSMENTS Encounter Date Diagnosis Assessment Notes Treatment Notes Treatment Clinical Notes 06/22/2024 Ulcerative pancolitis without complication (ICD-10 - K51.00) Continue the one 5mg prednisone daily 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 to 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 to keep the colitis quiet PLAN OF TREATMENT Medication Medication Name Sig Start Date Stop Date Notes predniSONE 5 MG 1 tablet Orally Once a day for 90 days Apriso 0.375 GM TAKE 4 CAPSULES BY MOUTH EVERY MORNING Treatment Notes Assessment Notes Ulcerative pancolitis without complicati on Continue the one 5mg prednisone daily 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 to try to keep the colitis quiet Next Appt Details Follow Up: 1 Year, Reason: Provider Name:Javi Donovan , 06/23/2025 11:00:00 AM, [address] [facility], [address], [place], [address], Progress Notes * Examination Category Sub-Category Detail [...]
--- OUTSIDE RECORDS SUMMARY | 2024-09-16 15:55 | XMS_ITS ---
Author Organization [facility] Address [address] [place] [address] Care Team Providers Care Taker Off Hemp Fiber Name Role Phone Kamar DOMINIQUE, [place] Primary Care Provider Unava Javi Dee Unavailable [phone] REASON FOR VISIT potassium Encounters Encounter Location Date Provider Diagnosis [facility] [address] [place] [address] 06/08/2024 Javi Donovan PLAN OF TREATMENT Next Appt Details Provider Name:Javi Donovan , 06/23/2025 11:00:00 AM, [address], [address], [place], [address],
== END 2024-09-16 13:59 | disposition home or self-care (01) ==
PROVIDERS: PCP Internal Medicine; Visit Provider Internal Medicine
DX: J44.9 Chronic obstructive pulmonary disease, unspecified (principal); R09.02 Hypoxemia; J18.9 Pneumonia, unspecified organism
CPT/HCPCS: 99213

== ENCOUNTER → 2024-09-16 13:19 | Outpatient (BNVA) | payer MEDICARE, SELFPAY | PROVIDERS: PCP Internal Medicine; Visit Provider Internal Medicine | DX: J44.9 Chronic obstructive pulmonary disease, unspecified (principal); J18.9 Pneumonia, unspecified organism; R09.02 Hypoxemia | CPT/HCPCS: 99212 ==

== ENCOUNTER 2024-09-17 09:52 | Outpatient (AMB) | payer MEDICARE, SELFPAY ==
--- NOTE | 2024-09-17 09:59 | MHC.OFFVIS ---
Intake Visit Reasons: Voiding trial/discuss penile management Intake Note: Pt presents to the office today for a voiding trial/discuss penile management. PVR:18mL Allergies No Known Allergies Allergy (Verified 09/17/24 09:59) HPI Comments Details: Bright is a very pleasant male. He is a patient of Dr. Galvin. 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 Has had some resolution of swelling Link to penile MRI protocol [email or web address] [facility] Medical History Allergic rhinosinusitis Obesity (BMI 30-39.9) Vitamin D deficiency Impaired fasting glucose Ulcerative colitis COPD (chronic obstructive pulmonary disease) Pure hypercholesterolemia Exercise hypoxemia COPD (chronic obstructive pulmonary disease) case management patient Surgical History No pertinent past surgical history Family History Father Medical history unknown Mother Cancer Social History Household Members: None Housing: House Do you presently have visiting nurse or other home services: No Alcohol intake: former Patient Tobacco Use Status: Former Tobacco user Years Smoked: 8 years ago e-Cigarette/Vaping Use: Never Used Second Hand Smoke Exposure: Yes service: No Current occupational status: retired Cognitive needs: No Hearing needs: Yes Vision needs: Yes Review of Systems Const Denies chills and Denies fever(s) Card Reports no additional complaints and Denies syncope Resp Denies cough GI Denies abdominal pain and Denies heartburn Reports as per HPI and Denies change in libido Neuro Denies syncope Psych Denies change in libido Endo Denies change in libido Physical Exam Const General: cooperative, healthy appearing, comfortable and no acute distress Orientation/consciousness: patient oriented x3 HEENT Face and sinus: Yes normal facial exam Mouth: moist mucous membranes Neck Neck: Yes normal visual inspection, Yes full ROM and Yes trachea midline Chest Chest palpation & inspection: normal inspection of the chest Resp Effort & Inspection: normal respiratory effort, able to speak in complete sentences and no respiratory distress GI Inspection: Yes normal to inspection Back/Spine/Pelvis Cervical Spine: normal cervical lordosis Thoracic/Lumbar Spine: thoracic and lumbar spine normal to inspection Skin General skin exam: no rashes or lesions noted Neuro General: patient oriented x3, gait normal, tone normal and moves all extremities Extrem General: Yes normal to inspection and Yes capillary refill normal Office Procedures Bladder/Catheter Procedure Details: Patient presents to office for voiding trial. 120ml normal saline instilled through catheter, patient tolerated instillation well. Removed 16 fr nick catheter, patient tolerated removal well. Patient able to void approximately 100 mls. MA to bladder scan. Patient to have visit with Dr. Zamudio to discuss plan of care. 24392-Cbnqsfzosh of Bladder Procedure code (CPT) selection complete Post Void Residual Post Residual Void Post Void Residual (PVR): 18 51662-Ssqt Void Residual by ultrasound Assessment & Plan Assessment & Plan (1) Penile cancer: Code(s): C60.9 - Malignant neoplasm of penis, unspecified Category: Medical (2) Urinary obstruction: Code(s): N13.9 - Obstructive and reflux uropathy, unspecified Category: Medical Plan Penile MRI 4 week follow-up Orders: Orders AMB Post Void Residual by ultrasound Today N13.9 - Obstructive and reflux uropathy, unspecified AMB Bladder/Catheter Procedure Today N13.9 - Obstructive and reflux uropathy, unspecified, Z97.8 - Presence of other specified devices MR pelvis wo/w con Today C60.9 - Malignant neoplasm of penis, unspecified Medications: Changed From terazosin 5 mg PO BEDTIME 30 days 30 caps 3RF N40.1 - Benign prostatic hyperplasia with lower urinary tract symptoms, R35.0 - Frequency of micturition To terazosin 5 mg PO BEDTIME 90 caps 0RF 90 days N40.1 - Benign prostatic hyperplasia with lower urinary tract symptoms, R35.0 - Frequency of micturition Patient Instructions: This note is constructed using voice recognition software. While every effort has been made to ensure accuracy garage door service technician errors may have been included. Imaging studies, laboratory and physical exam results were discussed and reviewed in detail. No major barriers to patient understanding were identified. An opportunity to ask questions regarding the treatment plan was provided. All questions were answered. The patient expressed understanding and agreement with the above treatment plan. The patient is aware they should contact our office by phone for worsening of their current condition or the appearance of new urologic symptoms. Compliance is encouraged with any medications and followup testing that is ordered. It is a privilege to participate in the urologic care of your patient. If you have any questions or concerns regarding treatment for the above conditions, or other urologic issues, please do not hesitate to contact me. The office telephone contact is [phone]. Sincerely, Dr Liang Zamudio MD, [facility] - Urology Compassionate Specialist Care for the Genitourinary System Coding Level of Care Code Est Pt Level 4 (42099) Diagnoses Penile cancer C60.9 Urinary obstruction N13.9 CPT Codes Bladder/Catheter Procedure - CPT: 93920-Qgppzbyjkf of Bladder ([id number]) Post Residual Void - PVR CPT Code: 24778-Oymf Void Residual by ultrasound ([id number])
--- OUTSIDE RECORDS SUMMARY | 2024-09-17 10:48 | XMS_ITS | Patient Health Record ---
Author Organization [facility] Address [address] [place] [address] Care Team Providers Care Program Director Group Work Name Role Phone Reyes Galvin MD Primary Care Provider Jaiv Collins Unavailable [phone] ALLERGIES No Known Allergies RESULTS Component Value Reference Range Notes Complete Blood Count Auto Di ff Reviewed date:10/15/2023 06:24:13 PM Interpretation: Performing Lab:[facility], [address] [place] [address] Notes/Report: White Blood Count 10.5 4.8-10.8 X10*3/uL [...] te Reviewed date:10/15/2023 06:25:19 PM Interpretation: Performing Lab:[address] [address] Notes/Report: Erythrocyte Sedimentation Rate 22 0-15 MM/HR Patients with polycythemia and many hemoglobin abnormalities may have depressed sed rates whereas patients with anemia may have elevated sed rates. Liver Panel Reviewed date:10/15/2023 06:24:28 PM Interpretation: Performing Lab:[address] [address] Notes/Report: Bilirubin Total 2.3 0.0-1.0 mg/dL Bilirubin Direct 0.7 0.0-0.5 mg/dL Aspartate Amino Transferase 17 5-37 U/L Alanine Aminotransferase 16 0-40 U/L Total Protein 7.4 6.5-8.0 g/dL Albumin Level 4.1 3.5-5.0 g/dL Alkaline Phosphatase 147 39-117 U/L Basic Metabolic Panel Reviewed date:10/15/2023 06:25:05 PM Interpretation: Performing Lab:[address] [address] Notes/Report: Sodium 140 135-145 mmol/L Potassium 3.3 3.3-5.1 mmol/L Chloride 98 96-108 mmol/L Carbon Dioxide 33 22-29 mmol/L Anion Gap 12 12-20 Blood Urea Nitrogen 8 9-16 mg/dL Creatinine 1.01 0.5-1.4 mg/dL Estimated Glomerular Filt Rate > 60 NOTE: For -Kuwaiti individuals, multiply the result by 1.210. Chronic Kidney Disease: Estimated GFR < 60 mL/min/1.73m2 Severe Kidney Disease: Estimated GFR < 15 mL/min/1.73m2 Glucose Random 91 60-115 mg/dL Calcium 9.3 8.4-10.2 mg/dL C Reactive Protein Reviewed date:10/15/2023 06:25:12 PM Interpretation: Performing Lab:[facility], [address] [place] [address] Notes/Report: C Reactive Protein 2.68 < or = 0.50 mg/dL Leukocytes Stool Qualitative Reviewed date:10/16/2023 12:10:35 PM Interpretation: Performing Lab:[facility], [address] [place] [address] Notes/Report: Leukocytes Stool Qualitative NEGATIVE NEGATIVE Calprotectin, Fecal Reviewed date:11/01/2023 12:58:27 AM Interpretation: Performing Lab:[facility], [address] [place] [address] Notes/Report: Calprotectin, Fecal 5470 Reference Range: <50 [...] borderline values. THIS TEST WAS PERFORMED AT: [employer]/[facility] [address] [place] [address] MITA VALENCIA MD,PHD,[facility] CDiff Gene PCR Reviewed date:10/16/2023 12:10:21 PM Interpretation: Performing Lab:[address] [address] Notes/Report: CDiff Gene PCR NEGATIVE Negative If C. difficile strongly suspected despite one negative test, a second test may be sent vs. empiric treatment for C. difficile infection. GI PANEL Reviewed date:10/16/2023 06:17:57 PM Interpretation: Performing Lab:[address] [address] Notes/Report: Campylobacter Not Detected Not Detect. Plesiomonas [...] is performed by Multiplexed PCR, utilizing the [employer] Array. REASON FOR REFERRAL No Information MEDICATIONS [...] malignant neoplasm of colon (Z12.11) Active confirmed 605500098 Problem History of adenomatous polyp of colon (Z86.010) Active confirmed 565527712 Problem Weight loss (R63.4) Active confirmed 64572663 Problem Encounter for screening for malignant neoplasm of rectum (Z12.12) Active confirmed Screening fo r malignant neoplasm of rectum (476661151) Problem Elevated liver function tests (R79.89) Active confirmed 757680480 Problem Family history of colon cancer (Z80.0) Active confirmed 410928703 Problem Ulcerative pancolitis without complication (K51.00) Active confirmed 102723288 Problem Abnormal gallbladder ultrasound (R93.2) Active confirmed 86380690695896240 Problem Ulcerative pancolitis with rectal bleeding (K51.011) Active confirmed Chronic ulcerat mari pancolitis (759366655) Problem Abdominal pain, generalized (R10.84) Active confirmed 008432763 Problem Diarrhea, unspecified type (R19.7) Active confirmed 34116144 Problem Diarrhea of presumed infectious origin (R19.7) Active confirmed 26251521 VITAL SIGNS Blood pressure diastolic 00 mm Hg 06/22/2024 Height 65 in 06/22/2024 Blood pressure systolic 00 mm Hg 06/22/2024 Weight 216 lbs 06/22/2024 BMI 35.94 kg/m2 06/22/2024 Encounters Encounter Location Date Provider Diagnosis [facility] [address] [place] [address] 06/03/2024 Javi Donovan [facility] [address] [place] [address] 12/02/2023 Javi Donovan Ulcerative pancoliti s without complication K51.00 [facility] [address] [place] [address] 06/22/2024 Javi Donovan Ulcerative pancoliti s without complication K51.00 [facility] [address] [place] [address] 10/15/2023 Javi Donovan Ulcerative pancoliti s with rectal bleeding K51.011 and Ulcerative pancolitis without complication K51.00 [facility] [address] [place] [address] 06/08/2024 Javi Donovan [facility] [address] [place] [address] 07/19/2024 Javi Donovan Ulcerative pancoliti s without complication K51.00 ASSESSMENTS Encounter Date Diagnosis Assessment Notes Treatment Notes Treatment Clinical Notes 12/02/2023 Ulcerative pancolitis without complication (ICD-10 - K51.00) Continue the one 5mg prednisone daily custodial to try to keep the colitis quiet 06/22/2024 Ulcerative pancolitis without complication (ICD-10 - K51.00) Continue the one 5mg prednisone daily terminal supervisor to try to keep the colitis quiet [...] Name:Javi Radha Donovan , 06/23/2025 11:00:00 AM, [address] [place] [address], [address], [place], [address], Insurance Providers Payer Name Payer Address Payer Phone Subscriber Number Group Number Insured Name Patient Relationship to Insured Coverage Start Date Coverage End Date MEDICARE OF [place] [address] [facility] [address] [id number] JULIANNA LEDESMA Self - patient is the insured MEDEX ATTN CLAIMS [address] [place] [address] [phone] [id number] JULIANNA LEDESMA Self - patient is the insured MEDICAL (GENERAL) HISTORY Medical History History ICD Code Ulcerative colitis diagnosed in 1994 Tubular adenomas of the colon Denies [place],DM,CVA,Lung disease,renal dise ase Hyperlipidemia Pneumonia--hospitalized twic e [...] to Gilbert's Flare up of colitis in [facility] 2020 that responded well to 8 weeks [...]
--- OUTSIDE RECORDS SUMMARY | 2024-09-17 10:49 | XMS_ITS ---
Author Organization [facility] Address [address] [place] [address] Care Team Providers Care Sports Anchor Name Role Phone Kamar DOMINIQUE, [place] Primary Care Provider Unava Javi Dee Unavailable [phone] REASON FOR VISIT potassium Encounters Encounter Location Date Provider Diagnosis [facility] [address] [place] [address] 06/08/2024 Javi Donovan PLAN OF TREATMENT Next Appt Details Provider Name:Javi Donovan , 06/23/2025 11:00:00 AM, [address], [address], [place], [address],
--- OUTSIDE RECORDS SUMMARY | 2024-09-17 10:49 | XMS_ITS ---
Author Organization [facility] Address [address] [place] [address] Care Team Providers Care Health Care Analyst Name Role Phone Kamar DOMINIQUE, Reyes Primary Care Provider Javi Collins Unavailable [phone] ALLERGIES No Known Allergies REASON FOR VISIT [...] 06/22/2024 Encounters Encounter Location Date Provider Diagnosis [facility] [address] [place] [address] 06/22/2024 Javi Donovan Ulcerative pancoliti s without complication K51.00 ASSESSMENTS Encounter Date Diagnosis Assessment Notes Treatment Notes Treatment Clinical Notes 06/22/2024 Ulcerative pancolitis without complication (ICD-10 - K51.00) Continue the one 5mg prednisone daily 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
--- OUTSIDE RECORDS SUMMARY | 2024-09-17 10:49 | XMS_ITS ---
Author Organization [facility] Address [address] [place] [address] Care Team Providers Care Printing Plate Maker Name Role Phone Kamar DOMINIQUE, Reyes Primary Care Provider Javi Collins Unavailable [phone] REASON FOR VISIT REFILL PREDNISONE MEDICATIONS Medication SIG (Take, Route, Fr equency, Duration) Notes Start Date End Date Status predniSONE 5 MG 1 tablet Orally Once a day for 90 days Active Encounters Encounter Location Date Provider Diagnosis [facility] [address] [place] [address] 07/19/2024 Javi Donovan Ulcerative pancoliti s without [...] [address], [address], [place], [address],
== END 2024-09-17 10:46 | disposition home or self-care (01) ==
PROVIDERS: PCP Internal Medicine; Visit Provider Urology
DX: C60.9 Malignant neoplasm of penis, unspecified (principal); N13.9 Obstructive and reflux uropathy, unspecified
CPT/HCPCS: 51700; 99214

== ENCOUNTER → 2024-09-17 09:52 | Outpatient (BNVA) | payer MEDICARE, SELFPAY | PROVIDERS: PCP Internal Medicine; Visit Provider Urology | DX: C60.9 Malignant neoplasm of penis, unspecified (principal); N40.1 Benign prostatic hyperplasia with lower urinary tract symptoms; N13.8 Other obstructive and reflux uropathy; R35.0 Frequency of micturition | CPT/HCPCS: 51700; 51798; 99212 ==

== ENCOUNTER 2024-10-19 10:16 | Outpatient (REF) | payer MEDICARE, SELFPAY ==
--- NOTE | ~2024-10-19 | XR_ITS ---
EXAMINATION: X-RAY PRE-MRI SCREENING CLINICAL INFORMATION: PRE-MRI SCREENING FOR FOREIGN BODY. TECHNIQUE: 3 views of the orbits. COMPARISON: None FINDINGS: No metal within the orbits. Paranasal sinuses are well pneumatized aerated without air-fluid levels. No gross lytic or blastic lesions. XR/XR pre mri screening IMPRESSION: Negative for metallic foreign body. Electronically signed by: Ag Frankel MD 10/19/2024 11:23 AM EDT
--- OUTSIDE RECORDS SUMMARY | 2024-10-19 12:02 | XMS_ITS | Patient Health Record ---
Author Organization [facility] Address [address] [place] [address] Care Team Providers Care Finishing Machine Operator Automatic Name Role Phone Darell Galvin MDh Primary Care Provider Javi Collins Unavailable [phone] Allergies No Known Allergies Reason For Referral No Information Medications Medication SIG (Take, Route, Fr equency, Duration) [...] Once a day for 90 days Active Immunizations Vaccine Route Administration Date Status Comme nts Flu vaccine no Preserv 3 and > Unknown 05/28/2016 Admin istered Influenza Unknown 03/21/2017 Administered Flu vaccine no Preserv 3 and > Unknown 05/22/2018 Admin istered Influenza Unknown 05/31/2020 Administered Influenza Unknown 04/20/2021 Administered Influenza Unknown 05/08/2022 Administered Influenza Unknown 04/27/2019 Refused Social History Tobacco Use: Social History Observation Description Date Details (start date - stop date) Former Smoker NA - NA Tobacco Use/Smoking Question Answer Notes Patient is a former smoker How long has it been since you last smoked? > 10 years Section Notes: He hasn't smoked in about on e or 2 months, and does not use any significant amounts of alcohol He hasn't smoked since 07/09 13; and does not use any significant amounts of alcohol He hasn't smoked since 07/09 13; and does not use any significant amounts of alcohol He hasn't smoked since 07/09 13; and does not use any significant amounts of alcohol He hasn't smoked since 07/09 13; and does not use any significant amounts of alcohol He hasn't smoked since 07/09 13; and does not use any significant amounts of alcohol He hasn't smoked since 07/09 13; and does not use any significant amounts of alcohol He hasn't smoked since 07/09 13; and does not use any significant amounts of alcohol He hasn't smoked since 07/09 13; and does not use any significant amounts of alcohol He hasn't smoked since 07/09 13; and does not use any significant amounts of alcohol He hasn't smoked since 07/09 13; and does not use any significant amounts of alcohol He hasn't smoked since 07/09 13; and does not use any significant amounts of alcohol He hasn't smoked since 07/09 13; and does not use any significant amounts of alcohol He hasn't smoked since 07/09 13; and does not use any significant amounts of alcohol He hasn't smoked since 07/09 13; and does not use any significant amounts of alcohol He hasn't smoked since 07/09 13; and does not use any significant amounts of alcohol He hasn't smoked since 07/09 13; and does not use any significant amounts of alcohol He hasn't smoked since 07/09 13; and does not use any significant amounts of alcohol He hasn't smoked since 07/09 13; and does not use any significant amounts of alcohol He hasn't smoked since 07/09 13; and does not use any significant amounts of alcohol He hasn't smoked since 07/09 13; and does not use any significant amounts of alcohol Problems Problem Type SNOMED Code ICD Code Onset Dates Problem Status W/U Status Risk Notes Problem 253878350 Encounter for screening for malignant neoplasm of colon (Z12.11) Active confirmed Problem 350335977 History of adenomatous polyp of colon (Z86.010) Active confirmed Problem 56996341 Weight loss (R63.4) Active confirmed Problem Screening for malignant neoplasm of rectum (135328375) Encounter for screening for malignant neoplasm of rectum (Z12.12) Active confirmed Problem 542225603 Elevated liver function tests (R79.89) Active confirmed Problem 466361354 Family history of colon cancer (Z80.0) Active confirmed Problem 610431070 Ulcerative pancolitis without complication (K51.00) Active confirmed Problem 44299303713475208 Abnormal gallbladder ultrasound (R93.2) Active confirmed Problem Chronic ulcerative pancolitis (667460660) Ulcerative pancolitis with rectal bleeding (K51.011) Active confirmed Problem 939770173 Abdominal pain, generalized (R10.84) Active confirmed Problem 40968142 Diarrhea, unspecified type (R19.7) Active confirmed Problem 17112514 Diarrhea of presumed infectious origin (R19.7) Active confirmed Vital Signs Blood pressure diastolic 00 mm Hg 06/22/2024 Height 65 in 06/22/2024 Blood pressure systolic 00 mm Hg 06/22/2024 Weight 216 lbs 06/22/2024 BMI 35.94 kg/m2 06/22/2024 Encounters Encounter Location Date Provider Diagnosis [facility] [address] [place] [phone] 12/02/2023 Javi Donovan Ulcerative pancoliti s without complication K51.00 [facility] [address] [place] [phone] 06/22/2024 Javi Donovan Ulcerative pancoliti s without complication K51.00 [facility] [address] [place] [phone] 06/08/2024 Javi Donovan [facility] [address] [place] [phone] 07/19/2024 Javi Donovan Ulcerative pancoliti s without complication K51.00 Assessments Encounter Date Diagnosis (ICD Code) Assessment Notes Treatment Notes Treatment Clinical Notes Section Notes 12/02/2023 Ulcerative pancolitis without complication (ICD-10 - K51.00) Continue the one 5mg prednisone daily nursing home to try to keep the colitis quiet Overall, Mr. Klein is currently doing better in regard to his underlying ulcerative colitis on his most recent course of prednisone. We did review potential long-term adverse effects from prednisone, particularly on the higher doses. Given his relatively frequent flareups and need for prednisone we did review the use of biologic agents for patient such as himself as a way to keep the colitis in remission and avoid continued use of prednisone. However, Mr. Klein remains very hesitant to starting biologic agents given its potential for increasing the risk of infection due to his underlying significant lung disease. As such, I did recommend that he stay on the 5 mg of prednisone daily long-term rather than stopping it altogether like he usually does. I advised him that if we could keep things in remission on a low dose of prednisone that would be better than having to go on a high dose every 3 or 4 months. As such, he was inclined to agree and we'll continue the 5 mg of prednisone daily until he sees me in the fall. He will also continue his current regimen of the Apriso. However, we did review that he needs to call me as he usually does if the colitis flares up and we could always increase the prednisone again. However, we did review that if he continues to have frequent flareups then we may definitely want to revisit the idea of a biologic agents and try to start him on that. I did advise him to continue his calcium and vitamin D supplements long-term as well. Mr. Klein was comfortable with this plan. Thank you again for allowing me to participate in Mr. Klein's care. I shall continue to keep you advised of his progress. 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 Klein appears to be doing well from a GI standpoint. His ulcerative colitis has remained in clinical remission since I saw him in November on his low dose of prednisone and the Apriso mesalamine. Therefore, I have advised him to continue his current regimen in hopes of maintaining remission without having to periodically put him on high doses of steroids for flareups of the colitis. I think the minimal risk of a chronic low dose of prednisone is definitely better than having to continue starting him on periodic high doses of steroids and tapering regimens when a flareup of the colitis occurs. If he does continue to have flareups we may want to definitely reconsider starting him on a biologic agent although in the past he has not wanted to do that due to increased risk of infection and his underlying pulmonary disease. I don't think he needs any other intervention at this time such as a colonoscopy. If things remain stable I will plan to see Mr. Klein in one year for a followup office visit. I did advise him to certainly call in the interim if he has any problems questions I can be of assistance with. Mr. Klein was comfortable with this plan. Thank you again for allowing me to participate in Mr. Klein's care. I shall continue to keep you advised of his progress. 07/19/2024 Ulcerative pancolitis without complication (ICD-10 - K51.00) Plan Of Treatment Pending Test Test Name Order Date CHEM 7 PROFILE 06/28/2021 CHEM 7 PROFILE 06/28/2011 CHEM 7 PROFILE 06/27/2023 CHEM 7 PROFILE 08/08/2022 LIVER PROFILE 06/27/2023 LIVER PROFILE 08/08/2022 LIVER PROFILE 06/28/2021 LIVER PROFILE 05/31/2021 LIVER PROFILE 09/30/2014 CRP 06/27/2023 CRP 08/08/2022 CRP 06/28/2021 CBC w DIFF 06/27/2023 CBC w DIFF 08/08/2022 CBC w DIFF 06/28/2021 CBC w DIFF 06/28/2011 CBC w DIFF 09/30/2014 SED RATE (ESR) 06/28/2021 SED RATE (ESR) 06/27/2023 SED RATE (ESR) 08/08/2022 HEPATITIS B PROFILE 08/08/2022 CLOSTRIDIUM DIFF TOXIN A&B (C DIFF) 09/2013 CLOSTRIDIUM DIFF TOXIN A&B (C DIFF) 03/2014 STOOL WBC 10/21/2013 CULTURE, STOOL 06/28/2021 CULTURE, STOOL 10/21/2013 CULTURE, STOOL 06/28/2014 US ABD 02/29/2020 STOOL WBC 08/08/2022 STOOL WBC 06/28/2021 STOOL WBC 06/27/2023 C DIFFICILE RFLX PCR 06/27/2023 C DIFFICILE RFLX PCR 08/08/2022 C DIFFICILE RFLX PCR 06/28/2021 Calprotectin, Fecal 06/27/2023 GI PANEL 06/27/2023 GI PANEL 08/08/2022 Future Test Test Name Order Date COLONOSCOPY 07/04/2015 COLONOSCOPY 05/29/2018 Next Appt Details Provider Name:Javi Radha Donovan , 06/23/2025 11:00:00 AM, [address] [place] [address], [address], [place], [address], Insurance Providers Payer Name Payer Address Payer Phone Subscriber Number Group Number Insured Name Patient Relationship to Insured Coverage Start Date Coverage End Date [place] [address] [place] [address] [id number] JULIANNA KLEIN Self - patient is the insured [employer] ATT[employer] CLAIMS [address] [place] [address] [phone] [id number] JULIANNA KLEIN Self - patient is the insured Medical (General) History Medical History History ICD Code Ulcerative colitis diagnosed in 1994 Tubular adenomas of the colon Denies [place],DM,CVA,Lung disease,renal dise ase Hyperlipidemia Pneumonia--hospitalized twic e in 06/2013 and 07/2013--was on home oxygen for a while after the pneumonia Colonoscopy in 06/2012-no ac tive colitis, but areas of chronic colitis throughout the colon--bx neg for dysplasia--no polyps COPD Flareups of the colitis in and 03/2014, in the Spring of 2014, and 02/2016 requiring prednisone tapers Negative PPD [...] to Gilbert's Flare up of colitis in Decem of 2020 that responded well to 8 weeks [...]
--- OUTSIDE RECORDS SUMMARY | 2024-10-19 12:03 | XMS_ITS ---
Author Organization [facility] Address [address] [place] [address] Care Team Providers Care Pipe And Boiler Covers Supervisor Name Role Phone Kamar DOMINIQUE, Reyes Primary Care Provider Javi Collins Unavailable [phone] REASON FOR VISIT potassium Encounters Encounter Location Date Provider Diagnosis [facility] [address] [place] [address] 06/08/2024 Javi Donovan Plan Of Treatment Next Appt Details Provider Name:Javi Donovan , 06/23/2025 11:00:00 AM, [address], [address], [place], [address], Progress Notes * JULIANNA LEDESMADOB: [birth year] (78 yo M)Acc No.[id number]:06/08/2024 Patient:?JULIANNA LEDESMA :1945???Age:78 Y???Sex:Male Address:[address] [place] [address], [place] [address] * true * Date:? Generated for Vidali antonia/Hailey/eTransmitting on:?10/19/2024 12:02 PM EDT
--- OUTSIDE RECORDS SUMMARY | 2024-10-19 12:03 | XMS_ITS ---
Author Organization [facility] Address [address] [facility] [address] [place] [address] [place] [address] Care Team Providers Care Grab Setter Name Role Phone Reyes Galvin MD Primary Care Provider Javi Collins [phone] REASON FOR VISIT REFILL PREDNISONE Medications Medication SIG (Take, Route, Fr equency, Duration) Notes Start Date End Date Status predniSONE 5 MG 1 tablet Orally Once a day for 90 days Active Encounters Encounter Location Date Provider Diagnosis [facility] [address] [facility] [address] [place] [address] [place] [phone] 07/19/2024 Javi Donovan Ulcerative pancoliti s without complication K51.00 Assessments Encounter Date Diagnosis (ICD Code) Assessment Notes Treatment Notes Treatment Clinical Notes Section Notes 07/19/2024 Ulcerative pancolitis without complication (ICD-10 - K51.00) Plan Of Treatment Medication Medication Name Sig Start Date Stop Date Notes predniSONE 5 MG 1 tablet Orally Once a day for 90 days Next Appt Details Provider Name:Javi Donovan , 06/23/2025 11:00:00 AM, [address] [place] [address], [address] [facility], [place], [address], Progress Notes * JULIANNA LEDESMADOB: [birth year] (79 yo M)Acc No.[id number]:07/19/2024 Patient:?JULIANNA LEDESMA :1945???Age:79 Y???Sex:Male Address:[address] [place] [address], [place] [address] * Refills? Refill predniSONE Tablet, 5 MG, Orally, 90 Tablet, 1 tablet, Once a day, 90 days, Refills=3 * true * Date:? Generated for Shikha knight/Hailey/Malorieitting on:?10/19/2024 12:02 PM EDT
--- OUTSIDE RECORDS SUMMARY | 2024-10-19 12:03 | XMS_ITS ---
Author Organization [facility] Address [address] [place] [address] Care Team Providers Care Java Tech Lead Name Role Phone Kamar DOMINIQUE, Reyes Primary Care Provider Javi Collins Unavailable [phone] Allergies No Known Allergies REASON FOR VISIT Patient presents today for ulcerative pancolitis Medications Medication SIG (Take, Route, Fr equency, [...] CAPSULES BY M OUTH EVERY MORNING Active Social History Tobacco Use: Social History Observation Description Date Details (start date - stop date) Former Smoker NA - NA Tobacco Use/Smoking Question Answer Notes Patient is a former smoker How long has it been since you last smoked? > 10 years Section Notes: He hasn't smoked since 07/09 13; and does not use any significant amounts of alcohol Vital Signs Blood pressure systolic 00 mm Hg 06/22/20 24 Blood pressure diastolic 00 mm Hg 024 Height 65 in 06/22/2024 Weight 216 lbs 06/22/2024 BMI 35.94 kg/m2 06/22/2024 Encounters Encounter Location Date Provider Diagnosis [facility] [address] [place] [phone] 06/22/2024 Javi Donovan Ulcerative pancoliti s without complication K51.00 Assessments Encounter Date Diagnosis (ICD Code) Assessment Notes Treatment Notes Treatment Clinical Notes Section Notes 06/22/2024 Ulcerative pancolitis without complication (ICD-10 - K51.00) Continue the one 5mg prednisone daily 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 Plan Of Treatment Medication Medication Name Sig Start Date Stop Date Notes predniSONE 5 MG 1 tablet Orally Once a day for 90 days Apriso 0.375 GM TAKE 4 CAPSULES BY MOUTH EVERY MORNING Treatment Notes Assessment Notes Ulcerative pancolitis without complicati on Continue the one 5mg prednisone daily long-term to try to keep the colitis quiet Next Appt Details Follow Up: 1 Year, Reason: Provider Name:Javi Donovan , 06/23/2025 11:00:00 AM, [address] [place] [address], Suite [facility], [place], [address], Progress Notes * JULIANNA KLEINDOB: [birth year] (79 yo M)Acc No.[id number]:06/22/2024 Progress Notes Patient:?JULIANNA KLEIN Provider:?Jaiv Donovan MD :1945???Age:78 Y???Sex:Male Adrian e:06/22/2024 Address:[address] [place] [address], [place], [place] Pcp:Reyes Galvin MD Subjective: * Chief Complaints: * ???Patient presents today fo r ulcerative pancolitis * HPI: ???incontinence:? I saw Mr. Klein in followup today in regard to his underlying history of ulcerative colitis. ?I last saw Mr. Klein in November. Since that time things have remained stable in regard to his colitis on his current regimen of the 1.5 g of Apriso daily and 5 mg of prednisone daily. He has remained on this low dose of prednisone since I saw him in November and thus far has not had any recurrence of a flare of his colitis. We opted to keep him on a low dose of prednisone in hopes of maintaining remission of his colitis without having to periodically start him on high doses of steroids when he has a flareup. He enjoys a good appetite and denies any significant heartburn or dysphagia. He denies abdominal pain, jaundice, unintentional weight loss, fevers, nor any significant abdominal distention. He reports his bowel movements have remained regular without any significant diarrhea, hematochezia, or melena. ?Recent laboratories in May revealed a hemoglobin of 16.0 with a normal MCV and a normal liver profile except for a chronically elevated indirect bilirubin and alkaline phosphatase of 140. His albumin was 4.0. * ROS:?General/Constitutional:?Change in appetite?denies.?Chills?denies.?Fatigue?denies.?Ophthalmologic:?Patient denies? Negative..?ENT:?Patient denies?Negative..?Respiratory:?Patient denies?No coughing/hemoptysis..?Cardiovascular:?Patient denies? No chest pain/orthopnea..?Gastrointestinal:?Comments?See HPI for details.?Genitourinary:?Patient denies? No dysuria/hematuria..?Musculoskeletal:?Patient denies? No specific arthralgias/myalgias..?Skin:?Patient denies?No rash/pruritus..?Neurologic:?Patient denies? No headaches/seizures..?Psychiatric:?Patient denies?Negative..? * Medical History:? * Surgical History:?No Surgica l History documented. * Hospitalization/Major Diagno stic Procedure:?No Hospitalization History. * Family History:?Father: dece ased.?Mother: .?Siblings: , Brother cancer in throat and colon, diagnosed with Colon cancer.? * Social History:?Tobacco Use:?Tobacco Use/Smoking?Patient is a?former smoker,?How long has it been since you last smoked??> 10 years.?Drugs/Alcohol:?Alcohol Screen?Points: 1, Interpretation: Negative.?Miscellaneous:?Caffeine: more than 1 cups per day. Marital status: . Occupation: retired. ???He hasn't smoked since 06/2013; and does not use any significant amounts of alcohol. * Medications:?TakingVitamin D 1000 UNIT Tablet 1 tablet Orally Once a daySimvastatin 20 MG Tablet 1 tablet in the evening Orally Once a dayApriso 0.375 GM Capsule Extended Release 24 Hour TAKE 4 CAPSULES BY MOUTH EVERY MORNING predniSONE 5 MG Tablet 1 tablet Orally Once a dayMesalamine ER 0.375 GM Capsule Extended Release 24 Hour TAKE 4 CAPSULES BY MOUTH EVERY MORNING Medication List reviewed and reconciled with the patientTaking Vitamin D 1000 UNIT Tablet 1 tablet Orally Once a dayTaking Simvastatin 20 MG Tablet 1 tablet in the evening Orally Once a dayTaking Apriso 0.375 GM Capsule Extended Release 24 Hour TAKE 4 CAPSULES BY MOUTH EVERY MORNING Taking predniSONE 5 MG Tablet 1 tablet Orally Once a dayTaking Mesalamine ER 0.375 GM Capsule Extended Release 24 Hour TAKE 4 CAPSULES BY MOUTH EVERY MORNING Medication List reviewed and reconciled with the patient * Allergies:?N.K.D.A.yes[Aller gies Verified] Objective: * Vitals:?Wt: 216 lbs, Ht: 65 in, BMI:35.94 Index, BP: 00/00 mm Hg. * Examination: ???General Examination: ?GENERAL APPEARANCE:?pleasant, well nourished, well developed, in no acute distress.?EYES:?sclera non-icteric.?ORAL CAVITY:?mucosa moist.?NECK/THYROID:?no cervical lymphadenopathy, neck supple.?SKIN:?nonjaundiced, no spider angiomata..?HEART:?S1, S2 normal.?LUNGS:?clear to auscultation bilaterally.?ABDOMEN:?normal bowel sounds, no guarding or rigidity, no hepatosplenomegaly, no masses palpable, soft, nontender, nondistended..?EXTREMITIES:?no edema.?NEUROLOGIC:?alert and oriented.? Assessment: * Assessment: 1.?Ulcerative pancolitis wit hout complication - K51.00 (Primary)? Overall, Mr. Klein appears to be doing [...] to keep you advised of his progress. Plan: * Treatment: 2.?Others? Continue Apriso Capsule Extended Release 24 Hour, 0.375 GM, TAKE 4 CAPSULES BY MOUTH EVERY MORNING.?? * Procedure Codes:?1036F TOBAC CO [id number] BP SCR NOT PRFRM REC REASON NOS * Preventive Medicine:? ??Counseling:?Care goal follow-up plan:?Above Normal BMI Follow-up?Giving encouragement to exercise,?BMI management provided?Yes.? ??Screenings:?Fall Risk Screening?Fall Risk Assessment:?No falls in the past year,?Screening:?No falls in the past year,?Assessment:?Not performed, no reason specified,?Plan of Care:?Not documented, no reason specified.? * Follow Up:?1 Year * * Sign off status: Completed true * Provider:?Javi Donovan MD Date:? 024 Generated for Shikha knight/Hailey/Malorieitting on:?10/19/2024 12:02 PM EDT History and Physical Notes * HPI (History of Present Illness) Category Sub-Category Detail Notes Category Not es incontinence I saw Mr. Klein in followup today in regard to his underlying history of ulcerative colitis. I last saw Mr. Klein in November. Since that time things have remained stable in regard to his colitis on his current regimen of the 1.5 g of Apriso daily and 5 mg of prednisone daily. He has remained on this low dose of prednisone since I saw him in November and thus far has not had any recurrence of a flare of his colitis. We opted to keep him on a low dose of prednisone in hopes of maintaining remission of his colitis without having to periodically start him on high doses of steroids when he has a flareup. He enjoys a good appetite and denies any significant heartburn or dysphagia. He denies abdominal pain, jaundice, unintentional weight loss, fevers, nor any significant abdominal distention. He reports his bowel movements have remained regular without any significant diarrhea, hematochezia, or melena. Recent laboratories in May revealed a hemoglobin of 16.0 with a normal MCV and a normal liver profile except for a chronically elevated indirect bilirubin and alkaline phosphatase of 140. His albumin was 4.0. Examination Category Sub-Category Detail Notes Category Not es General Examination GENERAL APPEARANCE: pleasant , well [...]
[2024-10-19] MEDS: gadobutroL 10 ML VIAL IVPUSH (12:06)
== END 2024-10-19 10:17 | disposition home or self-care (01) ==
LOC: HO.MRI 10:16
PROVIDERS: PCP Internal Medicine; Visit Provider Urology
DX: C60.9 Malignant neoplasm of penis, unspecified (principal)
CPT/HCPCS: 72197; A9585

== ENCOUNTER → 2024-10-19 10:51 | Outpatient (BNV) | payer MEDICARE, SELFPAY | PROVIDERS: PCP Internal Medicine; Visit Provider Radiology Diagnostic Radiology | DX: C60.9 Malignant neoplasm of penis, unspecified (principal) | CPT/HCPCS: 72197 ==

== ENCOUNTER 2024-10-27 12:51 | Outpatient (AMB) | payer MEDICARE, SELFPAY ==
--- NOTE | 2024-10-27 12:54 | MHC.OFFVIS ---
Intake Visit Reasons: 4w/MRI Ios Software Engineer Required: No Allergies No Known Allergies Allergy (Verified 09/17/24 09:59) HPI Comments Details: Bright is a very pleasant male. He is a patient of Dr. Galvin. He is seen for the following urologic conditions - penile cancer Here for discussion of MRI MRI shows - Abnormal signal in the glands is consistent with the given history of malignancy. A discrete mass is not identified. There is disruption of the tunica albuginea at the distal aspect on the right with suspected involvement of the adjacent right corpora. 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 A tie-over dressing for graft application in distal penectomy and glans resurfacing: the TODGA technique. BJU Int. 2010;107(5):836-840 [facility] Medical History Allergic rhinosinusitis Obesity (BMI 30-39.9) Vitamin D deficiency Impaired fasting glucose Ulcerative colitis COPD (chronic obstructive pulmonary disease) Pure hypercholesterolemia Exercise hypoxemia COPD (chronic obstructive pulmonary disease) case management patient Surgical History No pertinent past surgical history Family History Father Medical history unknown Mother Cancer Social History Household Members: None Housing: House Do you presently have visiting nurse or other home services: No Alcohol intake: former Patient Tobacco Use Status: Former Tobacco user Years Smoked: 8 years ago e-Cigarette/Vaping Use: Never Used Second Hand Smoke Exposure: Yes service: No Current occupational status: retired Cognitive needs: No Hearing needs: Yes Vision needs: Yes Review of Systems Const Denies chills and Denies fever(s) Card Reports no additional complaints and Denies syncope Resp Denies cough GI Denies abdominal pain and Denies heartburn Reports as per HPI and Denies change in libido Neuro Denies syncope Psych Denies change in libido Endo Denies change in libido Physical Exam Const General: cooperative, healthy appearing, comfortable and no acute distress Orientation/consciousness: patient oriented x3 HEENT Face and sinus: Yes normal facial exam Mouth: moist mucous membranes Neck Neck: Yes normal visual inspection, Yes full ROM and Yes trachea midline Chest Chest palpation & inspection: normal inspection of the chest Resp Effort & Inspection: normal respiratory effort, able to speak in complete sentences and no respiratory distress GI Inspection: Yes normal to inspection Back/Spine/Pelvis Cervical Spine: normal cervical lordosis Thoracic/Lumbar Spine: thoracic and lumbar spine normal to inspection Skin General skin exam: no rashes or lesions noted Neuro General: patient oriented x3, gait normal, tone normal and moves all extremities Extrem General: Yes normal to inspection and Yes capillary refill normal Assessment & Plan Assessment & Plan (1) Penile cancer: Code(s): C60.9 - Malignant neoplasm of penis, unspecified Category: Medical Plan Risks, benefits and alternatives to therapy were discussed. These include but are not limited to infection, bleeding, damage to local organs and tissues, need for further interventions. Anesthetic risks regarding cardiac arrhythmia, blood clots, and potential mortality were discussed. The patient understands the typical recovery time and the outpatient nature of the procedure. After consideration of these risks the patient gives full informed consent and they wish to move ahead with the procedure. - Distal penectomy with split thickness skin graft suze glans repair Patient Instructions: This note is constructed using voice recognition software. While every effort has been made to ensure accuracy front desk receptionist errors may have been included. Imaging studies, laboratory and physical exam results were discussed and reviewed in detail. No major barriers to patient understanding were identified. An opportunity to ask questions regarding the treatment plan was provided. All questions were answered. The patient expressed understanding and agreement with the above treatment plan. The patient is aware they should contact our office by phone for worsening of their current condition or the appearance of new urologic symptoms. Compliance is encouraged with any medications and followup testing that is ordered. It is a privilege to participate in the urologic care of your patient. If you have any questions or concerns regarding treatment for the above conditions, or other urologic issues, please do not hesitate to contact me. The office telephone contact is [phone]. Sincerely, Dr Liang Zamudio MD, [facility] - Urology Compassionate Specialist Care for the Genitourinary System Coding Level of Care Code Est Pt Level 4 (26677) Complex EM visit Add On G2211 Diagnoses Penile cancer C60.9
--- OUTSIDE RECORDS SUMMARY | 2024-10-27 14:50 | XMS_ITS ---
Author Organization [facility] Address [address] [facility] [address] [place] [address] Care Team Providers Care Well Driller Helper Name Role Phone Reyes Galvin MD Primary Care Provider Javi Collins [phone] REASON FOR VISIT REFILL PREDNISONE Medications Medication SIG (Take, Route, Fr equency, Duration) Notes Start Date End Date Status predniSONE 5 MG 1 tablet Orally Once a day for 90 days Active Encounters Encounter Location Date Provider Diagnosis [facility] [address] [facility] [address] [place] [phone] 07/19/2024 Javi Donovan Ulcerative pancoliti s without [...] Provider Name:Javi Donovan , 06/23/2025 11:00:00 AM, [address] [place] [address], Suite [facility], [place], [address], Progress Notes * JULIANNA LEDESMADOB: [birth year] (79 yo M)Acc No.[id number]:07/19/2024 Patient:?JULIANNA LEDESMA :1945???Age:79 Y???Sex:Male Address:[address] [place] [address], [place] [address] * Refills? Refill predniSONE Tablet, 5 MG, Orally, 90 Tablet, 1 tablet, Once a day, 90 days, Refills=3 * true * Date:? Generated for Shikha knight/Hailey/Malorieitting on:?10/27/2024 02:50 PM EDT
--- OUTSIDE RECORDS SUMMARY | 2024-10-27 14:50 | XMS_ITS ---
Author Organization [facility] Address [address] [place] [address] Care Team Providers Care Automotive Technician Name Role Phone Kamar DOMINIQUE, Reyes Primary Care Provider Javi Collins Unavailable [phone] Allergies No Known Allergies REASON FOR VISIT [...] 06/22/2024 Encounters Encounter Location Date Provider Diagnosis [facility] [address] [place] [phone] 06/22/2024 Javi Donovan Ulcerative pancoliti s without complication K51.00 Assessments Encounter Date Diagnosis (ICD Code) Assessment Notes Treatment Notes Treatment Clinical Notes Section Notes 06/22/2024 Ulcerative pancolitis without complication (ICD-10 - K51.00) Continue the one 5mg prednisone daily buttermaker to try to keep the colitis quiet [...] on Continue the one 5mg prednisone daily prison to try to keep the colitis quiet Next Appt Details Follow Up: 1 Year, Reason: Provider Name:Javi Donovan , 06/23/2025 11:00:00 AM, [address] [place] [address], Suite [facility], [place], [address], Progress Notes * JULIANNA KLEINDOB: [birth year] (79 yo M)Acc No.[id number]:06/22/2024 Progress Notes Patient:?JULIANNA KLEIN Provider:?Javi Donovan MD :1945???Age:78 Y???Sex:Male Adrian e:06/22/2024 Address:[address] [place] [address], [place], [place] Pcp:Reyes Galvin MD Subjective: * Chief Complaints: [...] EVERY MORNING.?? * Procedure Codes:?1036F TOBAC CO NON-[id number] BP SCR NOT PRFRM REC REASON NOS [...] MD Date:? 024 Generated for Shikha knight/Hailey/Malorieitting on:?10/27/2024 02:50 PM EDT History and Physical Notes * [...]
== END 2024-10-27 13:06 | disposition home or self-care (01) ==
LOC: HO.HUSH 12:51
PROVIDERS: PCP Internal Medicine; Visit Provider Urology
DX: C60.9 Malignant neoplasm of penis, unspecified (principal)
CPT/HCPCS: 99214; G2211

== ENCOUNTER → 2024-10-27 12:51 | Outpatient (BNVA) | payer MEDICARE, SELFPAY | PROVIDERS: PCP Internal Medicine; Visit Provider Urology | DX: C60.9 Malignant neoplasm of penis, unspecified (principal) | CPT/HCPCS: 99212 ==

== ENCOUNTER 2024-11-11 09:38 | Outpatient (AMB) | payer MEDICARE, SELFPAY ==
[2024-11-11 09:46] VITALS: BP 118/70; PULSE 95; O2SAT 94; BMI 34.4
--- NOTE | 2024-11-11 09:46 | A.OFFVIS_ITS ---
Vital Signs 11/11/24 09:46 Height 5 ft 7 in Weight 219 lb 5.759 oz BMI 34.4 BP 118/70 Blood Pressure Location Lt brachial Position Sitting Pulse 95 Pulse Source Pulse Oximeter Pulse Oximetry (%) 94 Oxygen Delivery Method Room Air Intake Visit Reasons: Pneumonia Intake Note: pt is here for follow up and states he is not too bad, using oxygen when needed, pt is having urology surgery in January [address] Zamudio. Resources Representative Required: No Allergies No Known Allergies Allergy (Verified 11/11/24 10:18) Medication List - Last Reconciled 11/11/24 by Celsa Hoyt MD amlodipine 5 mg See Protocol PO DAILY cholecalciferol (vitamin D3) 25 mcg PO DAILY lisinopril 10 mg See Protocol PO DAILY mesalamine ER (Apriso) 1.5 grams PO DAILY prednisone 5 mg PO DAILY simvastatin 20 mg PO BEDTIME terazosin 5 mg PO BEDTIME 90 days Do you need a note to return to daycare/school/sports/work: No HPI HPI Pneumonia: Details: THIS 79 YEARS OLD GENTLEMAN IS HERE FOR FOLLOW-UP. IN AUGUST OF THIS YEAR [facility] PNEUMONIA RIGHT LOWER LOBE. FOLLOW-UP CHEST X-RAY HAD SHOWN PERSISTENT DENSITY IN THE RIGHT LOWER LOBE. HE HE HAS HAD NO FEVER CHILLS OR CHEST PAIN. HE IS BEING TREATED FOR MILD CHRONIC OBSTRUCTIVE AND RESTRICTIVE LUNG DISEASE. DOES NOT NEED TO USE ANY BRONCHODILATOR INHALERS. HE DOES USE OXYGEN 2 L/MINUTE AT NIGHT AND ONLY P.R.N. DURING THE DAYTIME. WEIGHT DANIELSON THERE HAS BEEN NO CHANGE HE DOES HAVE SIGNIFICANT ABDOMINAL OBESITY. THIS GENTLEMAN IS BEING FOLLOWED BY UROLOGY FOR PENILE CANCER, EXPECTED TO HAVE SURGERY IN DECEMBER OF THIS YEAR. [facility]LY [facility] Medical History Allergic rhinosinusitis Obesity (BMI 30-39.9) Vitamin D deficiency Impaired fasting glucose Ulcerative colitis COPD (chronic obstructive pulmonary disease) Pure hypercholesterolemia Exercise hypoxemia COPD (chronic obstructive pulmonary disease) case management patient Surgical History No pertinent past surgical history Family History Father Medical history unknown Mother Cancer Social History Household Members: None Housing: House Do you presently have visiting nurse or other home services: No Alcohol intake: former Patient Tobacco Use Status: Former Tobacco user Years Smoked: 8 years ago e-Cigarette/Vaping Use: Never Used Second Hand Smoke Exposure: Yes service: No Current occupational status: retired Cognitive needs: No Hearing needs: Yes Vision needs: Yes Review of Systems Const All systems reviewed & are unremarkable except as noted in HPI and below Eyes Reports no additional complaints ENT Reports no additional complaints Card Denies chest pain, Denies irregular heart rhythm and Reports leg edema (Mild around the ankles in the evenings.) Resp Reports as per HPI GI Reports GI cramping, Reports diarrhea and Reports other (Being treated for chronic inflammatory colitis.) Reports no additional complaints Musc Reports myalgias Skin/Breast Reports system reviewed and no additional complaints, except as documented Neuro Reports no additional complaints Psych Reports no additional complaints Physical Exam Vital Signs: Last Vital Signs Pulse 95 11/11/24 09:46 BP 118/70 11/11/24 09:46 Pulse Ox 94 11/11/24 09:46 Oxygen Delivery Method Room Air 11/11/24 09:46 BMI result Body Mass Index 34.4 Const Other: Grossly obese looking General: comfortable, no acute distress, alert and awake Orientation/consciousness: patient oriented x3 HEENT Head: Yes normal to inspection General nose exam: No nasal polyps present, No nasal discharge present and Other nasal findings present (Does have bilateral nasal congestion and hypertrophy of the nasal turbinate) Face and sinus: Yes sinuses nontender Mouth: oropharynx normal Throat: Yes posterior oropharynx normal Eyes General: appearance normal, both eyes and all related structures Neck Neck: Yes normal visual inspection, Yes no lymphadenopathy, Yes trachea midline and Yes no JVD Thyroid: Thyroid normal Chest Chest palpation & inspection: normal inspection of the chest, normal palpation of entire chest wall and no tenderness Resp Other: Percussion note resonant, breath sounds are distant especially diminished over the basilar areas. On auscultation no wheezes rhonchi or crepitations are heard . Cardio Palpation: normal PMI Rate: regular rate Rhythm: regular rhythm Heart sounds: no gallops and no murmurs GI Palpation (GI): Soft to palpation, nontender, No hepatosplenomegaly present, no masses and Other GI palpation findings present (Abdomen is obese and protuberant) Auscultation: normal bowel sounds Other: Has indwelling Barrera catheter in place Back/Spine/Pelvis Thoracic/Lumbar Spine: thoracic and lumbar spine normal to inspection Skin General skin exam: no rashes or lesions noted Neuro General: patient oriented x3 and no focal motor deficits Cranial nerves: Yes CN's II-XII intact bilaterally Extrem General: Yes normal to inspection, Yes no clubbing, cyanosis or edema and Yes no calf tenderness Psych Appearance: grossly normal and well kempt Speech and movement: Normal speech and movement present Assessment & Plan Assessment & Plan (1) COPD (chronic obstructive pulmonary disease) case management patient: Comment: COPD. MILD AND WELL CONTROLLED. HE HAS EXERCISE INDUCED HYPOXEMIA WHICH IS MORE DUE TO HIS GROSS OBESITY. Code(s): J44.9 - Chronic obstructive pulmonary disease, unspecified Category: Medical Plan: PATIENT DOES NOT NEED TO USE ANY BRONCHODILATOR INHALERS. (2) Exercise hypoxemia: Comment: HE HAS EXERCISE INDUCED HYPOXEMIA. WHILE IN THE HOSPITAL ALSO FOUND TO HAVE NOCTURNAL HYPOXEMIA HE DOES USE O2 2 L/MINUTE AT NIGHT AND P.R.N. DURING THE DAYTIME. Code(s): R09.02 - Hypoxemia Category: Medical Plan: DISCUSSED ABOUT THE OXYGEN USE AND IT IS OKAY TO USE 2 L/MINUTE AT NIGHT. DEPENDING UPON HOW LONG HE IS GOING TO BE OUTDOORS AND WHAT KIND OF PHYSICAL WORK HE HAS TO DO HE CAN USE O2 2 L/MINUTE P.R.N. (3) CAP (community acquired pneumonia): Comment: IN AUGUST 2024 THE CHEST X-RAY SHOWED HAZINESS IN THE RIGHT LOWER LOBE, SUGGESTING POSSIBLE PNEUMONIA. HE HAS BEEN TREATED WITH A COURSE OF ANTIBIOTIC CEFUROXIME AND WELL AZITHROMYCIN, ON THE CT SCAN OF ABDOMEN ,HE DOES HAVE ATELECTATIC CHANGES IN THE RIGHT LOWER LOBE. NEEDS TO BE FOLLOWED UP. Code(s): J18.9 - Pneumonia, unspecified organism Category: Medical Qualifiers: Laterality: right Lung location: unspecified part of lung Qualified Code(s): J18.9 - Pneumonia, unspecified organism Plan: CHEST X-RAY TO BE REPEATED. ADVISE THAT HE SHOULD CONTINUE TO DO DEEP BREATHING EXERCISES 2 TO 3 TIMES A DAY. Orders: Orders XR chest 2V Today J18.9 - Pneumonia, unspecified organism Coding Level of Care Code Est Pt Level 3 (01633) Diagnoses COPD (chronic obstructive pulmonary disease) case management patient J44.9 Exercise hypoxemia R09.02 CAP (community acquired pneumonia) J18.9 Laterality: right Lung location: unspecified part of lung
--- OUTSIDE RECORDS SUMMARY | 2024-11-11 10:40 | XMS_ITS | Patient Health Record ---
Author Organization [facility] Address [address] [place] [address] Care Team Providers Care Honing Machine Operator Semiautomatic Name Role Phone Darell Galvin MDh Primary Care Provider Javi Collins Unavailable [phone] Allergies No Known Allergies Reason For Referral [...] Problem Status W/U Status Risk Notes Problem 707129962 Encounter for screening for malignant neoplasm of colon (Z12.11) Active confirmed Problem 622296895 History of adenomatous polyp of colon (Z86.010) Active confirmed Problem 77873845 Weight loss (R63.4) Active confirmed Problem Screening for malignant neoplasm of rectum (514389997) Encounter for screening for malignant neoplasm of rectum (Z12.12) Active confirmed Problem 583337176 Elevated liver function tests (R79.89) Active confirmed Problem 516648424 Family history of colon cancer (Z80.0) Active confirmed Problem 786460249 Ulcerative pancolitis without complication (K51.00) Active confirmed Problem 46030099396289051 Abnormal gallbladder ultrasound (R93.2) Active confirmed Problem Chronic ulcerative pancolitis (578704160) Ulcerative pancolitis with rectal bleeding (K51.011) Active confirmed Problem 675054106 Abdominal pain, generalized (R10.84) Active confirmed Problem 74025619 Diarrhea, unspecified type (R19.7) Active confirmed Problem 10395700 Diarrhea of presumed infectious origin (R19.7) Active confirmed Vital Signs Blood pressure diastolic 00 mm Hg 06/22/2024 Height 65 in 06/22/2024 Blood pressure systolic 00 mm Hg 06/22/2024 Weight 216 lbs 06/22/2024 BMI 35.94 kg/m2 06/22/2024 Encounters Encounter Location Date Provider Diagnosis [facility] [address] [place] [phone] 12/02/2023 Javi Donovan Ulcerative pancoliti s without complication K51.00 [facility] [address] [place] [phone] 06/22/2024 Javi Donovan Ulcerative pancoliti s without complication K51.00 [facility] [address] [place] [phone] 06/08/2024 Javi Donovan [facility] [address] [place] [phone] 07/19/2024 Javi Donovan Ulcerative pancoliti s without complication K51.00 Assessments Encounter Date Diagnosis (ICD Code) Assessment Notes Treatment Notes Treatment Clinical Notes Section Notes 12/02/2023 Ulcerative pancolitis without complication (ICD-10 - K51.00) Continue the one 5mg prednisone daily terminal makeup operator to try to keep the colitis [...] K51.00) Continue the one 5mg prednisone daily longterm to try to keep the colitis quiet [...] CBC w DIFF 09/30/2014 SED RATE (ESR) 06/27/2023 SED RATE (ESR) 08/08/2022 SED RATE (ESR) 06/28/2021 HEPATITIS B PROFILE 08/08/2022 CLOSTRIDIUM DIFF TOXIN [...] Name:Javi Radha Donovan , 06/23/2025 11:00:00 AM, [address] [place] [address], [address], [place], [address], Insurance Providers Payer Name Payer Address Payer Phone Subscriber Number Group Number Insured Name Patient Relationship to Insured Coverage Start Date Coverage End Date MED[place]ARE [place] [address] [place] [address] [phone] [id number] JULIANNA KLEIN Self - patient is the insured [employer] ATT[employer] CLAIMS [address] [place] [address] [phone] [id number] JULIANNA KLEIN Self - patient is the insured Medical (General) History Medical History History ICD Code Ulcerative colitis diagnosed in 1994 Tubular adenomas of the colon Denies DE,DM,CVA,Lung disease,renal dise ase Hyperlipidemia Pneumonia--hospitalized twic e [...]
--- OUTSIDE RECORDS SUMMARY | 2024-11-11 10:41 | XMS_ITS ---
Author Organization [facility] Address [address] [place] [address] Care Team Providers Care Location And Measurement Technician Name Role Phone Kamar DOMINIQUE, Reyes Primary Care Provider Javi Collins Unavailable [phone] REASON FOR VISIT potassium Encounters Encounter Location Date Provider Diagnosis [facility] [address] [place] [address] 06/08/2024 Javi Donovan Plan Of Treatment Next Appt Details Provider Name:Javi Donovan , 06/23/2025 11:00:00 AM, [address], [address], [place], [address], Progress Notes * JULIANNA LEDESMADOB: [birth year] (78 yo M)Acc No.[id number]:06/08/2024 Patient:?JULIANNA LEDESMA :1945???Age:78 Y???Sex:Male Address:[address] [place] [address], [place] [id number] * true * Date:? Generated for Vidali antonia/Hailey/eTransmitting on:?11/11/2024 10:40 AM EDT
--- OUTSIDE RECORDS SUMMARY | 2024-11-11 10:41 | XMS_ITS ---
Author Organization [facility] Address [address] [place] [address] Care Team Providers Care Employment Evaluator/Case Manager Name Role Phone Kamar DOMINIQUE, Reyes Primary Care Provider Javi Collins Unavailable [phone] Allergies No Known Allergies REASON FOR VISIT [...] 06/22/2024 Encounters Encounter Location Date Provider Diagnosis [facility] [address] [place] [phone] 06/22/2024 Javi Donovan Ulcerative pancoliti s without complication K51.00 Assessments Encounter Date Diagnosis (ICD Code) Assessment Notes Treatment Notes Treatment Clinical Notes Section Notes 06/22/2024 Ulcerative pancolitis without complication (ICD-10 - K51.00) Continue the one 5mg prednisone daily manager long term care to try to keep the colitis [...] Provider Name:Javi Donovan , 06/23/2025 11:00:00 AM, [address] [place] [address], Suite [facility], [place], [address], Progress Notes * JULIANNA KLEINDOB: [birth year] (79 yo M)Acc No.[id number]:06/22/2024 Progress Notes Patient:?JULIANNA KLEIN Provider:?Javi Donovan MD :1945???Age:78 Y???Sex:Male Adrian e:06/22/2024 Address:[address] [place] [address], [place], [place] Pcp:Reyes Galvin MD Subjective: * Chief Complaints: [...] EVERY MORNING.?? * Procedure Codes:?1036F TOBAC CO NON-OXDEG3525 BP SCR NOT PRFRM REC REASON NOS [...] MD Date:? 024 Generated for Shikha knight/Hailey/Malorieitting on:?11/11/2024 10:41 AM EDT History and Physical Notes * HPI [...]
--- OUTSIDE RECORDS SUMMARY | 2024-11-11 10:41 | XMS_ITS ---
Author Organization [facility] Address [address] [facility] [address] [place] [address] Care Team Providers Care Lieutenant General Name Role Phone Reyes Galvin MD Primary Care Provider Javi Collins [phone] REASON FOR VISIT REFILL PREDNISONE Medications Medication SIG (Take, Route, Fr equency, Duration) Notes Start Date End Date Status predniSONE 5 MG 1 tablet Orally Once a day for 90 days Active Encounters Encounter Location Date Provider Diagnosis [facility] [address] [facility] [address] [place] [phone] 07/19/2024 Javi Donovan Ulcerative pancoliti s without [...] Provider Name:Javi Donovan , 06/23/2025 11:00:00 AM, [address] [place] [address], Suite [facility], [place], [address], Progress Notes * JULIANNA LEDESMADOB: [birth year] (79 yo M)Acc No.[id number]:07/19/2024 Patient:?JULIANNA LEDESMA :1945???Age:79 Y???Sex:Male Address:[address] [place] [address], [place] [address] * Refills? Refill predniSONE Tablet, 5 MG, Orally, 90 Tablet, 1 tablet, Once a day, 90 days, Refills=3 * true * Date:? Generated for Shikha knight/Hailey/Malorieitting on:?11/11/2024 10:40 AM EDT
== END 2024-11-11 10:18 | disposition home or self-care (01) ==
LOC: HO.HPS 09:38
PROVIDERS: PCP Internal Medicine; Visit Provider Internal Medicine
DX: J44.9 Chronic obstructive pulmonary disease, unspecified (principal); R09.02 Hypoxemia; J18.9 Pneumonia, unspecified organism
CPT/HCPCS: 99213

== ENCOUNTER 2024-11-11 09:38 | Outpatient (REF) | payer MEDICARE, SELFPAY ==
--- NOTE | ~2024-11-11 | XR_ITS ---
EXAMINATION: XR CHEST CLINICAL INFORMATION: J18.9 - Pneumonia, unspecified organism; follow-up from prior. COMPARISON: 09/10/2024, 09/03/2024. TECHNIQUE: 2 views of the chest were obtained. FINDINGS: Mild cardiac enlargement, similar. Mediastinal and hilar contours are normal. Lungs demonstrate persistent, possibly minimally improved airspace opacity in the right lower lobe. There is no pneumothorax or pleural effusion. There is no focal osseous or soft tissue abnormality. XR/XR chest 2V IMPRESSION: Persistent, possibly minimally improved airspace opacity right lower lobe. Findings likely reflect persistent residual changes of right lower lobe pneumonia, as radiographic findings can be delayed even though clinical findings may have improved. Recommend additional follow-up in 6-8 weeks to ensure resolution. If no resolution of that time, CT chest would be warranted. Electronically signed by: José Carter MD 11/12/2024 08:52 AM EDT
== END 2024-11-11 09:39 | disposition home or self-care (01) ==
LOC: HO.XRAY 09:38
PROVIDERS: PCP Internal Medicine; Visit Provider Internal Medicine
DX: J18.9 Pneumonia, unspecified organism (principal); J44.9 Chronic obstructive pulmonary disease, unspecified; R09.02 Hypoxemia
CPT/HCPCS: 71046; 99212

== ENCOUNTER → 2024-11-11 10:24 | Outpatient (BNV) | payer MEDICARE, SELFPAY | PROVIDERS: PCP Internal Medicine; Visit Provider Radiology Diagnostic Radiology | DX: J18.9 Pneumonia, unspecified organism (principal) | CPT/HCPCS: 71046 ==

== ENCOUNTER 2024-12-14 10:47 | Outpatient (AMB) | payer MEDICARE, SELFPAY ==
[2024-12-14 10:57] VITALS: BP 132/86; PULSE 96; O2SAT 91; BMI 33.4
--- NOTE | 2024-12-14 10:59 | MHC.PC.OV ---
Vital Signs 12/14/24 10:57 Height 5 ft 7 in Weight 213 lb 8 oz BMI 33.4 BP 132/86 Blood Pressure Location Lt brachial Position Sitting Pulse 96 Pulse Source Pulse Oximeter Pulse Oximetry (%) 91 L Oxygen Delivery Method Room Air Intake Visit Reasons: Hypertension Intelligence Operations Specialist Required: No Accompanied by: Self / Same As Patient Allergies No Known Allergies Allergy (Verified 12/14/24 11:06) Medication List - Last Reconciled 12/14/24 by Reyes Galvin MD amlodipine 5 mg See Protocol PO DAILY cholecalciferol (vitamin D3) 25 mcg PO DAILY lisinopril 10 mg See Protocol PO DAILY mesalamine ER (Apriso) 1.5 grams PO DAILY prednisone 5 mg PO DAILY simvastatin 20 mg PO BEDTIME terazosin 5 mg PO BEDTIME 90 days Tobacco use date assessed: 12/14/24 Fall risk assessment: No Falls in past year Last assessed Fall Risk: 12/14/24 Dental Screening Dental Screen Date: 12/14/24 Did you have a dental visit in the last 12 months?: Yes Did you have a dental problem in the last 6 months where you did not have access to dental care?: No Was dental information given to patient?: Patient has dentist HPI Hypertension HPI Details Patient comes in today for his follow up visit States that he currently feels okay He was diagnosed with penile cancer recently - this was discovered during evaluation for pneumonia and inability to place a Barrera catheter back in August 2024 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 Zamudio Patient denies any headaches or dizziness Denies any chest pains, no increased SOB - he still has his oxygen to use when needed No nausea/vomiting, no abdominal pain No change in bowel habits noted He was not able to get his follow up labs done prior to his appointment today - states that he has not really eaten anything yet this morning and will go and get his labs done right after his office visit today Patient also had follow up chest x-rays done last month with Dr. Hoyt that revealed (+) persistent airspace opacity at the right lower lobe that likely reflects persistent residual changes of the right lower lobe pneumonia that he had a couple of months ago He is recommended to have repeat chest x-rays done in 6 to 8 weeks to ensure resolution and if no changes, then a chest CT would be warranted [facility] Medical History Allergic rhinosinusitis Obesity (BMI 30-39.9) Vitamin D deficiency Impaired fasting glucose Ulcerative colitis COPD (chronic obstructive pulmonary disease) Pure hypercholesterolemia Exercise hypoxemia COPD (chronic obstructive pulmonary disease) case management patient Surgical History No pertinent past surgical history Family History Father Medical history unknown Mother Cancer Social History Household Members: None Housing: House Do you presently have visiting nurse or other home services: No Alcohol intake: former Patient Tobacco Use Status: Former Tobacco user Years Smoked: 8 years ago e-Cigarette/Vaping Use: Never Used Second Hand Smoke Exposure: Yes service: No Current occupational status: retired Cognitive needs: No Hearing needs: Yes Vision needs: Yes Questionnaire PHQ-9 Over the last 2 weeks, how often have you been bothered by any of the following problems? 1. Little interest or pleasure in doing things: nearly every day 2. Feeling down, depressed, or hopeless: nearly every day 3. Trouble falling or staying asleep, or sleeping too much: not at all 4. Feeling tired or having little energy: nearly every day 5. Poor appetite or overeating: not at all 6. Feeling bad about yourself - or that you are a failure or have let yourself or your family down: not at all 7. Trouble concentrating on things, such as reading the newspaper or watching television: not at all 8. Moving or speaking so slowly that other people could have noticed. Or the opposite - being so fidgety or restless that you have been moving around a lot more than usual: not at all 9. Thoughts that you would be better off or of hurting yourself in some way: not at all Total score: 9 Depression Screening Interpretation: Positive Depression Screening Follow-up: Follow-up Visit Requested Depression Screening Done: Yes 99243 - PHQ-9 Billing: Yes Source: Developed by Drs. Javi LElaina Grande Kurt Kroenke and colleagues, with an educational vee from [employer]. Thrive Questionnaire Date Thrive assessed: 12/14/24 I am a: Patient What is your living situation today?: I have a steady place to live Within the past 12 months, did the food you bought not last and you didn't have the money to get more?: Never true Within the past 12 months, did you worry whether your food would run out before you got money to buy more?: Never true Do you have trouble paying for medicines?: No Do you have trouble getting transportation to medical appointments?: No Do you have trouble paying your heating and electricity bill?: No Do you have trouble taking care of your child, family member or friend?: I choose not to answer this question Do you have trouble with day-to-day activities such as bathing, preparing meals, shopping, managing finances, etc.?: I choose not to answer this question Are you currently unemployed and looking for a job?: I choose not to answer this question Are you interested in more education?: I choose not to answer this question Please select the resources that you would like help with: None Currently or been in a relationship where the following occur: No concerns reported THRIVE Score: 0 AUDIT C Alcohol Use Questionnaire (AUDIT-C) 1. How often do you have a drink containing alcohol?: Never 3. How often do you have six or more drinks on one occasion?: Never Total Score: 0 Score Reviewed/Action Taken: Yes SHONDA-7 AMB Questionnaire SHONDA-7 Date SHONDA - 7 assessed: 12/14/24 Feeling nervous, anxious, or on edge: 3 = Nearly every day Not being able to stop or control worryin = Nearly every day Worrying too much about different things: 3 = Nearly every day Trouble relaxin = Nearly every day Source: Developed by Drs. Javi Moraes, Jerod Patel and colleagues, with an educational vee from [employer]. Review of Systems Const Denies chills, Reports fatigue, Denies fever(s) and Denies headache(s) ENT Denies dysphagia, Denies dizziness, Denies otalgia, Denies headache(s), Denies neck pain, Denies odynophagia and Denies sore throat Card Denies chest pain, Denies palpitations and Reports dyspnea on exertion (currently needs oxygen, especially when he is moving around) Resp Denies chest congestion, Denies cough and Reports dyspnea on exertion (currently needs oxygen, especially when he is moving around) GI Denies abdominal pain, Denies hematochezia, Denies dysphagia, Denies heartburn, Denies diarrhea, Denies nausea, Denies odynophagia and Denies vomiting Reports difficulty urinating, Denies nocturia and Denies urinary frequency Musc Denies back pain, Denies arthralgias and Denies neck pain Skin/Breast Denies rash Neuro Denies dizziness and Denies headache(s) Endo Reports fatigue and Denies palpitations Physical exam (Primary Care) Vital Signs: Last Vital Signs Pulse 96 12/14/24 10:57 BP 132/86 12/14/24 10:57 Pulse Ox 91 L 12/14/24 10:57 Oxygen Delivery Method Room Air 12/14/24 10:57 BMI result Body Mass Index 33.4 Tobacco/Smoking Status: Tobacco use Status Tobacco use date assessed 12/14/24 12/14/24 11:02 Patient Tobacco Use Status Former Tobacco user 12/14/24 11:02 e-Cigarette/Vaping Use Never Used 12/14/24 11:02 PHQ-9: PHQ-9 Score PHQ-9: Total score 9 12/14/24 12:58 Depression Screening Interpretation: Positive Depression Screening Follow-up: Follow-up Visit Requested Thrive Assessment: Date of Thrive Assessment Date Thrive assessed 12/14/24 12/14/24 11:02 Currently or been in a relationship where the following occur: No concerns reported Const General: no acute distress and alert HENMT Ears: TM's normal bilaterally and EAC's normal Throat: Yes posterior oropharynx normal and Yes tonsils normal (no TP congestion noted) Neck Neck: Yes supple and No lymphadenopathy Thyroid: Thyroid normal Resp Auscultation: clear to auscultation bilaterally, no rales and no wheezes Cardio Rate: regular rate Rhythm: regular rhythm Heart sounds: no murmurs GI Palpation (GI): Soft to palpation and nontender Auscultation: normal bowel sounds General: Yes no CVA tenderness Back/Spine/Pelvis Back: no CVA tenderness Skin Rashes: no rashes Extrem General: Yes no clubbing, cyanosis or edema Coding Level of Care Code Est Pt Level 4 (77353) Diagnoses Opacity of lung on imaging study R91.8 Penile cancer C60.9 Pure hypercholesterolemia E78.00 Chronic obstructive pulmonary disease, unspecified COPD type J44.9 COPD type: unspecified COPD Ulcerative colitis without complications, unspecified location K51.90 Ulcerative colitis location: unspecified ulcerative colitis location Digestive disease complication type: without complication Elevated blood pressure reading in office without diagnosis of hypertension R03.0 Impaired fasting glucose R73.01 Hypokalemia E87.6 Vitamin D deficiency E55.9 Obesity (BMI 30-39.9) E66.9 Additional Codes PHQ-9 - 49424 - PHQ-9 Billing: Yes ([id number]) Assessment & Plan Assessment & Plan (1) Opacity of lung on imaging study: Code(s): R91.8 - Other nonspecific abnormal finding of lung field Category: Medical Plan: Will send patient for repeat chest x-rays for follow up (2) Penile cancer: Code(s): C60.9 - Malignant neoplasm of penis, unspecified Category: Medical Plan: This was discovered during evaluation for pneumonia and inability to place a Barrera catheter back in August 2024 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 Zamudio (3) Pure hypercholesterolemia: Code(s): E78.00 - Pure hypercholesterolemia, unspecified Category: Medical Plan: Patient was not able to get his follow up labs done prior to his appointment today and will go and get these done HILDA Reinforced low cholesterol diet Continue Simvastatin 20 mg QD Will recheck his labs and fasting lipids in 6 months for follow up (4) COPD (chronic obstructive pulmonary disease): Comment: He has mild to moderate degree of chronic obstructive pulmonary disease. (LAST SPIROMETRY IN 2019 MILD OBSTRUCTIVE PULM . DISORDER ) Has had no acute exacerbation. Has not required to use any long-acting bronchodilators, has also hardly needed to use the rescue inhaler. Overall his COPD status is mild and remaining very stable .. CURRENTLY HE IS ON PREDNISONE5 MG A DAY FOR HIS IBD . Code(s): J44.9 - Chronic obstructive pulmonary disease, unspecified Category: Medical Qualifiers: COPD type: unspecified COPD Qualified Code(s): J44.9 - Chronic obstructive pulmonary disease, unspecified Plan: Controlled He has not really required any inhalers or oxygen inhalation over the past few years and has had no problems or significant restrictions with his daily activities other than some SOB with increased exertion Follow up with pulmonary (Dr. Hoyt) as scheduled (5) Ulcerative colitis: Comment: Repeat colonoscopy done in 2019 - biopsies showed (+) chronic colitis but no dysplastic changes Code(s): K51.90 - Ulcerative colitis, unspecified, without complications Category: Medical Qualifiers: Ulcerative colitis location: unspecified ulcerative colitis location Digestive disease complication type: without complication Qualified Code(s): K51.90 - Ulcerative colitis, unspecified, without complications Plan: Repeat colonoscopy in 2019 showed (+) chronic colitis on his biopsies but no dysplastic changes Continue Mesalamine ER 1.5 gm Q AM; he takes oral Prednisone as needed for flare ups of his colitis Follow up with GI (Dr. Donovan) as scheduled (6) Elevated blood pressure reading in office without diagnosis of hypertension: Code(s): R03.0 - Elevated blood-pressure reading, without diagnosis of hypertension Category: Medical Plan: Reinforced low sodium diet - goal is systolic BP of at least at 130 to 140 mm or less Patient is reminded to continue monitoring his blood pressure regularly (7) Impaired fasting glucose: Code(s): R73.01 - Impaired fasting glucose Category: Medical Plan: His FBS was normal at 89 mg/dl on his recent labs His HgbA1c was normal at 5.4%; was previously at 6.2% a few months ago Reinforced low calorie diet/exercise as tolerated Will continue to monitor his blood sugar regularly (8) Hypokalemia: Code(s): E87.6 - Hypokalemia Category: Medical Plan: Unknown etiology - patient denies any recent nausea/vomiting or diarrhea and he is not on any medications that can cause hypokalemia His serum potassium level has been normal over the past several months Will continue to monitor his serum potassium level regularly (9) Vitamin D deficiency: Code(s): E55.9 - Vitamin D deficiency, unspecified Category: Medical Plan: Continue Vitamin D3 1000 units QD (10) Obesity (BMI 30-39.9): Comment: This is a chronic problem, partly promoted by his frequently usage of prednisone for inflammatory bowel disease. He will continue to try losing more weight. Denies symptoms of obstructive sleep apnea. Code(s): E66.9 - Obesity, unspecified Category: Medical Plan: Reinforced diet/exercise as tolerated/lose weight although his activity tolerance is limited by his COPD Plan Follow up in 6 months Orders: Orders XR chest 2V 01/17/25 R91.8 - Other nonspecific abnormal finding of lung field Complete Blood Count Auto Diff 6 Months D64.9 - Anemia, unspecified UA CC w/rflx Micro + Cult 6 Months R30.0 - Dysuria Comprehensive [place]. Panel Fast 6 Months E78.00 - Pure hypercholesterolemia, unspecified Lipid Panel 6 Months E78.00 - Pure hypercholesterolemia, unspecified Hemoglobin A1c 6 Months R73.01 - Impaired fasting glucose TSH reflex Free T4 6 Months E78.00 - Pure hypercholesterolemia, unspecified Vitamin D 25-OH Total 6 Months E55.9 - Vitamin D deficiency, unspecified Vitamin B12 and Folate 6 Months E53.8 - Deficiency of other specified B group vitamins
--- OUTSIDE RECORDS SUMMARY | 2024-12-14 11:36 | XMS_ITS | Patient Health Record ---
Author Organization [facility] Address [address] [place] [address] Care Team Providers Care Contract Specialist Name Role Phone Darell Galvin MDh Primary Care Provider Javi Collins Unavailable [phone] Allergies No Known Allergies Reason For Referral [...] Problem Status W/U Status Risk Notes Problem 946842439 Encounter for screening for malignant neoplasm of colon (Z12.11) Active confirmed Problem 832931187 History of adenomatous polyp of colon (Z86.010) Active confirmed Problem 86100541 Weight loss (R63.4) Active confirmed Problem Screening for malignant neoplasm of rectum (440323151) Encounter for screening for malignant neoplasm of rectum (Z12.12) Active confirmed Problem 185642366 Elevated liver function tests (R79.89) Active confirmed Problem 437052462 Family history of colon cancer (Z80.0) Active confirmed Problem 488378122 Ulcerative pancolitis without complication (K51.00) Active confirmed Problem 81107604476828770 Abnormal gallbladder ultrasound (R93.2) Active confirmed Problem Chronic ulcerative pancolitis (838833393) Ulcerative pancolitis with rectal bleeding (K51.011) Active confirmed Problem 423992521 Abdominal pain, generalized (R10.84) Active confirmed Problem 63814843 Diarrhea, unspecified type (R19.7) Active confirmed Problem 73077857 Diarrhea of presumed infectious origin (R19.7) Active confirmed Vital Signs Blood pressure diastolic 00 mm Hg 06/22/2024 Height 65 in 06/22/2024 Blood pressure systolic 00 mm Hg 06/22/2024 Weight 216 lbs 06/22/2024 BMI 35.94 kg/m2 06/22/2024 Encounters Encounter Location Date Provider Diagnosis [facility] [address] [place] [phone] 06/22/2024 Javi Donovan Ulcerative pancoliti s without complication K51.00 [facility] [address] [place] [phone] 06/08/2024 Javi Donovan [facility] [address] [place] [phone] 07/19/2024 Javi Donovan Ulcerative pancoliti s without complication K51.00 Assessments Encounter Date Diagnosis (ICD Code) Assessment Notes Treatment Notes Treatment Clinical Notes Section Notes 06/22/2024 Ulcerative pancolitis without complication (ICD-10 - K51.00) Continue the one 5mg prednisone daily residential to try to keep the colitis quiet [...] Test Name Order Date CHEM 7 PROFILE 06/28/2011 CHEM 7 PROFILE 06/27/2023 CHEM 7 PROFILE 08/08/2022 CHEM 7 PROFILE 06/28/2021 LIVER PROFILE 09/30/2014 LIVER PROFILE 06/27/2023 LIVER PROFILE 08/08/2022 LIVER PROFILE 06/28/2021 LIVER PROFILE 05/31/2021 CRP 06/28/2021 CRP 06/27/2023 CRP 08/08/2022 CBC w DIFF 06/27/2023 CBC w DIFF [...] STOOL 06/28/2021 US ABD 02/29/2020 STOOL WBC 06/27/2023 STOOL WBC 08/08/2022 STOOL WBC 06/28/2021 C DIFFICILE RFLX PCR 06/28/2021 C DIFFICILE RFLX PCR 06/27/2023 C DIFFICILE RFLX PCR 08/08/2022 Calprotectin, Fecal 06/27/2023 GI PANEL 06/27/2023 GI PANEL 08/08/2022 Future Test Test Name Order Date COLONOSCOPY 07/04/2015 COLONOSCOPY 05/29/2018 Next Appt Details Provider Name:Javi Donovan , 06/23/2025 11:00:00 AM, [address], [address], [place], [address], Insurance Providers Payer Name Payer Address Payer Phone Subscriber Number Group Number Insured Name Patient Relationship to Insured Coverage Start Date Coverage End Date MEDICARE OF [place] [address] [place] [address] [id number] JULIANNA KLEIN Self - patient is the insured [employer] ATT[employer] CLAIMS [address] [place] [address] [id number] JULIANNA KLEIN Self - patient is the insured Medical (General) History Medical History History ICD Code Ulcerative colitis diagnosed in 1994 Tubular adenomas of the colon Denies [place],DM,CVA,Lung disease,renal dise ase Hyperlipidemia Pneumonia--hospitalized twic e [...] Gilbert's Flare up of colitis in Decem jorge luis of 2020 that responded well to 8 [...]
== END 2024-12-14 11:23 | disposition home or self-care (01) ==
LOC: HO.HMCH 10:48
PROVIDERS: PCP Internal Medicine; Visit Provider Internal Medicine
DX: J44.9 Chronic obstructive pulmonary disease, unspecified (principal); C60.9 Malignant neoplasm of penis, unspecified; K51.90 Ulcerative colitis, unspecified, without complications; R91.8 Other nonspecific abnormal finding of lung field; E78.00 Pure hypercholesterolemia, unspecified; R03.0 Elevated blood-pressure reading, without diagnosis of hypertension; R73.01 Impaired fasting glucose; E87.6 Hypokalemia; E55.9 Vitamin D deficiency, unspecified; E66.9 Obesity, unspecified

== ENCOUNTER → 2024-12-14 10:47 | Outpatient (BNVA) | payer MEDICARE, SELFPAY | PROVIDERS: PCP Internal Medicine; Visit Provider Internal Medicine | DX: R91.8 Other nonspecific abnormal finding of lung field (principal); C60.9 Malignant neoplasm of penis, unspecified; E78.00 Pure hypercholesterolemia, unspecified; J44.9 Chronic obstructive pulmonary disease, unspecified; K51.90 Ulcerative colitis, unspecified, without complications; R03.0 Elevated blood-pressure reading, without diagnosis of hypertension; R73.01 Impaired fasting glucose; E87.6 Hypokalemia; E55.9 Vitamin D deficiency, unspecified; E66.9 Obesity, unspecified; Z68.33 Body mass index [BMI] 33.0-33.9, adult; Z71.3 Dietary counseling and surveillance | CPT/HCPCS: 96127; 99212 ==

== ENCOUNTER → 2024-12-20 12:49 | Outpatient (BNV) | payer MEDICARE, SELFPAY | PROVIDERS: Admitting Provider Urology; PCP Internal Medicine; Visit Provider Radiology Diagnostic Radiology | DX: R91.8 Other nonspecific abnormal finding of lung field (principal) | CPT/HCPCS: 71046 ==

== ENCOUNTER 2024-12-22 13:07 | Outpatient (AMB) | payer MEDICARE, SELFPAY ==
--- NOTE | 2024-12-22 13:16 | A.OFFVIS_ITS ---
Intake Visit Reasons: H&P Distal Penectomy Intake Note: Patient is present for H&P DISTAL PENECTOMY Urology Medication:TERAZOSIN Antibiotic Allergy:NONE Blood Thinner:NONE TODAY'S PVR:0ML'S Candle Extrusion Machine Operator Required: No Allergies No Known Allergies Allergy (Verified 12/22/24 13:17) HPI Comments Details: Bright is a very pleasant male. He is a patient of Dr. Galvin. He is seen for the following urologic conditions - penile cancer Preoperative discussion Upcoming plan resection of penile tumor from glans of penis Significant improvement in edema since performing circumcision Lesion more clearly demarcated within glans possibility of glans sparing however unlikely secondary to MRI results Plan length of stay 3 days, 2 evenings will require Barrera catheter for 7 days to allow healing Here for discussion of MRI MRI There is disruption of the tunica albuginea at the distal aspect on the right with suspected involvement of the adjacent right corpora. 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 A tie-over dressing for graft application in distal penectomy and glans resurfacing: the TODGA technique. BJU Int. 2010;107(5):836-840 [facility] Medical History (Updated 12/20/24 @ 12:19 by Yaneli Marie RN) HTN (hypertension) TABLE M[place]AIN (hard of hearing) Allergic rhinosinusitis Obesity (BMI 30-39.9) Vitamin D deficiency Impaired fasting glucose Ulcerative colitis COPD (chronic obstructive pulmonary disease) Pure hypercholesterolemia Exercise hypoxemia COPD (chronic obstructive pulmonary disease) case management patient Surgical History (Updated 12/20/24 @ 12:06 by Yaneli Marie RN) Hx of circumcision (~08/2024) Hx of colonoscopy (2019) Family History Father Medical history unknown Mother Cancer Social History (Updated 12/20/24 @ 13:02 by Yaneli Marie RN) Household Members: None Housing: House Are you a primary career portals teacher to a significant other at home: No Do you presently have visiting nurse or other home services: No 75 years or older and lives alone: Yes Alcohol intake: former Patient Tobacco Use Status: Former Tobacco user Tobacco use type: Cigarette Years Smoked: quit smoking 8 years ago e-Cigarette/Vaping Use: Never Used Second Hand Smoke Exposure: Yes service: No Current occupational status: retired Cognitive needs: No Hearing needs: Yes Vision needs: Yes Review of Systems Const Denies chills and Denies fever(s) Card Reports no additional complaints and Denies syncope Resp Denies cough GI Denies abdominal pain and Denies heartburn Reports as per HPI and Denies change in libido Neuro Denies syncope Psych Denies change in libido Endo Denies change in libido Physical Exam Const General: cooperative, healthy appearing, comfortable and no acute distress Orientation/consciousness: patient oriented x3 HEENT Face and sinus: Yes normal facial exam Mouth: moist mucous membranes Neck Neck: Yes normal visual inspection, Yes full ROM and Yes trachea midline Chest Chest palpation & inspection: normal inspection of the chest Resp Effort & Inspection: normal respiratory effort, able to speak in complete sentences and no respiratory distress GI Inspection: Yes normal to inspection Back/Spine/Pelvis Cervical Spine: normal cervical lordosis Thoracic/Lumbar Spine: thoracic and lumbar spine normal to inspection Skin General skin exam: no rashes or lesions noted Neuro General: patient oriented x3, gait normal, tone normal and moves all extremities Extrem General: Yes normal to inspection and Yes capillary refill normal Office Procedures Post Void Residual Post Residual Void Post Void Residual (PVR): 0 55300-Xdhl Void Residual by ultrasound Assessment & Plan Assessment & Plan (1) Penile cancer: Code(s): C60.9 - Malignant neoplasm of penis, unspecified Category: Medical Plan Risks, benefits and alternatives to therapy were discussed. These include but are not limited to infection, bleeding, damage to local organs and tissues, need for further interventions. Anesthetic risks regarding cardiac arrhythmia, blood clots, and potential mortality were discussed. The patient understands the typical recovery time and the outpatient nature of the procedure. After consideration of these risks the patient gives full informed consent and they wish to move ahead with the procedure. Orders: Orders AMB Urinalysis Automated Today Z13.9 - Encounter for screening, unspecified Patient Instructions: This note is constructed using voice recognition software. While every effort has been made to ensure accuracy brim edge trimmer errors may have been included. Imaging studies, laboratory and physical exam results were discussed and reviewed in detail. No major barriers to patient understanding were identified. An opportunity to ask questions regarding the treatment plan was provided. All questions were answered. The patient expressed understanding and agreement with the above treatment plan. The patient is aware they should contact our office by phone for worsening of their current condition or the appearance of new urologic symptoms. Compliance is encouraged with any medications and followup testing that is ordered. It is a privilege to participate in the urologic care of your patient. If you have any questions or concerns regarding treatment for the above conditions, or other urologic issues, please do not hesitate to contact me. The office telephone contact is [phone]. Sincerely, Dr Liang Zamudio MD, COM[facility] - Urology Compassionate Specialist Care for the Genitourinary System Coding Level of Care Code Est Pt Level 4 (45368) Complex EM visit Add On G2211 Diagnoses Penile cancer C60.9 CPT Codes Post Residual Void - PVR CPT Code: 70675-Tnsm Void Residual by ultrasound ([id number])
--- OUTSIDE RECORDS SUMMARY | 2024-12-22 13:28 | XMS_ITS | Patient Health Record ---
Author Organization [facility] Address [address] [place] [address] Care Team Providers Care Merchandise Clerk Name Role Phone Darell Galvin MDh Primary Care Provider Javi Collins Unavailable [phone] Allergies No Known Allergies Reason For Referral [...] Problem Status W/U Status Risk Notes Problem 178597873 Encounter for screening for malignant neoplasm of colon (Z12.11) Active confirmed Problem 646943581 History of adenomatous polyp of colon (Z86.010) Active confirmed Problem 55116172 Weight loss (R63.4) Active confirmed Problem Screening for malignant neoplasm of rectum (141149339) Encounter for screening for malignant neoplasm of rectum (Z12.12) Active confirmed Problem 301698745 Elevated liver function tests (R79.89) Active confirmed Problem 757017942 Family history of colon cancer (Z80.0) Active confirmed Problem 171440205 Ulcerative pancolitis without complication (K51.00) Active confirmed Problem 71877344011371550 Abnormal gallbladder ultrasound (R93.2) Active confirmed Problem Chronic ulcerative pancolitis (105024632) Ulcerative pancolitis with rectal bleeding (K51.011) Active confirmed Problem 350666598 Abdominal pain, generalized (R10.84) Active confirmed Problem 41773352 Diarrhea, unspecified type (R19.7) Active confirmed Problem 16602570 Diarrhea of presumed infectious origin (R19.7) Active confirmed Vital Signs Blood pressure diastolic 00 mm Hg 06/22/2024 Height 65 in 06/22/2024 Blood pressure systolic 00 mm Hg 06/22/2024 Weight 216 lbs 06/22/2024 BMI 35.94 kg/m2 06/22/2024 Encounters Encounter Location Date Provider Diagnosis [facility] [address] [place] [phone] 06/22/2024 Javi Donovan Ulcerative pancoliti s without complication K51.00 [facility] [address] [place] [phone] 06/08/2024 Javi Donovan [facility] [address] [place] [phone] 07/19/2024 Javi Donovan Ulcerative pancoliti s without complication K51.00 Assessments Encounter Date Diagnosis (ICD Code) Assessment Notes Treatment Notes Treatment Clinical Notes Section Notes 06/22/2024 Ulcerative pancolitis without complication (ICD-10 - K51.00) Continue the one 5mg prednisone daily long-term [...] 11:00:00 AM, [address], [address], [place], [address], Insurance Providers Payer Name Payer Address Payer Phone Subscriber Number Group Number Insured Name Patient Relationship to Insured Coverage Start Date Coverage End Date MEDICARE OF [place] [address] [place] [address] [id number] JULIANNA KLEIN Self - patient is the insured [employer] ATT[employer] CLAIMS [address] [place] [phone] [id number] JULIANNA KLEIN Self - patient is the [...]
== END 2024-12-22 13:47 | disposition home or self-care (01) ==
LOC: HO.HUSH 13:07
PROVIDERS: PCP Internal Medicine; Visit Provider Urology
DX: C60.9 Malignant neoplasm of penis, unspecified (principal)
CPT/HCPCS: 99214; G2211

== ENCOUNTER → 2024-12-22 13:07 | Outpatient (BNVA) | payer MEDICARE, SELFPAY | PROVIDERS: PCP Internal Medicine; Visit Provider Urology | DX: C60.9 Malignant neoplasm of penis, unspecified (principal) | CPT/HCPCS: 51798; 99212 ==

== ENCOUNTER 2024-12-24 07:35 | Outpatient (REF) | payer MEDICARE, SELFPAY ==
--- NOTE | ~2024-12-24 | CT_ITS ---
CLINICAL HISTORY: R91.8 - Other nonspecific abnormal finding of lung field --- Additional Notes or Sp ecial Instructions: Persistant opacity in Rt Lower lobe , not resolving , Post CPAP . CT chest without contrast Comparison: CR/SR - XR CHEST 2V - 12/20/24 13:00 EDT CR/KY/SR - XR CHEST 2V - 09/10/24 14:22 EST Findings: The heart is normal size. The visualized thyroid and mediastinum are unremarkable. No consolidation or effusion. There are areas of scarring in the lower lobes bilaterally. No worrisome opacities are noted. The visualized upper abdomen is unremarkable. The bones are intact. IMPRESSION: 1. No acute process. This document has been electronically signed by: Marbin Zamora MD on 12/24/2024 09:16:15
== END 2024-12-24 07:36 | disposition home or self-care (01) ==
LOC: HO.CT 07:35
PROVIDERS: PCP Internal Medicine; Visit Provider Internal Medicine
DX: R91.8 Other nonspecific abnormal finding of lung field (principal)
CPT/HCPCS: 71250

== ENCOUNTER → 2025-01-03 07:30 | Outpatient (BNV) | payer MEDICARE, SELFPAY | PROVIDERS: Admitting Provider Urology; PCP Internal Medicine; Visit Provider Surgery | DX: C60.9 Malignant neoplasm of penis, unspecified (principal) | CPT/HCPCS: 15040; 54120 ==

== ENCOUNTER 2025-01-03 10:40 | Day surgery (SDC) | payer MEDICARE, SELFPAY ==
[2024-12-20 12:06] VITALS: BMI 33.5
[2024-12-20 12:11] VITALS: BP 124/60; PULSE 102; RESP 16; O2SAT 97
--- NOTE | 2024-12-20 12:30 | P.CONAN_ITS ---
Documented by User: Kayli Russell NP 12/31/24 09:05 HPI - Anesthesia Eval Consult details Narrative: 79yo M for Distal Penectomy with Split Thickness Skin Graft Jovana, 01/03/25 Pt denies recent illness. [facility] [place] with pna - residual on CXR 10/2024. Will repeat with PAT. 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 Pulmonary wharton he is stable and optimized . Had Chest Xray already today , It still shows residual abnormality in Rt lower lobe , but it is not active pneumonia . COPD: PRN O2 - last used [address] Hoyt. Last office visit 10/2024 for RLL pna. Prednisone 5 mg daily for Ulcerative colitis PMFSH Active Problems Active Problems: All Active Problems Opacity of lung on imaging study (Acute) Diarrhea (Acute) Barrera catheter present (Acute) Urinary obstruction (Acute) Pneumonia (Acute) Penile cancer (Acute) COPD exacerbation (Acute) CAP (community acquired pneumonia) (Acute) Phimosis (Acute) Renal cyst (Acute) Acute UTI (Acute) Nocturia (Acute) Urinary dribbling (Acute) Weak urinary stream (Acute) Hypokalemia (Acute) Elevated blood pressure reading in office without diagnosis of hypertension (Acute) Medicare annual wellness visit, initial (Acute) Allergic rhinosinusitis (Acute) Obesity (BMI 30-39.9) (Acute) Vitamin D deficiency (Acute) Impaired fasting glucose (Acute) Ulcerative colitis (Acute) COPD (chronic obstructive pulmonary disease) (Acute) Pure hypercholesterolemia (Acute) Exercise hypoxemia (Acute) COPD (chronic obstructive pulmonary disease) case management patient (Acute) Past Medical History Medical History HTN (hypertension) [place] (hard of hearing) Allergic rhinosinusitis Obesity (BMI 30-39.9) Vitamin D deficiency Impaired fasting glucose Ulcerative colitis COPD (chronic obstructive pulmonary disease) Pure hypercholesterolemia Exercise hypoxemia COPD (chronic obstructive pulmonary disease) case management patient Family History Family History Father Medical history unknown Mother Cancer Family history of problems with anesthesia: No Surgical History Surgical History Hx of circumcision (~08/2024) Hx of colonoscopy (2019) History of Problems with Anesthesia: No Social History Social History Household Members: None Housing: House Are you a primary hospice spiritual care coordinator to a significant other at home: No Do you presently have visiting nurse or other home services: No Alcohol intake: former Patient Tobacco Use Status: Former Tobacco user Tobacco use type: Cigarette Years Smoked: quit smoking 8 years ago e-Cigarette/Vaping Use: Never Used Second Hand Smoke Exposure: Yes service: No Current occupational status: retired Cognitive needs: No Hearing needs: Yes Vision needs: Yes Meds Allergies Allergy/AdvReac Type Severity Reaction Status Date / Time No Known Allergies Allergy Verified 01/03/25 06:13 Home Medications ?Medication ?Instructions ?Recorded ?Confirmed ?Last Taken ?Type mesalamine 0.375 gram 1.5 g PO DAILY 08/03/20 01/03/25 01/02/25 History capsule,extended release 24 hr (Apriso) prednisone 5 mg tablet 5 mg PO DAILY 09/03/24 01/03/25 01/03/25 History Exam Height,Weight and Vital Signs: Height 5 ft 7 in Weight 97.069 kg Last Vital Signs Pulse 102 H 12/20/24 12:11 Resp 16 12/20/24 12:11 BP 124/60 12/20/24 12:11 Pulse Ox 97 12/20/24 12:11 O2 Del Method Room Air 12/20/24 12:11 Airway Mallampati Class: III TM Dist: >3cm Neck ROM: Full Loose/Missing/Broken Teeth: Yes (1 x Right upper tooth broken, 1 x right lower broken, 1 x implant) Heart: RR - tachy Lungs: RLL faint crackle, otherwise clear Assessment and Plan Assessment Anesthesia Assessment: Anesthesia Plan Discussed and PAT Visit Final Anesthetic Review Family History of Problems with Anesthesia: No History of Problems with Anesthesia: No Documented by User: Scarlett Mix MD 01/03/25 07:36 PMFSH Past Medical History Medical History HTN (hypertension) [place] (hard of hearing) Allergic rhinosinusitis Obesity (BMI 30-39.9) Vitamin D deficiency Impaired fasting glucose Ulcerative colitis COPD (chronic obstructive pulmonary disease) Pure hypercholesterolemia Exercise hypoxemia COPD (chronic obstructive pulmonary disease) case management patient Family History Family History Father Medical history unknown Mother Cancer Surgical History Surgical History Hx of circumcision (~08/2024) Hx of colonoscopy (2019) Social History Social History Household Members: None Housing: House Are you a primary hospice spiritual care coordinator to a significant other at home: No Do you presently have visiting nurse or other home services: No Alcohol intake: former Patient Tobacco Use Status: Former Tobacco user Tobacco use type: Cigarette Years Smoked: quit smoking 8 years ago e-Cigarette/Vaping Use: Never Used Second Hand Smoke Exposure: Yes service: No Current occupational status: retired Cognitive needs: No Hearing needs: Yes Vision needs: Yes Meds Allergies Allergy/AdvReac Type Severity Reaction Status Date / Time No Known Allergies Allergy Verified 01/03/25 06:13 Home Medications ?Medication ?Instructions ?Recorded ?Confirmed ?Last Taken ?Type mesalamine 0.375 gram 1.5 g PO DAILY 08/03/20 01/03/25 01/02/25 History capsule,extended release 24 hr (Apriso) prednisone 5 mg tablet 5 mg PO DAILY 09/03/24 01/03/25 01/03/25 History Assessment and Plan Assessment Anesthesia Assessment: Chart Reviewed Final Anesthetic Review NPO: Yes ASA Class: III Final Preanesthetic Review: Meds/Allgs Chart Reviewed, Consent Obtained/Reviewed and Anes Risks/Benef Reviewed Patient Risk: Intermediate Procedure Risk: Low Anesthetic Plan Anesthetic Plan: GA Disposition: Standard PACU
[2025-01-03] VITALS (9 sets, daily range): BP systolic 122–148; BP diastolic 65–78; PULSE 90–100; RESP 16–20; TEMP 36.1–36.6; O2SAT 92–98; BMI 33.5; BMI 34.0
--- NOTE | ~2025-01-03 | XR_ITS ---
EXAMINATION: XR CHEST CLINICAL INFORMATION: R91.8 - Other nonspecific abnormal finding of lung field COMPARISON: 11/11/2024 TECHNIQUE: 2 views of the chest were obtained. FINDINGS: The cardiac, hilar, and mediastinal contours are normal. Persistent right lower lobe pulmonary opacity. No significant interval change. There is no pneumothorax or pleural effusion. There is no focal osseous or soft tissue abnormality. Degenerative changes of the spine noted. XR/XR chest 2V IMPRESSION: Persistent airspace opacity right lower lobe. Given lack of significant interval change, CT recommended for further evaluation. Electronically signed by: José Carter MD 12/20/2024 02:46 PM EDT
[2025-01-03] MEDS: Lactated Ringers 1,000 ML 100 ML IVCONT (06:38)
--- NOTE | 2025-01-03 07:34 | MHC.SHP ---
Pre-Procedural Eval Section A - 24 Hr Update-Section A only Date of Service: 01/03/25 The patient is an INPATIENT: No Changes since office visit: No Cold of Flu in the past 2 weeks, No New Medical Problems, No Changes in Medication and No Patient answered all questions The patient has been examined within 24 hours of the surgical procedure. The History & Physical has been completed within 30 days and I have reviewed it.: Yes Section B - Complete if H&P > 30 days Chief Complaint: Malignant neoplasm of penis, unspecified Relevant Social History: Tobacco Use Present Medications: see Short Stay Collaborative assessment Medical History: No relevant PMH History of Previous Operations: Relevant previous surgery/procedure and date(s) Allergies: Allergies Allergy/AdvReac Type Severity Reaction Status Date / Time No Known Allergies Allergy Verified 01/03/25 06:13 Review of Systems Sugical H&P ROS: Negative: Constitution, Cardiovascular, Respiratory, Neurological, Psychiatric, Hem-Onc, Allergic/Immunologic, Gastrointestinal, Genitourinary, Musculoskeletal, Integumentary, Endocrine and Eyes/Ears/Nose/Throat Exam Surgical H&P Exam: Normal: HEENT, Normal: Heart, Normal: Lungs, Normal: Extremities, Normal: Abdomen, Normal: Skin and Normal: Neurological Plan Diagnosis/Plan: Unchanged (distal penectomy wioth split thickness skin graft) I have reviewed the history and physical and performed a pertinent physical examination on my patient. No changes have occurred unless specified. Time Spent With Patient Time: Total time managing care of this patient today ____ minutes.
[2025-01-03] MEDS: ceFAZolin Sodium/Dextrose,Iso 2 GM/50 ML PIGGYBACK IV (07:55)
[2025-01-03] MEDS: Fluconazole in NaCl,Iso-Osm 200 MG/100 ML PIGGYBACK 100 MG IV (09:05)
--- NOTE | 2025-01-03 10:05 | P.OP_ITS ---
Operative Note Operative Note Date of Service: 01/03/25 Narrative: Preoperative diagnosis: Penile cancer Postoperative diagnosis: same Procedure: Split-thickness skin graft harvesting from left thigh to penis Surgeon: Candelario Weiss MD, Liang Zamudio MD Coatings Inspector: MAY Collins Anesthesia: General Indications for procedure: 79-year-old male patient presenting with Penile cancer undergoing a resection by Dr. Zamudio. A skin graft was harvested from the left thigh for wound closure following tumor resection. Operative findings: 10 x 5 cm skin graft harvested from the left anterior thigh. Specimen: None Estimated blood loss: 10 mL Complications: None Procedure details: Patient was brought to the OR and placed in a supine position. After administering general anesthesia the patient's pelvis including genitalia and bilateral thighs were prepped with ChloraPrep and draped in a sterile fashion. A surgical time-out was called and consent confirmed. Resection of the penile carcinoma was performed by Dr. Zamudio. Attention was then directed to the left anterior thigh. A site for skin graft harvesting was determined based on the quality of skin. A 5 cm wide strip of skin was harvested at a depth of 0.02 inch approximately 10 cm long. A good quality skin graft was harvested. This was passed to Dr. Zamudio for placement on to the penis wound. A lidocaine with epinephrine soaked gauze was applied to the graft wound for hemostasis. Xeroform followed by and ABD pad was then applied.
--- NOTE | 2025-01-03 10:31 | P.OP_ITS ---
Operative Note Operative Note Date of Service: 01/03/25 Narrative: PreOperative Diagnosis: Penile cancer Post Operative Diagnosis: Penile cancer Procedure: Distal glansectomy with split-thickness skin graft neourethra and n eoglans repair Surgeon: Dr Liang Zamudio Director Cpg: Dr Candelario Weiss Anesthesia: General Indications for procedure: Left distal penile glandular cancer. MRI shows question of distal coronal tip invasion. Procedure: After informed consent was verified the patient was brought to the operating room and placed in a supine position. Anesthesia was administered per protocol. The patient was prepped and draped in a sterile fashion. Safety pause time-out was performed. Antibiotics being given. Lesion visible on left side of glans with edema distorting urethral meatus. Penile anesthetic ring block administered and anesthetic administered deep dorsal space Incision made along prior circumcision. Taken down to the avascular plane. Degloving of the penis performed with sharp dissection in the avascular plane. Once the penis was fully degloved a 1/4 inch [place] was wrapped twice around the base of th epenis to act as a tourniquet. 3-0 Vicryl suture was placed through the glans to act as a traction suture. Fourteen Panamanian Barrera catheter placed per urethra to help demarcate urethra during dissection. The glans was carefully dissected from the underlying corporal bodies. Initial dissection was performed by elevating glans and using Metzenbaum scissors to sharply dissect the glans from underlying tissue. This proceeded in a circumferential fashion. Focus was then placed on the ventral aspect the glans and leaving the urethra intact. We were able to separate the entire glans tissue. Bladen tissue was sent for frozen section analysis. The urethra was divided after being further dissected free from the glans to maximize length. Small areas of ooze on the distal portion of the corporal tips were controlled using [id number] 4-0 Vicryl sutures. Frozen section reported as fibrous tissue without any evidence of disease. A suze sulcus was created by attaching the penile shaft skin to the penile shaft 2 cm proximal to the distal end. In this way interrupted 4-0 Vicryl sutures were used to affix the penile skin and sub cutaneous tissue to the shaft. At this point we turned to the harvesting of the split-thickness skin graft. This was performed by Dr. Weiss and there is a separate note detailing the technique. With our 12 cm x 3 cm split-thickness skin graft we divided this in the mid portion to the middle sharply. We then placed the graft onto the distal corporal tips. The edge of the skin graft was attached circumferentially to the neosulcus in interrupted fashion with 4-0 Vicryl sutures. The skin was tailored in order to achieve a cone shape that met at the dorsal aspect under the urethra. The skin graft was attached to the urethra after the urethra was inverted. The area was cleaned with a wet followed by a dry sponge. Preparation for the dressing was made. 4-0 nylon was placed in a quadrant fashion through the neourethra. After the graft had been applied a pressure bolster dressing was placed. This consisted of a 1st layer of Xeroform gauze followed by iodine soaked sponge dressing. This was wrapped around the suze glans. The nylon sutures were then attached just distal to the suze sulcus and used to tie the bolster down applying gentle pressure to the graft area. The donor area was covered with a large Xeroform gauze followed by an ABD pad. The patient tolerated the procedure well and was extubated in the operating room before being transferred to the recovery area. Dressings had been placed on the suze glans in the donor site area and a Barrera catheter was in place. Pathology: Penile glans Drains: Barrera catheter
[2025-01-03] MEDS: oxyCODONE HCl Immed Release 5 MG TABLET PO ×2 (11:16→18:34)
[2025-01-03] MEDS: 0.9 % Sodium Chloride 1,000 ML 125 ML IVCONT ×2 (11:28→19:36)
--- NOTE | 2025-01-03 12:25 | PHA.MEDREC ---
Addendum entered by Geraldo Strange RPh 01/03/25 12:41: Per primary care office visit note on 12/14/24, patient is to continue taking simvastatin 20 mg daily. MED REC REVIEWED BY [facility] Original Note: Pharmacy Consult ? Medication Reconciliation Pharmacy reviewed med rec done by nursing. Spoke with pt and pt was a bit of a poor historian when I was asking about his medications and was able to confirm all but if he was still taking the Simvastatin 20mg tab anymore and stated his wallet had more info about his meds but pt son took it home with him and will not be back to see the pt till later on this afternoon. I called pt son and left a voicemail around 1215 to call back to confirm that medication; everything else confirmed was verified by the pt.
[2025-01-04] MEDS: 0.9 % Sodium Chloride 1,000 ML 125 ML IVCONT (02:16)
[2025-01-04 04:00] VITALS: BP 138/68; PULSE 77; RESP 18; TEMP 36.4; O2SAT 93
[2025-01-04 08:00] VITALS: BP 175/79; PULSE 94; RESP 18; TEMP 36.7; O2SAT 95
--- NOTE | 2025-01-04 08:19 | P.PNUR_ITS ---
Subjective Subjective Date of Service: 01/04/25 Patient reports: no new complaints, still having pain, tolerating liquids well and flatus Interval history: POD #1 distal penectomy with skin graft discomfort at donor graft site using pain meds has not ambulated yet stop IVF Abx today encourage ambulation Physical Exam Vital Signs: Vital Signs: Last Vital Signs Temp 97.5 F 01/04/25 04:00 Pulse 77 01/04/25 04:00 Resp 18 01/04/25 04:00 BP 138/68 01/04/25 04:00 Pulse Ox 93 01/04/25 04:00 O2 Del Method Room Air 01/04/25 04:00 O2 Flow Rate 2 01/03/25 11:31 BMI result Body Mass Index 34.0 Const: General: cooperative, healthy appearing, comfortable and no acute dist ress Orientation/consciousness: patient oriented x3 HEENT: Face and sinus: Yes normal facial exam Mouth: moist mucous membranes Neck: Neck: Yes normal visual inspection, Yes full ROM and Yes trachea midline Chest: Chest palpation & inspection: normal inspection of the chest Resp: Effort & Inspection: normal respiratory effort, able to speak in complete sentences and no respiratory distress GI: Inspection: Yes normal to inspection Back/Spine/Pelvis: Cervical Spine: normal cervical lordosis Thoracic/Lumbar Spine: thoracic and lumbar spine normal to inspection Skin: General skin exam: no rashes or lesions noted Neuro: General: patient oriented x3, tone normal and moves all extremities Extrem: General: Yes normal to inspection and Yes capillary refill normal Progress Note: A&P Assessment and plan (1) Penile cancer: Status: Acute Plan Continue post op pathway will remain overnight with plan to DC tomorrow Time Spent With Patient Time: Total time managing care of this patient today 15____ minutes.
[2025-01-04] MEDS: lisinopriL 10 MG TABLET PO (08:27)
[2025-01-04] MEDS: amLODIPine Besylate 5 MG TABLET PO (08:28)
[2025-01-04] MEDS: MESALAMINE 0.375 GM 1.5 GM PO (08:28)
--- NOTE | 2025-01-04 08:29 | HO.POSTANES ---
Post Anesthesia Evaluation Post Anesthesia Evaluation Date of Service: 01/04/25 Vital Signs: Vital Signs Temp Pulse Resp BP Pulse Ox O2 Del Method 01/04/25 08:00 98.1 F 94 18 175/79 H 95 Room Air 01/04/25 04:00 97.5 F 77 18 138/68 93 Room Air Anesthesia: General Mental Status: Awake Pain Control: Satisfactory Nausea/Vomiting: None Hydration: Adequate Anesthesia-Related Issues: No Anes. Related Issues
[2025-01-04] MEDS: Amoxicillin/Potassium Clav 250 MG TABLET PO ×2 (09:34→20:20)
--- NOTE | 2025-01-04 12:33 | MHC.CM.PN ---
Addendum entered by Mikaela Garrido RN 01/04/25 13:17: Plan discussed w/ son, per patient request. Patient and son are aware [facility] will not be available daily. Son can assist w/ dressings PRN. Original Note: Patient lives in a home alone. Functionally independent. Uses O2 PRN via [employer]. PCP Reyes Galvin MD HCP on file and verified. DP: Likely home tomorrow. Recommend [facility] for wound care. aware. Patient does not have a preference to agency and agrees to [facility]. Also sent referral for [facility] - patient feels he can benefit from home making services while recovering from surgery. Son will transport. CM will continue to follow.
[2025-01-04 16:14] VITALS: BP 160/72; PULSE 80; RESP 16; TEMP 36.7; O2SAT 92
[2025-01-04 20:00] VITALS: BP 153/67; PULSE 93; RESP 18; TEMP 36.3; O2SAT 93
[2025-01-04] MEDS: Acetaminophen 325 MG TABLET 975 MG PO (20:20)
[2025-01-04] MEDS: 0.9 % Sodium Chloride Flush 3 ML SYRINGE IVFLUSH (20:28)
[2025-01-05 04:00] VITALS: BP 173/77; PULSE 70; RESP 18; TEMP 36.4; O2SAT 96
[2025-01-05 07:16] VITALS: BP 162/77; PULSE 89; RESP 18; TEMP 36.4; O2SAT 94
[2025-01-05] MEDS: lisinopriL 10 MG TABLET PO (07:46)
[2025-01-05] MEDS: Acetaminophen 325 MG TABLET 975 MG PO (07:47)
[2025-01-05] MEDS: amLODIPine Besylate 5 MG TABLET PO (07:47)
[2025-01-05] MEDS: Amoxicillin/Potassium Clav 250 MG TABLET PO (07:47)
[2025-01-05] MEDS: MESALAMINE 0.375 GM 1.5 GM PO (07:48)
--- NOTE | 2025-01-05 08:30 | P.DS_ITS ---
DS: Providers Provider Date of Service: 01/03/25 Date of discharge: 01/05/25 Primary care physician: Reyes Galvin MD DS: Diagnosis Discharge Diagnosis (1) Penile cancer: Status: Acute DS: Summary Hospital Course Hospital Course: Admit for planned distal penectomy and skin graft Has nick catheter with plug. Will empty catheter every 4-6 hrs. Catheter will be removed next week by urology. Please call urology office with any questions. May change pad on donor site daily Sponge bath only until removal of penile dressing Penile dressing to remain until removed by urology in office next week Status at Discharge Functional status at discharge: independent ambulation Overall status at discharge: patient is back to baseline Time Attestation Total time managing care of this patient today: 30 mintues. Discharge Coordination Time (in mins): 15 Quality: Safe Use of Opioids Does Pt have an Active Cancer Diagnosis on the Problem List?: Yes Opioid Measure Date for [facility] Report: 12/06/24 Opioid Measure Time for [facility] Report: 11:27 Quality: Stroke Does the patient have a stroke diagnosis?: No Physical Exam Vital Signs: Vital Signs: Last Vital Signs Temp 97.6 F 01/05/25 07:16 Pulse 89 01/05/25 07:16 Resp 18 01/05/25 07:16 BP 162/77 H 01/05/25 07:16 Pulse Ox 94 01/05/25 07:16 O2 Del Method Room Air 01/05/25 07:16 O2 Flow Rate 2 01/03/25 11:31 BMI result Body Mass Index 34.0 DS: Data Data Completed and Pending Completed studies during hospitalization [Text1]: Procedures Resection of Prepuce, External Approach (09/03/24) Distal penectomy with split thickness skin graft (01/03/25) Pending studies at discharge: Pending at discharge 01/03/25 08:31 Surgical [PTH] Routine Discharge Plan Discharge Patient Disposition: Home Health Service Referrals: Doris RODRIGUEZ [Outside] - 3-5 Days Referral Note: Doris RODRIGUEZ will call you to schedule home nursing appointments Reyes Galvin MD [Primary Care Provider] Liang Zamudio MD [Physician, Urology] - 1 Week Discharge Medications: New oxycodone-acetaminophen [Percocet] 5-325 mg tablet 1 tab PO Q6H PRN (Reason: mild pain (scale score 1-4)) Qty: 14 0RF Rx Instructions: Partial Fill upon patient request. amoxicillin-pot clavulanate [Augmentin] 500-125 mg tablet 1 tab PO BID 5 Days Qty: 10 0RF Continued cholecalciferol (vitamin D3) 25 mcg (1,000 unit) tablet 25 mcg PO DAILY Qty: 90 3RF simvastatin 20 mg tablet 20 mg PO BEDTIME prednisone 5 mg tablet 5 mg PO DAILY amlodipine 5 mg Tablet 5 mg PO DAILY Qty: 180 0RF Protocol: Hold for SBP< HOLD for SBP < : 90 lisinopril 10 mg Tablet 10 mg PO DAILY Qty: 180 0RF Protocol: Hold for SBP< HOLD for SBP < : 90 mesalamine [Apriso] 0.375 gram capsule,extended release 24hr 1.5 g PO DAILY terazosin 5 mg capsule 5 mg PO BEDTIME 90 Days Qty: 90 0RF Discharge Orders: Discharge Order (Routine); Ordered 01/05/25 Ordered By: Liang Zamudio Diet: Advance to usual diet Activity on Discharge: As tolerated Print Language: [place]
--- NOTE | 2025-01-05 09:16 | PM.UROPN ---
Subjective Subjective Date of Service: 01/05/25 Patient reports: no new complaints, pain is less and tolerating a regular diet Interval history: POD#2 from penectomy and grafting Minimal pain tolerating diet Dressings still in place May change graft site dressing to day Recommend sponge bath only till catheter and dressing reomoved May DC home today with services - change donor site dressing every 3rd day Physical Exam Vital Signs: Vital Signs: Last Vital Signs Temp 97.6 F 01/05/25 07:16 Pulse 89 01/05/25 07:16 Resp 18 01/05/25 07:16 BP 162/77 H 01/05/25 07:16 Pulse Ox 94 01/05/25 07:16 O2 Del Method Room Air 01/05/25 07:16 O2 Flow Rate 2 01/03/25 11:31 BMI result Body Mass Index 34.0 Const: General: cooperative, healthy appearing, comfortable and no acute distress Orientation/consciousness: patient oriented x3 HEENT: Face and sinus: Yes normal facial exam Mouth: moist mucous membranes Neck: Neck: Yes normal visual inspection, Yes full ROM and Yes trachea midline Chest: Chest palpation & inspection: normal inspection of the chest Resp: Effort & Inspection: normal respiratory effort, able to speak in complete sentences and no respiratory distress GI: Inspection: Yes normal to inspection Back/Spine/Pelvis: Cervical Spine: normal cervical lordosis Thoracic/Lumbar Spine: thoracic and lumbar spine normal to inspection Skin: General skin exam: no rashes or lesions noted Neuro: General: patient oriented x3, tone normal and moves all extremities Extrem: General: Yes normal to inspection and Yes capillary refill normal Progress Note: A&P Assessment and plan (1) Penile cancer: Status: Acute Plan Discharge today Time Spent With Patient Time: Total time managing care of this patient today ____ minutes. Progress Note: Quality Stroke Does the patient have a stroke diagnosis?: No
--- NOTE | 2025-01-05 11:23 | MHC.CM.PN ---
Patient medically cleared for dc home w/ new [facility] services for wound care/ nick management. Son will transport home. Patient and son are aware [facility] is not available daily. RN will provide education re: nick and wound care prior to dc.
== END 2025-01-05 13:22 | disposition home health service (06) ==
LOC: HO.SSS 10:40 → HO.S3 10:42
PROVIDERS: PCP Internal Medicine; Visit Provider Urology
PROC: (CPT 54120; principal; 2025-01-03 07:30)
DX: C60.2 Malignant neoplasm of body of penis (principal); R91.8 Other nonspecific abnormal finding of lung field
CPT/HCPCS: 54120; 15120; 71046; 86850; 86900; 86901; 88305; 88307; 88329; 88331; 88341; 88342; J0131; J0690; J1450; J1720; J1805; J2003; J2004; J2405; J2704; J2795; J3010

== ENCOUNTER → 2025-01-03 10:40 | Outpatient (BNV) | payer MEDICARE, SELFPAY | PROVIDERS: PCP Internal Medicine; Visit Provider Urology | DX: C60.9 Malignant neoplasm of penis, unspecified (principal) | CPT/HCPCS: 15120; 54120; 99024; 99499 ==

== ENCOUNTER 2025-01-11 13:11 | Outpatient (AMB) | payer MEDICARE, SELFPAY ==
--- NOTE | 2025-01-11 13:15 | A.OFFVIS_ITS ---
Intake Visit Reasons: Cath removal/dressing change Intake Note: Patient is present for CATH REMOVAL/DRESSING CHANGE Urology Medication:NONE Antibiotic Allergy:NONE Blood Thinner:NONE Customer Quality Engineer Required: No Allergies No Known Allergies Allergy (Verified 01/11/25 13:16) HPI Comments Details: Bright is a very pleasant male. He is a patient of Dr. Galvin. 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 Extension into the distal right corpora is suspected with ill-defined decreased signal on the T2 weighted images and enhancement CT scan showed no jose alejandro disease Penile cancer Procedure: Distal glansectomy Foreskin: Not identified (circumcised) Tumor Focality: Unifocal Tumor Site: Left glans Tumor Size: 2.5 x 2.3 cm Histologic Type: HPV-independent squamous cell carcinoma, usual type Histologic Grade: G1, well differentiated Tumor Depth of Invasion/Thickness: 6 mm Tumor Deep Borders: Invasive, destructive but well-delineated front en bloc Tumor Extent: Invades lamina propria Lymphatic and/or Vascular Invasion: Not identified Perineural Invasion: Not identified Margin Status: All margins negative for invasive and non-invasive carcinoma Regional Lymph Node Status: N/A (no regional lymph nodes submitted or found) Distant Site(s) Involved: Not applicable pTNM: pT1a pN not assigned (AJCC 8th Edition) Discovered during evaluation for pneumonia and inability to place Barrera catheter 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 A tie-over dressing for graft application in distal penectomy and glans resurfacing: the TODGA technique. BJU Int. 2010;107(5):836-840 [facility] Medical History HTN (hypertension) [place] (hard of hearing) Allergic rhinosinusitis Obesity (BMI 30-39.9) Vitamin D deficiency Impaired fasting glucose Ulcerative colitis COPD (chronic obstructive pulmonary disease) Pure hypercholesterolemia Exercise hypoxemia COPD (chronic obstructive pulmonary disease) case management patient Surgical History Hx of circumcision (~08/2024) Hx of colonoscopy (2019) Family History Father Medical history unknown Mother Cancer Social History Household Members: None Housing: House Are you a primary home care associate to a significant other at home: No Do you presently have visiting nurse or other home services: No 75 years or older and lives alone: Yes Alcohol intake: former Patient Tobacco Use Status: Former Tobacco user Tobacco use type: Cigarette Years Smoked: quit smoking 8 years ago e-Cigarette/Vaping Use: Never Used Second Hand Smoke Exposure: Yes service: No Current occupational status: retired Cognitive needs: No Hearing needs: Yes Vision needs: Yes Review of Systems Const Denies chills and Denies fever(s) Card Reports no additional complaints and Denies syncope Resp Denies cough GI Denies abdominal pain and Denies heartburn Reports as per HPI and Denies change in libido Neuro Denies syncope Psych Denies change in libido Endo Denies change in libido Physical Exam Const General: cooperative, healthy appearing, comfortable and no acute distress Orientation/consciousness: patient oriented x3 HEENT Face and sinus: Yes normal facial exam Mouth: moist mucous membranes Neck Neck: Yes normal visual inspection, Yes full ROM and Yes trachea midline Chest Chest palpation & inspection: normal inspection of the chest Resp Effort & Inspection: normal respiratory effort, able to speak in complete sentences and no respiratory distress GI Inspection: Yes normal to inspection Back/Spine/Pelvis Cervical Spine: normal cervical lordosis Thoracic/Lumbar Spine: thoracic and lumbar spine normal to inspection Skin General skin exam: no rashes or lesions noted Neuro General: patient oriented x3, gait normal, tone normal and moves all extremities Extrem General: Yes normal to inspection and Yes capillary refill normal Assessment & Plan Assessment & Plan (1) Penile cancer: Code(s): C60.9 - Malignant neoplasm of penis, unspecified Category: Medical Plan Two week follow-up Patient Instructions: This note is constructed using voice recognition software. While every effort has been made to ensure accuracy melting supervisor errors may have been included. Imaging studies, laboratory and physical exam results were discussed and reviewed in detail. No major barriers to patient understanding were identified. An opportunity to ask questions regarding the treatment plan was provided. All questions were answered. The patient expressed understanding and agreement with the above treatment plan. The patient is aware they should contact our office by phone for worsening of their current condition or the appearance of new urologic symptoms. Compliance is encouraged with any medications and followup testing that is ordered. It is a privilege to participate in the urologic care of your patient. If you have any questions or concerns regarding treatment for the above conditions, or other urologic issues, please do not hesitate to contact me. The office telephone contact is [phone]. Sincerely, Dr Liang Zamudio MD, [facility] - Urology Compassionate Specialist Care for the Genitourinary System Coding Level of Care Code Global (27924) Diagnoses Penile cancer C60.9
--- OUTSIDE RECORDS SUMMARY | 2025-01-11 15:06 | XMS_ITS | Patient Health Record ---
Author Organization [facility] Address [address] [place] [address] Care Team Providers Care Hair Tinter Name Role Phone Darell Galvin MDh Primary Care Provider Javi Collins Unavailable [phone] Allergies No Known Allergies Reason For Referral [...] Problem Status W/U Status Risk Notes Problem [id number] Encounter for screening for malignant neoplasm of colon (Z12.11) Active confirmed Problem 541851412 History of adenomatous polyp of colon (Z86.010) Active confirmed Problem 99226265 Weight loss (R63.4) Active confirmed Problem Screening for malignant neoplasm of rectum (279929207) Encounter for screening for malignant neoplasm of rectum (Z12.12) Active confirmed Problem 916727716 Elevated liver function tests (R79.89) Active confirmed Problem 976493272 Family history of colon cancer (Z80.0) Active confirmed Problem 701086675 Ulcerative pancolitis without complication (K51.00) Active confirmed Problem 25049768486530429 Abnormal gallbladder ultrasound (R93.2) Active confirmed Problem Chronic ulcerative pancolitis (103666247) Ulcerative pancolitis with rectal bleeding (K51.011) Active confirmed Problem 480649882 Abdominal pain, generalized (R10.84) Active confirmed Problem 97971407 Diarrhea, unspecified type (R19.7) Active confirmed Problem 82377489 Diarrhea of presumed infectious origin (R19.7) Active confirmed Vital Signs Blood pressure diastolic 00 mm Hg 06/22/2024 Height 65 in 06/22/2024 Blood pressure systolic 00 mm Hg 06/22/2024 Weight 216 lbs 06/22/2024 BMI 35.94 kg/m2 06/22/2024 Encounters Encounter Location Date Provider Diagnosis [facility] [address] [place] [phone] 06/22/2024 Javi Donovan Ulcerative pancoliti s without complication K51.00 [facility] [address] [place] [phone] 06/08/2024 Javi Donovan [facility] [address] [place] [phone] 07/19/2024 Javi Donovan Ulcerative pancoliti s without complication K51.00 Assessments Encounter Date Diagnosis (ICD Code) Assessment Notes Treatment Notes Treatment Clinical Notes Section Notes 06/22/2024 Ulcerative pancolitis without complication (ICD-10 - K51.00) Continue the one 5mg prednisone daily travel guide to try to keep the colitis quiet [...] 11:00:00 AM, [address], [address], [place], [address], Insurance Providers Payer Name Payer Address Payer Phone Subscriber Number Group Number Insured Name Patient Relationship to Insured Coverage Start Date Coverage End Date MEDICARE OF [place] [address] [place] [address] [id number] JULIANNA KLEIN Self - patient is the insured MEDEX ATTN CLAIMS [address] [place] [address] [id number] JULIANNA KLEIN Self - patient is the insured Medical (General) History Medical History History ICD Code Ulcerative colitis diagnosed in 1994 Tubular adenomas of the colon Denies [place],DM,CVA,Lung disease,renal dise ase Hyperlipidemia Pneumonia--hospitalized twic e [...]
== END 2025-01-11 14:06 | disposition home or self-care (01) ==
LOC: HO.HUSH 13:11
PROVIDERS: PCP Internal Medicine; Visit Provider Urology
DX: C60.9 Malignant neoplasm of penis, unspecified (principal)
CPT/HCPCS: 99024

== ENCOUNTER → 2025-01-11 13:11 | Outpatient (BNVA) | payer MEDICARE, SELFPAY | PROVIDERS: PCP Internal Medicine; Visit Provider Urology | DX: C60.1 Malignant neoplasm of glans penis (principal) | CPT/HCPCS: 99212 ==

== ENCOUNTER 2025-01-26 09:44 | Outpatient (AMB) | payer MEDICARE, SELFPAY ==
--- NOTE | 2025-01-26 09:48 | A.OFFVIS_ITS ---
Intake Visit Reasons: 2 week follow up Intake Note: Patient is present for 2 WEEK F/U Urology Medication:TERAZOSIN Antibiotic Allergy:NONE Blood Thinner:NONE TODAY'S PVR: 75ML'S Project Admin Required: No Allergies No Known Allergies Allergy (Verified 01/26/25 09:50) HPI Comments Details: Bright is a very pleasant male. He is a patient of Dr. Galvin. 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 Procedure was curative Six week follow-up CT scan showed no jose alejandro disease Penile cancer 01/12 Distal penectomy Procedure: Distal glansectomy Foreskin: Not identified (circumcised) Tumor Focality: Unifocal Tumor Site: Left glans Tumor Size: 2.5 x 2.3 cm Histologic Type: HPV-independent squamous cell carcinoma, usual type Histologic Grade: G1, well differentiated Tumor Depth of Invasion/Thickness: 6 mm Tumor Deep Borders: Invasive, destructive but well-delineated front en bloc Tumor Extent: Invades lamina propria Lymphatic and/or Vascular Invasion: Not identified Perineural Invasion: Not identified Margin Status: All margins negative for invasive and non-invasive carcinoma Regional Lymph Node Status: N/A (no regional lymph nodes submitted or found) Distant Site(s) Involved: Not applicable pTNM: pT1a pN not assigned (AJCC 8th Edition) Discovered during evaluation for pneumonia and inability to place Barrera catheter 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 A tie-over dressing for graft application in distal penectomy and glans resurfacing: the TODGA technique. BJU Int. 2010;107(5):836-840 MRI There is disruption of the tunica albuginea at the distal aspect on the right with suspected involvement of the adjacent right corpora. Extension into the distal right corpora is suspected with ill-defined decreased signal on the T2 weighted images and enhancement [facility] Medical History HTN (hypertension) [place] (hard of hearing) Allergic rhinosinusitis Obesity (BMI 30-39.9) Vitamin D deficiency Impaired fasting glucose Ulcerative colitis COPD (chronic obstructive pulmonary disease) Pure hypercholesterolemia Exercise hypoxemia COPD (chronic obstructive pulmonary disease) case management patient Surgical History Hx of circumcision (~08/2024) Hx of colonoscopy (2019) Family History Father Medical history unknown Mother Cancer Social History Household Members: None Housing: House Are you a primary child daycare worker to a significant other at home: No Do you presently have visiting nurse or other home services: No 75 years or older and lives alone: Yes Alcohol intake: former Patient Tobacco Use Status: Former Tobacco user Tobacco use type: Cigarette Years Smoked: quit smoking 8 years ago e-Cigarette/Vaping Use: Never Used Second Hand Smoke Exposure: Yes service: No Current occupational status: retired Cognitive needs: No Hearing needs: Yes Vision needs: Yes Review of Systems Const Denies chills and Denies fever(s) Card Reports no additional complaints and Denies syncope Resp Denies cough GI Denies abdominal pain and Denies heartburn Reports as per HPI and Denies change in libido Neuro Denies syncope Psych Denies change in libido Endo Denies change in libido Physical Exam Const General: cooperative, healthy appearing, comfortable and no acute distress Orientation/consciousness: patient oriented x3 HEENT Face and sinus: Yes normal facial exam Mouth: moist mucous membranes Neck Neck: Yes normal visual inspection, Yes full ROM and Yes trachea midline Chest Chest palpation & inspection: normal inspection of the chest Resp Effort & Inspection: normal respiratory effort, able to speak in complete sentences and no respiratory distress GI Inspection: Yes normal to inspection Back/Spine/Pelvis Cervical Spine: normal cervical lordosis Thoracic/Lumbar Spine: thoracic and lumbar spine normal to inspection Skin General skin exam: no rashes or lesions noted Neuro General: patient oriented x3, gait normal, tone normal and moves all extremities Extrem General: Yes normal to inspection and Yes capillary refill normal Office Procedures Post Void Residual Post Residual Void Post Void Residual (PVR): 75 05409-[id number] Void Residual by ultrasound Assessment & Plan Assessment & Plan (1) Weak urinary stream: Code(s): R39.12 - Poor urinary stream Category: Medical (2) Penile cancer: Code(s): C60.9 - Malignant neoplasm of penis, unspecified Category: Medical Plan 6 week follow-up Orders: Orders AMB Urinalysis Automated Today Z13.9 - Encounter for screening, unspecified Patient Instructions: This note is constructed using voice recognition software. While every effort has been made to ensure accuracy lace inspector errors may have been included. Imaging studies, laboratory and physical exam results were discussed and reviewed in detail. No major barriers to patient understanding were identified. An opportunity to ask questions regarding the treatment plan was provided. All questions were answered. The patient expressed understanding and agreement with the above treatment plan. The patient is aware they should contact our office by phone for worsening of their current condition or the appearance of new urologic symptoms. Compliance is encouraged with any medications and followup testing that is ordered. It is a privilege to participate in the urologic care of your patient. If you have any questions or concerns regarding treatment for the above conditions, or other urologic issues, please do not hesitate to contact me. The office telephone contact is [phone]. Sincerely, Dr Liang Zamudio MD, [facility] - Urology Compassionate Specialist Care for the Genitourinary System Coding Level of Care Code Est Pt Level 3 (76555) Diagnoses Weak urinary stream R39.12 Penile cancer C60.9 CPT Codes Post Residual Void - PVR CPT Code: 96000-Fxpx Void Residual by ultrasound ([id number])
--- OUTSIDE RECORDS SUMMARY | 2025-01-26 10:18 | XMS_ITS | Patient Health Record ---
Author Organization [facility] Address [address] [place] [address] Care Team Providers Care Handstitching Machine Collar Feller Name Role Phone Darell Galvin MDh Primary Care Provider Javi Collins Unavailable [phone] Allergies No Known Allergies Reason For Referral [...] Problem Status W/U Status Risk Notes Problem 069161821 Encounter for screening for malignant neoplasm of colon (Z12.11) Active confirmed Problem 237716688 History of adenomatous polyp of colon (Z86.010) Active confirmed Problem 04305185 Weight loss (R63.4) Active confirmed Problem Screening for malignant neoplasm of rectum (467901615) Encounter for screening for malignant neoplasm of rectum (Z12.12) Active confirmed Problem 280523392 Elevated liver function tests (R79.89) Active confirmed Problem 197812434 Family history of colon cancer (Z80.0) Active confirmed Problem 069475303 Ulcerative pancolitis without complication (K51.00) Active confirmed Problem 55728329687750680 Abnormal gallbladder ultrasound (R93.2) Active confirmed Problem Chronic ulcerative pancolitis (851354074) Ulcerative pancolitis with rectal bleeding (K51.011) Active confirmed Problem 979440590 Abdominal pain, generalized (R10.84) Active confirmed Problem 65650286 Diarrhea, unspecified type (R19.7) Active confirmed Problem 06641244 Diarrhea of presumed infectious origin (R19.7) Active confirmed Vital Signs Blood pressure diastolic 00 mm Hg 06/22/2024 Height 65 in 06/22/2024 Blood pressure systolic 00 mm Hg 06/22/2024 Weight 216 lbs 06/22/2024 BMI 35.94 kg/m2 06/22/2024 Encounters Encounter Location Date Provider Diagnosis [facility] [address] [place] [phone] 06/22/2024 Javi Donovan Ulcerative pancoliti s without complication K51.00 [facility] [address] [place] [phone] 06/08/2024 Javi Donovan [facility] [address] [place] [phone] 07/19/2024 Javi Donovan Ulcerative pancoliti s without complication K51.00 Assessments Encounter Date Diagnosis (ICD Code) Assessment Notes Treatment Notes Treatment Clinical Notes Section Notes 06/22/2024 Ulcerative pancolitis without complication (ICD-10 - K51.00) Continue the one 5mg prednisone daily half-way to try to keep the colitis quiet [...] for allowing me to participate in Mr. Kleni's care. I shall continue to keep you [...] CRP 06/27/2023 CRP 08/08/2022 CBC w DIFF 08/08/2022 CBC w DIFF 06/28/2021 CBC w DIFF 06/28/2011 CBC w DIFF 09/30/2014 CBC w DIFF 06/27/2023 SED RATE (ESR) 06/27/2023 SED RATE (ESR) [...] 11:00:00 AM, [address], [address], [place], [address], Insurance Providers Payer Name Payer Address Payer Phone Subscriber Number Group Number Insured Name Patient Relationship to Insured Coverage Start Date Coverage End Date MEDICARE OF [place] [address] [place] [address] [id number] JULIANNA KLEIN Self - patient is the insured MEDEX ATTN CLAIMS [address] [place] [address] [id number] JULIANNA KLEIN Self - patient is the insured Medical (General) History Medical History History ICD Code Ulcerative colitis diagnosed in 1994 Tubular adenomas of the colon Denies [place],DM,CVA,Lung disease,renal dise ase Hyperlipidemia Pneumonia--hospitalized twic e [...]
== END 2025-01-26 10:32 | disposition home or self-care (01) ==
LOC: HO.HUSH 09:45
PROVIDERS: PCP Internal Medicine; Visit Provider Urology
DX: R39.12 Poor urinary stream (principal); C60.9 Malignant neoplasm of penis, unspecified
CPT/HCPCS: 99024

== ENCOUNTER → 2025-01-26 09:44 | Outpatient (BNVA) | payer MEDICARE, SELFPAY | PROVIDERS: PCP Internal Medicine; Visit Provider Urology | DX: C60.1 Malignant neoplasm of glans penis (principal); R39.12 Poor urinary stream; Z13.9 Encounter for screening, unspecified | CPT/HCPCS: 51798; 99212 ==

== ENCOUNTER 2025-03-11 11:07 | Outpatient (AMB) | payer MEDICARE, SELFPAY ==
--- OUTSIDE RECORDS SUMMARY | 2025-03-11 11:11 | XMS_ITS | Patient Health Record ---
Author Organization [facility] Address [address] [place] [address] Care Team Providers Care Cosmetologist Apprentice Name Role Phone Darell Galvin MDh Primary Care Provider Javi Collins Unavailable [phone] Allergies No Known Allergies Reason For Referral [...] Problem Status W/U Status Risk Notes Problem [id number] Encounter for screening for malignant neoplasm of colon (Z12.11) Active confirmed Problem 628123893 History of adenomatous polyp of colon (Z86.010) Active confirmed Problem 28353497 Weight loss (R63.4) Active confirmed Problem Screening for malignant neoplasm of rectum (223610297) Encounter for screening for malignant neoplasm of rectum (Z12.12) Active confirmed Problem 905184187 Elevated liver function tests (R79.89) Active confirmed Problem 221433326 Family history of colon cancer (Z80.0) Active confirmed Problem 037113365 Ulcerative pancolitis without complication (K51.00) Active confirmed Problem 11915608902255803 Abnormal gallbladder ultrasound (R93.2) Active confirmed Problem Chronic ulcerative pancolitis (266396282) Ulcerative pancolitis with rectal bleeding (K51.011) Active confirmed Problem 821850977 Abdominal pain, generalized (R10.84) Active confirmed Problem 15432604 Diarrhea, unspecified type (R19.7) Active confirmed Problem 56512428 Diarrhea of presumed infectious origin (R19.7) Active confirmed Vital Signs Blood pressure diastolic 00 mm Hg 06/22/2024 Height 65 in 06/22/2024 Blood pressure systolic 00 mm Hg 06/22/2024 Weight 216 lbs 06/22/2024 BMI 35.94 kg/m2 06/22/2024 Encounters Encounter Location Date Provider Diagnosis [facility] [address] [place] [phone] 06/22/2024 Javi Donovan Ulcerative pancoliti s without complication K51.00 [facility] [address] [place] [phone] 06/08/2024 Javi Donovan [facility] [address] [place] [phone] 07/19/2024 Javi Donovan Ulcerative pancoliti s without complication K51.00 Assessments Encounter Date Diagnosis (ICD Code) Assessment Notes Treatment Notes Treatment Clinical Notes Section Notes 06/22/2024 Ulcerative pancolitis without complication (ICD-10 - K51.00) Continue the one 5mg prednisone daily termite treater helper to try to keep the colitis quiet [...] 11:00:00 AM, [address], [address], [place], [address], Insurance Providers Payer Name Payer Address Payer Phone Subscriber Number Group Number Insured Name Patient Relationship to Insured Coverage Start Date Coverage End Date MEDICARE OF [place] [address] [place] [address] [phone] [id number] JULIANNA KLEIN Self - patient is the insured [employer] ATT[employer] CLAIMS [address] [place] [phone] [id number] JULIANNA KLEIN Self - patient is the insured Medical (General) History Medical History History ICD Code Ulcerative colitis diagnosed in 1994 Tubular adenomas of the colon Denies AL,DM,CVA,Lung disease,renal dise ase Hyperlipidemia Pneumonia--hospitalized twic e [...]
--- NOTE | 2025-03-11 11:29 | A.OFFVIS_ITS ---
Intake Visit Reasons: 6w follow up Intake Note: Patient is present for 6 WEEK F/U Urology Medication:TERAZOSIN Antibiotic Allergy:NONE Blood Thinner:NONE TODAY'S PVR: 124 mls Sales Promotion Manager Required: No Accompanied by: Self / Same As Patient Allergies No Known Allergies Allergy (Verified 03/11/25 11:30) HPI Comments Details: Bright is a very pleasant male. He is a patient of Dr. Galvin. He is seen for the following urologic conditions - penile cancer Donor site well healed Recipient site healed. 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 Procedure was curative 02/11 CT scan showed no jose alejandro disease Penile cancer 01/12 Distal penectomy Procedure: Distal glansectomy Foreskin: Not identified (circumcised) Tumor Focality: Unifocal Tumor Site: Left glans Tumor Size: 2.5 x 2.3 cm Histologic Type: HPV-independent squamous cell carcinoma, usual type Histologic Grade: G1, well differentiated Tumor Depth of Invasion/Thickness: 6 mm Tumor Deep Borders: Invasive, destructive but well-delineated front en bloc Tumor Extent: Invades lamina propria Lymphatic and/or Vascular Invasion: Not identified Perineural Invasion: Not identified Margin Status: All margins negative for invasive and non-invasive carcinoma Regional Lymph Node Status: N/A (no regional lymph nodes submitted or found) Distant Site(s) Involved: Not applicable pTNM: pT1a pN not assigned (AJCC 8th Edition) Discovered during evaluation for pneumonia and inability to place Barrera catheter 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 A tie-over dressing for graft application in distal penectomy and glans resurfacing: the TODGA technique. BJU Int. 2010;107(5):836-840 MRI There is disruption of the tunica albuginea at the distal aspect on the right with suspected involvement of the adjacent right corpora. Extension into the distal right corpora is suspected with ill-defined decreased signal on the T2 weighted images and enhancement [facility] Medical History HTN (hypertension) [place] (hard of hearing) Allergic rhinosinusitis Obesity (BMI 30-39.9) Vitamin D deficiency Impaired fasting glucose Ulcerative colitis COPD (chronic obstructive pulmonary disease) Pure hypercholesterolemia Exercise hypoxemia COPD (chronic obstructive pulmonary disease) case management patient Surgical History Hx of circumcision (~08/2024) Hx of colonoscopy (2019) Family History Father Medical history unknown Mother Cancer Social History Household Members: None Housing: House Are you a primary career development manager to a significant other at home: No Do you presently have visiting nurse or other home services: No 75 years or older and lives alone: Yes Alcohol intake: former Patient Tobacco Use Status: Former Tobacco user Tobacco use type: Cigarette Years Smoked: quit smoking 8 years ago e-Cigarette/Vaping Use: Never Used Second Hand Smoke Exposure: Yes service: No Current occupational status: retired Cognitive needs: No Hearing needs: Yes Vision needs: Yes Review of Systems Const Denies chills and Denies fever(s) Card Reports no additional complaints and Denies syncope Resp Denies cough GI Denies abdominal pain and Denies heartburn Reports as per HPI and Denies change in libido Neuro Denies syncope Psych Denies change in libido Endo Denies change in libido Physical Exam Const General: cooperative, healthy appearing, comfortable and no acute distress Orientation/consciousness: patient oriented x3 HEENT Face and sinus: Yes normal facial exam Mouth: moist mucous membranes Neck Neck: Yes normal visual inspection, Yes full ROM and Yes trachea midline Chest Chest palpation & inspection: normal inspection of the chest Resp Effort & Inspection: normal respiratory effort, able to speak in complete sentences and no respiratory distress GI Inspection: Yes normal to inspection Back/Spine/Pelvis Cervical Spine: normal cervical lordosis Thoracic/Lumbar Spine: thoracic and lumbar spine normal to inspection Skin General skin exam: no rashes or lesions noted Neuro General: patient oriented x3, gait normal, tone normal and moves all extremities Extrem General: Yes normal to inspection and Yes capillary refill normal Office Procedures Post Void Residual Post Residual Void Post Void Residual (PVR): 124 [id number]-Apyq Void Residual by ultrasound Assessment & Plan Assessment & Plan (1) Penile cancer: Code(s): C60.9 - Malignant neoplasm of penis, unspecified Category: Medical Plan Six-month follow-up imaging office Orders: Orders AMB Post Void Residual by ultrasound Today R35.1 - Nocturia CT pelvis wo IV con Today C60.9 - Malignant neoplasm of penis, unspecified, C61 - Malignant neoplasm of prostate Patient Instructions: This note is constructed using voice recognition software. While every effort has been made to ensure accuracy cut pressman errors may have been included. Imaging studies, laboratory and physical exam results were discussed and reviewed in detail. No major barriers to patient understanding were identified. An opportunity to ask questions regarding the treatment plan was provided. All questions were answered. The patient expressed understanding and agreement with the above treatment plan. The patient is aware they should contact our office by phone for worsening of their current condition or the appearance of new urologic symptoms. Compliance is encouraged with any medications and followup testing that is ordered. It is a privilege to participate in the urologic care of your patient. If you have any questions or concerns regarding treatment for the above conditions, or other urologic issues, please do not hesitate to contact me. The office telephone contact is [phone]. Sincerely, Dr Liang Zamudio MD, [facility] - Urology Compassionate Specialist Care for the Genitourinary System Coding Level of Care Code Est Pt Level 3 (27651) Complex EM visit Add On G2211 Diagnoses Penile cancer C60.9 CPT Codes Post Residual Void - PVR CPT Code: 72081-Yhnj Void Residual by ultrasound ([id number])
== END 2025-03-11 12:14 | disposition home or self-care (01) ==
LOC: HO.HUSH 11:08
PROVIDERS: PCP Internal Medicine; Visit Provider Urology
DX: C60.9 Malignant neoplasm of penis, unspecified (principal)
CPT/HCPCS: 99024

== ENCOUNTER → 2025-03-11 11:07 | Outpatient (BNVA) | payer MEDICARE, SELFPAY | PROVIDERS: PCP Internal Medicine; Visit Provider Urology | DX: C60.9 Malignant neoplasm of penis, unspecified (principal); Z98.890 Other specified postprocedural states | CPT/HCPCS: 51798; 99212 ==

== ENCOUNTER 2025-04-19 10:59 | Outpatient (AMB) | payer MEDICARE, SELFPAY ==
--- OUTSIDE RECORDS SUMMARY | 2024-06-03 06:00 | XMS_ITS ---
Author Organization [facility] Address [address] [place] [id number] Care Team Providers Care Editor Map Name Role Phone Kamar DOMINIQUE, Reyes Primary Care Provider Javi Collins Unavailable [phone] REASON FOR VISIT ulcerative pancolitis Encounters Encounter Location Date Provider Diagnosis [facility] [address] [place] [phone] 06/03/2024 Javi Donovan Plan Of Treatment Next Appt Details Provider Name:Javi Donovan , 06/23/2025 11:00:00 AM, [address], [address], [place], [address], Progress Notes * JULIANNA LEDESMADOB: [birth year] (79 yo M)Acc No.[id number]:06/03/2024 Progress Notes Patient: JULIANNA CASE Arpan Provider: Sonny Donovan MD :1945 A ge:78 Y S ex:Male Date:06/03/2024 Address:[address] [place], [place] [id number] Pcp:Reyes Galvin MD Subjective: * Chief Complaints: * 1 . Ulcerative pancolitis. * Medical History: Objective: * Vitals: Assessment: Plan: * Treatment: * * The named appointment provid er may or may not be the originator of this progress note, and it is not deemed complete until electronically signed by the appointment provider. Sign off status: Pending * Provider: Sonny Donovan MD Date: 08/03/2023 Generated for Printi ng/Fasandrog/eTransmitting on: 0 04/19/2025 12:29 PM EDT
[2025-04-19 11:03] VITALS: BP 140/82; PULSE 104; O2SAT 92; BMI 34.5
--- NOTE | 2025-04-19 11:03 | A.OFFPC_ITS ---
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 Required: No Accompanied by: Self / Same As Patient Allergies No Known Allergies Allergy (Verified 04/19/25 11:34) Medication List - Last Reconciled 04/19/25 by Reyes Galvin MD amlodipine 5 mg See Protocol PO DAILY cholecalciferol (vitamin D3) 25 mcg PO DAILY lisinopril 10 mg See Protocol PO DAILY mesalamine ER (Apriso) 1.5 grams PO DAILY prednisone 5 mg PO DAILY simvastatin 20 mg PO BEDTIME terazosin 5 mg PO BEDTIME 90 days Tobacco use date assessed: 04/19/25 Fall risk assessment: No Falls in past year Last assessed Fall Risk: 04/19/25 Dental Screening Dental Screen Date: 04/19/25 Did you have a dental visit in the last 12 months?: Yes Did you have a dental problem in the last 6 months where you did not have access to dental care?: No Was dental information given to patient?: Patient has dentist HPI COPD, hyperlipidemia, penile cancer HPI Details Patient comes in today for his follow up visit States that he feels okay He denies any headaches or dizziness Denies any chest pains, no increased SOB - he still has his oxygen to use when needed although he states that he has not used his oxygen in months now No nausea/vomiting, no abdominal pain No change in bowel habits noted He was not able to get his previously ordered follow up labs done prior to coming in today - states that he will try to go and get them done tomorrow morning PFS Medical History HTN (hypertension) [place] (hard of hearing) Allergic rhinosinusitis Obesity (BMI 30-39.9) Vitamin D deficiency Impaired fasting glucose Ulcerative colitis COPD (chronic obstructive pulmonary disease) Pure hypercholesterolemia Exercise hypoxemia COPD (chronic obstructive pulmonary disease) case management patient Surgical History (Updated 04/19/25 @ 11:58 by Reyes Galvin MD) History of penectomy Hx of circumcision (~08/2024) Hx of colonoscopy (2019) Family History Father Medical history unknown Mother Cancer Social History Household Members: None Housing: House Are you a primary resident care coordinator to a significant other at home: No Do you presently have visiting nurse or other home services: No 75 years or older and lives alone: Yes Alcohol intake: former Patient Tobacco Use Status: Former Tobacco user Tobacco use type: Cigarette Years Smoked: quit smoking 8 years ago e-Cigarette/Vaping Use: Never Used Second Hand Smoke Exposure: Yes service: No Current occupational status: retired Cognitive needs: No Hearing needs: Yes Vision needs: Yes Questionnaire PHQ-9 Over the last 2 weeks, how often have you been bothered by any of the following problems? Depression Screening Interpretation: Positive Depression Screening Follow-up: Follow-up Visit Requested Depression Screening Done: Yes Source: Developed by Drs. Javi Moraes, Elaina Steiner, Jerod Appiah and colleagues, with an educational vee from [employer]. Thrive Questionnaire Date Thrive assessed: 12/14/24 I am a: Patient What is your living situation today?: I have a steady place to live Within the past 12 months, did the food you bought not last and you didn't have the money to get more?: Never true Within the past 12 months, did you worry whether your food would run out before you got money to buy more?: Never true Do you have trouble paying for medicines?: No Do you have trouble getting transportation to medical appointments?: No Do you have trouble paying your heating and electricity bill?: No Do you have trouble taking care of your child, family member or friend?: I choose not to answer this question Do you have trouble with day-to-day activities such as bathing, preparing meals, shopping, managing finances, etc.?: I choose not to answer this question Are you currently unemployed and looking for a job?: I choose not to answer this question Are you interested in more education?: I choose not to answer this question Please select the resources that you would like help with: None Currently or been in a relationship where the following occur: No concerns reported THRIVE Score: 0 AUDIT C Alcohol Use Questionnaire (AUDIT-C) 1. How often do you have a drink containing alcohol?: Never 3. How often do you have six or more drinks on one occasion?: Never Total Score: 0 Score Reviewed/Action Taken: Yes SHONDA-7 AMB Questionnaire SHONDA-7 Date SHONDA - 7 assessed: 12/14/24 Being so restless that it is hard to sit still: 0 = Not at all Becoming easily annoyed or irritable: 0 = Not at all Feeling afraid as if something awful might happen: 0 = Not at all Source: Developed by Drs. Javi Moraes, Elaina Steiner, Jerod Appiah and colleagues, with an educational vee from [employer]. Review of Systems Const Denies chills, Denies fatigue, Denies fever(s) and Denies headache(s) ENT Denies dysphagia, Denies dizziness, Denies otalgia, Denies headache(s), Denies n mary pain, Denies odynophagia and Denies sore throat Card Denies chest pain, Denies palpitations and Reports dyspnea on exertion (mild) Resp Denies chest congestion, Denies cough and Reports dyspnea on exertion (mild) GI Denies abdominal pain, Denies dysphagia, Denies heartburn, Denies diarrhea, Denies nausea, Denies odynophagia and Denies vomiting Denies difficulty urinating, Denies nocturia and Denies urinary frequency Musc Denies back pain, Denies arthralgias and Denies neck pain Skin/Breast Denies rash Neuro Denies dizziness and Denies headache(s) Endo Denies fatigue and Denies palpitations Physical exam (Primary Care) Vital Signs: Last Vital Signs Pulse 104 H 04/19/25 11:03 BP 140/82 H 04/19/25 11:03 Pulse Ox 92 04/19/25 11:03 Oxygen Delivery Method Room Air 04/19/25 11:03 BMI result Body Mass Index 34.5 Tobacco/Smoking Status: Tobacco use Status Tobacco use date assessed 04/19/25 04/19/25 11:13 Patient Tobacco Use Status Former Tobacco user 04/19/25 11:13 Tobacco use type Cigarette 04/19/25 11:13 e-Cigarette/Vaping Use Never Used 04/19/25 11:13 Depression Screening Interpretation: Positive Depression Screening Follow-up: Follow-up Visit Requested Thrive Assessment: Date of Thrive Assessment Date Thrive assessed 12/14/24 04/19/25 11:13 Currently or been in a relationship where the following occur: No concerns r eported Const General: no acute distress and alert HENMT Ears: TM's normal bilaterally and EAC's normal Throat: Yes posterior oropharynx normal and Yes tonsils normal (no TP congestion noted) Neck Neck: Yes supple and No lymphadenopathy Thyroid: Thyroid normal Resp Auscultation: clear to auscultation bilaterally, no rales and no wheezes Cardio Rate: regular rate Rhythm: regular rhythm Heart sounds: no murmurs GI Palpation (GI): Soft to palpation and nontender Auscultation: normal bowel sounds General: Yes no CVA tenderness Back/Spine/Pelvis Back: no CVA tenderness Thoracic/Lumbar Spine: No lumbar spinal tenderness Skin Rashes: no rashes Extrem General: Yes no clubbing, cyanosis or edema Coding Level of Care Code Est Pt Level 4 (10324) Diagnoses Pure hypercholesterolemia E78.00 Chronic obstructive pulmonary disease, unspecified COPD type J44.9 COPD type: unspecified COPD Ulcerative colitis without complications, unspecified location K51.90 Ulcerative colitis location: unspecified ulcerative colitis location Digestive disease complication type: without complication Elevated blood pressure reading in office without diagnosis of hypertension R03.0 Impaired fasting glucose R73.01 Hypokalemia E87.6 Vitamin D deficiency E55.9 Penile cancer C60.9 Opacity of lung on imaging study R91.8 Obesity (BMI 30-39.9) E66.9 Assessment & Plan Assessment & Plan (1) Pure hypercholesterolemia: Code(s): E78.00 - Pure hypercholesterolemia, unspecified Category: Medical Plan: Patient was not able to get his follow up labs done prior to his appointment today - states that he will go and get these done HILDA, likely tomorrow morning Reinforced low cholesterol diet Continue Simvastatin 20 mg QD Will recheck his labs and fasting lipids again in 4 months for follow up (2) COPD (chronic obstructive pulmonary disease): Comment: He has mild to moderate degree of chronic obstructive pulmonary disease. (LAST SPIROMETRY IN 2019 MILD OBSTRUCTIVE PULM . DISORDER ) Has had no acute exacerbation. Has not required to use any long-acting bronchodilators, has also hardly needed to use the rescue inhaler. Overall his COPD status is mild and remaining very stable .. CURRENTLY HE IS ON PREDNISONE5 MG A DAY FOR HIS IBD . Code(s): J44.9 - Chronic obstructive pulmonary disease, unspecified Category: Medical Qualifiers: COPD type: unspecified COPD Qualified Code(s): J44.9 - Chronic obstructive pulmonary disease, unspecified Plan: Controlled He has not really required any inhalers or oxygen inhalation over the past few years and has had no problems or significant restrictions with his daily activities other than some SOB with increased exertion Follow up with pulmonary (Dr. Hoyt) as scheduled - states that he now just sees Dr. Hoyt once a year (3) Ulcerative colitis: Comment: Repeat colonoscopy done in 2019 - biopsies showed (+) chronic colitis but no dysplastic changes Code(s): K51.90 - Ulcerative colitis, unspecified, without complications Category: Medical Qualifiers: Ulcerative colitis location: unspecified ulcerative colitis location Digestive disease complication type: without complication Qualified Code(s): K51.90 - Ulcerative colitis, unspecified, without complications Plan: Repeat colonoscopy in 2019 showed (+) chronic colitis on his biopsies but no dysplastic changes Continue Mesalamine ER 1.5 gm Q AM; he takes oral Prednisone as needed for flare ups of his colitis Follow up with GI (Dr. Donovan) as scheduled (4) Elevated blood pressure reading in office without diagnosis of hypertension: Code(s): R03.0 - Elevated blood-pressure reading, without diagnosis of hypertension Category: Medical Plan: Reinforced low sodium diet - goal is systolic BP of at least at 130 to 140 mm or less His BP is again slightly elevated today but systolic BP is around 140 mm Patient is reminded to continue monitoring his blood pressure regularly (5) Impaired fasting glucose: Code(s): R73.01 - Impaired fasting glucose Category: Medical Plan: His FBS was normal at 89 mg/dl on his previous labs His HgbA1c was normal at 5.4%; was previously at 6.2% earlier last year Reinforced low calorie diet/exercise as tolerated Will continue to monitor his blood sugar regularly (6) Hypokalemia: Code(s): E87.6 - Hypokalemia Category: Medical Plan: Unknown etiology - patient denies any recent nausea/vomiting or diarrhea and he is not on any medications that can cause hypokalemia His serum potassium level has been normal over the past several months when checked Will continue to monitor his serum potassium level regularly (7) Vitamin D deficiency: Code(s): E55.9 - Vitamin D deficiency, unspecified Category: Medical Plan: Continue Vitamin D3 1000 units QD (8) Penile cancer: Code(s): C60.9 - Malignant neoplasm of penis, unspecified Category: Medical Plan: This was discovered during evaluation for pneumonia and inability to place a Barrera catheter back in August 2024 Patient underwent emergent circumcision which then exposed the glandular penile cancer and eventually underwent distal penectomy successfully on 01/03/[address] Zamudio Follow up with urology as scheduled for continuing surveillance (9) Opacity of lung on imaging study: Code(s): R91.8 - Other nonspecific abnormal finding of lung field Category: Medical Plan: Repeat chest x-rays done in early December 2024 for follow up revealed (+) persistent airspace opacity in the right lower lobe and given the lack of significant interval change compared to a couple of months before, CT was recommended for further evaluation He underwent chest CT a week later in December [address] revealed (+) areas of scarring in the lower lobes bilaterally, with N worrisome opacities noted (10) Obesity (BMI 30-39.9): Comment: This is a chronic problem, partly promoted by his frequently usage of predni sone for inflammatory bowel disease. He will continue to try losing more weight. Denies symptoms of obstructive sleep apnea. Code(s): E66.9 - Obesity, unspecified Category: Medical Plan: Reinforced diet/exercise as tolerated/lose weight although his activity t olerance is limited by his COPD Plan Follow up in 4 months Orders: Orders Comprehensive [place]. Panel Fast 4 Months E78.00 - Pure hypercholesterolemia, unspecified Complete Blood Count Auto Diff 4 Months D64.9 - Anemia, unspecified Lipid Panel 4 Months E78.00 - Pure hypercholesterolemia, unspecified
--- OUTSIDE RECORDS SUMMARY | 2025-04-19 12:30 | XMS_ITS | Patient Health Record ---
Author Organization [facility] Address [address] [place] [address] Care Team Providers Care Photo Mask Cleaner Name Role Phone Darell Galvin MDh Primary Care Provider Javi Collins Unavailable [phone] Allergies No Known Allergies Reason For Referral [...] Problem Status W/U Status Risk Notes Problem [id number] Encounter for screening for malignant neoplasm of colon (Z12.11) Active confirmed Problem 948521657 History of adenomatous polyp of colon (Z86.010) Active confirmed Problem 86479911 Weight loss (R63.4) Active confirmed Problem Screening for malignant neoplasm of rectum (587024151) Encounter for screening for malignant neoplasm of rectum (Z12.12) Active confirmed Problem 703141205 Elevated liver function tests (R79.89) Active confirmed Problem 896078493 Family history of colon cancer (Z80.0) Active confirmed Problem 372689315 Ulcerative pancolitis without complication (K51.00) Active confirmed Problem 34441847250157729 Abnormal gallbladder ultrasound (R93.2) Active confirmed Problem Chronic ulcerative pancolitis (735617475) Ulcerative pancolitis with rectal bleeding (K51.011) Active confirmed Problem 608515969 Abdominal pain, generalized (R10.84) Active confirmed Problem 69185862 Diarrhea, unspecified type (R19.7) Active confirmed Problem 74387227 Diarrhea of presumed infectious origin (R19.7) Active confirmed Vital Signs Blood pressure diastolic 00 mm Hg 06/22/2024 Height 65 in 06/22/2024 Blood pressure systolic 00 mm Hg 06/22/2024 Weight 216 lbs 06/22/2024 BMI 35.94 kg/m2 06/22/2024 Encounters Encounter Location Date Provider Diagnosis [facility] [address] [place] [phone] 06/22/2024 Javi Donovan Ulcerative pancoliti s without complication K51.00 [facility] [address] [place] [phone] 06/08/2024 Javi Donovan [facility] [address] [place] [phone] 07/19/2024 Javi Donovan Ulcerative pancoliti s without complication K51.00 Assessments Encounter Date Diagnosis (ICD Code) Assessment Notes Treatment Notes Treatment Clinical Notes Section Notes 06/22/2024 Ulcerative pancolitis without complication (ICD-10 - K51.00) Continue the one 5mg prednisone daily fpc to try to keep the colitis quiet [...] 11:00:00 AM, [address], [address], [place], [address], Insurance Providers Payer Name Payer Address Payer Phone Subscriber Number Group Number Insured Name Patient Relationship to Insured Coverage Start Date Coverage End Date MEDICARE OF [place] [address] [place] [address] [phone] [id number] JULIANNA KLEIN Self - patient is the insured MED[employer] ATTN CLAIMS [address] [place] [address] [id number] JULIANNA KLEIN Self - patient is the [...]
== END 2025-04-19 11:47 | disposition home or self-care (01) ==
LOC: HO.HMCH 11:00
PROVIDERS: PCP Internal Medicine; Visit Provider Internal Medicine
DX: J44.9 Chronic obstructive pulmonary disease, unspecified (principal); K51.90 Ulcerative colitis, unspecified, without complications; C60.9 Malignant neoplasm of penis, unspecified; E66.9 Obesity, unspecified; Z68.34 Body mass index [BMI] 34.0-34.9, adult; E78.00 Pure hypercholesterolemia, unspecified; R03.0 Elevated blood-pressure reading, without diagnosis of hypertension; R73.01 Impaired fasting glucose; E87.6 Hypokalemia; E55.9 Vitamin D deficiency, unspecified; R91.8 Other nonspecific abnormal finding of lung field

== ENCOUNTER → 2025-04-19 10:59 | Outpatient (BNVA) | payer MEDICARE, SELFPAY | PROVIDERS: PCP Internal Medicine; Visit Provider Internal Medicine | DX: J44.9 Chronic obstructive pulmonary disease, unspecified (principal); E78.00 Pure hypercholesterolemia, unspecified; K51.90 Ulcerative colitis, unspecified, without complications; R03.0 Elevated blood-pressure reading, without diagnosis of hypertension; R73.01 Impaired fasting glucose; E87.6 Hypokalemia; E55.9 Vitamin D deficiency, unspecified; R91.8 Other nonspecific abnormal finding of lung field; C60.9 Malignant neoplasm of penis, unspecified; E66.9 Obesity, unspecified; Z68.34 Body mass index [BMI] 34.0-34.9, adult; Z87.891 Personal history of nicotine dependence; Z71.3 Dietary counseling and surveillance | CPT/HCPCS: 99212 ==

== ENCOUNTER 2025-05-10 10:55 | Outpatient (AMB) | payer MEDICARE, SELFPAY ==
--- OUTSIDE RECORDS SUMMARY | 2024-06-03 06:00 | XMS_ITS ---
Author Organization [facility] Address [address] [place] [phone] Care Team Providers Care Field Agent Name Role Phone Kamar DOMINIQUE, Reyes Primary Care Provider Javi Collins Unavailable [phone] REASON FOR VISIT ulcerative pancolitis Encounters Encounter Location Date Provider Diagnosis [facility] [address] [facility] [address] [place] [phone] 06/03/2024 Javi Donovan Plan Of Treatment Next Appt Details Provider Name:Javi Donovan , 06/23/2025 11:00:00 AM, [address], [address], [place], [address], Progress Notes * JULIANNA LEDESMADOB: [birth year] (79 yo M)Acc No.[id number]:06/03/2024 Progress Notes Patient: JULIANNA CASE Arpan Provider: Sonny Donovan MD :1945 A ge:78 Y S ex:Male Date:06/03/2024 Address:[address] [place], [place] [id number] Pcp:Reyes Galvin MD Subjective: * Chief Complaints: [...] Sonny Donovan MD Date: 08/03/2023 Generated for Vidali antonia/Hailey/eTransmitting on: 1 01:37 PM EDT
--- NOTE | 2025-05-10 11:13 | MHC.OFFVIS ---
Vital Signs 05/10/25 11:14 Height 5 ft 7 in Weight 218 lb BMI 34.1 BP 110/60 Blood Pressure Location Lt brachial Position Sitting Pulse 90 Pulse Source Pulse Oximeter Pulse Oximetry (%) 93 Oxygen Delivery Method Room Air Intake Visit Reasons: Pneumonia Intake Note: pt is here for follow up and states he is feeling he might have a cold, head is stuffy, some coughing,breathing is short with walking, oxygen is at home and using it when he needs it. It Generalist Required: No Flight Engineer Inspector: Flight Engineer Inspector offered & declined Allergies No Known Allergies Allergy (Verified 05/10/25 11:38) Medication List - Last Reconciled 05/10/25 by Celsa Hoyt MD amlodipine 5 mg See Protocol PO DAILY cholecalciferol (vitamin D3) 25 mcg PO DAILY lisinopril 10 mg See Protocol PO DAILY mesalamine ER (Apriso) 1.5 grams PO DAILY prednisone 5 mg PO DAILY simvastatin 20 mg PO BEDTIME terazosin 5 mg PO BEDTIME 90 days Do you need a note to return to daycare/school/sports/work: No HPI HPI Pneumonia: Details: Bright, 79 years old gentleman is here for 6 months follow-up for his pulmonary issues. Because of his gross obesity he does have nocturnal hypoxemia and also has exercise induced hypoxemia. He does not have any significant obstructive airway disorder and does not need to use any bronchodilators. In August of this year he had community-acquired pneumonia which has completely resolved. The CT scan of the chest in December 2024 showed his lungs to be clear. 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 He is doing well. Brigth is on prednisone 5 mg daily for ulcerative colitis. [facility] Medical History HTN (hypertension) [place] (hard of hearing) Allergic rhinosinusitis Obesity (BMI 30-39.9) Vitamin D deficiency Impaired fasting glucose Ulcerative colitis COPD (chronic obstructive pulmonary disease) Pure hypercholesterolemia Exercise hypoxemia COPD (chronic obstructive pulmonary disease) case management patient Surgical History History of penectomy Hx of circumcision (~08/2024) Hx of colonoscopy (2019) Family History Father Medical history unknown Mother Cancer Social History Household Members: None Housing: House Are you a primary career professional to a significant other at home: No Do you presently have visiting nurse or other home services: No 75 years or older and lives alone: Yes Alcohol intake: former Patient Tobacco Use Status: Former Tobacco user Tobacco use type: Cigarette Years Smoked: quit smoking 8 years ago e-Cigarette/Vaping Use: Never Used Second Hand Smoke Exposure: Yes service: No Current occupational status: retired Cognitive needs: No Hearing needs: Yes Vision needs: Yes Review of Systems Const All systems reviewed & are unremarkable except as noted in HPI and below Eyes Reports no additional complaints ENT Reports no additional complaints Card Denies chest pain, Denies irregular heart rhythm and Reports leg edema (Mild around the ankles in the evenings.) Resp Reports as per HPI GI Reports GI cramping, Reports diarrhea and Reports other (Being treated for chronic inflammatory colitis.) Reports no additional complaints Musc Reports myalgias Skin/Breast Reports system reviewed and no additional complaints, except as documented Neuro Reports no additional complaints Psych Reports no additional complaints Physical Exam Vital Signs: Last Vital Signs Pulse 90 05/10/25 11:14 BP 110/60 05/10/25 11:14 Pulse Ox 93 05/10/25 11:14 Oxygen Delivery Method Room Air 05/10/25 11:14 BMI result Body Mass Index 25.0 Const Other: Grossly obese looking General: comfortable, no acute distress, alert and awake Orientation/consciousness: patient oriented x3 HEENT Head: Yes normal to inspection General nose exam: No nasal polyps present, No nasal discharge present and Other nasal findings present (Does have bilateral nasal congestion and hypertrophy of the nasal turbinate) Face and sinus: Yes sinuses nontender Mouth: oropharynx normal Throat: Yes posterior oropharynx normal Eyes General: appearance normal, both eyes and all related structures Neck Neck: Yes normal visual inspection, Yes no lymphadenopathy, Yes trachea midline and Yes no JVD Thyroid: Thyroid normal Chest Chest palpation & inspection: normal inspection of the chest, normal palpation of entire chest wall and no tenderness Resp Other: Percussion note resonant, breath sounds are distant especially diminished over the basilar areas. On auscultation no wheezes rhonchi or crepitations are heard . Cardio Palpation: normal PMI Rate: regular rate Rhythm: regular rhythm Heart sounds: no gallops and no murmurs GI Palpation (GI): Soft to palpation, nontender, No hepatosplenomegaly present, no masses and Other GI palpation findings present (Abdomen is obese and protuberant) Auscultation: normal bowel sounds Other: Has indwelling Barrera catheter in place Back/Spine/Pelvis Thoracic/Lumbar Spine: thoracic and lumbar spine normal to inspection Skin General skin exam: no rashes or lesions noted Neuro General: patient oriented x3 and no focal motor deficits Cranial nerves: Yes CN's II-XII intact bilaterally Extrem General: Yes normal to inspection, Yes no clubbing, cyanosis or edema and Yes no calf tenderness Psych Appearance: grossly normal and well kempt Speech and movement: Normal speech and movement present Assessment & Plan Assessment & Plan (1) COPD (chronic obstructive pulmonary disease) case management patient: Comment: COPD. MILD AND WELL CONTROLLED. HE HAS EXERCISE INDUCED HYPOXEMIA WHICH IS MORE DUE TO HIS GROSS OBESITY. Code(s): J44.9 - Chronic obstructive pulmonary disease, unspecified Category: Medical Plan: He does not need to use any bronchodilators for his COPD. He is on prednisone 5 mg daily for his ulcerative colitis . That does. Helped to keep his lungs clear Talked about taking vitamin-D and calcium supplements. (2) Exercise hypoxemia: Comment: HE HAS EXERCISE INDUCED HYPOXEMIA. WHILE IN THE HOSPITAL ALSO FOUND TO HAVE NOCTURNAL HYPOXEMIA HE DOES USE O2 2 L/MINUTE AT NIGHT AND P.R.N. DURING THE DAYTIME. Code(s): R09.02 - Hypoxemia Category: Medical Plan: O2 2 L/minute at night , which he is using only p.r.n. O2 2 L/minute with the portable unit during the daytime if. He has to go outdoors for longer periods (3) Allergic rhinosinusitis: Comment: THIS IS A CHRONIC PROBLEM AND DOES FLARE UP DURING SEASONAL CHANGES. CURRENTLY HE HAS NO ACTIVE NASAL CONGESTION POSTNASAL DISCHARGE. Code(s): J30.9 - Allergic rhinitis, unspecified Category: Medical Plan: MAY USE OTC ANTIHISTAMINICS SUCH CETIRIZINE 10 MG OR LORATADINE 10 MG ONCE A DAY P.R.N. Coding Level of Care Code Est Pt Level 3 (13718) Diagnoses COPD (chronic obstructive pulmonary disease) case management patient J44.9 Exercise hypoxemia R09.02 Allergic rhinosinusitis J30.9
[2025-05-10 11:14] VITALS: BP 110/60; PULSE 90; O2SAT 93; BMI 34.1
--- OUTSIDE RECORDS SUMMARY | 2025-05-10 13:37 | XMS_ITS | Patient Health Record ---
Author Organization [facility] Address [address] [place] [address] Care Team Providers Care Supervisor Carpenters Name Role Phone Darell Galvin MDh Primary Care Provider Javi Collins Unavailable [phone] Allergies No Known Allergies Reason For Referral No Information Medications Medication SIG (Take, Route, Fr equency, Duration) Notes Start Date End Date Status Mesalamine ER 0.375 GM TAKE 4 CAPSULES B Y MOUTH EVERY MORNING; Duration: 90 Acti ve Vitamin D 1000 UNIT 1 tablet Orally Once a day Active Simvastatin 20 MG 1 tablet in the even ing Orally Once a day Active Apriso 0.375 GM TAKE 4 CAPSULES BY M OUTH EVERY MORNING Active predniSONE 5 MG 1 tablet Orally Once a day; Duration: 90 days Active Immunizations Vaccine Route Administration [...] Problem Status W/U Status Risk Notes Problem Screening for malignant neoplasm of colon (319848189) Encounter for screening for malignant neoplasm of colon (Z12.11) Active confirmed Problem History of adenomatous polyp of colon (868341379) History of adenomatous polyp of colon (Z86.010) Active confirmed Problem Weight loss (364811323) Weight loss (R63.4) Active confirmed Problem Screening for malignant neoplasm of rectum (998437943) Encounter for screening for malignant neoplasm of rectum (Z12.12) Active confirmed Problem Elevated liver enzymes level (318087393) Elevated liver function tests (R79.89) Active confirmed Problem Family History of Cancer of Colon (Situation) (088040728) Family history of colon cancer (Z80.0) Active confirmed Problem Chronic ulcerative pancolitis (720546480) Ulcerative pancolitis without complication (K51.00) Active confirmed Problem Abnormal findings diagnostic imaging of liver and biliary tract (573913568) Abnormal gallbladder ultrasound (R93.2) Active confirmed Problem Chronic ulcerative pancolitis (604441036) Ulcerative pancolitis with rectal bleeding (K51.011) Active confirmed Problem Generalized abdominal pain (636971846) Abdominal pain, generalized (R10.84) Active confirmed Problem Diarrhea (65376699) Diarrhea, unspecified type (R19.7) Active confirmed Problem Diarrhea of presumed infectious origin (79271699) Diarrhea of presumed infectious origin (R19.7) Active confirmed Vital Signs Blood pressure diastolic 00 mm Hg 06/22/2024 Height 65 in 06/22/2024 Blood pressure systolic 00 mm Hg 06/22/2024 Weight 216 lbs 06/22/2024 BMI 35.94 kg/m2 06/22/2024 Encounters Encounter Location Date Provider Diagnosis [facility] [address] [place] [phone] 06/22/2024 Javi Donovan Ulcerative pancoliti s without complication K51.00 [facility] [address] [place] [phone] 06/08/2024 Javi Donovan [facility] [address] [place] [phone] 07/19/2024 Javi Donovan Ulcerative pancoliti s without [...] Name:Javi Donovan , 06/23/2025 11:00:00 AM, [address], [place], [address], Insurance Providers Payer Name Payer Address Payer Phone Subscriber Number Group Number Insured Name Patient Relationship to Insured Coverage Start Date Coverage End Date MEDICARE OF [place] [address] [place] [address] [phone] [id number] JULIANNA KLEIN Self - patient is the insured MED[employer] ATTN CLAIMS [address] [place] [address] [phone] [id number] JULIANNA KLEIN Self - patient is the insured Medical (General) History Medical History History ICD Code Ulcerative colitis diagnosed in 1994 Tubular adenomas of the colon Denies [place],DM,CVA,Lung disease,renal dise ase Hyperlipidemia Pneumonia--hospitalized twic e [...] 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
== END 2025-05-10 11:50 | disposition home or self-care (01) ==
LOC: HO.HPS 10:56
PROVIDERS: PCP Internal Medicine; Visit Provider Internal Medicine
DX: J44.9 Chronic obstructive pulmonary disease, unspecified (principal); R09.02 Hypoxemia; J30.9 Allergic rhinitis, unspecified
CPT/HCPCS: 99213

== ENCOUNTER → 2025-05-10 10:55 | Outpatient (BNVA) | payer MEDICARE, SELFPAY | PROVIDERS: PCP Internal Medicine; Visit Provider Internal Medicine | DX: J44.9 Chronic obstructive pulmonary disease, unspecified (principal); R09.02 Hypoxemia; J30.9 Allergic rhinitis, unspecified; Z99.81 Dependence on supplemental oxygen; Z87.891 Personal history of nicotine dependence | CPT/HCPCS: 99212 ==